=== PATIENT | female | born 1950 | race Caucasian/White ===

== ENCOUNTER 2017-08-31 13:44 | Day surgery (SDC) | payer BC, MEDICARE ==
[~2017-08-31] VITALS: Ht 162.6 cm; Wt 72.7 kg
[~2017-08-31 13:44] MED LIST changes: -ASPI1TAB PO; -CHAN1PAK11 PO; -CHAN1PAK9 PO; -DESITIN EXT; -KEFL500C17 PO
[2017-08-31] MEDS ORDERED: LR 1,000 ML IV SCH ×2 (14:00→18:45)
[2017-08-31 14:19] LABS: MEAN CORPUSCULAR HEMOGLOBIN 29.5 pg (27.0-33.0); MEAN CORPUSCULAR VOLUME 92.1 fl (80.0-96.0); RED CELL DISTRIBUTION WIDTH 12.7 % (11.5-14.5); WHITE BLOOD COUNT 9.2 10^3/uL (4.0-10.0)
[2017-08-31] MEDS ORDERED: ASPI1TAB PO (14:52)
[2017-08-31] MEDS ORDERED: VASOPRESSIN INJ 20 UNITS/ML VIAL As Ordered ONE (16:20)
[2017-08-31] MEDS ORDERED: fentaNYL 100 MCG/2 ML INJECTION (J3010) As Ordered ONE (16:44)
[2017-08-31] MEDS ORDERED: MIDAZOLAM INJ 2 MG/2 ML VIAL (J2250) As Ordered ONE (16:44)
[2017-08-31] MEDS ORDERED: PROPOFOL 200 MG/20 ML VIAL As Ordered ONE (16:44)
[2017-08-31] MEDS ORDERED: fentaNYL 100 MCG/2 ML INJECTION (J3010) IV PRN (18:45)
[2017-08-31] MEDS: LR 1,000 ML IV SCH (18:45)
[2017-08-31] MEDS ORDERED: PERCOCET 5MG/325MG TAB PO PRN (18:45)
[2017-08-31] MEDS ORDERED: ONDANSETRON 4MG/2ML VIAL (J2405) IV PRN (18:45)
[2017-08-31] MEDS ORDERED: HYDROmorphone HCL 1 MG/ML SYRINGE (J1170) IV PRN (18:45)
[2017-08-31 19:45] VITALS: BP 186/83
[2017-08-31 20:15] VITALS: BP 140/70
[2017-08-31 21:15] VITALS: BP 128/59
[2017-08-31] MEDS: DIAPER RELIEF PASTE (DESITIN) 60GM TOP SCH (22:13)
[2017-08-31 22:15] VITALS: BP 114/56
[2017-08-31 23:15] VITALS: BP 129/59
[2017-09-01 00:15] VITALS: BP 122/58
[2017-09-01] MEDS: LR 1,000 ML IV SCH ×2 (01:28→10:09)
[2017-09-01] MEDS: DIAPER RELIEF PASTE (DESITIN) 60GM TOP SCH ×4 (01:28→12:15)
[2017-09-01 04:15] VITALS: BP 135/73
[2017-09-01 07:51] LABS: MEAN CORPUSCULAR HEMOGLOBIN 29.4 pg (27.0-33.0); MEAN CORPUSCULAR HGB CONC 31.8 g/dl (32.0-36.5); MEAN CORPUSCULAR VOLUME 92.3 fl (80.0-96.0); RED CELL DISTRIBUTION WIDTH 12.9 % (11.5-14.5); WHITE BLOOD COUNT 8.5 10^3/uL (4.0-10.0)
[2017-09-01 08:00] VITALS: BP 118/70
[2017-09-01 08:29] LABS: GLOMERULAR FILTRATION RATE > 60.0 (>45)
--- NOTE | 2017-09-01 09:21 | REP ---
CT abdomen and pelvis without IV or oral contrast: History: Evaluate kidneys. No comparison studies. Findings: Preliminary hooker machine tender radiograph shows an unremarkable bowel gas pattern. There are clips in right upper quadrant. There are sclerotic densities in the femoral heads bilaterally on the hooker machine tender view as well as some arthritis in the right hip. Axial and coronal images demonstrate evidence of avascular necrosis of portions of the femoral head on both sides without evidence of flattening. There is some spurring in the right hip. No bony destructive lesion is seen. The lung bases are clear. The liver and spleen are normal in size and homogeneous in texture. A small accessory splenule is seen adjacent to the pancreatic tail. No pancreatic abnormality is observed. No adrenal lesion is seen. The kidneys are morphologically intact. No hydronephrosis is seen. No renal mass or cyst is observed. No retroperitoneal mass or adenopathy is seen. Normal caliber aorta is noted. The appendix is not identified but there is no inflammatory change in the right lower quadrant to suggest appendicitis. There is an edematous pattern surrounding the Robles catheterized urinary bladder. There is edematous streaking in the ischiorectal fat and perivaginal fat in the perineum centrally as well. No free air is seen. The bladder appears essentially collapsed although there may be bladder wall thickening around the Robles catheter. No uterine abnormality is observed. The right ovary is enlarged with a homogeneous oval-shaped lesion 9.5 x 5.9 x 6.3 cm in diameter. This is compatible with an ovarian cystic lesion. No free fluid is noted in the cul-de-sac. The left ovary is also felt to be somewhat enlarged measuring 4.2 x 4.4 x 3.9 cm. No significant cyst or mass is identified in the left ovary. Impression: 1. 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 2. Robles catheter is seen in the bladder. There is question bladder wall thickening diffusely and there is perivesical, perivaginal and perirectal fat infiltration or edema. No abnormal fluid collection is seen. Uterus is unremarkable. 3. There is a 9.5 cm cystic lesion in the right ovary. The left ovary is somewhat enlarged as well for this postmenopausal patient. Question ovarian neoplastic disease. 4. Left colonic diverticulosis is seen. 5. Gallbladder surgically absent. 6. No renal abnormality observed. Signed by Sly Green MD 09/01/2017 11:58 A
--- NOTE | 2017-09-01 10:14 | RO ---
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 Confirmation of large vesicovaginal fistula. This is in the 8-10 cm range of defect vertically and not quite as wide, but a large defect. Also, active infection. PROCEDURE: Removal of vaginal stone and pessary. Vaginal irrigation. Cystourethroscopy. Repair of vesicovaginal fistula. As the patient was aware preoperatively, I have every expectation of this patient needing another repair, nevertheless, given the size of the defect, if I did not close it in any way today the Robles would have simply been in the vagina and she is certainly not in a position with her current inflamed tissue and current infection to have a gracilis flap or that type of repair, so the hope is that we can improve tissue quality, and get her healed up enough for another repair in the future. SURGEON: Anay Boyer MD COMPUTER PROGRAMMER:none ANESTHESIA: Spinal. BRIEF DESCRIPTION OF PROCEDURE AND FINDINGS: Elvira was brought to the operating room where sufficient spinal anesthesia was induced. She was prepped externally and partially vaginally, because of course the stone and the pessary obscured much of the vagina and then also I very carefully worked the Betadine around the area, and then we irrigated with warm saline a full liter, using an IV tubing so that we could guide that around and irrigate the entire area of the tissues. Under anesthesia, it was clear that the vulvitis was in a pattern of just breakdown due to constant urine presence. I had considered the possibility of a herpetic lesion or shingles because there was a dermatome that follows that pattern somewhat and pt reported the vulvar changes came on suddenly during the week before presentation, but under anesthesia we could really see that we did not have a consistent size of ulceration and we had a pattern that looked very much like it was from the urine discharge such as is seen with chemical burn of the vulva due to chronic leakage and presence of urine on the tissue, and, as I will note later in this dictation, we confirmed a markedly large vesicovaginal fistula with just constant drainage of urine irritating those tissues and leading to tissue ulceration and breakdown in this menopausal patient. Under anesthesia I was able manually to break off portions of the stone and separate the connection of the vaginal wall to the stone and to the pessary, especially after we had irrigated because some pieces of stone came out just with irrigation and I was able to note that the pessary was actually upside down with the top part of the Gelhorn in the inferior right and the stem angling up and to the patient's left, though I am not sure why it was in that position. It is certainly not a typical thing, so the stem was digging forward and creating a long midline sort of defect. It was also completely buried under the tissues anteriorly. I was able to carefully bring the pessary out, and then more of the the stone, and then continued to irrigate the tissue further to rinse out any other further stones. Before removing the pessary, I had already catheterized her and seen outright pus and blood come from the bladder, but very little, if it was 10 mL that would be a surprise. Then after I took out the pessary I cystoscoped her. We were not able to get decent bladder distention because there was simply this wholesale pouring of the sterile saline for the cystoscopy out of the bladder into the vagina. I was able to place a finger vaginally and simply place it into the bladder as we were irrigating out the other way with the cystoscope. With the scope we could see my finger move into this large defect, again 8-10 cm in the bladder and a little longer in the vagina and the anterior vaginal wall was inflamed and thickened, about 3 cm thick, as well. With all these changes from this large vesico-vaginal fistula, we removed and freshened the edges, removing as little bladder as we could, really not removing bladder wall, but the edges of the vagina and the thickened tissue within the fistula tract, and we did see, at least on the right side, the ureteral orifice, which appeared to be inferior to this large rent, but the fistula certainly comes down the trigone, it is not really simply confined. Nevertheless, had I stopped there and placed a Robles. I felt the Robles would simply sit in the vagina and hold the defect open. So, we freshened the vaginal and fistula edges and did a multilayer closure with #3-0 Vicryl just to try to close off that defect and minimize that wound so that we could then drain the bladder, try to let the vulva heal up, try to let the vaginal tissues heal up, so that she could have a gracilis flap or other such closure in the future. We were able to get to the point where the bladder would hold fluid, but I did not fill it up as much as we would usually do to see if there was a waterproof closure, because we had such friable tissues and the goal was really to try to get this defect diminished, especially in the face of the active infection that she has and not with the expectation that this primary repair would be sufficient entirely. After the multilayer closure of those tissues though, we were able to see a more typical evaluation. There did not appear to be a matching posterior wall defect , fortunately. The pessary had really been embedded anteriorly and caused the vesicle neck to just drop inferiorly so there was just marked inflammation and thickened tissues there, but I did not have a similar posterior defect so we did not do any work posteriorly and we placed a Robles and got return of cysto fluid and then completed the case. Again, she continued making urine throughout the case, so although this defect does come down to the top of trigone, she did not appear to have ureteral injury nor did I think it would be appropriate in the face of this active infection to place an indwelling stent and try and leave it there. My goal was more to help the patient begin to heal with the expectation of further intervention being necessary. We will be checking an ultrasound in the a.m. to evaluate renal function and look for distention, but at this point we had egress of urine during the beginning of the case for much of that time, so I have every expectation that she continues to have normal ureteral function. I cannot rule out another site of a ureterovaginal fistula on the basis of this exam, but again, it is clear there will be further intervention necessary. I did not want her to have to have general anesthesia for that evaluation nor did I want to retrograde treat her with any of these with the current active infection. ESTIMATED BLOOD LOSS: About 20 mL, just from freshening those edges. FLUID REPLACEMENT: Crystalloid. COMPLICATIONS: This is a complicated case, but there did not appear to be any surgical complications to it. CONDITION/DISPOSITION: Despite her significant injury, Elvira seems to have tolerated the procedure well. She is recovering in the recovery room in good condition thus far. DOUGLAS
[2017-09-01 12:00] VITALS: BP 124/58
[2017-09-01] MEDS ORDERED: ACETAMINOPHEN TAB 650MG DOSE (2X325MG) PO ONE (12:00)
[2017-09-01] MEDS ORDERED: KEFL500C17 PO (16:25)
[2017-09-01] MEDS ORDERED: DESITIN EXT (16:25)
[2017-09-01] MEDS ORDERED: CHAN1PAK11 PO (16:25)
[2017-09-01] MEDS ORDERED: CHAN1PAK9 PO (16:25)
== END 2017-09-01 19:05 | disposition home or self-care (01) ==
LOC: M SDC 13:44 → M PED 19:40 → M SDC 09-01 19:05
PROVIDERS: ATTEND Obstetrics & Gynecology
DX: N89.8 Other specified noninflammatory disorders of vagina (principal); N82.0 Vesicovaginal fistula; N76.2 Acute vulvitis; J45.909 Unspecified asthma, uncomplicated; K21.9 Gastro-esophageal reflux disease without esophagitis; M54.5 Low back pain; G89.29 Other chronic pain; G43.909 Migraine, unspecified, not intractable, without status migrainosus; Z79.899 Other long term (current) drug therapy; Z79.82 Long term (current) use of aspirin; Z96.0 Presence of urogenital implants
CPT/HCPCS: 36415; 52310; 57320; 74176; 82565; 85027; 87088; 88300; J0690; J2250; J3010

== ENCOUNTER → 2017-08-31 | Outpatient (REF) | payer BC, MEDICARE ==
[~2017-08-31] MED LIST: ALBU2TA PO; ASPI1TAB PO; CHAN1PAK11 PO; CHAN1PAK9 PO; DESITIN EXT; FLEX10TA2 PO; IBUP200T2 PO; IBUP600T26 PO; KEFL500C17 PO; PERCOCET PO; ZANT150T PO
[2017-08-31 18:27] LABS: MICROSCOPIC INDICATED? MAN YES (NO)
[2017-08-31 18:41] LABS: SQUAMOUS EPITHELIAL CELL URINE SMALL AMOUNT /hpf (SMALL AMT)
[2017-08-31 18:42] LABS: BACTERIA, URINE SMALL AMOUNT; HYALINE CAST, URINE NONE SEEN /lpf (0-1); MICROSCOPIC EXAM PERFORMED
== END ==
LOC: M LAB REF 16:34
PROVIDERS: ATTEND Obstetrics & Gynecology
DX: N39.0 Urinary tract infection, site not specified (principal)

== ENCOUNTER → 2017-10-03 | Outpatient (REF) | payer MEDICARE ==
[~2017-10-03] MED LIST changes: +ASPI1TAB PO; +CHAN1PAK11 PO; +CHAN1PAK9 PO; +DESITIN EXT; +KEFL500C17 PO
== END ==
LOC: M LAB REF 09:51
PROVIDERS: ATTEND Obstetrics & Gynecology
DX: N32.81 Overactive bladder (principal); N39.41 Urge incontinence

== ENCOUNTER → 2017-10-17 | Outpatient (REF) | payer MEDICARE | LOC: M SMT 17:23 | PROVIDERS: ATTEND Urology | DX: N30.00 Acute cystitis without hematuria (principal) ==

== ENCOUNTER → 2017-11-09 | Outpatient (CLI) | payer MEDICARE, BC ==
[2017-11-09 17:35] LABS: MEAN CORPUSCULAR HEMOGLOBIN 30.7 pg (27.0-33.0); MEAN CORPUSCULAR HGB CONC 31.3 g/dl (32.0-36.5); MEAN CORPUSCULAR VOLUME 98.1 fl (80.0-96.0); PLATELET COUNT, AUTOMATED 276 10^3/uL (150-450); RED CELL DISTRIBUTION WIDTH 14.5 % (11.5-14.5); WHITE BLOOD COUNT 5.8 10^3/uL (4.0-10.0)
[2017-11-09 17:47] LABS: INR 0.97
[2017-11-09 18:01] LABS: ANION GAP 5 MEQ/L (8-16); BLOOD UREA NITROGEN 19 MG/DL (7-18); CALCIUM LEVEL 8.3 MG/DL (8.8-10.2); CARBON DIOXIDE LEVEL 30 MEQ/L (21-32); CHLORIDE LEVEL 106 MEQ/L (98-107); CREATININE FOR GFR 0.83 MG/DL (0.55-1.02); GLOMERULAR FILTRATION RATE > 60.0 (>45); GLUCOSE, FASTING 133 MG/DL (80-110); POTASSIUM SERUM 4.5 MEQ/L (3.5-5.1); SODIUM LEVEL 141 MEQ/L (136-145)
== END ==
LOC: M SMT 10:51
PROVIDERS: ATTEND Nurse Practitioner Women's Health
DX: Z01.818 Encounter for other preprocedural examination (principal); Z79.899 Other long term (current) drug therapy

== ENCOUNTER → 2017-11-09 | Outpatient (REF) | payer MEDICARE, BC ==
[2017-11-09 13:52] LABS: TRIPLE PHOSPHATE CRYSTALS SMALL
== END ==
LOC: M SMT 12:54
PROVIDERS: ATTEND Urology
DX: N30.00 Acute cystitis without hematuria (principal)

== ENCOUNTER 2017-11-30 10:37 | Day surgery (SDC) | payer MEDICARE ==
[2017-11-30] MEDS ORDERED: LIDOCAINE 1% MDV 20ML VIAL SQ (11:00)
[2017-11-30] MEDS: LR 1,000 ML IV (11:45)
[2017-11-30] MEDS ORDERED: PROPOFOL 200 MG/20 ML VIAL As Ordered ×3 (13:16→14:04)
[2017-11-30] MEDS ORDERED: MIDAZOLAM INJ 2 MG/2 ML VIAL (J2250) As Ordered (13:16)
[2017-11-30] MEDS ORDERED: LIDOCAINE 2% INJ 100 MG/5 ML SDV (FOR ANES.) As Ordered (13:16)
[2017-11-30] MEDS ORDERED: fentaNYL 100 MCG/2 ML INJECTION (J3010) As Ordered (13:16)
[2017-11-30] MEDS ORDERED: ONDANSETRON 4MG/2ML VIAL (J2405) As Ordered (13:16)
[2017-11-30] MEDS: METHYLENE BLUE 0.5% (5MG/ML) 10 ML AMP (PROVAYBLUE)(Q9968 PER 1MG) As Ordered (14:14)
[2017-11-30] MEDS ORDERED: KETOROLAC 60 MG/2 ML VIAL (J1885) As Ordered (14:36)
[2017-11-30] MEDS: CONRAY-60 60% 50ML VIAL (Q9961) As Ordered (14:47)
== END 2017-11-30 17:25 | disposition home or self-care (01) ==
LOC: M SDC 10:37
DX: N82.0 Vesicovaginal fistula (principal); J45.909 Unspecified asthma, uncomplicated; Z79.82 Long term (current) use of aspirin; Z87.440 Personal history of urinary (tract) infections; Z72.0 Tobacco use; Z78.0 Asymptomatic menopausal state
CPT/HCPCS: 52332

== ENCOUNTER → 2017-12-20 | Outpatient (REF) | payer MEDICARE ==
[2017-12-20 17:24] LABS: INR 0.97
[2017-12-20 17:25] LABS: PARTIAL THROMBOPLASTIN TIME 37.2 SECONDS (26.8-37.9)
[2017-12-20 17:52] LABS: BASO # 0.1 10^3/uL (0.0-0.2); BASO % 0.8 % (0.0-1.0); EOS # 0.2 10^3/uL (0.0-0.50); EOS % 2.6 % (0.0-3.0); HEMATOCRIT 40.8 % (36.0-47.0); HEMOGLOBIN 13.1 g/dl (12.0-16.0); IMMATURE GRANULOCYTE % 0.4 % (0-0); LYMPH # 1.7 10^3/uL (1.5-4.5); LYMPH % 23.2 % (24.0-44.0); MEAN CORPUSCULAR HEMOGLOBIN 30.5 pg (27.0-33.0); MEAN CORPUSCULAR HGB CONC 32.1 g/dl (32.0-36.5); MEAN CORPUSCULAR VOLUME 95.1 fl (80.0-96.0); MONO # 0.7 10^3/uL (0.0-0.8); MONO % 9.7 % (0.0-5.0); NEUTROPHILS # 4.6 10^3/uL (1.8-7.7); NEUTROPHILS % 63.3 % (36.0-66.0); PLATELET COUNT, AUTOMATED 375 10^3/uL (150-450); RED BLOOD COUNT 4.29 10^6/uL (4.00-5.40); RED CELL DISTRIBUTION WIDTH 12.6 % (11.5-14.5); WHITE BLOOD COUNT 7.2 10^3/uL (4.0-10.0)
[2017-12-20 18:26] LABS: ALBUMIN 3.5 GM/DL (3.2-5.2); ALBUMIN/GLOBULIN RATIO 0.92 (1.00-1.93); ALKALINE PHOSPHATASE 136 U/L (45-117); ALT/SGPT 18 U/L (12-78); ANION GAP 9 MEQ/L (8-16); AST/SGOT 14 U/L (7-37); BILIRUBIN,TOTAL 0.3 MG/DL (0.2-1.0); BLOOD UREA NITROGEN 21 MG/DL (7-18); CALCIUM LEVEL 8.5 MG/DL (8.8-10.2); CARBON DIOXIDE LEVEL 25 MEQ/L (21-32); CHLORIDE LEVEL 107 MEQ/L (98-107); CHOLESTEROL LEVEL 153 MG/DL (<200); CHOLESTEROL RISK RATIO 2.942 (<5); CREATININE FOR GFR 1.01 MG/DL (0.55-1.30); GLOMERULAR FILTRATION RATE 58.4 (>45); GLUCOSE, FASTING 86 MG/DL (70-100); HDL CHOLESTEROL 52 MG/DL (>40); NON-HDL-C 101 MG/DL; POTASSIUM SERUM 4.5 MEQ/L (3.5-5.1); SODIUM LEVEL 141 MEQ/L (136-145); TOTAL PROTEIN 7.3 GM/DL (6.4-8.2); TRIGLYCERIDES LEVEL 100 MG/DL (<150)
== END ==
LOC: M SFHCPLAZ 15:46
DX: J44.9 Chronic obstructive pulmonary disease, unspecified (principal); N20.0 Calculus of kidney; E66.09 Other obesity due to excess calories; Z13.220 Encounter for screening for lipoid disorders; Z23 Encounter for immunization; Z68.31 Body mass index [BMI] 31.0-31.9, adult; Z79.899 Other long term (current) drug therapy
CPT/HCPCS: 84443

== ENCOUNTER → 2017-12-27 | Outpatient (REF) | payer MEDICARE ==
[2017-12-27 16:04] LABS: ALKALINE PHOSPHATASE 171 U/L (45-117); GAMMA GLUTAMYLTRANSPEPTIDASE 122 U/L (5-55)
[2017-12-27 16:37] LABS: ESTIMATED AVERAGE GLUCOSE 126 MG/DL (60-110)
[2017-12-27 16:54] LABS: CREATININE, URINE < 13.0 MG/DL
[2017-12-27 17:12] LABS: LABILE ALKPHOS 97 U/L; STABLE ALKPHOS 74 U/L
[2017-12-27 17:13] LABS: % LABILE ALKALINE PHOSPHATASE 56.7 %
[2017-12-30 11:33] LABS: CA 125 11.1 U/ML (<30.2)
== END ==
LOC: M SFHCPLAZ 12:01
DX: E66.9 Obesity, unspecified (principal); R74.8 Abnormal levels of other serum enzymes; J44.9 Chronic obstructive pulmonary disease, unspecified; Z68.31 Body mass index [BMI] 31.0-31.9, adult; Z79.82 Long term (current) use of aspirin
CPT/HCPCS: 83036

== ENCOUNTER → 2017-12-28 | Outpatient (REF) | payer MEDICARE | LOC: M SFHCPLAZ 08:12 | DX: N83.9 Noninflammatory disorder of ovary, fallopian tube and broad ligament, unspecified (principal) ==

== ENCOUNTER → 2018-01-11 | Outpatient (CLI) | payer MEDICARE | LOC: M RAD 12:14 | DX: J84.9 Interstitial pulmonary disease, unspecified (principal); R06.02 Shortness of breath | CPT/HCPCS: 71046 ==

== ENCOUNTER → 2018-01-19 | Outpatient (REF) | payer MEDICARE ==
[2018-01-19 17:39] LABS: INR 1.07; PROTHROMBIN TIME 14.1 SECONDS (12.4-14.5)
[2018-01-19 17:40] LABS: PARTIAL THROMBOPLASTIN TIME 37.9 SECONDS (26.8-37.9)
[2018-01-19 18:01] LABS: ALBUMIN 2.8 GM/DL (3.2-5.2); ALBUMIN/GLOBULIN RATIO 0.51 (1.00-1.93); ALKALINE PHOSPHATASE 178 U/L (45-117); ALT/SGPT 15 U/L (12-78); ANION GAP 8 MEQ/L (8-16); AST/SGOT 11 U/L (7-37); BILIRUBIN,TOTAL 0.2 MG/DL (0.2-1.0); BLOOD UREA NITROGEN 21 MG/DL (7-18); CALCIUM LEVEL 8.8 MG/DL (8.8-10.2); CARBON DIOXIDE LEVEL 27 MEQ/L (21-32); CHLORIDE LEVEL 105 MEQ/L (98-107); CREATININE FOR GFR 1.48 MG/DL (0.55-1.30); GLOMERULAR FILTRATION RATE 37.6 (>45); GLUCOSE, FASTING 97 MG/DL (70-100); SODIUM LEVEL 140 MEQ/L (136-145); TOTAL PROTEIN 8.3 GM/DL (6.4-8.2)
[2018-01-19 18:34] LABS: BASO # 0.1 10^3/uL (0.0-0.2); EOS # 0.3 10^3/uL (0.0-0.50); EOS % 3.2 % (0.0-3.0); HEMOGLOBIN 10.7 g/dl (12.0-16.0); IMMATURE GRANULOCYTE % 0.2 % (0-3.0); LYMPH # 2.4 10^3/uL (1.5-4.5); LYMPH % 27.4 % (24.0-44.0); MEAN CORPUSCULAR HEMOGLOBIN 29.2 pg (27.0-33.0); MEAN CORPUSCULAR HGB CONC 31.5 g/dl (32.0-36.5); MEAN CORPUSCULAR VOLUME 92.9 fl (80.0-96.0); MONO # 0.6 10^3/uL (0.0-0.8); MONO % 7.2 % (0.0-5.0); NEUTROPHILS # 5.4 10^3/uL (1.8-7.7); PLATELET COUNT, AUTOMATED 689 10^3/uL (150-450); RED BLOOD COUNT 3.66 10^6/uL (4.00-5.40); RED CELL DISTRIBUTION WIDTH 11.9 % (11.5-14.5); WHITE BLOOD COUNT 8.8 10^3/uL (4.0-10.0)
== END ==
LOC: M SFHCPLAZ 16:04
DX: Z01.818 Encounter for other preprocedural examination (principal); N83.9 Noninflammatory disorder of ovary, fallopian tube and broad ligament, unspecified; I10 Essential (primary) hypertension; E66.9 Obesity, unspecified; J44.9 Chronic obstructive pulmonary disease, unspecified; N20.0 Calculus of kidney; N82.0 Vesicovaginal fistula; E78.2 Mixed hyperlipidemia; R73.01 Impaired fasting glucose; Z79.899 Other long term (current) drug therapy; Z72.0 Tobacco use
CPT/HCPCS: 80053

== ENCOUNTER → 2018-01-23 | Outpatient (REF) | payer MEDICARE ==
[2018-01-23 14:01] LABS: APPEARANCE, URINE TURBID (CLEAR); BACTERIA, URINE AUTO 3+ (NEGATIVE); BILIRUBIN, URINE AUTO NEGATIVE (NEGATIVE); BLOOD, URINE BLOOD 1+ (NEGATIVE); COLOR, URINE YELLOW (YELLOW); GLUCOSE, URINE (UA) AUTO NEGATIVE (NEGATIVE); KETONE, URINE AUTO NEGATIVE (NEGATIVE); LEUKOCYTE ESTERASE, URINE AUTO 3+ (NEGATIVE); MUCUS, URINE SMALL (NEGATIVE); NITRITE, URINE AUTO NEGATIVE (NEGATIVE); PROTEIN, URINE AUTO 3+ mg/dL (NEGATIVE); RBC, URINE AUTO 29 /HPF (0-3); SPECIFIC GRAVITY URINE AUTO 1.013 (1.002-1.035); SQUAMOUS EPITHELIAL CELL UR AU 0 /HPF (0-6); UROBILINOGEN, URINE AUTO 0.2 mg/dL (0.0-2.0); WBC, URINE AUTO TNTC /HPF (0-3)
== END ==
LOC: M SFHCPLAZ 11:17
DX: N17.9 Acute kidney failure, unspecified (principal); Z79.899 Other long term (current) drug therapy
CPT/HCPCS: 81001

== ENCOUNTER → 2018-01-24 | Outpatient (CLI) | payer MEDICARE | LOC: M RAD 09:47 | DX: N17.9 Acute kidney failure, unspecified (principal) | CPT/HCPCS: 76775 ==

== ENCOUNTER → 2018-01-30 | Outpatient (REF) | payer MEDICARE ==
[2018-01-30 11:48] LABS: BASO # 0.1 10^3/uL (0.0-0.2); BASO % 0.8 % (0.0-1.0); EOS # 0.4 10^3/uL (0.0-0.50); EOS % 3.8 % (0.0-3.0); HEMATOCRIT 33.4 % (36.0-47.0); HEMOGLOBIN 10.4 g/dl (12.0-16.0); IMMATURE GRANULOCYTE % 0.3 % (0-3.0); LYMPH # 1.7 10^3/uL (1.5-4.5); LYMPH % 17.5 % (24.0-44.0); MEAN CORPUSCULAR HEMOGLOBIN 29.8 pg (27.0-33.0); MEAN CORPUSCULAR HGB CONC 31.1 g/dl (32.0-36.5); MEAN CORPUSCULAR VOLUME 95.7 fl (80.0-96.0); MONO # 0.5 10^3/uL (0.0-0.8); MONO % 4.8 % (0.0-5.0); NEUTROPHILS # 7.1 10^3/uL (1.8-7.7); NEUTROPHILS % 72.8 % (36.0-66.0); PLATELET COUNT, AUTOMATED 454 10^3/uL (150-450); RED BLOOD COUNT 3.49 10^6/uL (4.00-5.40); RED CELL DISTRIBUTION WIDTH 12.7 % (11.5-14.5); WHITE BLOOD COUNT 9.7 10^3/uL (4.0-10.0)
[2018-01-30 12:07] LABS: ANION GAP 8 MEQ/L (8-16); BLOOD UREA NITROGEN 24 MG/DL (7-18); CALCIUM LEVEL 8.6 MG/DL (8.8-10.2); CARBON DIOXIDE LEVEL 26 MEQ/L (21-32); CHLORIDE LEVEL 108 MEQ/L (98-107); CREATININE FOR GFR 1.35 MG/DL (0.55-1.30); GLOMERULAR FILTRATION RATE 41.8 (>45); GLUCOSE, FASTING 138 MG/DL (70-100); PHOSPHORUS LEVEL 3.4 MG/DL (2.5-4.9); POTASSIUM SERUM 4.7 MEQ/L (3.5-5.1); SODIUM LEVEL 142 MEQ/L (136-145)
== END ==
LOC: M SFHCPLAZ 09:12
DX: N17.9 Acute kidney failure, unspecified (principal)
CPT/HCPCS: 80069

== ENCOUNTER → 2018-02-06 | Outpatient (REF) | payer MEDICARE ==
[2018-02-06 12:26] LABS: BASO # 0.1 10^3/uL (0.0-0.2); BASO % 0.9 % (0.0-1.0); EOS # 0.4 10^3/uL (0.0-0.50); HEMATOCRIT 32.5 % (36.0-47.0); HEMOGLOBIN 10.3 g/dl (12.0-16.0); IMMATURE GRANULOCYTE % 0.3 % (0-3.0); LYMPH # 1.8 10^3/uL (1.5-4.5); LYMPH % 20.9 % (24.0-44.0); MEAN CORPUSCULAR HEMOGLOBIN 29.9 pg (27.0-33.0); MEAN CORPUSCULAR HGB CONC 31.7 g/dl (32.0-36.5); MEAN CORPUSCULAR VOLUME 94.5 fl (80.0-96.0); MONO # 0.5 10^3/uL (0.0-0.8); MONO % 6.2 % (0.0-5.0); NEUTROPHILS # 5.9 10^3/uL (1.8-7.7); NEUTROPHILS % 67.7 % (36.0-66.0); PLATELET COUNT, AUTOMATED 381 10^3/uL (150-450); RED BLOOD COUNT 3.44 10^6/uL (4.00-5.40); RED CELL DISTRIBUTION WIDTH 13.7 % (11.5-14.5); WHITE BLOOD COUNT 8.7 10^3/uL (4.0-10.0)
[2018-02-06 12:33] LABS: ANION GAP 8 MEQ/L (8-16); BLOOD UREA NITROGEN 16 MG/DL (7-18); CALCIUM LEVEL 8.4 MG/DL (8.8-10.2); CARBON DIOXIDE LEVEL 26 MEQ/L (21-32); CHLORIDE LEVEL 108 MEQ/L (98-107); CREATININE FOR GFR 1.29 MG/DL (0.55-1.30); GLUCOSE, FASTING 96 MG/DL (70-100); PHOSPHORUS LEVEL 3.2 MG/DL (2.5-4.9); POTASSIUM SERUM 4.4 MEQ/L (3.5-5.1); SODIUM LEVEL 142 MEQ/L (136-145)
[2018-02-06 12:34] LABS: APPEARANCE, URINE TURBID (CLEAR); BACTERIA, URINE AUTO NEGATIVE (NEGATIVE); BILIRUBIN, URINE AUTO NEGATIVE (NEGATIVE); BLOOD, URINE BLOOD 2+ (NEGATIVE); COLOR, URINE YELLOW (YELLOW); GLUCOSE, URINE (UA) AUTO NEGATIVE (NEGATIVE); KETONE, URINE AUTO NEGATIVE (NEGATIVE); LEUKOCYTE ESTERASE, URINE AUTO 3+ (NEGATIVE); MUCUS, URINE SMALL (NEGATIVE); NITRITE, URINE AUTO NEGATIVE (NEGATIVE); PROTEIN, URINE AUTO 2+ mg/dL (NEGATIVE); RBC, URINE AUTO 134 /HPF (0-3); SPECIFIC GRAVITY URINE AUTO 1.008 (1.002-1.035); SQUAMOUS EPITHELIAL CELL UR AU 4 /HPF (0-6); UROBILINOGEN, URINE AUTO 0.2 mg/dL (0.0-2.0); WBC, URINE AUTO TNTC /HPF (0-3); YEAST LIKE CELL URINE AUTO LARGE
== END ==
LOC: M SFHCPLAZ 10:44
DX: N17.9 Acute kidney failure, unspecified (principal); T83.511D Infection and inflammatory reaction due to indwelling urethral catheter, subsequent encounter; N39.0 Urinary tract infection, site not specified
CPT/HCPCS: 80069

== ENCOUNTER 2018-02-14 06:11 | Inpatient (IN) | payer MEDICARE ==
[2018-02-14] MEDS: LIDOCAINE 1% SDV 5 ML VIAL SQ (06:30)
[2018-02-14] MEDS: METHYLENE BLUE 0.5% (5MG/ML) 10 ML AMP (PROVAYBLUE)(Q9968 PER 1MG) As Ordered (07:11)
[2018-02-14] MEDS: CONRAY-60 60% 50ML VIAL (Q9961) As Ordered (07:11)
[2018-02-14] MEDS: LR 1,000 ML IV ×2 (07:14→13:45)
[2018-02-14] MEDS ORDERED: MIDAZOLAM INJ 2 MG/2 ML VIAL (J2250) As Ordered (07:16)
[2018-02-14] MEDS ORDERED: PROPOFOL 200 MG/20 ML VIAL As Ordered ×2 (07:16→12:42)
[2018-02-14] MEDS ORDERED: fentaNYL 100 MCG/2 ML INJECTION (J3010) As Ordered ×2 (07:16→07:31)
[2018-02-14] MEDS ORDERED: VANCOMYCIN 1000 MG/20 ML VIAL (J3370) As Ordered (07:24)
[2018-02-14] MEDS ORDERED: SOD CHL As Ordered (07:25)
[2018-02-14] MEDS ORDERED: GENTAMICIN As Ordered (07:25)
[2018-02-14] MEDS ORDERED: ROCURONIUM BROMIDE 50 MG/5 ML VIAL As Ordered ×2 (07:30→08:42)
[2018-02-14] MEDS ORDERED: LIDOCAINE 2% INJ 100 MG/5 ML SDV (FOR ANES.) As Ordered (07:30)
[2018-02-14] MEDS ORDERED: dexameTHASONE 4 MG/ML 1ML VIAL (J1100) As Ordered (07:39)
[2018-02-14] MEDS: VANCOMYCIN HCL 1,000 MG, VIAL MATE ADAPTER 1 EACH in D5W 250 ML IV ×2 (07:40→19:46)
[2018-02-14] MEDS: GENTAMICIN 100 MG in APPROPRIATE DILUENT 1 EA IV (08:40)
[2018-02-14] MEDS ORDERED: NEOSTIGMINE 10 MG/10 ML VIAL (J2710) As Ordered (08:42)
[2018-02-14] MEDS ORDERED: GLYCOPYRROLATE INJ 0.2 MG/ML 2 ML VIAL As Ordered (08:42)
[2018-02-14] MEDS ORDERED: ONDANSETRON 4MG/2ML VIAL (J2405) As Ordered (08:42)
[2018-02-14] MEDS ORDERED: HYDROmorphone HCL 2 MG/ML 1ML VIAL (J1170) As Ordered (08:42)
[2018-02-14] MEDS ORDERED: ESMOLOL INJ 100MG/10ML VIAL As Ordered (08:48)
[2018-02-14] MEDS: ESTROGENS VAGINAL CREAM 30GM As Ordered (12:22)
[2018-02-14] MEDS ORDERED: fentaNYL 100 MCG/2 ML INJECTION (J3010) IV (13:45)
[2018-02-14] MEDS ORDERED: ONDANSETRON 4MG/2ML VIAL (J2405) IV (13:45)
[2018-02-14] MEDS ORDERED: METOCLOPRAMIDE INJ 10MG/2ML VIAL (J2765) IV (13:45)
[2018-02-14] MEDS ORDERED: HYDROmorphone HCL 1 MG/ML SYRINGE (J1170) IV (13:45)
[2018-02-14] MEDS ORDERED: PERCOCET 5MG/325MG TAB PO (13:45)
[2018-02-14 14:00] LABS: HEMATOCRIT 33.8 % (36.0-47.0); HEMOGLOBIN 10.3 g/dl (12.0-16.0); MEAN CORPUSCULAR HEMOGLOBIN 30.1 pg (27.0-33.0); MEAN CORPUSCULAR HGB CONC 30.5 g/dl (32.0-36.5); MEAN CORPUSCULAR VOLUME 98.8 fl (80.0-96.0); PLATELET COUNT, AUTOMATED 307 10^3/uL (150-450); RED BLOOD COUNT 3.42 10^6/uL (4.00-5.40); RED CELL DISTRIBUTION WIDTH 14.6 % (11.5-14.5); WHITE BLOOD COUNT 14.2 10^3/uL (4.0-10.0)
[2018-02-14] MEDS ORDERED: KETOROLAC 30 MG/ML VIAL (J1885) IV (14:00)
[2018-02-14] MEDS ORDERED: MORPHINE 4 MG/ML 1ML VIAL (J2270) IV (14:00)
[2018-02-14] MEDS: ACETAMINOPHEN 650MG ER TAB (TYLENOL ARTHRITIS) PO ×2 (14:00→21:44)
[2018-02-14] MEDS ORDERED: COMBIVENT RESPIMAT 100-20MCG INHALER 4GM INH (14:15)
[2018-02-14 14:16] LABS: ABG BASE EXCESS -10.2 (-2.0-2.0); ABG O2 SATURATION 98.4 % (95.0-99.0); ABG PARTIAL PRESSURE O2 167.8 mmHg (75.0-100.0); ABG STANDARD HCO3 16.4 MEQ/L (22.0-26.0); ABG TOTAL CO2 26.1 MEQ/L (23.0-31.0)
[2018-02-14 14:18] LABS: ABG PARTIAL PRESSURE CO2 100.7 mmHg (35.0-45.0); ABG pH (ARTERIAL) 6.976 UNITS (7.350-7.450)
[2018-02-14] MEDS: NALOXONE INJ 0.4 MG/1 ML VIAL (J2310) IV (14:23)
[2018-02-14 14:34] LABS: ALBUMIN 2.8 GM/DL (3.2-5.2); ALBUMIN/GLOBULIN RATIO 0.67 (1.00-1.93); ALKALINE PHOSPHATASE 134 U/L (45-117); ALT/SGPT 9 U/L (12-78); ANION GAP 5 MEQ/L (8-16); AST/SGOT 11 U/L (7-37); BILIRUBIN,TOTAL 0.2 MG/DL (0.2-1.0); BLOOD UREA NITROGEN 20 MG/DL (7-18); CALCIUM LEVEL 7.9 MG/DL (8.8-10.2); CARBON DIOXIDE LEVEL 25 MEQ/L (21-32); CHLORIDE LEVEL 112 MEQ/L (98-107); CREATININE FOR GFR 1.29 MG/DL (0.55-1.30); GLUCOSE, FASTING 130 MG/DL (70-100); POTASSIUM SERUM 4.9 MEQ/L (3.5-5.1); SODIUM LEVEL 142 MEQ/L (136-145)
[2018-02-14] MEDS: KETOROLAC 30 MG/ML VIAL (J1885) IV ×2 (14:55→22:54)
[2018-02-14 15:36] LABS: ABG BASE EXCESS -5.4 (-2.0-2.0); ABG HCO3 21.6 MEQ/L (22.0-26.0); ABG O2 SATURATION 95.7 % (95.0-99.0); ABG PARTIAL PRESSURE CO2 48.6 mmHg (35.0-45.0); ABG PARTIAL PRESSURE O2 88.5 mmHg (75.0-100.0); ABG TOTAL CO2 23.1 MEQ/L (23.0-31.0); ABG pH (ARTERIAL) 7.265 UNITS (7.350-7.450)
[2018-02-14] MEDS: KCL 20MEQ IN D5/0.45NS 1000ML 1,000 ML IV ×2 (16:20→22:54)
[2018-02-14] MEDS: PANTOPRAZOLE 40MG INJ (PROTONIX) (C9113) IV (17:02)
[2018-02-14] MEDS: GENTAMICIN 80 MG in APPROPRIATE DILUENT 1 EA IV (21:44)
[2018-02-15 04:41] LABS: HEMATOCRIT 28.8 % (36.0-47.0); HEMOGLOBIN 8.8 g/dl (12.0-16.0); MEAN CORPUSCULAR HEMOGLOBIN 29.5 pg (27.0-33.0); MEAN CORPUSCULAR HGB CONC 30.6 g/dl (32.0-36.5); MEAN CORPUSCULAR VOLUME 96.6 fl (80.0-96.0); PLATELET COUNT, AUTOMATED 270 10^3/uL (150-450); RED BLOOD COUNT 2.98 10^6/uL (4.00-5.40); RED CELL DISTRIBUTION WIDTH 14.7 % (11.5-14.5); WHITE BLOOD COUNT 10.7 10^3/uL (4.0-10.0)
[2018-02-15 04:53] LABS: ANION GAP 7 MEQ/L (8-16); BLOOD UREA NITROGEN 15 MG/DL (7-18); CALCIUM LEVEL 7.2 MG/DL (8.8-10.2); CARBON DIOXIDE LEVEL 22 MEQ/L (21-32); CHLORIDE LEVEL 112 MEQ/L (98-107); CREATININE FOR GFR 1.22 MG/DL (0.55-1.30); GLOMERULAR FILTRATION RATE 46.9 (>45); GLUCOSE, FASTING 146 MG/DL (70-100); POTASSIUM SERUM 4.4 MEQ/L (3.5-5.1); SODIUM LEVEL 141 MEQ/L (136-145)
[2018-02-15] MEDS: ACETAMINOPHEN 650MG ER TAB (TYLENOL ARTHRITIS) PO ×3 (05:13→22:02)
[2018-02-15 05:14] LABS: ABG BASE EXCESS -3.3 (-2.0-2.0); ABG HCO3 21.4 MEQ/L (22.0-26.0); ABG O2 SATURATION 98.6 % (95.0-99.0); ABG PARTIAL PRESSURE CO2 36.7 mmHg (35.0-45.0); ABG PARTIAL PRESSURE O2 136.8 mmHg (75.0-100.0); ABG STANDARD HCO3 21.7 MEQ/L (22.0-26.0); ABG TOTAL CO2 22.5 MEQ/L (23.0-31.0); ABG pH (ARTERIAL) 7.383 UNITS (7.350-7.450)
[2018-02-15] MEDS: KCL 20MEQ IN D5/0.45NS 1000ML 1,000 ML IV ×2 (06:18→14:21)
[2018-02-15] MEDS: KETOROLAC 30 MG/ML VIAL (J1885) IV ×3 (06:18→22:49)
[2018-02-15] MEDS: VANCOMYCIN HCL 1,000 MG, VIAL MATE ADAPTER 1 EACH in D5W 250 ML IV ×2 (07:21→20:53)
[2018-02-15] MEDS: PANTOPRAZOLE 40MG INJ (PROTONIX) (C9113) IV (08:34)
[2018-02-15] MEDS: GENTAMICIN 80 MG in APPROPRIATE DILUENT 1 EA IV ×2 (08:35→22:03)
[2018-02-15] MEDS ORDERED: amLODIPine 5 MG TAB PO (09:00)
[2018-02-15] MEDS: FLUCONAZOLE 100 MG TAB PO (09:14)
[2018-02-15] MEDS ORDERED: NICOTINE POLACRILEX 2 MG GUM PO (09:15)
[2018-02-15] MEDS: ADVAIR HFA 230/21MCG INHALER INH ×2 (09:58→20:46)
[2018-02-15 19:24] LABS: VANCOMYCIN LEVEL TROUGH 18.5 UG/ML (10.0-20.0)
[2018-02-16] MEDS: KCL 20MEQ IN D5/0.45NS 1000ML 1,000 ML IV (00:40)
[2018-02-16 01:08] LABS: GENTAMICIN LEVEL PEAK 4.3 MCG/ML (3.0-10.0)
[2018-02-16 06:31] LABS: HEMATOCRIT 27.3 % (36.0-47.0); HEMOGLOBIN 8.5 g/dl (12.0-16.0); MEAN CORPUSCULAR HEMOGLOBIN 30.2 pg (27.0-33.0); MEAN CORPUSCULAR HGB CONC 31.1 g/dl (32.0-36.5); MEAN CORPUSCULAR VOLUME 97.2 fl (80.0-96.0); PLATELET COUNT, AUTOMATED 239 10^3/uL (150-450); RED BLOOD COUNT 2.81 10^6/uL (4.00-5.40); RED CELL DISTRIBUTION WIDTH 14.7 % (11.5-14.5); WHITE BLOOD COUNT 11.9 10^3/uL (4.0-10.0)
[2018-02-16] MEDS: KETOROLAC 30 MG/ML VIAL (J1885) IV ×2 (06:34→14:13)
[2018-02-16] MEDS: ACETAMINOPHEN 650MG ER TAB (TYLENOL ARTHRITIS) PO ×3 (06:34→21:49)
[2018-02-16 06:49] LABS: ANION GAP 5 MEQ/L (8-16); BLOOD UREA NITROGEN 12 MG/DL (7-18); CALCIUM LEVEL 7.6 MG/DL (8.8-10.2); CARBON DIOXIDE LEVEL 22 MEQ/L (21-32); CHLORIDE LEVEL 114 MEQ/L (98-107); CREATININE FOR GFR 1.18 MG/DL (0.55-1.30); GLOMERULAR FILTRATION RATE 48.8 (>45); GLUCOSE, FASTING 134 MG/DL (70-100); POTASSIUM SERUM 4.2 MEQ/L (3.5-5.1); SODIUM LEVEL 141 MEQ/L (136-145)
[2018-02-16 07:27] LABS: CREATININE BF 1.2 MG/DL (NOT ESTABLISHED); SOURCE, BODY FLUID CREATININE OTHER
[2018-02-16] MEDS: ADVAIR HFA 230/21MCG INHALER INH ×2 (07:59→20:31)
[2018-02-16] MEDS: FLUCONAZOLE 100 MG TAB PO (08:22)
[2018-02-16] MEDS: VANCOMYCIN HCL 1,000 MG, VIAL MATE ADAPTER 1 EACH in D5W 250 ML IV ×2 (08:23→21:49)
[2018-02-16] MEDS: GENTAMICIN 80 MG in APPROPRIATE DILUENT 1 EA IV ×2 (10:52→21:49)
[2018-02-17] MEDS: oxyCODONE 5MG TAB PO ×2 (01:58→09:25)
[2018-02-17] MEDS: ONDANSETRON 4MG/2ML VIAL (J2405) IV ×2 (01:58→09:25)
[2018-02-17] MEDS: ACETAMINOPHEN 650MG ER TAB (TYLENOL ARTHRITIS) PO ×2 (05:54→14:00)
[2018-02-17 07:00] LABS: HEMATOCRIT 26.2 % (36.0-47.0); HEMOGLOBIN 8.2 g/dl (12.0-15.5); MEAN CORPUSCULAR HEMOGLOBIN 30.3 pg (27.0-33.0); MEAN CORPUSCULAR HGB CONC 31.3 g/dl (32.0-36.5); MEAN CORPUSCULAR VOLUME 96.7 fl (80.0-96.0); PLATELET COUNT, AUTOMATED 246 10^3/uL (150-450); RED BLOOD COUNT 2.71 10^6/uL (4.00-5.40); RED CELL DISTRIBUTION WIDTH 14.8 % (11.5-14.5); WHITE BLOOD COUNT 8.6 10^3/uL (4.0-10.0)
[2018-02-17] MEDS: ADVAIR HFA 230/21MCG INHALER INH (07:23)
[2018-02-17 07:26] LABS: ANION GAP 6 MEQ/L (8-16); BLOOD UREA NITROGEN 14 MG/DL (7-18); CALCIUM LEVEL 7.9 MG/DL (8.8-10.2); CARBON DIOXIDE LEVEL 23 MEQ/L (21-32); CHLORIDE LEVEL 113 MEQ/L (98-107); GLOMERULAR FILTRATION RATE 43.6 (>45); GLUCOSE, FASTING 87 MG/DL (70-100); POTASSIUM SERUM 4.1 MEQ/L (3.5-5.1); SODIUM LEVEL 142 MEQ/L (136-145)
[2018-02-17] MEDS: VANCOMYCIN HCL 1,000 MG, VIAL MATE ADAPTER 1 EACH in D5W 250 ML IV (09:24)
[2018-02-17] MEDS: FLUCONAZOLE 100 MG TAB PO (09:24)
[2018-02-17] MEDS: GENTAMICIN 80 MG in APPROPRIATE DILUENT 1 EA IV (12:04)
== END 2018-02-17 14:20 | disposition home or self-care (01) | DRG 653 ==
LOC: M OR 06:11 → M MS5PR 02-15 11:45 → M ICU 16:14
PROC: 0TBB4ZZ Excision of Bladder, Percutaneous Endoscopic Approach (ICD-10-PCS; principal; 2018-02-14 07:30)
PROC: 0UBG4ZZ Excision of Vagina, Percutaneous Endoscopic Approach (ICD-10-PCS; 2018-02-14 07:30)
PROC: 0TU Urinary System, Supplement (ICD-10-PCS; 2018-02-14 07:30)
PROC: 0T784DZ Dilation of Bilateral Ureters with Intraluminal Device, Percutaneous Endoscopic Approach (ICD-10-PCS; 2018-02-14 07:30)
PROC: 8E0W4CZ Robotic Assisted Procedure of Trunk Region, Percutaneous Endoscopic Approach (ICD-10-PCS; 2018-02-14 07:30)
DX: T83.198A Other mechanical complication of other urinary devices and implants, initial encounter (principal); J96.02 Acute respiratory failure with hypercapnia; N17.9 Acute kidney failure, unspecified; N82.0 Vesicovaginal fistula; J44.9 Chronic obstructive pulmonary disease, unspecified; I10 Essential (primary) hypertension; F17.210 Nicotine dependence, cigarettes, uncomplicated; K57.90 Diverticulosis of intestine, part unspecified, without perforation or abscess without bleeding; Z79.82 Long term (current) use of aspirin; Z79.899 Other long term (current) drug therapy

== ENCOUNTER → 2018-03-15 | Outpatient (CLI) | payer MEDICARE ==
[~2018-03-15] MED LIST changes: -ALBU2TA PO; -ASPI1TAB PO; -CHAN1PAK11 PO; -CHAN1PAK9 PO; +CYSTO-CONRAY II 17.2% 250ML VIAL (Q9958) As Ordered; -DESITIN EXT; -FLEX10TA2 PO; -IBUP200T2 PO; -IBUP600T26 PO; -KEFL500C17 PO; -PERCOCET PO; -ZANT150T PO
== END ==
LOC: M RADPRO 11:30
DX: N82.0 Vesicovaginal fistula (principal)
CPT/HCPCS: 51600

== ENCOUNTER → 2018-04-03 | Outpatient (REF) | payer MEDICARE ==
[2018-04-03 12:32] LABS: BASO # 0.1 10^3/uL (0.0-0.2); BASO % 0.7 % (0.0-1.0); EOS # 0.4 10^3/uL (0.0-0.50); EOS % 4.8 % (0.0-3.0); HEMATOCRIT 32.5 % (36.0-47.0); HEMOGLOBIN 9.9 g/dl (12.0-15.5); IMMATURE GRANULOCYTE % 0.7 % (0-3.0); LYMPH # 1.5 10^3/uL (1.5-4.5); LYMPH % 20.1 % (24.0-44.0); MEAN CORPUSCULAR HEMOGLOBIN 28.4 pg (27.0-33.0); MEAN CORPUSCULAR HGB CONC 30.5 g/dl (32.0-36.5); MEAN CORPUSCULAR VOLUME 93.1 fl (80.0-96.0); MONO # 0.4 10^3/uL (0.0-0.8); MONO % 5.6 % (0.0-5.0); NEUTROPHILS # 5.1 10^3/uL (1.8-7.7); NEUTROPHILS % 68.1 % (36.0-66.0); PLATELET COUNT, AUTOMATED 458 10^3/uL (150-450); RED BLOOD COUNT 3.49 10^6/uL (4.00-5.40); RED CELL DISTRIBUTION WIDTH 16.2 % (11.5-14.5); RETIC HEMOGLOBIN EQUIVALENT 30.6 pg (24-36); RETICULOCYTE # 36.6 10^9/L (17-77); RETICULOCYTE % 1.1 % (0.5-1.5); WHITE BLOOD COUNT 7.5 10^3/uL (4.0-10.0)
[2018-04-03 12:36] LABS: HEMATOCRIT 32.5 % (36.0-47.0)
[2018-04-03 12:41] LABS: ALBUMIN 3.4 GM/DL (3.2-5.2); ALBUMIN/GLOBULIN RATIO 0.79 (1.00-1.93); ALKALINE PHOSPHATASE 124 U/L (45-117); ALT/SGPT 10 U/L (12-78); ANION GAP 7 MEQ/L (8-16); AST/SGOT 10 U/L (7-37); BILIRUBIN,TOTAL 0.4 MG/DL (0.2-1.0); BLOOD UREA NITROGEN 33 MG/DL (7-18); CALCIUM LEVEL 8.5 MG/DL (8.8-10.2); CARBON DIOXIDE LEVEL 22 MEQ/L (21-32); CHLORIDE LEVEL 109 MEQ/L (98-107); CHOLESTEROL LEVEL 137 MG/DL (<200); CHOLESTEROL RISK RATIO 3.113 (<5); CPK CREATINE PHOSPHOKINASE 51 U/L (26-192); CREATININE FOR GFR 2.07 MG/DL (0.55-1.30); GLOMERULAR FILTRATION RATE 25.5 (>45); GLUCOSE, FASTING 104 MG/DL (70-100); HDL CHOLESTEROL 44 MG/DL (>40); LDL CHOLESTEROL 79.8 MG/DL (<100); NON-HDL-C 93 MG/DL; SODIUM LEVEL 138 MEQ/L (136-145); TOTAL PROTEIN 7.7 GM/DL (6.4-8.2); TRIGLYCERIDES LEVEL 66 MG/DL (<150)
[2018-04-03 12:44] LABS: POTASSIUM SERUM 5.4 MEQ/L (3.5-5.1)
[2018-04-03 12:59] LABS: VITAMIN B12 LEVEL 386 PG/ML (247-911)
[2018-04-04 10:39] LABS: CARCINOEMBRYONIC ANTIGEN 0.8 NG/ML (<2.5)
[2018-04-04 11:06] LABS: CA 125 16.4 U/ML (<30.2)
[2018-04-04 11:38] LABS: RBC FOLATE 387.7 NG/ML (280-791)
[2018-04-05 12:30] LABS: ALBUMIN % 46.8 % (55.8-66.1); ALPHA-1-GLOBULIN % 6.9 % (2.9-4.9); ALPHA-1-GLOBULINS 0.53 GM/DL (0.17-0.41); ALPHA-2-GLOBULINS % 13.1 % (7.1-11.8); BETA-1-GLOBULINS % 6.6 % (4.7-7.2); GAMMA GLOBULIN % 16.6 % (11.1-18.8)
[2018-04-05 12:31] LABS: ALPHA-2-GLOBULINS 1.01 GM/DL (0.42-0.99); BETA-1-GLOBULINS 0.51 GM/DL (0.28-0.60); BETA-2-GLOBULINS 0.77 GM/DL (0.19-0.55)
[2018-04-05 12:32] LABS: GAMMA GLOBULINS 1.28 GM/DL (0.65-1.58)
== END ==
LOC: M SFHCPLAZ 09:48
DX: D75.89 Other specified diseases of blood and blood-forming organs (principal); E78.2 Mixed hyperlipidemia; N83.9 Noninflammatory disorder of ovary, fallopian tube and broad ligament, unspecified
CPT/HCPCS: 82378

== ENCOUNTER → 2018-04-04 | Outpatient (REF) | payer MEDICARE ==
[2018-04-04 12:00] LABS: ALBUMIN 3.3 GM/DL (3.2-5.2); ANION GAP 7 MEQ/L (8-16); BLOOD UREA NITROGEN 36 MG/DL (7-18); CALCIUM LEVEL 8.6 MG/DL (8.8-10.2); CARBON DIOXIDE LEVEL 22 MEQ/L (21-32); CHLORIDE LEVEL 110 MEQ/L (98-107); CREATININE FOR GFR 2.04 MG/DL (0.55-1.30); GLOMERULAR FILTRATION RATE 25.9 (>45); GLUCOSE, FASTING 106 MG/DL (70-100); PHOSPHORUS LEVEL 4.2 MG/DL (2.5-4.9); SODIUM LEVEL 139 MEQ/L (136-145)
[2018-04-04 12:07] LABS: CARCINOEMBRYONIC ANTIGEN 0.7 NG/ML (<2.5)
[2018-04-04 12:36] LABS: CA 125 15.7 U/ML (<30.2)
== END ==
LOC: M SFHCPLAZ 11:31
DX: N17.9 Acute kidney failure, unspecified (principal); D75.89 Other specified diseases of blood and blood-forming organs; N83.9 Noninflammatory disorder of ovary, fallopian tube and broad ligament, unspecified
CPT/HCPCS: 82378

== ENCOUNTER → 2018-04-06 | Outpatient (REF) | payer MEDICARE ==
[2018-04-06 18:24] LABS: ALBUMIN 3.2 GM/DL (3.2-5.2); ALBUMIN/GLOBULIN RATIO 0.71 (1.00-1.93); ALKALINE PHOSPHATASE 121 U/L (45-117); ALT/SGPT 10 U/L (12-78); ANION GAP 7 MEQ/L (8-16); AST/SGOT 10 U/L (7-37); BILIRUBIN,TOTAL 0.6 MG/DL (0.2-1.0); BLOOD UREA NITROGEN 35 MG/DL (7-18); CALCIUM LEVEL 8.1 MG/DL (8.8-10.2); CARBON DIOXIDE LEVEL 22 MEQ/L (21-32); CHLORIDE LEVEL 109 MEQ/L (98-107); CREATININE FOR GFR 2.36 MG/DL (0.55-1.30); GLOMERULAR FILTRATION RATE 21.9 (>45); GLUCOSE, FASTING 118 MG/DL (70-100); POTASSIUM SERUM 4.6 MEQ/L (3.5-5.1); SODIUM LEVEL 138 MEQ/L (136-145); TOTAL PROTEIN 7.7 GM/DL (6.4-8.2)
[2018-04-06 18:37] LABS: BASO # 0.1 10^3/uL (0.0-0.2); BASO % 0.6 % (0.0-1.0); EOS # 0.3 10^3/uL (0.0-0.50); EOS % 3.7 % (0.0-3.0); HEMATOCRIT 32.6 % (36.0-47.0); HEMOGLOBIN 9.8 g/dl (12.0-15.5); IMMATURE GRANULOCYTE % 0.1 % (0-3.0); LYMPH # 1.9 10^3/uL (1.5-4.5); LYMPH % 21.6 % (24.0-44.0); MEAN CORPUSCULAR HEMOGLOBIN 28.2 pg (27.0-33.0); MEAN CORPUSCULAR HGB CONC 30.1 g/dl (32.0-36.5); MEAN CORPUSCULAR VOLUME 93.7 fl (80.0-96.0); MONO # 0.7 10^3/uL (0.0-0.8); MONO % 7.2 % (0.0-5.0); NEUTROPHILS % 66.8 % (36.0-66.0); PLATELET COUNT, AUTOMATED 408 10^3/uL (150-450); RED BLOOD COUNT 3.48 10^6/uL (4.00-5.40); RED CELL DISTRIBUTION WIDTH 16.2 % (11.5-14.5)
== END ==
LOC: M SFHCPLAZ 16:01
DX: J44.9 Chronic obstructive pulmonary disease, unspecified (principal)
CPT/HCPCS: 80053

== ENCOUNTER → 2018-04-07 | Outpatient (REF) | payer MEDICARE ==
[2018-04-07 14:21] LABS: ANION GAP 8 MEQ/L (8-16); BLOOD UREA NITROGEN 33 MG/DL (7-18); CALCIUM LEVEL 8.3 MG/DL (8.8-10.2); CARBON DIOXIDE LEVEL 20 MEQ/L (21-32); CHLORIDE LEVEL 112 MEQ/L (98-107); CREATININE FOR GFR 2.12 MG/DL (0.55-1.30); GLOMERULAR FILTRATION RATE 24.8 (>45); GLUCOSE, FASTING 139 MG/DL (70-100); MAGNESIUM LEVEL 2.5 MG/DL (1.8-2.4); POTASSIUM SERUM 4.8 MEQ/L (3.5-5.1); SODIUM LEVEL 140 MEQ/L (136-145)
[2018-04-07 16:12] LABS: APPEARANCE, URINE CLOUDY (CLEAR); BACTERIA, URINE AUTO 3+ (NEGATIVE); BILIRUBIN, URINE AUTO NEGATIVE (NEGATIVE); BLOOD, URINE BLOOD 3+ (NEGATIVE); COLOR, URINE YELLOW (YELLOW); GLUCOSE, URINE (UA) AUTO NEGATIVE (NEGATIVE); KETONE, URINE AUTO NEGATIVE (NEGATIVE); LEUKOCYTE ESTERASE, URINE AUTO 3+ (NEGATIVE); NITRITE, URINE AUTO NEGATIVE (NEGATIVE); PROTEIN, URINE AUTO 2+ mg/dL (NEGATIVE); RBC, URINE AUTO TNTC /HPF (0-3); SPECIFIC GRAVITY URINE AUTO 1.014 (1.002-1.035); SQUAMOUS EPITHELIAL CELL UR AU 7 /HPF (0-6); UROBILINOGEN, URINE AUTO 0.2 mg/dL (0.0-2.0); WBC, URINE AUTO TNTC /HPF (0-3); YEAST LIKE CELL URINE AUTO SMALL
== END ==
LOC: M SFHCPLAZ 13:00
DX: N17.9 Acute kidney failure, unspecified (principal); N82.0 Vesicovaginal fistula
CPT/HCPCS: 83735

== ENCOUNTER → 2018-04-10 | Outpatient (CLI) | payer MEDICARE | LOC: M WHC 08:35 | DX: N83.291 Other ovarian cyst, right side (principal); N85.4 Malposition of uterus; N17.9 Acute kidney failure, unspecified | CPT/HCPCS: 83735 ==

== ENCOUNTER → 2018-04-10 | Outpatient (REF) | payer MEDICARE ==
[2018-04-10 14:30] LABS: ALKALINE PHOSPHATASE 126 U/L (45-117); ALT/SGPT 15 U/L (12-78); ANION GAP 9 MEQ/L (8-16); AST/SGOT 11 U/L (7-37); BILIRUBIN,TOTAL 0.2 MG/DL (0.2-1.0); BLOOD UREA NITROGEN 21 MG/DL (7-18); CALCIUM LEVEL 8.5 MG/DL (8.8-10.2); CARBON DIOXIDE LEVEL 22 MEQ/L (21-32); CHLORIDE LEVEL 110 MEQ/L (98-107); CREATININE FOR GFR 1.84 MG/DL (0.55-1.30); GLOMERULAR FILTRATION RATE 29.2 (>45); GLUCOSE, FASTING 126 MG/DL (70-100); POTASSIUM SERUM 4.5 MEQ/L (3.5-5.1); SODIUM LEVEL 141 MEQ/L (136-145)
[2018-04-10 14:31] LABS: MAGNESIUM LEVEL 2.4 MG/DL (1.8-2.4)
== END ==
LOC: M SFHCPLAZ 10:57
DX: N17.9 Acute kidney failure, unspecified (principal)
CPT/HCPCS: 83735

== ENCOUNTER → 2018-04-19 | Day surgery (SDC) | payer MEDICARE ==
[~2018-04-19] MED LIST changes: +CONRAY-60 60% 50ML VIAL (Q9961) As Ordered; -CYSTO-CONRAY II 17.2% 250ML VIAL (Q9958) As Ordered; +ESTROGENS VAGINAL CREAM 30GM As Ordered; +LIDOCAINE 2% INJ 100 MG/5 ML SDV (FOR ANES.) As Ordered; +MIDAZOLAM INJ 2 MG/2 ML VIAL (J2250) As Ordered; +PROPOFOL 200 MG/20 ML VIAL As Ordered; +dexameTHASONE 4 MG/ML 1ML VIAL (J1100) As Ordered; +fentaNYL 250 MCG/5 ML INJECTION (J3010) As Ordered
[2018-04-19] MEDS: LR 1,000 ML IV (08:45)
== END | disposition home or self-care (01) ==
LOC: M SDC 07:54
DX: N82.0 Vesicovaginal fistula (principal); I10 Essential (primary) hypertension; J44.9 Chronic obstructive pulmonary disease, unspecified; K57.30 Diverticulosis of large intestine without perforation or abscess without bleeding; E78.00 Pure hypercholesterolemia, unspecified; R06.02 Shortness of breath; M12.9 Arthropathy, unspecified; J45.909 Unspecified asthma, uncomplicated; R32 Unspecified urinary incontinence; Z78.0 Asymptomatic menopausal state
CPT/HCPCS: 52332

== ENCOUNTER → 2018-05-01 | Outpatient (REF) | payer MEDICARE ==
[2018-05-01 12:22] LABS: CK-MB VALUE MASS < 1.0 NG/ML (<3.6); CPK CREATINE PHOSPHOKINASE 31 U/L (26-192); MB/CK RELATIVE INDEX 3.22 (< OR =4); TROPONIN I < 0.02 NG/ML (< 0.10)
== END ==
LOC: M SFHCPLAZ 11:03
DX: R07.9 Chest pain, unspecified (principal)
CPT/HCPCS: 82550

== ENCOUNTER → 2018-05-18 | Outpatient (CLI) | payer MEDICARE ==
[~2018-05-18] MED LIST changes: -CONRAY-60 60% 50ML VIAL (Q9961) As Ordered; +CYSTO-CONRAY II 17.2% 250ML VIAL (Q9958) As Ordered; -ESTROGENS VAGINAL CREAM 30GM As Ordered; -LIDOCAINE 2% INJ 100 MG/5 ML SDV (FOR ANES.) As Ordered; -MIDAZOLAM INJ 2 MG/2 ML VIAL (J2250) As Ordered; -PROPOFOL 200 MG/20 ML VIAL As Ordered; -dexameTHASONE 4 MG/ML 1ML VIAL (J1100) As Ordered; -fentaNYL 250 MCG/5 ML INJECTION (J3010) As Ordered
== END ==
LOC: M RADPRO 13:48
DX: N82.0 Vesicovaginal fistula (principal)
CPT/HCPCS: 51610

== ENCOUNTER → 2018-05-29 | Outpatient (REF) | payer MEDICARE ==
[2018-05-29 14:05] LABS: AMORPHOUS SEDIMENT SMALL (NEGATIVE); APPEARANCE, URINE TURBID (CLEAR); BACTERIA, URINE AUTO 2+ (NEGATIVE); BILIRUBIN, URINE AUTO NEGATIVE (NEGATIVE); BLOOD, URINE BLOOD 3+ (NEGATIVE); COLOR, URINE YELLOW (YELLOW); GLUCOSE, URINE (UA) AUTO NEGATIVE (NEGATIVE); KETONE, URINE AUTO NEGATIVE (NEGATIVE); LEUKOCYTE ESTERASE, URINE AUTO 3+ (NEGATIVE); NITRITE, URINE AUTO POSITIVE (NEGATIVE); PROTEIN, URINE AUTO 2+ mg/dL (NEGATIVE); RBC, URINE AUTO TNTC /HPF (0-3); SPECIFIC GRAVITY URINE AUTO 1.013 (1.002-1.035); SQUAMOUS EPITHELIAL CELL UR AU 0 /HPF (0-6); TRANSITIONAL EPITHELIAL AUTO 1 /HPF; UROBILINOGEN, URINE AUTO 0.2 mg/dL (0.0-2.0); WBC, URINE AUTO TNTC /HPF (0-3)
== END ==
LOC: M SMT 13:24
DX: Z01.818 Encounter for other preprocedural examination (principal); N82.0 Vesicovaginal fistula
CPT/HCPCS: 81001

== ENCOUNTER → 2018-06-30 | Outpatient (CLI) | payer MEDICARE ==
[2018-06-30 10:45] LABS: HEMATOCRIT 33.5 % (36.0-47.0); HEMOGLOBIN 10.7 g/dl (12.0-15.5); MEAN CORPUSCULAR HEMOGLOBIN 28.6 pg (27.0-33.0); MEAN CORPUSCULAR HGB CONC 31.9 g/dl (32.0-36.5); MEAN CORPUSCULAR VOLUME 89.6 fl (80.0-96.0); PLATELET COUNT, AUTOMATED 417 10^3/uL (150-450); RED BLOOD COUNT 3.74 10^6/uL (4.00-5.40); RED CELL DISTRIBUTION WIDTH 16.1 % (11.5-14.5)
[2018-06-30 11:01] LABS: INR 0.95; PROTHROMBIN TIME 12.8 SECONDS (12.1-14.4)
[2018-06-30 11:10] LABS: ANION GAP 9 MEQ/L (8-16); BLOOD UREA NITROGEN 22 MG/DL (7-18); CALCIUM LEVEL 8.3 MG/DL (8.8-10.2); CARBON DIOXIDE LEVEL 24 MEQ/L (21-32); CHLORIDE LEVEL 109 MEQ/L (98-107); CREATININE FOR GFR 1.56 MG/DL (0.55-1.30); GLOMERULAR FILTRATION RATE 35.2 (>45); GLUCOSE, FASTING 117 MG/DL (70-100); SODIUM LEVEL 142 MEQ/L (136-145)
== END ==
LOC: M LAB 10:24
DX: Z01.812 Encounter for preprocedural laboratory examination (principal); N82.0 Vesicovaginal fistula
CPT/HCPCS: 80048

== ENCOUNTER 2018-07-04 05:52 | Inpatient (IN) | payer MEDICARE ==
[2018-07-04] MEDS: LR 1,000 ML IV ×2 (06:50→15:34)
[2018-07-04] MEDS: VANCOMYCIN HCL 1,000 MG, VIAL MATE ADAPTER 1 EACH in D5W 250 ML IV (07:45)
[2018-07-04] MEDS ORDERED: PROPOFOL 200 MG/20 ML VIAL As Ordered (08:08)
[2018-07-04] MEDS ORDERED: LIDOCAINE 2% INJ 100 MG/5 ML SDV (FOR ANES.) As Ordered (08:08)
[2018-07-04] MEDS ORDERED: ROCURONIUM BROMIDE 50 MG/5 ML VIAL As Ordered ×3 (08:09→11:58)
[2018-07-04] MEDS ORDERED: MIDAZOLAM INJ 2 MG/2 ML VIAL (J2250) As Ordered (08:18)
[2018-07-04] MEDS ORDERED: fentaNYL 100 MCG/2 ML INJECTION (J3010) As Ordered ×4 (08:19→13:37)
[2018-07-04] MEDS: GENTAMICIN 100 MG in APPROPRIATE DILUENT 1 EA IV (08:50)
[2018-07-04] MEDS ORDERED: PHENYLephrine HCL 500 MCG/5 ML (100MCG/ML) SYRINGE (J2370) As Ordered (08:51)
[2018-07-04] MEDS ORDERED: dexameTHASONE 4 MG/ML 1ML VIAL (J1100) As Ordered ×2 (10:37)
[2018-07-04] MEDS: ACETAMINOPHEN 650MG ER TAB (TYLENOL ARTHRITIS) PO ×2 (14:00→21:17)
[2018-07-04] MEDS ORDERED: ONDANSETRON 4MG/2ML VIAL (J2405) As Ordered (15:11)
[2018-07-04] MEDS ORDERED: SUGAMMADEX SODIUM 500 MG/5 ML VIAL (BRIDION) As Ordered (15:11)
[2018-07-04] MEDS: ESTROGENS VAGINAL CREAM 30GM As Ordered (15:20)
[2018-07-04] MEDS: METHYLENE BLUE 0.5% (5MG/ML) 10 ML AMP (PROVAYBLUE)(Q9968 PER 1MG) As Ordered (15:21)
[2018-07-04] MEDS: CONRAY-60 60% 50ML VIAL (Q9961) As Ordered (15:21)
[2018-07-04] MEDS: LEVALBUTEROL 1.25 MG/0.5 ML CONCENTRATE NEB INH (16:00)
[2018-07-04] MEDS ORDERED: LEVALBUTEROL 1.25 MG/0.5 ML CONCENTRATE NEB As Ordered (16:05)
[2018-07-04 16:06] LABS: HEMATOCRIT 35.1 % (36.0-47.0); HEMOGLOBIN 10.8 g/dl (12.0-15.5); MEAN CORPUSCULAR HEMOGLOBIN 28.9 pg (27.0-33.0); MEAN CORPUSCULAR HGB CONC 30.8 g/dl (32.0-36.5); MEAN CORPUSCULAR VOLUME 93.9 fl (80.0-96.0); PLATELET COUNT, AUTOMATED 373 10^3/uL (150-450); RED BLOOD COUNT 3.74 10^6/uL (4.00-5.40); RED CELL DISTRIBUTION WIDTH 16.4 % (11.5-14.5); WHITE BLOOD COUNT 10.9 10^3/uL (4.0-10.0)
[2018-07-04] MEDS ORDERED: PERCOCET 5MG/325MG TAB PO (16:15)
[2018-07-04] MEDS ORDERED: KCL 20MEQ IN D5/0.45NS 1000ML 1,000 ML IV (16:15)
[2018-07-04] MEDS ORDERED: ONDANSETRON 4MG/2ML VIAL (J2405) IV ×2 (16:15→16:30)
[2018-07-04] MEDS ORDERED: HYDROMORPHONE HCL 0.5 MG/ 0.5 ML SYRINGE (J1170 PER 1) IV (16:15)
[2018-07-04] MEDS ORDERED: fentaNYL 100 MCG/2 ML INJECTION (J3010) IV (16:15)
[2018-07-04 16:17] LABS: ANION GAP 8 MEQ/L (8-16); BLOOD UREA NITROGEN 24 MG/DL (7-18); CALCIUM LEVEL 7.9 MG/DL (8.8-10.2); CARBON DIOXIDE LEVEL 22 MEQ/L (21-32); CHLORIDE LEVEL 111 MEQ/L (98-107); CREATININE FOR GFR 2.08 MG/DL (0.55-1.30); GLOMERULAR FILTRATION RATE 25.3 (>45); GLUCOSE, FASTING 123 MG/DL (70-100); SODIUM LEVEL 141 MEQ/L (136-145)
[2018-07-04 16:18] LABS: POTASSIUM SERUM 5.5 MEQ/L (3.5-5.1)
[2018-07-04] MEDS ORDERED: MORPHINE 4 MG/ML 1ML VIAL/SYRINGE (J2270) IV (17:30)
[2018-07-04] MEDS: cefTRIAXone SOD 1 GM in D5W MINI-BAG PLUS 50 ML IV (18:00)
[2018-07-04] MEDS: D5W/0.45% SODIUM CHLORIDE 1,000 ML IV (18:45)
[2018-07-04] MEDS: oxyCODONE 5MG TAB PO (19:26)
[2018-07-04] MEDS: PANTOPRAZOLE 40MG INJ (PROTONIX) (C9113) IV (21:17)
[2018-07-05] MEDS ORDERED: UNRESOLVED CLARIFICATION ENTRY XX (00:01)
[2018-07-05] MEDS: oxyCODONE 5MG TAB PO ×5 (04:27→23:34)
[2018-07-05] MEDS: D5W/0.45% SODIUM CHLORIDE 1,000 ML IV (05:14)
[2018-07-05] MEDS: cefTRIAXone SOD 1 GM in D5W MINI-BAG PLUS 50 ML IV ×2 (05:14→18:11)
[2018-07-05] MEDS: ACETAMINOPHEN 650MG ER TAB (TYLENOL ARTHRITIS) PO ×2 (05:48→13:36)
[2018-07-05 06:30] LABS: HEMATOCRIT 30.5 % (36.0-47.0); HEMOGLOBIN 9.4 g/dl (12.0-15.5); MEAN CORPUSCULAR HEMOGLOBIN 28.8 pg (27.0-33.0); MEAN CORPUSCULAR HGB CONC 30.8 g/dl (32.0-36.5); MEAN CORPUSCULAR VOLUME 93.6 fl (80.0-96.0); PLATELET COUNT, AUTOMATED 334 10^3/uL (150-450); RED BLOOD COUNT 3.26 10^6/uL (4.00-5.40); RED CELL DISTRIBUTION WIDTH 16.5 % (11.5-14.5); WHITE BLOOD COUNT 15.8 10^3/uL (4.0-10.0)
[2018-07-05 06:48] LABS: ANION GAP 6 MEQ/L (8-16); BLOOD UREA NITROGEN 21 MG/DL (7-18); CALCIUM LEVEL 7.5 MG/DL (8.8-10.2); CARBON DIOXIDE LEVEL 24 MEQ/L (21-32); CHLORIDE LEVEL 111 MEQ/L (98-107); CREATININE FOR GFR 1.73 MG/DL (0.55-1.30); GLOMERULAR FILTRATION RATE 31.3 (>45); GLUCOSE, FASTING 149 MG/DL (70-100); POTASSIUM SERUM 4.9 MEQ/L (3.5-5.1); SODIUM LEVEL 141 MEQ/L (136-145)
[2018-07-05] MEDS: ATORVASTATIN 20 MG TAB PO (09:24)
[2018-07-05] MEDS: amLODIPine 5 MG TAB PO (09:25)
[2018-07-05] MEDS: COMBIVENT RESPIMAT 100-20MCG INHALER 4GM INH (14:06)
[2018-07-05] MEDS: MAALOX 30 ML SUSP *UDC PO (19:05)
[2018-07-05] MEDS: PANTOPRAZOLE 40MG INJ (PROTONIX) (C9113) IV (20:47)
[2018-07-06 06:51] LABS: HEMATOCRIT 31.3 % (36.0-47.0); HEMOGLOBIN 9.4 g/dl (12.0-15.5); MEAN CORPUSCULAR VOLUME 93.2 fl (80.0-96.0); PLATELET COUNT, AUTOMATED 343 10^3/uL (150-450); RED BLOOD COUNT 3.36 10^6/uL (4.00-5.40); WHITE BLOOD COUNT 14.3 10^3/uL (4.0-10.0)
[2018-07-06 07:09] LABS: ANION GAP 7 MEQ/L (8-16); BLOOD UREA NITROGEN 18 MG/DL (7-18); CALCIUM LEVEL 7.8 MG/DL (8.8-10.2); CARBON DIOXIDE LEVEL 26 MEQ/L (21-32); CHLORIDE LEVEL 107 MEQ/L (98-107); CREATININE FOR GFR 1.63 MG/DL (0.55-1.30); GLOMERULAR FILTRATION RATE 33.5 (>45); GLUCOSE, FASTING 79 MG/DL (70-100); POTASSIUM SERUM 4.3 MEQ/L (3.5-5.1); SODIUM LEVEL 140 MEQ/L (136-145)
[2018-07-06] MEDS: MAALOX 30 ML SUSP *UDC PO ×3 (08:01→17:42)
[2018-07-06] MEDS: ATORVASTATIN 20 MG TAB PO (08:02)
[2018-07-06] MEDS: amLODIPine 5 MG TAB PO (08:04)
[2018-07-06] MEDS: oxyCODONE 5MG TAB PO ×3 (08:05→21:21)
[2018-07-06] MEDS: cefTRIAXone SOD 1 GM in D5W MINI-BAG PLUS 50 ML IV (17:41)
[2018-07-06] MEDS: PANTOPRAZOLE 40MG INJ (PROTONIX) (C9113) IV (21:20)
[2018-07-07] MEDS: oxyCODONE 5MG TAB PO ×2 (05:56→12:57)
[2018-07-07 07:00] LABS: HEMATOCRIT 30.6 % (36.0-47.0); HEMOGLOBIN 9.5 g/dl (12.0-15.5); MEAN CORPUSCULAR HEMOGLOBIN 29.1 pg (27.0-33.0); MEAN CORPUSCULAR VOLUME 93.9 fl (80.0-96.0); PLATELET COUNT, AUTOMATED 292 10^3/uL (150-450); RED BLOOD COUNT 3.26 10^6/uL (4.00-5.40); RED CELL DISTRIBUTION WIDTH 16.7 % (11.5-14.5); WHITE BLOOD COUNT 11.9 10^3/uL (4.0-10.0)
[2018-07-07 07:15] LABS: ANION GAP 7 MEQ/L (8-16); BLOOD UREA NITROGEN 17 MG/DL (7-18); CALCIUM LEVEL 7.8 MG/DL (8.8-10.2); CARBON DIOXIDE LEVEL 26 MEQ/L (21-32); CHLORIDE LEVEL 108 MEQ/L (98-107); GLOMERULAR FILTRATION RATE 36.9 (>45); GLUCOSE, FASTING 101 MG/DL (70-100); POTASSIUM SERUM 4.2 MEQ/L (3.5-5.1); SODIUM LEVEL 141 MEQ/L (136-145)
[2018-07-07] MEDS: amLODIPine 5 MG TAB PO (08:03)
[2018-07-07] MEDS: ATORVASTATIN 20 MG TAB PO (08:03)
[2018-07-07] MEDS: MAALOX 30 ML SUSP *UDC PO ×2 (08:03→12:57)
== END 2018-07-07 13:00 | disposition home or self-care (01) | DRG 747 ==
LOC: M OR 05:52 → M MS5PR 18:00
PROC: 0UBG4ZZ Excision of Vagina, Percutaneous Endoscopic Approach (ICD-10-PCS; principal; 2018-07-04 07:30)
PROC: 0UU Female Reproductive System, Supplement (ICD-10-PCS; 2018-07-04 07:30)
PROC: 0T1 Urinary System, Bypass (ICD-10-PCS; 2018-07-04 07:30)
PROC: 8E0W4CZ Robotic Assisted Procedure of Trunk Region, Percutaneous Endoscopic Approach (ICD-10-PCS; 2018-07-04 07:30)
PROC: 0T774DZ Dilation of Left Ureter with Intraluminal Device, Percutaneous Endoscopic Approach (ICD-10-PCS; 2018-07-04 07:30)
PROC: 0TJB8ZZ Inspection of Bladder, Via Natural or Artificial Opening Endoscopic (ICD-10-PCS; 2018-07-04 07:30)
DX: N82.0 Vesicovaginal fistula (principal); I10 Essential (primary) hypertension; G43.909 Migraine, unspecified, not intractable, without status migrainosus; K57.90 Diverticulosis of intestine, part unspecified, without perforation or abscess without bleeding; Z88.1 Allergy status to other antibiotic agents; Z79.899 Other long term (current) drug therapy

== ENCOUNTER 2018-08-09 08:29 | Day surgery (SDC) | payer MEDICARE ==
[~2018-08-09 08:29] MED LIST changes: -CYSTO-CONRAY II 17.2% 250ML VIAL (Q9958) As Ordered; +LR 1,000 ML IV
[2018-08-09] MEDS: CONRAY-60 60% 50ML VIAL (Q9961) As Ordered (10:53)
[2018-08-09] MEDS ORDERED: PROPOFOL 200 MG/20 ML VIAL As Ordered (11:18)
[2018-08-09] MEDS ORDERED: dexameTHASONE 4 MG/ML 1ML VIAL (J1100) As Ordered (11:18)
[2018-08-09] MEDS ORDERED: LIDOCAINE 2% INJ 100 MG/5 ML SDV (FOR ANES.) As Ordered (11:18)
[2018-08-09] MEDS ORDERED: MIDAZOLAM INJ 2 MG/2 ML VIAL (J2250) As Ordered (11:18)
[2018-08-09] MEDS ORDERED: ONDANSETRON 4MG/2ML VIAL (J2405) As Ordered (11:18)
[2018-08-09] MEDS ORDERED: fentaNYL 100 MCG/2 ML INJECTION (J3010) As Ordered (11:18)
[2018-08-09] MEDS ORDERED: ePHEDrine SULFATE 25 MG/5 ML(5MG/ML) SYRINGE As Ordered (11:31)
[2018-08-09] MEDS ORDERED: HYDROMORPHONE HCL 0.5 MG/ 0.5 ML SYRINGE (J1170 PER 1) IV (12:15)
[2018-08-09] MEDS ORDERED: LR 1,000 ML IV (12:15)
[2018-08-09] MEDS ORDERED: ONDANSETRON 4MG/2ML VIAL (J2405) IV (12:15)
[2018-08-09] MEDS ORDERED: fentaNYL 100 MCG/2 ML INJECTION (J3010) IV (12:15)
[2018-08-09] MEDS ORDERED: MORPHINE 10 MG/ML 1ML VIAL (J2270) IV (12:15)
[2018-08-09] MEDS ORDERED: PERCOCET 5MG/325MG TAB PO (12:15)
[2018-08-09] MEDS ORDERED: BACTRIM 160MG/800MG DS TAB PO (21:00)
== END 2018-08-09 13:45 | disposition home or self-care (01) ==
LOC: M SDC 08:29
DX: N82.0 Vesicovaginal fistula (principal); J44.9 Chronic obstructive pulmonary disease, unspecified; I10 Essential (primary) hypertension; G43.909 Migraine, unspecified, not intractable, without status migrainosus; K57.30 Diverticulosis of large intestine without perforation or abscess without bleeding; E78.00 Pure hypercholesterolemia, unspecified; M12.9 Arthropathy, unspecified; R29.898 Other symptoms and signs involving the musculoskeletal system; R06.83 Snoring; Z72.0 Tobacco use
CPT/HCPCS: 52310

== ENCOUNTER → 2018-11-17 | Outpatient (REF) | payer MEDICARE ==
[~2018-11-17] MED LIST changes: +ALBU2TA PO; +AMLO5TAB6 PO; +ASPI1TAB PO; +ASPI81CH32 PO; +ATOR40TA75 PO; +BACT800T5 PO; +CHAN1PAK11 PO; +CHAN1PAK13 PO; +CIPR500T3 PO; +CLAR1TAB2 PO; +COMBAER6 INH; +DESITIN EXT; +FLEX10TA2 PO; +FLUC10TA PO; +IBUP200T2 PO; +IBUP600T26 PO; +KEFL500C17 PO; -LR 1,000 ML IV; +PERCOCET PO; +PROAAER10 INH; +SPIR1CAP INH; +TYLE650T35 PO; +ZANT150T PO; +[UNRECOGNIZED DRUG - REMARK] INH
[2018-11-17 16:03] LABS: HEMOGLOBIN A1c 5.2 %
== END ==
LOC: M SFHCPLAZ 09:28
PROVIDERS: ATTEND Physician Assistant Medical
DX: R73.01 Impaired fasting glucose (principal)

== ENCOUNTER → 2018-12-05 | Outpatient (REF) | payer MEDICARE ==
[2018-12-05 15:49] LABS: BASO # 0.1 10^3/uL (0.0-0.2); BASO % 0.8 % (0.0-1.0); EOS # 0.2 10^3/uL (0.0-0.50); EOS % 1.5 % (0.0-3.0); HEMATOCRIT 37.5 % (36.0-47.0); HEMOGLOBIN 11.6 g/dl (12.0-15.5); LYMPH # 1.9 10^3/uL (1.5-4.5); LYMPH % 18.4 % (24.0-44.0); MEAN CORPUSCULAR HEMOGLOBIN 29.1 pg (27.0-33.0); MEAN CORPUSCULAR HGB CONC 30.9 g/dl (32.0-36.5); MONO # 0.5 10^3/uL (0.0-0.8); MONO % 5.2 % (0.0-5.0); NEUTROPHILS # 7.5 10^3/uL (1.8-7.7); NEUTROPHILS % 73.8 % (36.0-66.0); PLATELET COUNT, AUTOMATED 378 10^3/uL (150-450); RED BLOOD COUNT 3.99 10^6/uL (4.00-5.40); WHITE BLOOD COUNT 10.1 10^3/uL (4.0-10.0)
[2018-12-05 16:06] LABS: ALBUMIN 3.3 GM/DL (3.2-5.2); BILIRUBIN,TOTAL 0.5 MG/DL (0.2-1.0); CALCIUM LEVEL 8.4 MG/DL (8.8-10.2); CREATININE FOR GFR 2.68 MG/DL (0.55-1.30); FREE T4 1.32 NG/DL (0.76-1.46); GLOMERULAR FILTRATION RATE 18.9 (>45); POTASSIUM SERUM 4.9 MEQ/L (3.5-5.1); THYROID STIMULATING HORMONE 2.52 uIU/ML (0.358-3.740); TOTAL PROTEIN 7.9 GM/DL (6.4-8.2)
== END ==
LOC: M SFHCPLAZ 13:59
PROVIDERS: ATTEND Physician Assistant Medical
DX: I10 Essential (primary) hypertension (principal); E66.9 Obesity, unspecified
CPT/HCPCS: 36415; 80053; 84439; 84443; 85025; G0463

== ENCOUNTER → 2018-12-06 | Outpatient (CLI) | payer MEDICARE ==
--- NOTE | 2018-12-06 11:00 | REP ---
URINARY TRACT SONOGRAPHY: HISTORY: Acute kidney injury. Comparison urinary tract sonography is from January 24, 2018. The patient has a history of ureteral stents but is not sure if she still has then in place. TODAY'S SONOGRAPHIC FINDINGS: There is moderate bilateral hydronephrosis again seen. The 13 mm diameter proximal ureter is noted on the right and a 16 mm diameter proximal ureter is noted on the left. This is similar to hydronephrosis seen on the right and more prominent than the hydronephrosis seen on the left in comparison with the prior study of February 07, 2018. The stents could not be visualized sonographically on either side. Scanning at the level of the urinary bladder shows that it is essentially empty. No bladder abnormality is observed. No renal mass or cyst is observed. The right kidney measures 11.1 x 4.2 x 6.0 cm. Left renal dimensions are 10.6 x 4.7 x 4.7 cm. Doppler flow is normal in both kidneys. Resistive indices are 0.69 and 0.62 on the right and left respectively. IMPRESSION: Moderate bilateral hydronephrosis, more prominent on the left than on the prior study. The ureteral stents cannot be visualized sonographically. The patient is unsure whether she still has ureteral stents in place. The bladder was poorly seen as it is largely empty. Electronically Signed by Sly Green MD 12/06/2018 07:37 P
== END ==
LOC: M RAD 09:36
PROVIDERS: ATTEND Physician Assistant Medical
DX: N17.9 Acute kidney failure, unspecified (principal)

== ENCOUNTER 2018-12-12 12:22 | Outpatient (CLI) | payer MEDICARE ==
[2018-12-12] MEDS ORDERED: LIDOCAINE 1% MDV 20ML VIAL As Ordered ONE (12:25)
[2018-12-12] MEDS ORDERED: ISOVUE-300 61% 50ML VIAL (Q9967) As Ordered ONE (12:25)
[2018-12-12] MEDS ORDERED: cefTRIAXone SOD 1 GM VIAL (J0696) As Ordered ONE (12:25)
[2018-12-12] MEDS ORDERED: fentaNYL 100 MCG/2 ML INJECTION (J3010) As Ordered ONE (13:03)
[2018-12-12] MEDS ORDERED: MIDAZOLAM INJ 2 MG/2 ML VIAL (J2250) As Ordered ONE (13:03)
[2018-12-12 15:05] VITALS: BP 157/81
--- NOTE | 2018-12-12 17:37 | REP ---
BILATERAL NEPHROSTOMY DRAINAGE CATHETER INSERTION Procedure was performed under the direct supervision of Dr. Green. The patient has a history of bilateral hydronephrosis seen on a previous ultrasound dated 12/06/2018. The risks and benefits of the procedure were explained to the patient and informed consent was obtained. Medication: 1 gram of Rocephin Anesthetic: 14 ml of 1% lidocaine Estimated blood loss: Less than 2 ml Fluoroscopy time: 2.2 minutes Contrast: 20 ml of Isovue 300 Anesthesia was present throughout the case for sedation and pain control. The patient was brought into the interventional suite and placed on the table in the prone position. A time out was performed. The right and left renal collecting systems were localized using ultrasound guidance. The skin was prepped and draped in a sterile fashion. 1% lidocaine was used as a local anesthetic. The right kidney was addressed first. The right renal collecting system was localized using ultrasound guidance. Using ultrasound guidance a 21-gauge needle was inserted and advanced into the collecting system.. A nephrostogram was performed. A 0.018 guidewire was inserted and advanced into the ureter. The needle was removed and a 4.5 Mauritanian dilator and sheath was inserted over the guide wire. 5 ml of urine was withdrawn and sent to the lab for analysis. The guidewire was removed and a 0.035 guidewire was inserted and advanced into the ureter. The sheath was removed and an 8-Mauritanian Skater APDL catheter was inserted. The loop of the catheter was formed in the renal pelvis. A nephrostogram was again performed. Images demonstrate no evidence of mass or filling defect. The ureter is seen to the level of the vascular crossing. The distal third of the ureter is not opacified. The left kidney was then addressed. The left renal collecting system was localized using ultrasound guidance. Using ultrasound guidance a 21-gauge needle was inserted and advanced into the collecting system. 5 ml of urine was collected and sent to the lab for analysis. A nephrostogram was performed. A 0.018 guide wire was inserted and advanced into the ureter. The needle was removed and a 4.5 Mauritanian dilator and sheath was inserted over the guide wire. The guidewire was removed and a 0.035 guidewire was inserted into the collecting system. The sheath was removed and an 8-Mauritanian Skater APDL catheter was inserted over the guide wire. The loop of the catheter was formed in the renal pelvis. A nephrostogram was again performed. Images demonstrate no evidence of mass or filling defect. The ureter is seen to the level of the vascular crossing. The distal third of the ureter is not opacified. The catheters were affixed to the skin and attached to a gravity drainage bags. Sterile dressings were applied. The patient tolerated the procedure well and there were no immediate complications. The patient will return for exchange of bilateral nephrostomy drainage catheters in 8 - 10 weeks or sooner if needed. Reviewed by MICHAEL Killian 12/12/2018 04:55 P Electronically Signed by Sly Green MD 12/12/2018 05:27 P
== END 2018-12-12 15:27 | disposition home or self-care (01) ==
LOC: M SDC 12:22 → M RADPRO 15:27
PROVIDERS: ATTEND Urology
DX: N13.30 Unspecified hydronephrosis (principal); J44.9 Chronic obstructive pulmonary disease, unspecified; N18.9 Chronic kidney disease, unspecified; Z79.899 Other long term (current) drug therapy; Z98.890 Other specified postprocedural states
CPT/HCPCS: 50432; 76000; 76942; 87070; 87075; 87077; 87186; 87205; 99156; 99157; C1729; C1894; J0696; J2250; J3010; Q9967

== ENCOUNTER → 2019-03-30 | Outpatient (REF) | payer MEDICARE ==
[~2019-03-30] MED LIST changes: -ASPI1TAB PO; -ASPI81CH32 PO; +ASPI81CH33 PO; +ASPI81TA26 PO; +DESI40PS3 EXT; -DESITIN EXT; +OXYC1TAB23 PO; -PERCOCET PO
[2019-03-30 12:08] LABS: BASO % 0.4 % (0.0-1.0); EOS # 0.3 10^3/uL (0.0-0.50); EOS % 3.5 % (0.0-3.0); HEMATOCRIT 37.1 % (36.0-47.0); HEMOGLOBIN 11.1 g/dl (12.0-15.5); LYMPH # 1.5 10^3/uL (1.5-4.5); LYMPH % 21.5 % (24.0-44.0); MEAN CORPUSCULAR HEMOGLOBIN 30.2 pg (27.0-33.0); MEAN CORPUSCULAR HGB CONC 29.9 g/dl (32.0-36.5); MEAN CORPUSCULAR VOLUME 100.8 fl (80.0-96.0); MONO # 0.5 10^3/uL (0.0-0.8); MONO % 6.5 % (0.0-5.0); NEUTROPHILS # 4.8 10^3/uL (1.8-7.7); NEUTROPHILS % 67.8 % (36.0-66.0); PLATELET COUNT, AUTOMATED 339 10^3/uL (150-450); RED BLOOD COUNT 3.68 10^6/uL (4.00-5.40); WHITE BLOOD COUNT 7.1 10^3/uL (4.0-10.0)
[2019-03-30 12:22] LABS: ALBUMIN 3.4 GM/DL (3.2-5.2); BILIRUBIN,TOTAL 0.5 MG/DL (0.2-1.0); CALCIUM LEVEL 8.7 MG/DL (8.8-10.2); CHOLESTEROL RISK RATIO 2.74 (<5); CREATININE FOR GFR 2.38 MG/DL (0.55-1.30); FREE T4 1.19 NG/DL (0.76-1.46); GLOMERULAR FILTRATION RATE 21.6 (>45); POTASSIUM SERUM 4.5 MEQ/L (3.5-5.1); THYROID STIMULATING HORMONE 3.69 uIU/ML (0.358-3.740); TOTAL PROTEIN 7.5 GM/DL (6.4-8.2)
[2019-03-30 12:33] LABS: HEMOGLOBIN A1c 5.1 %
== END ==
LOC: M SFHCPLAZ 08:34
PROVIDERS: ATTEND Physician Assistant Medical
DX: E78.2 Mixed hyperlipidemia (principal); R73.01 Impaired fasting glucose; E66.9 Obesity, unspecified; N18.3 Chronic kidney disease, stage 3 (moderate); I12.9 Hypertensive chronic kidney disease with stage 1 through stage 4 chronic kidney disease, or unspecified chronic kidney disease

== ENCOUNTER → 2019-08-20 | Outpatient (REF) | payer MEDICARE ==
[2019-08-20 17:18] LABS: BASO # 0.1 10^3/uL (0.0-0.2); EOS # 0.1 10^3/uL (0.0-0.5); EOS % 1.3 % (0.0-3.0); HEMATOCRIT 42.8 % (36.0-47.0); HEMOGLOBIN 13.5 g/dl (12.0-15.5); LYMPH # 2.3 10^3/uL (1.5-5.0); LYMPH % 24.8 % (24.0-44.0); MEAN CORPUSCULAR HEMOGLOBIN 32.3 pg (27.0-33.0); MEAN CORPUSCULAR HGB CONC 31.5 g/dl (32.0-36.5); MEAN CORPUSCULAR VOLUME 102.4 fl (80.0-96.0); MONO # 0.6 10^3/uL (0.0-0.8); MONO % 6.3 % (0.0-5.0); NEUTROPHILS # 6.1 10^3/uL (1.5-8.5); NEUTROPHILS % 66.4 % (36.0-66.0); PLATELET COUNT, AUTOMATED 312 10^3/uL (150-450); RED BLOOD COUNT 4.18 10^6/uL (4.00-5.40); WHITE BLOOD COUNT 9.1 10^3/uL (4.0-10.0)
[2019-08-20 17:27] LABS: ALBUMIN 3.8 GM/DL (3.2-5.2); BILIRUBIN,TOTAL 0.6 MG/DL (0.2-1.0); CALCIUM LEVEL 9.1 MG/DL (8.8-10.2); CREATININE FOR GFR 2.19 MG/DL (0.55-1.30); GLOMERULAR FILTRATION RATE 23.8 (>45); PERCENT SATURATION 17.6 % (13.2-45.0); POTASSIUM SERUM 4.7 MEQ/L (3.5-5.1); TOTAL PROTEIN 7.5 GM/DL (6.4-8.2)
[2019-08-20 17:29] LABS: HEMOGLOBIN A1c 5.2 %
== END ==
LOC: M SFHCPLAZ 15:16
PROVIDERS: ATTEND Physician Assistant Medical
DX: N17.9 Acute kidney failure, unspecified (principal); D50.8 Other iron deficiency anemias; R73.01 Impaired fasting glucose
CPT/HCPCS: 36415; 80053; 82728; 83036; 83550; 85025; 90732; G0009; G0402; G0463

== ENCOUNTER → 2019-08-23 | Outpatient (CLI) | payer MEDICARE ==
--- NOTE | 2019-08-23 15:14 | REP ---
HISTORY: Abdominal wall hernia. COMPARISON: 09/01/2017, the only prior. The lack of intravenous contrast deceases the sensitivity of the exam. No oral bowel preparatory contrast was administered prior to the exam further limiting it. There is no significant change in the appearance of the lung bases. There are no pleural or pericardial effusions. The liver, spleen, pancreas and adrenal glands are essentially unchanged and again seen to be within normal limits. There is mild bilateral hydronephrosis and hydroureter. The ureters are seen diverted into a loop of small bowel. There is no abnormal perinephric stranding. The abdominal aorta is essentially unchanged. There is mild paraaortic adenopathy, which represents a change from the prior exam. There is a large right-sided parasagittal parastomal hernia which contains both large and small bowel. The small bowel component involves the terminal ileum. There is no evidence of intestinal obstruction. There is no evidence of free fluid or free air. CT PELVIS: Once again, there are large bilateral cystic lesions in the adnexa likely bilateral ovarian cysts. These have decreased in size compared to the prior exam. There is no free fluid or free air in the pelvis. The urinary bladder is absent, status post cystectomy. There is no evidence of pelvic sidewall adenopathy. There is no evidence of inguinal adenopathy. There is mild sigmoid colon diverticulosis. Bone window technique throughout the exam shows bilateral femoral head sclerotic densities, unchanged from the prior exam. Chronic spinal degenerative changes are also noted, status quo. IMPRESSION: 1. Status post cystectomy with ileoconduit resulting in mild bilateral hydronephrosis and hydroureter to the level of the small bowel anastomosis. 2. There is a large right parasagittal parastomal hernia through which large and small bowel resides as described above. 3. Bilateral ovarian cysts are suspected, but improved from the prior exam. Consider followup with pelvic ultrasound if clinically relevant. 4. Sclerotic femoral head lesions bilaterally suggesting chronic changes from AVN. 5. Other findings as described above. Electronically Signed by Jas Hylton DO 08/23/2019 04:43 P
== END ==
LOC: M RAD 07:43
PROVIDERS: ATTEND Nurse Practitioner Women's Health
DX: N32.1 Vesicointestinal fistula (principal); K43.9 Ventral hernia without obstruction or gangrene; Z93.6 Other artificial openings of urinary tract status; K57.30 Diverticulosis of large intestine without perforation or abscess without bleeding; K43.5 Parastomal hernia without obstruction or gangrene

== ENCOUNTER → 2019-10-30 | Outpatient (CLI) | payer MEDICARE ==
[~2019-10-30] MED LIST changes: +ASPI-255 PO; +CELE100C PO; +DOCU100C16 PO; +GABA-843 PO
[2019-10-30 18:24] LABS: ALBUMIN 4.1 GM/DL (3.2-5.2); BILIRUBIN,TOTAL 0.3 MG/DL (0.2-1.0); CALCIUM LEVEL 9.1 MG/DL (8.8-10.2); CREATININE FOR GFR 2.05 MG/DL (0.55-1.30); GLOMERULAR FILTRATION RATE 25.6 (>45); IMMUNOGLOBULIN M 31.7 MG/DL (40-230); POTASSIUM SERUM 4.5 MEQ/L (3.5-5.1); TOTAL PROTEIN 8.3 GM/DL (6.4-8.2)
[2019-10-30 18:28] LABS: BASO # 0.1 10^3/uL (0.0-0.2); BASO % 0.9 % (0.0-1.0); EOS # 0.1 10^3/uL (0.0-0.5); HEMATOCRIT 45.2 % (36.0-47.0); HEMOGLOBIN 13.7 g/dl (12.0-15.5); LYMPH # 1.9 10^3/uL (1.5-5.0); LYMPH % 20.4 % (24.0-44.0); MEAN CORPUSCULAR HEMOGLOBIN 32.5 pg (27.0-33.0); MEAN CORPUSCULAR HGB CONC 30.3 g/dl (32.0-36.5); MEAN CORPUSCULAR VOLUME 107.4 fl (80.0-96.0); MONO # 0.4 10^3/uL (0.0-0.8); MONO % 4.7 % (0.0-5.0); NEUTROPHILS # 6.8 10^3/uL (1.5-8.5); NEUTROPHILS % 72.7 % (36.0-66.0); PLATELET COUNT, AUTOMATED 295 10^3/uL (150-450); RED BLOOD COUNT 4.21 10^6/uL (4.00-5.40); WHITE BLOOD COUNT 9.3 10^3/uL (4.0-10.0)
[2019-10-30 18:33] LABS: INR 1.07; PROTHROMBIN TIME 13.6 SECONDS (11.8-14.0)
[2019-10-30 18:34] LABS: PARTIAL THROMBOPLASTIN TIME 30.8 SECONDS (25.0-38.4)
== END ==
LOC: M PLALAB 12:41
PROVIDERS: ATTEND Family Medicine
DX: Z01.818 Encounter for other preprocedural examination (principal); K43.5 Parastomal hernia without obstruction or gangrene; D75.89 Other specified diseases of blood and blood-forming organs; N18.3 Chronic kidney disease, stage 3 (moderate); N82.0 Vesicovaginal fistula; N83.9 Noninflammatory disorder of ovary, fallopian tube and broad ligament, unspecified; E66.9 Obesity, unspecified; I10 Essential (primary) hypertension; J44.9 Chronic obstructive pulmonary disease, unspecified; N20.0 Calculus of kidney; E78.2 Mixed hyperlipidemia; R73.01 Impaired fasting glucose; Z12.31 Encounter for screening mammogram for malignant neoplasm of breast; Z12.2 Encounter for screening for malignant neoplasm of respiratory organs; Z12.11 Encounter for screening for malignant neoplasm of colon; Z72.0 Tobacco use
CPT/HCPCS: 36415; 80053; 82607; 82728; 82784; 85025; 85046; 85610; 85730; 93005; G0463

== ENCOUNTER 2019-11-05 07:21 | Inpatient (IN) | payer MEDICARE ==
[~2019-11-05] VITALS: Ht 162.6 cm; Wt 78.7 kg
[~2019-11-05 07:21] MED LIST changes: +ALVIMOPAN 12 MG CAPSULE (ENTEREG) PO ONE; +AMPICILLIN SOD/SULBACTAM SOD 3 GM in D5W MINI-BAG PLUS 100 ML IV ONE; -CELE100C PO; -DOCU100C16 PO; -GABA-843 PO; +HEPARIN SOD (PORCINE) 5000 UNITS/ML VIAL SQ ONE; +LIDOCAINE 1% MDV 20ML VIAL SQ PRN; +LR 1,000 ML IV ONE
[2019-11-05] MEDS ORDERED: ONDANSETRON 4MG/2ML VIAL (J2405) As Ordered ONE (08:15)
[2019-11-05] MEDS ORDERED: PROPOFOL 200 MG/20 ML VIAL As Ordered ONE ×4 (08:15→21:31)
[2019-11-05] MEDS ORDERED: dexameTHASONE 4 MG/ML 1ML VIAL (J1100) As Ordered ONE (08:15)
[2019-11-05] MEDS ORDERED: LIDOCAINE 2% INJ 100 MG/5 ML SDV (FOR ANES.) As Ordered ONE (08:15)
[2019-11-05] MEDS ORDERED: KETOROLAC 60 MG/2 ML VIAL (J1885) As Ordered ONE (08:15)
[2019-11-05] MEDS ORDERED: ROCURONIUM BROMIDE 50 MG/5 ML VIAL As Ordered ONE ×5 (08:15→17:21)
[2019-11-05] MEDS ORDERED: ALBUTEROL SULFATE 2.5 MG/0.5 ML INH NEB SOLN INH ONE (09:00)
[2019-11-05] MEDS ORDERED: fentaNYL 250 MCG/5 ML INJECTION (J3010) As Ordered ONE (09:20)
[2019-11-05] MEDS ORDERED: MIDAZOLAM INJ 2 MG/2 ML VIAL (J2250) As Ordered ONE (09:21)
[2019-11-05] MEDS ORDERED: LIDOCAINE 1% SDV INJ 30 ML VIAL As Ordered ONE (09:27)
[2019-11-05] MEDS ORDERED: BUPIVACAINE HCL 0.25% 30 ML VIAL As Ordered ONE ×2 (09:27→10:34)
[2019-11-05] MEDS ORDERED: BUPIVACAINE HCL 0.25% 10 ML VIAL As Ordered ONE (10:03)
[2019-11-05] MEDS ORDERED: ACETAMINOPHEN 1000MG 100ML IV BTL (OFIRMEV) (J0131 PER 10MG) As Ordered ONE ×2 (10:09→20:39)
[2019-11-05] MEDS ORDERED: LACRILUBE (AKWA TEARS) OPHTH OINT 3.5 GM As Ordered ONE (10:17)
[2019-11-05] MEDS ORDERED: LABETALOL HCL 100 MG/20 ML VIAL As Ordered ONE (10:54)
[2019-11-05] MEDS ORDERED: SUGAMMADEX SODIUM 500 MG/5 ML VIAL (BRIDION) As Ordered ONE (10:54)
[2019-11-05] MEDS ORDERED: fentaNYL 100 MCG/2 ML INJECTION (J3010) As Ordered ONE ×2 (11:59→12:54)
[2019-11-05] MEDS ORDERED: UNASYN 1.5 GM VIAL As Ordered ONE ×2 (12:55→16:44)
[2019-11-05] MEDS ORDERED: HYDROmorphone HCL 2 MG/ML 1ML VIAL (J1170) As Ordered ONE (15:09)
[2019-11-05] MEDS ORDERED: LR 1,000 ML IV SCH ×2 (22:27→23:00)
[2019-11-05] MEDS ORDERED: PROPOFOL 1,000 MG/100 ML VIAL As Ordered ONE (22:30)
[2019-11-05] MEDS ORDERED: TIOTROPIUM INHALER/CAPSULE (SPIRIVA) INH PRN (22:30)
[2019-11-05] MEDS ORDERED: MORPHINE 2 MG/ML 1ML VIAL (J2270) IV PRN (22:30)
[2019-11-05] MEDS ORDERED: KETOROLAC 30 MG/ML VIAL (J1885) IV PRN (22:30)
[2019-11-05] MEDS ORDERED: ONDANSETRON 4MG/2ML VIAL (J2405) IV PRN (22:30)
[2019-11-05] MEDS: PROPOFOL 1,000 MG in IV 1 EA IV SCH (22:40)
[2019-11-05] MEDS ORDERED: oxyCODONE 5MG TAB PO PRN (23:00)
[2019-11-05] MEDS ORDERED: fentaNYL 100 MCG/2 ML INJECTION (J3010) IV PRN (23:00)
--- NOTE | 2019-11-05 23:15 | REPVR ---
PROCEDURE INFORMATION: Exam: XR Abdomen, 1 View Exam date and time: 11/05/2019 10:32 PM Age: 69 years old Clinical history: Screening exam; Post surgical status; Possible miss count for suture; Additional info: Possible foreign object, suture count in question TECHNIQUE: Imaging protocol: XR of the abdomen. Views: Frontal supine view of the abdomen. 1 View. COMPARISON: [place] - CT ABD PELVIS W/O CONTRAST 08/23/2019 8:01:48 AM RENAL US 12/06/2018 10:11 AM FINDINGS: Tubes, catheters and devices: There is a tube projecting over the right lower quadrant and right side of the pelvis. There is an enteric tube terminating in the proximal stomach with the side port located at the gastroesophageal junction. Lower thorax: There is a left basilar airspace opacity. Gastrointestinal tract: Unremarkable. No bowel dilation is noted. Intraperitoneal space: There are surgical clips in the right upper quadrant of the abdomen secondary to a cholecystectomy. There is suture material in the right lower quadrant of the abdomen related to a small bowel anastomosis that can also be seen in the prior CT abdomen and pelvis on 08/23/2019. Vasculature: There are atherosclerotic calcifications. Bones/joints: There are old healed fractures of the right lateral 9th rib and right posterolateral 10th rib. Soft tissues: There is extensive gas in the soft tissues in the chest and abdominal wall. IMPRESSION: 1. Surgical clips in the right upper quadrant of the abdomen, a tube projecting over the right lower quadrant and right side of the pelvis, an enteric tube in the proximal stomach with the side port located at the gastroesophageal junction, and suture material in the right lower quadrant of the abdomen related to a small bowel anastomosis that can also be seen in the prior CT abdomen and pelvis on 08/23/2019. Otherwise, no radioopaque foreign body in the abdomen or pelvis. 2. Left basilar airspace opacity, which may represent pneumonia or aspiration pneumonia. Electronically signed by: Joss Moore On 11/05/2019 23:15:10 PM
[2019-11-05 23:21] LABS: HEMATOCRIT 38.3 % (36.0-47.0); HEMOGLOBIN 11.5 g/dl (12.0-15.5); MEAN CORPUSCULAR HEMOGLOBIN 32.5 pg (27.0-33.0); MEAN CORPUSCULAR VOLUME 108.2 fl (80.0-96.0); PLATELET COUNT, AUTOMATED 256 10^3/uL (150-450); RED BLOOD COUNT 3.54 10^6/uL (4.00-5.40); WHITE BLOOD COUNT 18.3 10^3/uL (4.0-10.0)
[2019-11-05 23:24] LABS: ABG BASE EXCESS -9.3 (-2.0-2.0); ABG HCO3 19.8 MEQ/L (22.0-26.0); ABG O2 SATURATION 98.4 % (95.0-99.0); ABG PARTIAL PRESSURE CO2 58.4 mmHg (35.0-45.0); ABG PARTIAL PRESSURE O2 133.4 mmHg (75.0-100.0); ABG TOTAL CO2 21.6 MEQ/L (23.0-31.0)
[2019-11-05 23:25] LABS: ABG pH (ARTERIAL) 7.149 UNITS (7.350-7.450)
[2019-11-05 23:42] VITALS: BP 137/77
[2019-11-05 23:45] VITALS: BP 146/80
[2019-11-05 23:50] VITALS: BP 161/82
--- NOTE | 2019-11-05 23:51 | POST-OPPD ---
Postoperative Procedure Note Date Of Procedure: Nov 05, 2019 PREOPERATIVE DIAGNOSIS: midline ventral/incisional hernia, parastomal hernia, diastases of midline muscles POSTOPERATIVE DIAGNOSIS: same FINDINGS: midline hernia 9x8 cms with extension of diastases (5 cms in widest dimension)associated with the herniation down to the pubis; 4x7 cms parastomal hernia related to her ileal conduit, disruption of the linea semilunaris on that side, contraction of associated muscles (transversus abdominis, internal oblique) PROCEDURE: Robotic assisted Laparoscopic repair of both incisional (midline) and parstomal hernia (right lower quadrant), recreation of linea semilunaris eTEP bilateral transversus abdominis release with gprvs, preperitoneal sugarbaker placement of mesh SURGEON: Walter Woo MD TRANSIT VEHICLE INSPECTOR: Ruthann Cross NP ANESTHESIA: General Anesthesia SPECIMENS: none ESTIMATED BLOOD LOSS: 50 mLs REPLACED: 4.5 L crystalloids DRAINS: none COMPLICATIONS: patient remains intubated overnight, subcutaneous emphysema related to laparoscopy POSTOPERATIVE CONDITION: relatively stable WALTER WOO MD Nov 05, 2019 23:51
[2019-11-05 23:55] VITALS: BP 151/92
[2019-11-06] VITALS (43 sets, daily range): BP systolic 86–172; BP diastolic 52–90; O2SAT 98
[2019-11-06] MEDS ORDERED: fentaNYL 100 MCG/2 ML INJECTION (J3010) IV PRN
[2019-11-06 00:02] LABS: CALCIUM LEVEL 8.3 MG/DL (8.8-10.2); CREATININE FOR GFR 2.25 MG/DL (0.55-1.30); POTASSIUM SERUM 6.1 MEQ/L (3.5-5.1)
[2019-11-06 00:05] LABS: ATYPICAL LYMPH 1 % (0-5); LYMPHOCYTES 3 % (16-44); MONOCYTES 4 % (0-5); NEUTROPHILS 92 % (28-66); PLATELET ESTIMATE NORMAL (NORMAL)
[2019-11-06] MEDS ORDERED: CALCIUM GLUCONATE 1,000 MG in D5W MINI-BAG PLUS 100 ML IV ONE (00:15)
[2019-11-06] MEDS: IPRATROPIUM 0.5MG/ALBUTEROL 2.5MG INH SOL UD 3ML (DUONEB)(J7620) NEB SCH ×4 (01:29→19:57)
[2019-11-06 01:34] LABS: ABG BASE EXCESS -5.3 (-2.0-2.0); ABG HCO3 20.9 MEQ/L (22.0-26.0); ABG O2 SATURATION 98.2 % (95.0-99.0); ABG PARTIAL PRESSURE CO2 43.7 mmHg (35.0-45.0); ABG PARTIAL PRESSURE O2 110.7 mmHg (75.0-100.0); ABG STANDARD HCO3 20.1 MEQ/L (22.0-26.0); ABG TOTAL CO2 22.3 MEQ/L (23.0-31.0); ABG pH (ARTERIAL) 7.298 UNITS (7.350-7.450)
[2019-11-06] MEDS: PROPOFOL 1,000 MG in IV 1 EA IV SCH ×2 (02:53→06:33)
[2019-11-06] MEDS ORDERED: MIDAZOLAM INJ 2 MG/2 ML VIAL (J2250) As Ordered ONE (03:17)
[2019-11-06] MEDS ORDERED: MIDAZOLAM INJ 2 MG/2 ML VIAL (J2250) IV PRN (03:30)
[2019-11-06] MEDS: dexmedeTOMidine 200 MCG in IV 1 EA IV SCH ×2 (03:32→07:54)
[2019-11-06] MEDS: HEPARIN SOD (PORCINE) 5000 UNITS/ML VIAL SQ SCH ×3 (05:36→21:05)
[2019-11-06 05:39] LABS: BASO % 0.3 % (0.0-1.0); EOS % 0.1 % (0.0-3.0); LYMPH # 0.8 10^3/uL (1.5-5.0); LYMPH % 7.6 % (24.0-44.0); MEAN CORPUSCULAR HEMOGLOBIN 32.5 pg (27.0-33.0); MEAN CORPUSCULAR HGB CONC 31.3 g/dl (32.0-36.5); MEAN CORPUSCULAR VOLUME 103.9 fl (80.0-96.0); MONO # 0.7 10^3/uL (0.0-0.8); MONO % 7.5 % (0.0-5.0); NEUTROPHILS # 8.3 10^3/uL (1.5-8.5); NEUTROPHILS % 84.2 % (36.0-66.0); PLATELET COUNT, AUTOMATED 195 10^3/uL (150-450); RED BLOOD COUNT 3.08 10^6/uL (4.00-5.40); WHITE BLOOD COUNT 9.8 10^3/uL (4.0-10.0)
[2019-11-06 05:50] LABS: ABG BASE EXCESS -4.7 (-2.0-2.0); ABG HCO3 20.4 MEQ/L (22.0-26.0); ABG O2 SATURATION 98.7 % (95.0-99.0); ABG PARTIAL PRESSURE CO2 37.7 mmHg (35.0-45.0); ABG PARTIAL PRESSURE O2 135.6 mmHg (75.0-100.0); ABG STANDARD HCO3 20.6 MEQ/L (22.0-26.0); ABG TOTAL CO2 21.6 MEQ/L (23.0-31.0); ABG pH (ARTERIAL) 7.351 UNITS (7.350-7.450)
[2019-11-06 06:11] LABS: ALBUMIN 2.5 GM/DL (3.2-5.2); BILIRUBIN,TOTAL 0.2 MG/DL (0.2-1.0); CREATININE FOR GFR 2.14 MG/DL (0.55-1.30); GLOMERULAR FILTRATION RATE 24.4 (>45); TOTAL PROTEIN 6.1 GM/DL (6.4-8.2)
--- NOTE | 2019-11-06 06:38 | CR ---
DATE OF CONSULTATION: 11/05/2019 REASON FOR CONSULTATION: Mechanical ventilation. HISTORY OF PRESENT ILLNESS: Ms. Koch is a 69-year-old female with a past medical history of hypertension, chronic kidney disease (CKD), vesicovaginal fistula with omental flap interposition, with a urinary ostomy, and chronic obstructive pulmonary disease (COPD) who was admitted for a surgical procedure with Dr. Woo for laparoscopic parastomal hernia repair under general anesthesia. The patient was intubated for the procedure and the procedure was prolonged due to presence of adhesions. Postoperatively, the patient had difficulty with weaning from the ventilator to extubation and so she was kept intubated and transferred to the intensive care unit (ICU) for further management. Unable to obtain any review of systems as the patient is intubated and sedated. History is obtained from collateral information and chart review. The patient appeared to have an issue with her previous surgery for her vesicovaginal fistula in 2017 where she had postoperative hypoventilation and acute hypercarbic respiratory failure requiring noninvasive positive pressure ventilation. She was suspected to have obstructive sleep apnea and was instructed to follow up as an outpatient for evaluation for obstructive sleep apnea which she did not have done. The patient was also suspected of having COPD and was started on treatment at that time, but did not appear to follow up with pulmonary. PAST MEDICAL/SURGICAL HISTORY: 1. COPD. 2. Hypertension. 3. Migraine. 4. Vesicovaginal fistula from eroded pessary from uterine prolapse with multiple repairs. 5. Avascular necrosis of femur. 6. Diverticulosis. 7. Appendectomy. 8. CKD. 9. Hyperlipidemia. 10. Vesicovaginal fistula repair with omental flap interposition on 01/2018. 11. Renal stent placement in March 2018. 12. Robotic assisted vesicovaginal fistula repair in June 2018. 13. Stent removal August 2018. 14. Open ileal conduit in December 2018. HOME MEDICATIONS: - Spiriva - albuterol pn - aspirin 325 mg ALLERGIES: - CIPROFLOXACIN FAMILY HISTORY: Father with history of heart disease. Mother with history of diabetes. SOCIAL HISTORY: Former smoker, was half a pack a day since age of 19, quit in April 2018. Denies alcohol use. PHYSICAL EXAMINATION: Vital Signs: Temperature 96.4, pulse 75, respirations 14, blood pressure 157/84, O2 sat 100% on the ventilator at 60% FiO2. In 4.7 liters, out 375 mL. General: The patient is an obese female who is lying in the bed. She is intubated and sedated. She is minimally responsive to painful stimuli. HEENT: Normocephalic, atraumatic. Pupils are small and sluggish. Moist mucous membranes. Endotracheal (ET) tube is in place. Neck is supple. There is no palpable adenopathy, but there is palpable crepitus and subcutaneous emphysema. Cardiovascular: Regular rate and rhythm. Normal S1 and S2. Unable to appreciate any murmurs as there are significant overlying crepitus sounds on the chest. Pulmonary: Coarse ventilated breath sounds bilaterally with no significant wheezing or rhonchi. There are possible mild crackles at the bases, but there is also significant crepitus and subcutaneous emphysema on the chest. Abdomen is soft and mildly distended. There are laparoscopic surgical incisions as well as previous abdominal surgery scars. An ostomy bag is draining urine on the right side. Extremities: There is no significant lower extremity edema bilaterally. Pulses are palpable. LABS: WBC 18.3, hemoglobin 11.5, platelets 256. Chemistry: Sodium was 142, potassium 6.1, chloride is 112, bicarb is 23, BUN 27, creatinine is 2.25, glucose is 156, calcium 8.3. ABG drawn on pressure control ventilation: pH is 7.149, pCO2 of 58.4, pO2 of 133.4. IMAGING STUDIES: Chest x-ray shows ET tube in good position. There is extensive subcutaneous emphysema noted in the chest and it is extending up into the neck. There does not appear to be a pneumothorax appreciable in the lungs. There are some increased interstitial markings bilaterally and the blunting in the left costophrenic angle with possible left basilar atelectasis/infiltrate. ASSESSMENT: Ms. Koch is a 69-year-old female with a past medical history of COPD, hypertension, hyperlipidemia, CKD, vesicovaginal fistula with multiple repairs who presented for a robotic laparoscopic hernia repair which was prolonged due to the presence of adhesions intraoperatively. The patient was intubated for the procedure and postprocedure had difficulty weaning from the ventilator and extubating and so she was kept intubated and transferred to the ICU for further management. The patient has a previous history during one of her surgeries in 2018 where she had postoperative hypoventilation and acute hypercarbic respiratory failure and there was some suspicion for possible obstructive sleep apnea which the patient did not appear to have evaluation done for. Her ABG on the pressure control mode of ventilation in the postanesthesia care unit (PACU) showed some mild metabolic acidosis with a more acute respiratory acidosis. - Will change the patient from pressure control mode to a volume control mode of ventilation with PRVC with settings of 450/20/40/5 and repeat ABG in 1 hour. - Will get daily chest x-rays and ABG while intubated with head of bed elevation and chlorhexidine mouthwash. - Will continue the patient with propofol for sedation and continue with morphine and fentanyl as needed for pain control. Will discontinue (DC) Toradol given her history of CKD. - Will hold sedation in the morning for a weaning trial and extubate the patient if tolerating. - The patient's chemistry also showed hyperkalemia and mild hyperchloremia as well as acute kidney injury (AMBER) on her CKD. She did receive 4.7 liters of fluids with LR in the OR and suspect her hyperkalemia is also due in part to her acidosis. Will discontinue LR and hold fluids and continue to monitor her urine output. Her chest x-ray does show some increased interstitial markings bilaterally and she does have a history of grade 1 diastolic dysfunction on her previous echo as well. - Will continue to monitor her ins and outs and renal function and repeat electrolytes. The patient will also be given 1 ampule of calcium gluconate for hyperkalemia. Suspect it will trend down with improvement in her acidosis. - Will start DuoNebs every 6 hours and restart her home medication of Spiriva. Deep vein thrombosis (DVT) prophylaxis will change to from Lovenox to heparin. Full code. Total critical care time spent, not including any procedures, approximately 1 hour and 30 minutes. MTDD
--- NOTE | 2019-11-06 08:32 | REP ---
Portable chest x-ray: Single view 10:59 p.m. film. History: Postop. Intubated. Comparison study: February 14, 2018. Findings: Endotracheal tube is in good position at the level of the transverse aorta. There is extensive soft tissue emphysema in the extrathoracic soft tissues bilaterally. Mild cardiomegaly is observed. There is mild density over the lung portillo bilaterally consistent with overlying soft tissue emphysema. There is hazy opacity in the left base and I cannot exclude atelectasis or small amount of left pleural fluid. Otherwise no definite infiltrate. Electronically Signed by Sly Green MD 11/06/2019 08:24 A
--- NOTE | 2019-11-06 08:34 | REP ---
PORTABLE CHEST X-RAY: Single view. 06:56 a.m. film. HISTORY: Intubated patient. COMPARISON CHEST X-RAY: November 05, 2019 10:59 p.m. film. FINDINGS: There is a moderate amount of extrathoracic soft tissue emphysema along the chest wall bilaterally, right greater than left. This is somewhat improved from the most recent film. Endotracheal tube is noted in good position at the level of the transverse aorta. EKG electrodes are seen. Cardiomegaly is observed. There is slight blunting of the left lateral pleural angle. There is no visible pneumothorax. IMPRESSION: Suspect small amount of left pleural effusion. Endotracheal tube in good position. Extensive soft tissue emphysema in the extrathoracic soft tissues, somewhat improved. Electronically Signed by Sly Green MD 11/06/2019 03:24 P
[2019-11-06] MEDS ORDERED: CHLORHEXIDINE GLUCONATE 0.12 % 15ML UDC (PERIDEX ORAL RINSE) MT SCH (09:00)
[2019-11-06] MEDS ORDERED: PANTOPRAZOLE 40MG INJ (PROTONIX) (C9113) IV SCH (09:00)
[2019-11-06] MEDS ORDERED: ENOXAPARIN 40 MG/0.4 ML SYRINGE (J1650) SC SCH (09:00)
[2019-11-06 09:59] LABS: ABG BASE EXCESS -4.7 (-2.0-2.0); ABG FIO2 40; ABG HCO3 21.2 MEQ/L (22.0-26.0); ABG MODE OF VENT PS; ABG O2 SATURATION 97.1 % (95.0-99.0); ABG PARTIAL PRESSURE CO2 42.3 mmHg (35.0-45.0); ABG PARTIAL PRESSURE O2 95.4 mmHg (75.0-100.0); ABG PEEP 5; ABG STANDARD HCO3 20.5 MEQ/L (22.0-26.0); ABG TOTAL CO2 22.5 MEQ/L (23.0-31.0); ABG pH (ARTERIAL) 7.317 UNITS (7.350-7.450)
--- NOTE | 2019-11-06 11:49 | CCN ---
DATE: 11/06/2019 The patient was seen and examined this morning during bedside rounds. Overnight on the ventilator. The patient was agitated despite being on propofol and receiving Versed as needed for agitation and fentanyl and morphine as needed for pain. She was started on Precedex in addition to the propofol for sedation and to help with weaning trial in the morning. With the Precedex she was able to be weaned off of the propofol and was able to be awake and following commands appropriately and was placed on a pressure support weaning trial this morning which she tolerated well. She denied any significant pain. Has not had any fevers overnight. Her subcutaneous emphysema appears to be improving slightly. PHYSICAL EXAM: Temperature 97, pulse 77, respirations 20, blood pressure 93/55, O2 sat 96% on 40% FiO2. General: The patient is an obese female who is lying in bed, is intubated. She is able to open eyes and answer questions by nodding and shaking her head. HEENT: Normocephalic, atraumatic. Pupils are reactive to light bilaterally. Moist mucous membranes. Endotracheal tube is in place. Neck is supple. There is no palpable adenopathy. There is some mild crepitus noted and subcutaneous emphysema on the chest which is improving slightly. Cardiovascular: Regular rate and rhythm. Normal S1-S2. Unable to appreciate murmurs. There is overlying crepitus sounds noted with auscultation. Pulmonary: Coarse ventilated breath sounds bilaterally with no significant wheezing or rhonchi. No crackles auscultated, but there are breath sounds and crepitus sounds auscultated. Abdomen is soft, nondistended. There are laparoscopic surgical incisions noted as well as previous abdominal surgery scars. There is an ostomy bag draining urine on the right side. Extremities: There is no lower extremity edema bilaterally. The patient is able to move all four extremities equally. LABORATORY DATA: WBC 9.8, hemoglobin 10.0, platelets 195. Chemistry - sodium is 142, potassium 5.0, chloride is 113, bicarb 21, BUN 28, creatinine is 2.14, glucose is 132, BNP was 751. ABG after being on PRVC was 7.35, pCO2 of 37.7, p02 of 135.6. IMAGING STUDIES: Chest x-ray showed ET tube in good position. There is extensive subcutaneous emphysema noted the chest which is improved compared to yesterday. There is no appreciable pneumothorax. There is blunting in the left costophrenic angle with a possible left basilar atelectasis/infiltrate. ASSESSMENT: Ms. Koch is a 69-year female with a history of chronic obstructive pulmonary artery disease (COPD), hypertension, hyperlipidemia, chronic kidney disease (CKD), vesicovaginal fistula with multiple repairs who had presented for a robotic laparoscopic hernia repair with a prolonged surgery procedure. She was kept intubated post procedure as she had difficulty weaning from the ventilator and being extubated. The patient was transferred to the intensive care unit (ICU) for further management. - The patient was on propofol for sedation as well as Versed as needed for agitation. She was still agitated overnight and required the addition of Precedex to help with sedation and for her weaning trial. With the Precedex she was able to be weaned off of propofol and was responsive and following commands appropriately. - The patient was placed on a weaning trial with pressure support which she tolerated well. Her ABG done while on weaning trial did show mildly worsened hypercapnia. She has a previous history of postoperative hypoventilation and hypercarbic respiratory failure requiring BiPAP. - Will extubate the patient to BiPAP with settings of 10 over 5, respiratory rate of 12 and 40% FiO2. We will wean the patient off of BiPAP once she is more awake, alert and tolerating. - We will discontinue (DC) her sedation and her daily chest x-rays and ABG. - The patient's fluids were held given her hyperkalemia. She was receiving LR. With correction of her acidosis her hyperkalemia did improve. Her renal function is improving and appears close to her baseline. She does have some mild metabolic acidosis which may be in the setting of hyperchloremic non-anion gap acidosis. - We will continue to monitor off of fluids. Her BNP was very minimally elevated. - Continue with DuoNebs, will change to as needed and continue with her home medication Spiriva. Deep venous thrombosis (DVT) prophylaxis with heparin. FULL CODE. Total critical care time spent not including any procedures approximately 45 minutes. MTDD
[2019-11-06] MEDS: KETOROLAC 30 MG/ML VIAL (J1885) IV PRN (13:32)
[2019-11-06] MEDS: ACETAMINOPHEN TAB 650MG DOSE (2X325MG) PO PRN (21:03)
[2019-11-07] VITALS (10 sets, daily range): BP systolic 133–163; BP diastolic 63–91; O2SAT 95
[2019-11-07] MEDS: IPRATROPIUM 0.5MG/ALBUTEROL 2.5MG INH SOL UD 3ML (DUONEB)(J7620) NEB SCH ×2 (01:04→08:20)
[2019-11-07] MEDS: KETOROLAC 30 MG/ML VIAL (J1885) IV PRN ×2 (01:23→22:47)
[2019-11-07] MEDS: ACETAMINOPHEN TAB 650MG DOSE (2X325MG) PO PRN (03:36)
[2019-11-07] MEDS: HEPARIN SOD (PORCINE) 5000 UNITS/ML VIAL SQ SCH ×3 (05:24→22:47)
[2019-11-07 05:44] LABS: BASO % 0.2 % (0.0-1.0); EOS # 0.3 10^3/uL (0.0-0.5); HEMOGLOBIN 9.8 g/dl (12.0-15.5); LYMPH # 1.2 10^3/uL (1.5-5.0); MEAN CORPUSCULAR HEMOGLOBIN 32.3 pg (27.0-33.0); MEAN CORPUSCULAR HGB CONC 30.6 g/dl (32.0-36.5); MEAN CORPUSCULAR VOLUME 105.6 fl (80.0-96.0); MONO # 0.6 10^3/uL (0.0-0.8); NEUTROPHILS # 6.2 10^3/uL (1.5-8.5); NEUTROPHILS % 74.4 % (36.0-66.0); PLATELET COUNT, AUTOMATED 181 10^3/uL (150-450); RED BLOOD COUNT 3.03 10^6/uL (4.00-5.40); WHITE BLOOD COUNT 8.3 10^3/uL (4.0-10.0)
[2019-11-07 05:59] LABS: CALCIUM LEVEL 8.4 MG/DL (8.8-10.2); CREATININE FOR GFR 2.15 MG/DL (0.55-1.30); GLOMERULAR FILTRATION RATE 24.3 (>45); POTASSIUM SERUM 4.1 MEQ/L (3.5-5.1)
[2019-11-07] MEDS: oxyCODONE 5MG TAB PO PRN ×3 (08:13→17:37)
[2019-11-07] MEDS: PANTOPRAZOLE 40MG TAB (PROTONIX) PO SCH (08:13)
--- NOTE | 2019-11-07 09:05 | IPN ---
DATE OF SERVICE: 11/07/2019 The patient was seen and examined this morning during bedside rounds. Overnight the patient was stable with no issues. She has been off bilevel positive airway pressure (BiPAP) since yesterday afternoon, has been saturating appropriately. They were able to downgrade her oxygen requirement to 1 liter this morning. There was no overnight nursing events reported. Her subcutaneous emphysema continues to improve. PHYSICAL EXAM: VITAL SIGNS: Temperature 99.0, pulse 99, respirations 20, blood pressure 143/66, mean arterial pressure (MAP) 91. Pulse oximetry 95% on 2 liters of nasal cannula, recheck at 6 a.m. 96% on 1 liter of nasal cannula. GENERAL: This is a very pleasant, 69-year-old female who does not appear in any acute distress, lying in bed, able to open eyes, appropriately answering questions. HEENT: Atraumatic, normocephalic. Pupils are reactive, round and reactive. Moist mucous membranes. Neck is supple. No jugular venous distention (JVD). No palpable adenopathy noted. Mild crepitus appreciated at the base of the neck, which is improving since yesterday. CARDIOVASCULAR: Regular rate and rhythm. Normal S1 and S2 sounds. No audible murmurs, rubs or gallops. There is overlying crepitus as well, which is consistent with yesterday but is improving. PULMONARY: Clear to auscultate bilaterally. No audible wheezing, rhonchi or rales. No crackles, but once again there is crepitus. ABDOMEN: Soft, nontender, nondistended. Six laparoscopic surgical incisions noted. Ostomy bag in place on the right side. EXTREMITIES: No lower extremity edema bilaterally and able to move all extremities with no issues. LABORATORIES: WBC 8.3, hemoglobin 9.8, hematocrit 32.0. platelets 181. Chemistries: Sodium 143, potassium 4.1, chloride 114, carbon dioxide 22, BUN 28, creatinine 2.15, fasting glucose 102, calcium 8.4. No new imaging. ASSESSMENT AND PLAN: Ms. Koch is a 69-year female with a history of chronic obstructive pulmonary disease (COPD), hypertension, hyperlipidemia, chronic kidney disease (CKD), vesicovaginal fistula with multiple repairs who presented for robotic laparoscopic hernia repair with prolonged surgery procedure. She was kept intubated post-procedure where she was having difficulty weaning off the ventilator. She was transferred to the intensive care unit (ICU) for further management. The patient was extubated yesterday morning with no difficulty, was placed on BiPAP for a couple hours and later in the afternoon was off of BiPAP throughout the night. This morning she is saturating appropriately on nasal cannula with no difficulty breathing. Recommendation is incentive spirometry and DuoNebs as needed, as well as her home medication Spiriva. The patient is stable for downgrade and can be transferred to medical-surgical. Pulmonary team is signing off. If you need further recommendations, please feel free to reconsult us. Deep venous thrombosis (DVT) prophylaxis, heparin. FULL CODE. I, Lucy Lara, have conducted an independent examination and history of the patient and agree with the above plan as detailed above by the resident and discussed during rounds. DOUGLAS
--- NOTE | 2019-11-07 18:35 | IPN ---
DATE: 11/07/2019 HISTORY: The patient is a patient of Dr. Hughes who is now postoperative day number two from a robotic-assisted laparoscopic extensive repair of ventral and parastomal hernias with a large piece of mesh. She had remained on the ventilator overnight on the day of surgery which was 11/05/2019. She was extubated yesterday morning and has done well. She remains only on some nasal cannula oxygen at a low rate. Vital signs show that she had a maximum temperature (T-max) of 100 degrees at 08:00 p.m. last night but it has come down this morning. Her pulse is staying at about 100. Blood pressure is good and her oxygen saturation is 95% with one liter of oxygen by nasal cannula. Intake and output show that yesterday she had 570 recorded in with 1650 of urine output recorded. This morning, she has had 325 mL of urine output noted. PHYSICAL EXAMINATION: The patient is awake and alert. She reports she is fairly comfortable at rest but has some significant pain with movement. She reports that she has not had any flatus or bowel movement as of yet. She has been taking some liquids fairly well. The patient's heart examination shows a regular rhythm at about 100. The lungs are clear to auscultation bilaterally. The abdominal wall shows a number of small incisions sealed with skin glue. She has her urostomy in the right lower quadrant with an appliance in place and a small amount of urine in the bag. She has some bruising across the upper abdomen and has tenderness as would be expected for her surgery. She does have some diminished bowel sounds present. LABORATORY STUDIES: Today show a white count of 8, hemoglobin of 10, hematocrit of 32 and a platelet count of 181,000. Differential count shows 74% neutrophils, 15% lymphocytes and 7% monocytes. Chemistry profile shows sodium 143, potassium 4.1, chloride 114, CO2 of 22, BUN of 28, creatinine 2.15 and a glucose of 102. IMPRESSION: The patient is doing well now two days postoperatively from her extensive laparoscopic hernia repair. She had some significant subcutaneous emphysema and this appears to be resolving nicely. She has some tenderness across her upper chest but I do not feel any gas present. She has expected tenderness for her procedure. Her urine output has been adequate and she took some liquids yesterday though not a lot. PLAN: The patient will be advanced to a regular diet. Because she has not had a bowel movement yet, I encouraged her to go slow with the first few meals but to take what she is comfortable with. She was encouraged to be up out of bed to ambulate several times per day. We will transfer her to a medical-surgical floor as she does not appear to require intensive care at this time. DOUGLAS
[2019-11-07] MEDS: IPRATROPIUM 0.5MG/ALBUTEROL 2.5MG INH SOL UD 3ML (DUONEB)(J7620) NEB PRN (19:12)
[2019-11-08 06:00] VITALS: BP 140/88
[2019-11-08] MEDS: HEPARIN SOD (PORCINE) 5000 UNITS/ML VIAL SQ SCH ×3 (06:13→21:13)
[2019-11-08] MEDS: oxyCODONE 5MG TAB PO PRN ×4 (06:13→23:40)
--- NOTE | 2019-11-08 07:31 | ROOPDOC ---
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, disruption of the linea semilunaris on that side, contraction of associated muscles (transversus abdominis, internal oblique) PROCEDURE: Robotic assisted Laparoscopic repair of both incisional (midline) and parstomal hernia (right lower quadrant), recreation of linea semilunaris eTEP bilateral transversus abdominis release with gprvs, preperitoneal sugarbaker placement of mesh SURGEON: Kevin Woo MD MEMBER OF THE [employer]GIS[employer]: Ruthann Cross NP ANESTHESIA: General Anesthesia SPECIMENS: none ESTIMATED BLOOD LOSS: 50 mLs REPLACED: 4.5 L crystalloids DRAINS: none COMPLICATIONS: patient remains intubated overnight, subcutaneous emphysema related to laparoscopy POSTOPERATIVE CONDITION: relatively stable DESCRIPTION OF PROCEDURE:Patient was given adose of Unasyn 3 gm IV preoperatively for wound prophylaxis and redosed every 3 hours during the surgery. She was brought to the operating room, placed supine on the table, compression boots placed on both lower extremities for dvt prophylaxis. She was given heparin 5,000 units subcutaneously for chemical dvt prophylaxis. She received entereg 12 mg PO prior to going to the operating room. General endoctracheal anesthesia was started. Anesthesia performed an us guided FREDDIE block with a mixture of Exparel and % Marcaine. I removed her urostomy bag and placed a 20 F brown catheter through the urostomy. I marked her margins of the linea semilunaris and linea alba bilaterally using US guidance. Her abdomen then prepped and draped in the usual sterile fashion using betadine. An ioban drape then place to cover her abdomen. Timeouts performed Under optiview guidance we entered the left upper quadrant retromuscular space and insufflation started with 15 mm Hg. Blunt camera and trocar dissection performed to create space for the second trocar 8 cms below the first trocar. Using a laparoscopic vitor the lower most retromuscular space is dissected and another 8 mm port is placed. We switched camera placements and the original 5 mm trocar is replaced y a robotic 8 mm trocar. The davinci towere then positioned in place and the trocars docked. The instruments placed under direct vision. We used a robotic jovon cut scissors on my right hand and a forced bipolar on my left had. A 30 degree camera used for the surgery. I unscrubbed and took control of the rootic camera and instruments at the surgoens console. I further developed the left retroretus space. I think on initial entry I went through the peritoneum and the hole this created constricted our space. I made a crossover above the flaciform ligament by incising the posterior rectus sheath 1 cm from its attachment to the linea alba. The space then bluntly dissected until the right posterior rectus sheath is identified and subsequently incised in the same manner to enter the right retrorectus space. This space then fully developed and I proceeded dissecting at the middle space to approach the midline hernia. The sac was approach and divided to enter intraperitoneally. Omentum is seen adhered to the sac and hernia space and brought down from the sac. I took this chance to look intraabdominally to locate the urostomy conduit identified by the presence of the brown catheter. There was some omentum and bowel adhered to the lower porti on of the limb. There were loops of bowel within the hernia space and this was reduced back into the abdomen. I continued then developing the middle space proceeding to the area above the umilical ligaments. As she has her bladder excision done, there were a good amount of scarring and sticky tissues. I also note that there is a postoperative diastases of the lower rectus muscles with some contraction of the rectus away from each other and this proceeds to the pelvis. I developed the preperitoneal space of retzius, identified the left inferior epigastric arteries and the left round ligament is identified and divided. The lateral space of Bogros then developed bluntly beyond the area of the ileal conduit. The right retrorectus space dissection is then completed to the level of the linea semilunaris identified by the neurovascular bundles I evaluated the hernia defect which appears to bet at the linea semilunaris disrupting it at that level pushing outward at the lateral abdominal musculature. It looks like I have to approach this with the TAR plane developed inferiorly and superiorly as the neurovascular bundles are medial to the parastomal hernia defect. I then started my TAR dissection initially at the top down approach opening up the posterior lamella of the internal oblique. The transversus abdominis muscles are identified and divided and the pretransversalis plane opened up and developed. does not have much muscular definition of her transversus abdominis and much more predominance of the aponeurotic portion. Thus I then switched to a down up approach identifying the arcuate line which is below the parastoma hernia. The prereitoneal plane lateral to the crucitate line and then dividing the fascia of the transversus abdominis to approach the medial side of the ps hernia and preserving the neurovascular bundles at this area as much as I could. I then proceeded joining the upper dissection together and accepting the defect the level of the hernia. I opened up the aponeurosis fascia to the lateral wall fo the defect and again entered the preperitoneal plane at this area developing at least an 8 cm area eyond the hernia. The TAR was then completed until the visceral sac drapes the bowel. KEVIN WOO MD Nov 08, 2019 07:31
[2019-11-08] MEDS: TIOTROPIUM INHALER/CAPSULE (SPIRIVA) INH SCH (08:11)
[2019-11-08] MEDS: PANTOPRAZOLE 40MG TAB (PROTONIX) PO SCH (09:15)
[2019-11-08 14:00] VITALS: BP 143/82
[2019-11-08] MEDS: IPRATROPIUM 0.5MG/ALBUTEROL 2.5MG INH SOL UD 3ML (DUONEB)(J7620) NEB PRN ×2 (14:55→21:21)
[2019-11-08] MEDS ORDERED: LACTULOSE 20 GM/30 ML SYRUP UD PO ONE (17:15)
[2019-11-08] MEDS: DOCUSATE SODIUM 100 MG CAP PO SCH (20:24)
[2019-11-08] MEDS: KETOROLAC 30 MG/ML VIAL (J1885) IV PRN (20:26)
[2019-11-08 22:00] VITALS: BP 148/82
[2019-11-09] MEDS: HEPARIN SOD (PORCINE) 5000 UNITS/ML VIAL SQ SCH ×3 (05:52→20:19)
[2019-11-09] MEDS: oxyCODONE 5MG TAB PO PRN (05:52)
[2019-11-09 06:00] VITALS: BP 156/86
[2019-11-09 06:11] LABS: BASO % 0.3 % (0.0-1.0); EOS # 0.3 10^3/uL (0.0-0.5); EOS % 3.8 % (0.0-3.0); HEMATOCRIT 33.3 % (36.0-47.0); HEMOGLOBIN 10.3 g/dl (12.0-15.5); LYMPH % 13.9 % (24.0-44.0); MEAN CORPUSCULAR HEMOGLOBIN 32.6 pg (27.0-33.0); MEAN CORPUSCULAR HGB CONC 30.9 g/dl (32.0-36.5); MEAN CORPUSCULAR VOLUME 105.4 fl (80.0-96.0); MONO # 0.5 10^3/uL (0.0-0.8); MONO % 6.3 % (0.0-5.0); NEUTROPHILS # 5.4 10^3/uL (1.5-8.5); NEUTROPHILS % 75.1 % (36.0-66.0); PLATELET COUNT, AUTOMATED 218 10^3/uL (150-450); RED BLOOD COUNT 3.16 10^6/uL (4.00-5.40); WHITE BLOOD COUNT 7.1 10^3/uL (4.0-10.0)
[2019-11-09 06:30] LABS: CALCIUM LEVEL 8.4 MG/DL (8.8-10.2); CREATININE FOR GFR 2.07 MG/DL (0.55-1.30); GLOMERULAR FILTRATION RATE 25.4 (>45); POTASSIUM SERUM 3.8 MEQ/L (3.5-5.1)
[2019-11-09] MEDS: IPRATROPIUM 0.5MG/ALBUTEROL 2.5MG INH SOL UD 3ML (DUONEB)(J7620) NEB PRN (07:33)
[2019-11-09] MEDS: TIOTROPIUM INHALER/CAPSULE (SPIRIVA) INH SCH (07:33)
[2019-11-09] MEDS: PANTOPRAZOLE 40MG TAB (PROTONIX) PO SCH (08:26)
[2019-11-09] MEDS: DOCUSATE SODIUM 100 MG CAP PO SCH ×2 (08:26→20:19)
[2019-11-09] MEDS: CelecoXIB (CeleBREX) 100 MG CAP PO SCH ×2 (13:35→20:19)
[2019-11-09 14:00] VITALS: BP 136/85
[2019-11-09] MEDS: PERCOCET 5MG/325MG TAB PO PRN ×2 (14:13→18:35)
--- NOTE | 2019-11-09 21:14 | IPN ---
DATE: 11/08/2019 HISTORY: This is a patient of Dr. Woo's who is now postop day #3 from a laparoscopic repair of ventral incisional and parastomal hernias. This was accomplished laparoscopically with robotic assistance and was a quite lengthy procedure. She remained ventilated overnight into the . She has done well over the last 2 days. She was moved from the intensive care unit (ICU) to a medical-surgical floor yesterday. She has been out of bed to ambulate slowly and short distances. She has not had any bowel movement, but reports she has had some flatus. She is having adequate urine output. Her dietary intake has been somewhat limited. Vital signs: Show that she has been afebrile for the past 24 hours. Pulse is in the low 100s, and her blood pressure is in the 140s systolic. Intake and output show that yesterday she had 445 mL recorded in with 1300 mL recorded out. PHYSICAL EXAMINATION: The patient is lying quietly in the hospital bed. She is alert and oriented. Skin is warm and dry. Heart exam shows a regular rhythm. She is borderline tachycardiac. Lungs show good breath sounds. The abdomen is generally flat. Her urostomy is in the right lower quadrant and is putting out urine. She does have some bowel sounds present but is still quite tender on palpation of the abdominal wall. The patient does not have any new labs today. IMPRESSION: Patient is doing acceptably at this point. She has not had a return of bowel function yet but has passed some flatus. Her urine output is adequate. She feels somewhat full and so is not eating well yet. PLAN: I will request a physical therapy consultation to assist with ambulation. I will give her a single dose of lactulose and start her on twice daily Colace to try to avoid problems with constipation. We will monitor her dietary intake. Dr. Woo should be back in the morning to waste picker on the care of his patient. DOUGLAS
[2019-11-09 22:00] VITALS: BP_SYST 128; BP_SYST 147; BP_DIAS 76; BP_DIAS 85
[2019-11-10] MEDS: PERCOCET 5MG/325MG TAB PO PRN ×4 (03:36→23:41)
[2019-11-10] MEDS: HEPARIN SOD (PORCINE) 5000 UNITS/ML VIAL SQ SCH ×3 (05:51→20:25)
[2019-11-10 06:00] VITALS: BP 130/78
[2019-11-10] MEDS: IPRATROPIUM 0.5MG/ALBUTEROL 2.5MG INH SOL UD 3ML (DUONEB)(J7620) NEB PRN ×3 (07:21→19:13)
[2019-11-10] MEDS: TIOTROPIUM INHALER/CAPSULE (SPIRIVA) INH SCH (07:21)
[2019-11-10] MEDS ORDERED: MAGNESIUM CITRATE 300 ML BTL PO ONE (07:30)
[2019-11-10] MEDS: PANTOPRAZOLE 40MG TAB (PROTONIX) PO SCH (08:43)
[2019-11-10] MEDS: CelecoXIB (CeleBREX) 100 MG CAP PO SCH ×2 (08:43→20:25)
[2019-11-10] MEDS: DOCUSATE SODIUM 100 MG CAP PO SCH ×2 (08:43→20:25)
--- NOTE | 2019-11-10 11:46 | IPNPDOC ---
Text Note Date of Service The patient was seen on 11/10/19. NOTE Patient is now postoperative day #4 VS,Fishbone, I+O VS, Fishbone, I+O Vital Signs Date Time Temp Pulse Resp B/P (MAP) Pulse Ox O2 Delivery O2 Flow Rate FiO2 11/10/19 06:00 98.1 91 17 130/78 (95) 92 Room Air 11/07/19 22:00 1.0 11/06/19 13:00 40 I&O- Last 24 Hours up to 6 AM 11/10/19 05:59 Intake Total 1560 ml Output Total 1025 ml Balance 535 ml WALTER RAMIREZ MD Nov 10, 2019 11:46
--- NOTE | 2019-11-10 11:50 | IPNPDOC ---
Text Note Date of Service The patient was seen on 11/10/19. NOTE Patient is now postoperative day #5 following robotic-assisted repair of complex abdominal wall hernia including the midline and parastomal area. She has a permanent ileal conduit for her urostomy. Overall she is doing well with a few remaining issues. For most of the issue she is concerned about is the discomfort she feels on her mid to upper right back area/flank area though she tells me this is getting better and she has ambulated much better yesterday without any increased discomfort. Currently she is on a combination of Celebrex and Percocets for pain control. Her urostomy continues to function well and the abdominal wall reconstruction remains intact. She also has not had a bowel movement post operatively. She has been given multiple bowel regimen including a dose of lactulose 2 days ago with no relief. She is passing flatus. She is denying any nausea. I have given her a dose of magnesium citrate early this morning and she is complaining about the taste and accompanying nausea from this. She does appear a little bit more distended today than yesterday most prominent in the upper abdomen. I'll get an abdominal x-ray to further evaluate this whether she has having distention on her stomach small bowel or her colon and decide how to go about helping her with this. I feel this is more constipation. This is probably multi-combination of the prolonged surgery, prolonged bedrest, narcotics and she was not ambulating well the first few days after the surgery as well as the use of narcotics. This probably is the most pressing issue right now for her and she would feel much better if she is able to have at least one bowel movement prior to discharge. VS,Fishbone, I+O VS, Fishbone, I+O Vital Signs Date Time Temp Pulse Resp B/P (MAP) Pulse Ox O2 Delivery O2 Flow Rate FiO2 11/10/19 06:00 98.1 91 17 130/78 (95) 92 Room Air 11/07/19 22:00 1.0 11/06/19 13:00 40 I&O- Last 24 Hours up to 6 AM 11/10/19 05:59 Intake Total 1560 ml Output Total 1025 ml Balance 535 ml WALTER RAMIREZ MD Nov 10, 2019 11:50
[2019-11-10] MEDS ORDERED: FLEET ENEMA PR ONE (13:00)
[2019-11-10 14:00] VITALS: BP 143/78
[2019-11-10] MEDS: ALVIMOPAN 12 MG CAPSULE (ENTEREG) PO SCH (20:25)
[2019-11-10 22:00] VITALS: BP 139/77
[2019-11-11] MEDS: HEPARIN SOD (PORCINE) 5000 UNITS/ML VIAL SQ SCH ×3 (05:15→22:33)
[2019-11-11] MEDS: PERCOCET 5MG/325MG TAB PO PRN (05:52)
[2019-11-11 06:00] VITALS: BP 127/82
[2019-11-11 06:21] LABS: BASO % 0.4 % (0.0-1.0); EOS # 0.5 10^3/uL (0.0-0.5); EOS % 5.5 % (0.0-3.0); HEMATOCRIT 31.4 % (36.0-47.0); HEMOGLOBIN 9.8 g/dl (12.0-15.5); LYMPH # 1.3 10^3/uL (1.5-5.0); LYMPH % 14.9 % (24.0-44.0); MEAN CORPUSCULAR HEMOGLOBIN 32.5 pg (27.0-33.0); MEAN CORPUSCULAR HGB CONC 31.2 g/dl (32.0-36.5); MONO # 0.6 10^3/uL (0.0-0.8); MONO % 6.9 % (0.0-5.0); NEUTROPHILS % 71.8 % (36.0-66.0); PLATELET COUNT, AUTOMATED 270 10^3/uL (150-450); RED BLOOD COUNT 3.02 10^6/uL (4.00-5.40); WHITE BLOOD COUNT 8.4 10^3/uL (4.0-10.0)
--- NOTE | 2019-11-11 06:43 | REP ---
REASON FOR EXAM: Abdominal distension. COMPARISON: Chest 11/06/2019. The accompanying frontal view of the chest shows no evidence of free subdiaphragmatic air. Left basilar opacities are again noted with left CP angle blunting unchanged. There are no new abnormal lung field opacities. There is mild cardiomegaly. There is no change in the osseous structures. Gas and stool is seen throughout the colon and within the rectosigmoid region. There is no evidence of intestinal obstruction. A colostomy site is seen on the right. There is no evidence of free intraperitoneal air. Chronic changes are seen involving the imaged osseous structures. IMPRESSION:No evidence of acute disease. Findings as described above. Electronically Signed by Jas Hylton DO 11/11/2019 08:56 A
[2019-11-11 06:47] LABS: C REACTIVE PROTEIN QUANTITATIV 14.5 MG/DL (0.00-0.30); CALCIUM LEVEL 8.5 MG/DL (8.8-10.2); CREATININE FOR GFR 2.12 MG/DL (0.55-1.30); GLOMERULAR FILTRATION RATE 24.7 (>45); POTASSIUM SERUM 3.8 MEQ/L (3.5-5.1)
[2019-11-11] MEDS: IPRATROPIUM 0.5MG/ALBUTEROL 2.5MG INH SOL UD 3ML (DUONEB)(J7620) NEB PRN ×3 (07:08→22:00)
[2019-11-11] MEDS: DOCUSATE SODIUM 100 MG CAP PO SCH ×2 (08:54→22:34)
[2019-11-11] MEDS: CelecoXIB (CeleBREX) 100 MG CAP PO SCH ×2 (08:55→22:34)
[2019-11-11] MEDS: ALVIMOPAN 12 MG CAPSULE (ENTEREG) PO SCH ×2 (08:55→22:34)
[2019-11-11] MEDS: PANTOPRAZOLE 40MG TAB (PROTONIX) PO SCH (08:55)
--- NOTE | 2019-11-11 10:18 | IPNPDOC ---
Text Note Date of Service The patient was seen on 11/11/19. NOTE Patient is now postoperative day #6 following robotic-assisted repair of complex abdominal wall hernia including the midline and parastomal area. She has a permanent ileal conduit for her urostomy. Overall she is doing well with a few remaining issues. She looks comfortable but still reports discomfort on her right flank area. She wore her ostomy belt yesterday and felt better. I have ordered an abdominal binder 2 days ago and had presumed she has had it for 2 days. She has the binder in her room today and she will use that when is ambulating for better support. She still has not had a BM. Shes passing flatus. Xrays yesterday just shows a constipation pattern with the bulk of the stools in the right colon and air in the transverse colon. She is ambulating the hallways now. I told her I will stop the narcotics and try to manage her with non narcotics as this can have a lot of constipation like effects on her. I have started her on entereg yesterday. She is on dulcolax bid and I will add mom bid too. I have told her to order some prune juice and take it with her meals. Labs done today shows no leukocytosis, crp is up which is expected from the extensive dissection. Xray shows no infiltrates in the lungs and near resolution of her subcutaneous emphysema. Her renal numbers still show elevateion of the bun above her baseline levels and I told her to drink more liquids as this could also prolong the colonic transport time. She does not want to go home until she is able to go as she is very concerned about this. VS,Alexe, I+O VS, Alexe, I+O Laboratory Tests 11/11/19 05:25 Vital Signs Date Time Temp Pulse Resp B/P (MAP) Pulse Ox O2 Delivery O2 Flow Rate FiO2 11/11/19 06:22 16 11/11/19 06:00 98.3 96 127/82 (97) 91 11/10/19 22:00 Room Air 11/07/19 22:00 1.0 11/06/19 13:00 40 I&O- Last 24 Hours up to 6 AM 11/11/19 06:00 Intake Total 1515 ml Output Total 950 ml Balance 565 ml WALTER RAMIREZ MD Nov 11, 2019 10:18
[2019-11-11] MEDS: TIOTROPIUM INHALER/CAPSULE (SPIRIVA) INH SCH (11:15)
[2019-11-11] MEDS: MIRALAX *UNIT DOSE* 17GM PACKET PO SCH ×2 (11:23→22:35)
[2019-11-11] MEDS: ACETAMINOPHEN TAB 650MG DOSE (2X325MG) PO PRN (11:23)
[2019-11-11] MEDS: GABAPENTIN 300 MG CAP PO SCH ×3 (11:23→22:33)
[2019-11-11 14:00] VITALS: BP 119/74
[2019-11-11] MEDS: ACETAMINOPHEN 500 MG TAB PO PRN (17:16)
[2019-11-11 22:00] VITALS: BP 140/66
[2019-11-12 06:00] VITALS: BP 131/60
[2019-11-12] MEDS: HEPARIN SOD (PORCINE) 5000 UNITS/ML VIAL SQ SCH ×3 (06:14→21:01)
[2019-11-12] MEDS: ACETAMINOPHEN TAB 650MG DOSE (2X325MG) PO PRN ×2 (06:45→06:51)
[2019-11-12] MEDS: MIRALAX *UNIT DOSE* 17GM PACKET PO SCH ×2 (08:07→21:00)
[2019-11-12] MEDS: DOCUSATE SODIUM 100 MG CAP PO SCH ×2 (08:07→21:00)
[2019-11-12] MEDS: CelecoXIB (CeleBREX) 100 MG CAP PO SCH ×2 (08:08→21:00)
[2019-11-12] MEDS: ALVIMOPAN 12 MG CAPSULE (ENTEREG) PO SCH ×2 (08:08→21:00)
[2019-11-12] MEDS: GABAPENTIN 300 MG CAP PO SCH ×3 (08:08→21:00)
[2019-11-12] MEDS: PANTOPRAZOLE 40MG TAB (PROTONIX) PO SCH (08:08)
[2019-11-12] MEDS: TIOTROPIUM INHALER/CAPSULE (SPIRIVA) INH SCH (08:17)
[2019-11-12 14:00] VITALS: BP 138/67
[2019-11-12] MEDS: ACETAMINOPHEN 500 MG TAB PO PRN (17:41)
[2019-11-12 22:00] VITALS: BP 140/86
[2019-11-13] MEDS: HEPARIN SOD (PORCINE) 5000 UNITS/ML VIAL SQ SCH ×3 (05:22→20:53)
[2019-11-13 06:00] VITALS: BP 122/76
[2019-11-13] MEDS ORDERED: LACTULOSE 20 GM/30 ML SYRUP UD PO SCH ×2 (06:00→09:00)
[2019-11-13] MEDS: TIOTROPIUM INHALER/CAPSULE (SPIRIVA) INH SCH (08:54)
[2019-11-13] MEDS: ALVIMOPAN 12 MG CAPSULE (ENTEREG) PO SCH ×2 (09:27→20:53)
[2019-11-13] MEDS: DOCUSATE SODIUM 100 MG CAP PO SCH ×2 (09:27→20:54)
[2019-11-13] MEDS: PANTOPRAZOLE 40MG TAB (PROTONIX) PO SCH (09:27)
[2019-11-13] MEDS: MIRALAX *UNIT DOSE* 17GM PACKET PO SCH (09:28)
[2019-11-13] MEDS: GABAPENTIN 300 MG CAP PO SCH ×3 (09:28→20:55)
[2019-11-13] MEDS: CelecoXIB (CeleBREX) 100 MG CAP PO SCH ×2 (09:28→20:55)
[2019-11-13] MEDS: ACETAMINOPHEN 500 MG TAB PO PRN ×2 (09:38→20:54)
[2019-11-13 14:00] VITALS: BP 131/79
[2019-11-13 22:00] VITALS: BP 129/79
[2019-11-14] MEDS: HEPARIN SOD (PORCINE) 5000 UNITS/ML VIAL SQ SCH (05:49)
[2019-11-14 06:00] VITALS: BP 132/82
[2019-11-14] MEDS: TIOTROPIUM INHALER/CAPSULE (SPIRIVA) INH SCH (08:01)
[2019-11-14] MEDS: DOCUSATE SODIUM 100 MG CAP PO SCH (09:00)
[2019-11-14] MEDS: GABAPENTIN 300 MG CAP PO SCH (09:14)
[2019-11-14] MEDS: PANTOPRAZOLE 40MG TAB (PROTONIX) PO SCH (09:14)
[2019-11-14] MEDS: ALVIMOPAN 12 MG CAPSULE (ENTEREG) PO SCH (09:15)
[2019-11-14] MEDS: CelecoXIB (CeleBREX) 100 MG CAP PO SCH (09:15)
[2019-11-14] MEDS: ACETAMINOPHEN 500 MG TAB PO PRN (09:22)
[2019-11-14] MEDS ORDERED: CELE100C PO (10:28)
[2019-11-14] MEDS ORDERED: GABA-843 PO (10:28)
[2019-11-14] MEDS ORDERED: DOCU100C16 PO (10:28)
[2019-11-14] MEDS ORDERED: CelecoXIB (CeleBREX) 100 MG CAP PO ONE (12:00)
[2019-11-14] MEDS ORDERED: GABAPENTIN 300 MG CAP PO ONE (12:00)
[2019-11-14] MEDS ORDERED: DOCUSATE SODIUM 100 MG CAP PO ONE (12:00)
== END 2019-11-14 12:43 | disposition home or self-care (01) | DRG 354 ==
LOC: M SDC 07:21 → M ICU 22:27 → M MSPAV 11-07 15:10
PROVIDERS: ADMIT Surgery; ATTEND Surgery
PROC: 0KNK4ZZ Release Right Abdomen Muscle, Percutaneous Endoscopic Approach (ICD-10-PCS; 2019-11-05)
PROC: 5A1935Z Respiratory Ventilation, Less than 24 Consecutive Hours (ICD-10-PCS; 2019-11-05)
PROC: 8E0W4CZ Robotic Assisted Procedure of Trunk Region, Percutaneous Endoscopic Approach (ICD-10-PCS; 2019-11-05)
PROC: 0WUF4JZ Supplement Abdominal Wall with Synthetic Substitute, Percutaneous Endoscopic Approach (ICD-10-PCS; principal; 2019-11-05 08:45)
DX: K43.2 Incisional hernia without obstruction or gangrene (principal); E87.4 Mixed disorder of acid-base balance; T81.82XA Emphysema (subcutaneous) resulting from a procedure, initial encounter; N18.9 Chronic kidney disease, unspecified; J44.9 Chronic obstructive pulmonary disease, unspecified; I12.9 Hypertensive chronic kidney disease with stage 1 through stage 4 chronic kidney disease, or unspecified chronic kidney disease; G43.909 Migraine, unspecified, not intractable, without status migrainosus; E78.5 Hyperlipidemia, unspecified; K57.30 Diverticulosis of large intestine without perforation or abscess without bleeding; Z79.899 Other long term (current) drug therapy; Z88.8 Allergy status to other drugs, medicaments and biological substances; Z87.891 Personal history of nicotine dependence; K43.5 Parastomal hernia without obstruction or gangrene; M62.08 Separation of muscle (nontraumatic), other site; Y83.2 Surgical operation with anastomosis, bypass or graft as the cause of abnormal reaction of the patient, or of later complication, without mention of misadventure at the time of the procedure

== ENCOUNTER → 2021-06-25 | Outpatient (CLI) | payer MEDICARE ==
[~2021-06-25] MED LIST changes: +ACET650T61 PO; -ALVIMOPAN 12 MG CAPSULE (ENTEREG) PO ONE; +AMLO1TAB24 PO; -AMLO5TAB6 PO; -AMPICILLIN SOD/SULBACTAM SOD 3 GM in D5W MINI-BAG PLUS 100 ML IV ONE; +CELE100C PO; +DOCU100C16 PO; +GABA-282 PO; -HEPARIN SOD (PORCINE) 5000 UNITS/ML VIAL SQ ONE; -LIDOCAINE 1% MDV 20ML VIAL SQ PRN; -LR 1,000 ML IV ONE; -TYLE650T35 PO
[2021-06-25 17:38] LABS: BASO # 0.1 10^3/uL (0.0-0.2); BASO % 0.6 % (0.0-1.0); EOS # 0.1 10^3/uL (0.0-0.5); HEMATOCRIT 41.8 % (36.0-47.0); HEMOGLOBIN 13.3 g/dl (12.0-15.5); LYMPH # 1.4 10^3/uL (1.5-5.0); LYMPH % 17.3 % (24.0-44.0); MEAN CORPUSCULAR HEMOGLOBIN 34.2 pg (27.0-33.0); MEAN CORPUSCULAR HGB CONC 31.8 g/dl (32.0-36.5); MEAN CORPUSCULAR VOLUME 107.5 fl (80.0-96.0); MONO # 0.5 10^3/uL (0.0-0.8); MONO % 6.1 % (2.0-8.0); NEUTROPHILS # 5.9 10^3/uL (1.5-8.5); NEUTROPHILS % 74.6 % (36.0-66.0); PLATELET COUNT, AUTOMATED 266 10^3/uL (150-450); RED BLOOD COUNT 3.89 10^6/uL (4.00-5.40); WHITE BLOOD COUNT 7.9 10^3/uL (4.0-10.0)
[2021-06-25 17:49] LABS: ALBUMIN 3.7 GM/DL (3.2-5.2); BILIRUBIN,TOTAL 0.3 MG/DL (0.2-1.0); CALCIUM LEVEL 8.5 MG/DL (8.8-10.2); CHOLESTEROL RISK RATIO 3.035 (<5); CREATININE FOR GFR 1.68 MG/DL (0.55-1.30); GLOMERULAR FILTRATION RATE 32.1 (>39); POTASSIUM SERUM 4.2 MEQ/L (3.5-5.1); TOTAL PROTEIN 7.2 GM/DL (6.4-8.2)
[2021-06-25 18:06] LABS: HEMOGLOBIN A1c 5.1 %
[2021-06-25 18:25] LABS: CA 125 4.9 U/ML (<30.2)
== END ==
LOC: M PLALAB 15:27
PROVIDERS: ATTEND Physician Assistant Medical
DX: D50.8 Other iron deficiency anemias (principal); N18.30 Chronic kidney disease, stage 3 unspecified; D75.89 Other specified diseases of blood and blood-forming organs; N83.9 Noninflammatory disorder of ovary, fallopian tube and broad ligament, unspecified; E78.2 Mixed hyperlipidemia; R73.01 Impaired fasting glucose; Z72.0 Tobacco use
CPT/HCPCS: 36415; 80053; 80061; 82607; 82728; 83036; 83540; 85025; 86304; 90732; G0009

== ENCOUNTER → 2022-06-03 | Outpatient (CLI) | payer MEDICARE ==
[2022-06-03 15:32] LABS: BASO # 0.1 10^3/uL (0.0-0.2); BASO % 0.8 % (0.0-1.0); EOS # 0.1 10^3/uL (0.0-0.5); EOS % 0.8 % (0.0-3.0); HEMOGLOBIN 13.3 g/dl (12.0-15.5); LYMPH # 1.4 10^3/uL (1.5-5.0); LYMPH % 18.4 % (24.0-44.0); MEAN CORPUSCULAR HEMOGLOBIN 31.1 pg (27.0-33.0); MEAN CORPUSCULAR HGB CONC 30.2 g/dl (32.0-36.5); MEAN CORPUSCULAR VOLUME 102.8 fl (80.0-96.0); MONO # 0.5 10^3/uL (0.0-0.8); MONO % 6.2 % (2.0-8.0); NEUTROPHILS # 5.4 10^3/uL (1.5-8.5); NEUTROPHILS % 73.5 % (36.0-66.0); PLATELET COUNT, AUTOMATED 341 10^3/uL (150-450); RED BLOOD COUNT 4.28 10^6/uL (4.00-5.40); WHITE BLOOD COUNT 7.4 10^3/uL (4.0-10.0)
[2022-06-03 15:46] LABS: HEMOGLOBIN A1c 5.3 %
[2022-06-03 16:04] LABS: ALBUMIN 3.7 GM/DL (3.2-5.2); BILIRUBIN,TOTAL 0.4 MG/DL (0.2-1.0); CALCIUM LEVEL 9.3 MG/DL (8.8-10.2); CHOLESTEROL RISK RATIO 2.623 (<5); CREATININE FOR GFR 1.99 MG/DL (0.55-1.30); GLOMERULAR FILTRATION RATE 26.3 (>39); POTASSIUM SERUM 4.8 MEQ/L (3.5-5.1); TOTAL PROTEIN 8.2 GM/DL (6.4-8.2)
== END ==
LOC: M PLALAB 13:46
PROVIDERS: ATTEND Physician Assistant Medical
DX: R73.01 Impaired fasting glucose (principal); N18.30 Chronic kidney disease, stage 3 unspecified; I12.9 Hypertensive chronic kidney disease with stage 1 through stage 4 chronic kidney disease, or unspecified chronic kidney disease; D50.8 Other iron deficiency anemias; D75.89 Other specified diseases of blood and blood-forming organs

== ENCOUNTER 2023-02-27 16:16 | Inpatient (IN) | payer MEDICARE ==
[~2023-02-27] VITALS: Ht 165.1 cm; Wt 72.0 kg
[2023-02-27] MEDS ORDERED: NS 1,000 ML IV SCH (17:10)
[2023-02-27] MEDS ORDERED: MORPHINE 2 MG/ML 1ML VIAL IV PRN (17:10)
[2023-02-27] MEDS ORDERED: ONDANSETRON 4MG 2ML VIAL IV ONE (17:10)
[2023-02-27 17:18] LABS: BASO % 0.3 % (0.0-1.0); EOS # 0.1 10^3/uL (0.0-0.5); EOS % 0.3 % (0.0-3.0); HEMATOCRIT 47.1 % (36.0-47.0); HEMOGLOBIN 14.7 g/dl (12.0-15.5); LYMPH % 6.6 % (24.0-44.0); MEAN CORPUSCULAR HEMOGLOBIN 33.1 pg (27.0-33.0); MEAN CORPUSCULAR HGB CONC 31.2 g/dl (32.0-36.5); MEAN CORPUSCULAR VOLUME 106.1 fl (80.0-96.0); MONO # 0.7 10^3/uL (0.0-0.8); MONO % 4.5 % (2.0-8.0); NEUTROPHILS % 87.6 % (36.0-66.0); PLATELET COUNT, AUTOMATED 314 10^3/uL (150-450); RED BLOOD COUNT 4.44 10^6/uL (4.00-5.40); WHITE BLOOD COUNT 14.8 10^3/uL (4.0-10.0)
[2023-02-27 17:48] LABS: ALBUMIN 3.4 G/DL (3.2-5.2); BILIRUBIN,DIRECT 0.1 MG/DL (<0.4); BILIRUBIN,TOTAL 0.2 MG/DL (0.3-1.2); CALCIUM LEVEL 9.4 MG/DL (8.3-10.6); CREATININE FOR GFR 2.91 MG/DL (0.55-1.30); POTASSIUM SERUM 3.7 MMOL/L (3.5-5.1); TOTAL PROTEIN 7.9 G/DL (5.7-8.2)
[2023-02-27] MEDS ORDERED: PIPERACILLIN/TAZOBACTAM SOD 3.375 GM in D5W MINI-BAG PLUS 50 ML IV ONE (19:45)
[2023-02-27 19:50] LABS: VENOUS BASE EXCESS -21.3 (-2.0-2.0); VENOUS HCO3 9.1 MEQ/L (23.0-27.0); VENOUS O2 SATURATION 65.3 % (60.0-80.0); VENOUS PARTIAL PRESSURE CO2 37.3 mmHg (38.0-50.0); VENOUS PARTIAL PRESSURE O2 31.9 mmHg (30.0-50.0); VENOUS PH 7.005 UNITS (7.330-7.430); VENOUS STANDARD HCO3 8.7 MEQ/L; VENOUS TOTAL CO2 10.2 MEQ/L (24.0-28.0)
[2023-02-27] MEDS ORDERED: ASPI81TA26 PO (20:08)
[2023-02-27] MEDS ORDERED: ALBU8.5H PO (20:08)
[2023-02-27] MEDS ORDERED: HOME MED LIST COMPLETE! XX SCH (20:10)
[2023-02-27 20:28] LABS: RSV AMPLIFICATION NEGATIVE (NEGATIVE)
[2023-02-27] MEDS ORDERED: LR 1,000 ML IV SCH (21:10)
[2023-02-27 23:15] VITALS: BP 141/70
[2023-02-27 23:32] LABS: CALCIUM LEVEL 8.2 MG/DL (8.3-10.6); CREATININE FOR GFR 2.74 MG/DL (0.55-1.30); GLOMERULAR FILTRATION RATE 18.2 (>39); POTASSIUM SERUM 3.6 MMOL/L (3.5-5.1)
[2023-02-28] MEDS ORDERED: GLUCAGON INJ 1MG VIAL SC PRN (00:45)
[2023-02-28] MEDS ORDERED: GLUCOSE 4GM CHEW TABLET PO PRN (00:45)
[2023-02-28] MEDS: DEXTROSE 50% 50ML SYRINGE IV PRN ×3 (00:54→06:12)
[2023-02-28 01:17] LABS: VENOUS BASE EXCESS -20.3 (-2.0-2.0); VENOUS HCO3 10.2 MEQ/L (23.0-27.0); VENOUS O2 SATURATION 77.5 % (60.0-80.0); VENOUS PARTIAL PRESSURE CO2 40.9 mmHg (38.0-50.0); VENOUS PARTIAL PRESSURE O2 41.9 mmHg (30.0-50.0); VENOUS PH 7.013 UNITS (7.330-7.430); VENOUS STANDARD HCO3 9.5 MEQ/L; VENOUS TOTAL CO2 11.4 MEQ/L (24.0-28.0)
[2023-02-28 01:43] LABS: HEMOGLOBIN A1c 4.6 % (4.0-6.0)
[2023-02-28] MEDS ORDERED: PIPERACILLIN/TAZOBACTAM SOD 3.375 GM in D5W MINI-BAG PLUS 50 ML IV SCH (02:00)
[2023-02-28] MEDS ORDERED: SODIUM BICARBONATE 150 MEQ in D5W 1,000 ML IV SCH (02:00)
[2023-02-28] MEDS: PIPERACILLIN/TAZOBACTAM SOD 2.25 GM in D5W MINI-BAG PLUS 50 ML IV SCH ×3 (03:43→20:16)
[2023-02-28 05:41] LABS: VENOUS BASE EXCESS -16.3 (-2.0-2.0); VENOUS HCO3 11.4 MEQ/L (23.0-27.0); VENOUS PARTIAL PRESSURE CO2 33.5 mmHg (38.0-50.0); VENOUS PARTIAL PRESSURE O2 67.2 mmHg (30.0-50.0); VENOUS PH 7.151 UNITS (7.330-7.430); VENOUS STANDARD HCO3 12.2 MEQ/L; VENOUS TOTAL CO2 12.5 MEQ/L (24.0-28.0)
[2023-02-28 05:51] VITALS: BP 144/71
[2023-02-28 06:00] LABS: INR 0.99; PARTIAL THROMBOPLASTIN TIME 37.4 SECONDS (24.8-34.2); PROTHROMBIN TIME 13.3 SECONDS (12.5-14.5)
[2023-02-28] MEDS: MORPHINE 2 MG/ML 1ML VIAL IV PRN ×2 (06:12→10:54)
[2023-02-28 06:26] LABS: ALBUMIN 2.5 G/DL (3.2-5.2); BILIRUBIN,TOTAL 0.3 MG/DL (0.3-1.2); CALCIUM LEVEL 8.1 MG/DL (8.3-10.6); CREATININE FOR GFR 2.74 MG/DL (0.55-1.30); GLOMERULAR FILTRATION RATE 18.2 (>39); POTASSIUM SERUM 3.3 MMOL/L (3.5-5.1); TOTAL PROTEIN 5.9 G/DL (5.7-8.2)
[2023-02-28 08:28] LABS: MEAN CORPUSCULAR HEMOGLOBIN 33.7 pg (27.0-33.0); MEAN CORPUSCULAR HGB CONC 31.8 g/dl (32.0-36.5); PLATELET COUNT, AUTOMATED 281 10^3/uL (150-450); RED BLOOD COUNT 3.68 10^6/uL (4.00-5.40); WHITE BLOOD COUNT 12.1 10^3/uL (4.0-10.0)
[2023-02-28 08:33] LABS: HEMOGLOBIN 12.4 g/dl (12.0-15.5)
[2023-02-28 09:10] LABS: ALBUMIN 2.3 G/DL (3.2-5.2); BILIRUBIN,TOTAL 0.3 MG/DL (0.3-1.2); CALCIUM LEVEL 7.9 MG/DL (8.3-10.6); CREATININE FOR GFR 2.71 MG/DL (0.55-1.30); GLOMERULAR FILTRATION RATE 18.4 (>39); TOTAL PROTEIN 5.5 G/DL (5.7-8.2)
[2023-02-28 09:16] VITALS: BP 142/66
[2023-02-28] MEDS: KCL 10MEQ/100ML SWI (KRUN) 10 MEQ in IV 1 EA IV SCH ×4 (09:33→17:07)
[2023-02-28] MEDS ORDERED: D5W IV SCH ×2 (11:00)
[2023-02-28] MEDS ORDERED: SODIUM BICARBONATE IV SCH ×2 (11:00)
[2023-02-28] MEDS ORDERED: SODIUM BICARBONATE 150 MEQ, POTASSIUM CHLORIDE INJ 20 MEQ in D5W 1,000 ML IV SCH (11:00)
[2023-02-28] MEDS ORDERED: KCL IV SCH ×2 (11:00)
[2023-02-28] MEDS ORDERED: DEXTROSE 50% 50ML SYRINGE IV STA ×2 (11:18→14:11)
[2023-02-28 11:50] VITALS: BP 140/64
[2023-02-28 16:22] VITALS: BP 140/69
[2023-02-28] MEDS ORDERED: KCL 10MEQ IN STERILE WATER 100ML As Ordered ONE (17:04)
[2023-02-28] MEDS ORDERED: ALBUTEROL 90 MCG/ACT 8GM HFA INHALER INH PRN (17:55)
[2023-02-28 18:33] LABS: ALBUMIN 2.6 G/DL (3.2-5.2); BILIRUBIN,TOTAL 0.4 MG/DL (0.3-1.2); CALCIUM LEVEL 8.3 MG/DL (8.3-10.6); CREATININE FOR GFR 2.73 MG/DL (0.55-1.30); GLOMERULAR FILTRATION RATE 18.3 (>39); POTASSIUM SERUM 3.5 MMOL/L (3.5-5.1); TOTAL PROTEIN 6.2 G/DL (5.7-8.2)
[2023-02-28] MEDS: PANTOPRAZOLE 40MG VIAL IV SCH (20:16)
[2023-02-28 20:59] VITALS: BP 152/68
[2023-03-01] VITALS: BP 130/61
[2023-03-01] MEDS: PIPERACILLIN/TAZOBACTAM SOD 2.25 GM in D5W MINI-BAG PLUS 50 ML IV SCH ×3 (04:30→19:54)
[2023-03-01 05:53] VITALS: BP 140/65
[2023-03-01 06:29] LABS: CALCIUM LEVEL 7.6 MG/DL (8.3-10.6); CREATININE FOR GFR 2.72 MG/DL (0.55-1.30); GLOMERULAR FILTRATION RATE 18.3 (>39); POTASSIUM SERUM 3.1 MMOL/L (3.5-5.1)
[2023-03-01] MEDS ORDERED: POTASSIUM CHLORIDE 10MEQ SR TABLET PO ONE (07:10)
[2023-03-01 07:30] VITALS: BP 143/64
[2023-03-01] MEDS: KCL IV SCH ×4 (08:00→19:49)
[2023-03-01] MEDS: D5W IV SCH ×4 (08:00→19:49)
[2023-03-01] MEDS: SODIUM BICARBONATE IV SCH ×4 (08:00→19:49)
[2023-03-01 12:02] VITALS: BP 132/70
[2023-03-01 16:00] VITALS: BP 143/80
[2023-03-01] MEDS: MORPHINE 2 MG/ML 1ML VIAL IV PRN (17:13)
[2023-03-01] MEDS: PANTOPRAZOLE 40MG VIAL IV SCH (20:00)
[2023-03-01 20:45] VITALS: BP 112/55
[2023-03-02 00:50] VITALS: BP 114/59
[2023-03-02 04:14] VITALS: BP 146/74
[2023-03-02] MEDS: PIPERACILLIN/TAZOBACTAM SOD 2.25 GM in D5W MINI-BAG PLUS 50 ML IV SCH ×3 (04:25→20:07)
[2023-03-02] MEDS: MORPHINE 2 MG/ML 1ML VIAL IV PRN (04:30)
[2023-03-02 05:42] LABS: BASO % 0.2 % (0.0-1.0); EOS # 0.2 10^3/uL (0.0-0.5); EOS % 2.3 % (0.0-3.0); HEMATOCRIT 28.4 % (36.0-47.0); LYMPH % 12.5 % (24.0-44.0); MEAN CORPUSCULAR HEMOGLOBIN 34.1 pg (27.0-33.0); MEAN CORPUSCULAR HGB CONC 33.5 g/dl (32.0-36.5); MEAN CORPUSCULAR VOLUME 101.8 fl (80.0-96.0); MONO # 0.8 10^3/uL (0.0-0.8); NEUTROPHILS # 6.3 10^3/uL (1.5-8.5); NEUTROPHILS % 75.6 % (36.0-66.0); PLATELET COUNT, AUTOMATED 259 10^3/uL (150-450); RED BLOOD COUNT 2.79 10^6/uL (4.00-5.40); WHITE BLOOD COUNT 8.3 10^3/uL (4.0-10.0)
[2023-03-02 05:47] LABS: HEMOGLOBIN 9.5 g/dl (12.0-15.5)
[2023-03-02 06:13] LABS: ALBUMIN 1.8 G/DL (3.2-5.2); BILIRUBIN,TOTAL 0.4 MG/DL (0.3-1.2); CALCIUM LEVEL 6.8 MG/DL (8.3-10.6); CREATININE FOR GFR 2.48 MG/DL (0.55-1.30); GLOMERULAR FILTRATION RATE 20.4 (>39); MAGNESIUM LEVEL 1.4 MG/DL (1.8-2.4); POTASSIUM SERUM 3.2 MMOL/L (3.5-5.1); TOTAL PROTEIN 4.7 G/DL (5.7-8.2)
[2023-03-02] MEDS ORDERED: MAGNESIUM OXIDE 400MG TAB (MAG-OX) PO ONE (07:25)
[2023-03-02] MEDS ORDERED: POTASSIUM CHLORIDE 10MEQ SR TABLET PO ONE (07:25)
[2023-03-02 07:44] LABS: FOLATE 7.2 NG/ML (>5.4)
[2023-03-02 08:00] VITALS: BP 125/74
[2023-03-02] MEDS: KCL 20MEQ in NS 1000ML 1,000 ML IV SCH ×2 (08:56→19:00)
[2023-03-02 11:49] VITALS: BP 118/65
[2023-03-02 11:52] LABS: HEMATOCRIT 31.1 % (36.0-47.0); HEMOGLOBIN 10.2 g/dl (12.0-15.5)
[2023-03-02 15:58] VITALS: BP 119/86
[2023-03-02] MEDS: POTASSIUM CHLORIDE 10MEQ SR TABLET PO SCH ×2 (16:19→20:08)
[2023-03-02 20:00] VITALS: BP 137/93
[2023-03-02] MEDS: PANTOPRAZOLE 40MG VIAL IV SCH (20:08)
[2023-03-02] MEDS: SENOKOT S TAB PO SCH (20:08)
[2023-03-03] VITALS: BP 136/62
[2023-03-03] MEDS: PIPERACILLIN/TAZOBACTAM SOD 2.25 GM in D5W MINI-BAG PLUS 50 ML IV SCH ×2 (03:46→12:33)
[2023-03-03 04:43] VITALS: BP 145/67
[2023-03-03] MEDS: KCL 20MEQ in NS 1000ML 1,000 ML IV SCH ×2 (05:27→17:31)
[2023-03-03] MEDS: MORPHINE 2 MG/ML 1ML VIAL IV PRN (05:35)
[2023-03-03] MEDS: ONDANSETRON 4MG 2ML VIAL IV PRN (05:35)
[2023-03-03 06:09] LABS: BASO % 0.3 % (0.0-1.0); EOS # 0.2 10^3/uL (0.0-0.5); HEMATOCRIT 30.9 % (36.0-47.0); HEMOGLOBIN 9.6 g/dl (12.0-15.5); LYMPH # 1.2 10^3/uL (1.5-5.0); LYMPH % 13.5 % (24.0-44.0); MEAN CORPUSCULAR HGB CONC 31.1 g/dl (32.0-36.5); MEAN CORPUSCULAR VOLUME 106.2 fl (80.0-96.0); MONO # 0.7 10^3/uL (0.0-0.8); MONO % 8.4 % (2.0-8.0); NEUTROPHILS # 6.7 10^3/uL (1.5-8.5); NEUTROPHILS % 75.6 % (36.0-66.0); PLATELET COUNT, AUTOMATED 285 10^3/uL (150-450); RED BLOOD COUNT 2.91 10^6/uL (4.00-5.40); WHITE BLOOD COUNT 8.8 10^3/uL (4.0-10.0)
[2023-03-03 07:03] LABS: BILIRUBIN,TOTAL 0.3 MG/DL (0.3-1.2); CALCIUM LEVEL 7.7 MG/DL (8.3-10.6); CREATININE FOR GFR 2.31 MG/DL (0.55-1.30); GLOMERULAR FILTRATION RATE 22.1 (>39); MAGNESIUM LEVEL 1.6 MG/DL (1.8-2.4); POTASSIUM SERUM 4.8 MMOL/L (3.5-5.1); TOTAL PROTEIN 5.2 G/DL (5.7-8.2)
[2023-03-03] MEDS ORDERED: MAGNESIUM OXIDE 400MG TAB (MAG-OX) PO ONE (07:25)
[2023-03-03 08:06] VITALS: BP 130/67
[2023-03-03] MEDS: POTASSIUM CHLORIDE 10MEQ SR TABLET PO SCH (08:26)
[2023-03-03] MEDS: SENOKOT S TAB PO SCH ×2 (08:26→20:21)
[2023-03-03 12:00] VITALS: BP 154/69
[2023-03-03 17:03] VITALS: BP 150/80
[2023-03-03 20:00] VITALS: BP 154/69
[2023-03-03] MEDS: PANTOPRAZOLE 40MG VIAL IV SCH (20:20)
[2023-03-04] MEDS: IPRATROPIUM 0.5MG/ALBUTEROL 2.5MG INH SOL UD 3ML (DUONEB) NEB PRN ×2 (00:23→04:18)
[2023-03-04 04:00] VITALS: BP 163/72
[2023-03-04 06:17] LABS: BASO % 0.3 % (0.0-1.0); EOS # 0.2 10^3/uL (0.0-0.5); EOS % 2.5 % (0.0-3.0); HEMATOCRIT 33.4 % (36.0-47.0); HEMOGLOBIN 10.4 g/dl (12.0-15.5); LYMPH # 0.8 10^3/uL (1.5-5.0); LYMPH % 7.9 % (24.0-44.0); MEAN CORPUSCULAR HEMOGLOBIN 34.2 pg (27.0-33.0); MEAN CORPUSCULAR HGB CONC 31.1 g/dl (32.0-36.5); MEAN CORPUSCULAR VOLUME 109.9 fl (80.0-96.0); MONO # 0.8 10^3/uL (0.0-0.8); MONO % 8.2 % (2.0-8.0); NEUTROPHILS # 7.7 10^3/uL (1.5-8.5); NEUTROPHILS % 80.8 % (36.0-66.0); PLATELET COUNT, AUTOMATED 332 10^3/uL (150-450); RED BLOOD COUNT 3.04 10^6/uL (4.00-5.40); WHITE BLOOD COUNT 9.5 10^3/uL (4.0-10.0)
[2023-03-04 06:57] LABS: ALBUMIN 2.3 G/DL (3.2-5.2); BILIRUBIN,TOTAL 0.3 MG/DL (0.3-1.2); CALCIUM LEVEL 8.3 MG/DL (8.3-10.6); CREATININE FOR GFR 2.34 MG/DL (0.55-1.30); GLOMERULAR FILTRATION RATE 21.8 (>39); MAGNESIUM LEVEL 1.9 MG/DL (1.8-2.4); POTASSIUM SERUM 6.1 MMOL/L (3.5-5.1)
[2023-03-04 07:35] VITALS: BP 164/80
[2023-03-04] MEDS ORDERED: HumuLIN R (REGULAR) INSULIN (NovoLIN R) **100U/ML** PER UNIT IV STA (07:37)
[2023-03-04] MEDS ORDERED: DEXTROSE 50% 50ML SYRINGE IV STA (07:37)
[2023-03-04] MEDS ORDERED: FUROSEMIDE 40MG/4ML VIAL IV ONE (08:20)
[2023-03-04] MEDS: SENOKOT S TAB PO SCH ×2 (09:12→19:46)
[2023-03-04] MEDS: DEXTROSE 50% 50ML SYRINGE IV PRN (09:34)
[2023-03-04 15:23] VITALS: BP 150/85
[2023-03-04 15:28] LABS: CALCIUM LEVEL 8.1 MG/DL (8.3-10.6); CREATININE FOR GFR 2.29 MG/DL (0.55-1.30); GLOMERULAR FILTRATION RATE 22.4 (>39); POTASSIUM SERUM 4.9 MMOL/L (3.5-5.1)
[2023-03-04 18:55] VITALS: BP 168/80
[2023-03-04 19:05] VITALS: BP 166/78
[2023-03-04] MEDS: MORPHINE 2 MG/ML 1ML VIAL IV PRN (19:29)
[2023-03-04] MEDS: PANTOPRAZOLE 40MG VIAL IV SCH (20:57)
[2023-03-04] MEDS: ONDANSETRON 4MG 2ML VIAL IV PRN (20:57)
[2023-03-04] MEDS ORDERED: HYDROMORPHONE HCL 0.5 MG/ 0.5 ML SYRINGE IV ONE (21:05)
[2023-03-04 21:13] VITALS: BP 166/82
[2023-03-05] MEDS: IPRATROPIUM 0.5MG/ALBUTEROL 2.5MG INH SOL UD 3ML (DUONEB) NEB PRN ×2 (04:33→19:33)
[2023-03-05 06:42] LABS: BASO % 0.2 % (0.0-1.0); EOS # 0.3 10^3/uL (0.0-0.5); EOS % 2.4 % (0.0-3.0); HEMATOCRIT 32.5 % (36.0-47.0); LYMPH # 1.1 10^3/uL (1.5-5.0); LYMPH % 9.2 % (24.0-44.0); MEAN CORPUSCULAR HGB CONC 30.8 g/dl (32.0-36.5); MEAN CORPUSCULAR VOLUME 110.5 fl (80.0-96.0); MONO % 8.1 % (2.0-8.0); NEUTROPHILS # 9.6 10^3/uL (1.5-8.5); NEUTROPHILS % 79.6 % (36.0-66.0); PLATELET COUNT, AUTOMATED 362 10^3/uL (150-450); RED BLOOD COUNT 2.94 10^6/uL (4.00-5.40); WHITE BLOOD COUNT 12.1 10^3/uL (4.0-10.0)
[2023-03-05 06:55] LABS: ALBUMIN 2.1 G/DL (3.2-5.2); BILIRUBIN,TOTAL 0.3 MG/DL (0.3-1.2); CALCIUM LEVEL 8.4 MG/DL (8.3-10.6); CREATININE FOR GFR 2.35 MG/DL (0.55-1.30); GLOMERULAR FILTRATION RATE 21.7 (>39); MAGNESIUM LEVEL 1.9 MG/DL (1.8-2.4); POTASSIUM SERUM 5.3 MMOL/L (3.5-5.1); TOTAL PROTEIN 5.9 G/DL (5.7-8.2)
[2023-03-05] MEDS: ACETAMINOPHEN TAB 650MG DOSE (2X325MG) PO PRN ×2 (08:35→20:25)
[2023-03-05] MEDS: SENOKOT S TAB PO SCH ×2 (08:35→20:25)
[2023-03-05 14:24] VITALS: BP 138/75
[2023-03-05 20:16] VITALS: BP 141/88
[2023-03-05] MEDS: PANTOPRAZOLE 40MG VIAL IV SCH (20:24)
[2023-03-06] MEDS ORDERED: RAMELTEON 8 MG TAB (ROZEREM) PO PRN (00:05)
[2023-03-06 05:50] VITALS: BP 141/79
[2023-03-06 06:32] LABS: BASO % 0.2 % (0.0-1.0); EOS # 0.2 10^3/uL (0.0-0.5); EOS % 2.2 % (0.0-3.0); HEMOGLOBIN 9.5 g/dl (12.0-15.5); LYMPH # 1.1 10^3/uL (1.5-5.0); LYMPH % 13.4 % (24.0-44.0); MEAN CORPUSCULAR HEMOGLOBIN 34.5 pg (27.0-33.0); MEAN CORPUSCULAR HGB CONC 31.7 g/dl (32.0-36.5); MEAN CORPUSCULAR VOLUME 109.1 fl (80.0-96.0); MONO # 0.7 10^3/uL (0.0-0.8); MONO % 8.6 % (2.0-8.0); NEUTROPHILS # 6.4 10^3/uL (1.5-8.5); NEUTROPHILS % 75.2 % (36.0-66.0); PLATELET COUNT, AUTOMATED 338 10^3/uL (150-450); RED BLOOD COUNT 2.75 10^6/uL (4.00-5.40); WHITE BLOOD COUNT 8.5 10^3/uL (4.0-10.0)
[2023-03-06 07:04] LABS: ALBUMIN 1.9 G/DL (3.2-5.2); BILIRUBIN,TOTAL 0.2 MG/DL (0.3-1.2); CREATININE FOR GFR 2.47 MG/DL (0.55-1.30); GLOMERULAR FILTRATION RATE 20.5 (>39); MAGNESIUM LEVEL 1.9 MG/DL (1.8-2.4); TOTAL PROTEIN 5.6 G/DL (5.7-8.2)
[2023-03-06] MEDS: SENOKOT S TAB PO SCH (07:08)
[2023-03-06] MEDS ORDERED: ONDA-83 PO (10:41)
[2023-03-06] MEDS ORDERED: ACET1TAB55 PO (10:41)
== END 2023-03-06 12:15 | disposition home or self-care (01) | DRG 871 ==
LOC: M ED 16:16 → M ED INP 21:08 → ENRESERV 21:34 → M MSPAV 23:17 → M PCU 02-28 09:11 → M MSPAV 03-04 18:54
PROVIDERS: ADMIT Internal Medicine; ATTEND Family Medicine
DX: A41.9 Sepsis, unspecified organism (principal); K85.90 Acute pancreatitis without necrosis or infection, unspecified; N17.9 Acute kidney failure, unspecified; E87.20 Acidosis, unspecified; N13.6 Pyonephrosis; M87.851 Other osteonecrosis, right femur; M87.852 Other osteonecrosis, left femur; J90 Pleural effusion, not elsewhere classified; J44.9 Chronic obstructive pulmonary disease, unspecified; I12.9 Hypertensive chronic kidney disease with stage 1 through stage 4 chronic kidney disease, or unspecified chronic kidney disease; K57.30 Diverticulosis of large intestine without perforation or abscess without bleeding; K21.9 Gastro-esophageal reflux disease without esophagitis; N18.9 Chronic kidney disease, unspecified; M19.90 Unspecified osteoarthritis, unspecified site; F17.200 Nicotine dependence, unspecified, uncomplicated; E16.2 Hypoglycemia, unspecified; E87.6 Hypokalemia; D64.9 Anemia, unspecified; E87.5 Hyperkalemia; B95.2 Enterococcus as the cause of diseases classified elsewhere; B96.1 Klebsiella pneumoniae [K. pneumoniae] as the cause of diseases classified elsewhere; Z93.6 Other artificial openings of urinary tract status; Z90.49 Acquired absence of other specified parts of digestive tract; Z79.82 Long term (current) use of aspirin

== ENCOUNTER → 2023-03-23 | Outpatient (CLI) | payer MEDICARE ==
[~2023-03-23] MED LIST changes: +ACET1TAB55 PO; +ALBU8.5H PO; +ONDA-83 PO
[2023-03-23 17:23] LABS: BASO # 0.1 10^3/uL (0.0-0.2); EOS # 0.2 10^3/uL (0.0-0.5); EOS % 1.7 % (0.0-3.0); HEMATOCRIT 38.3 % (36.0-47.0); HEMOGLOBIN 11.7 g/dl (12.0-15.5); LYMPH # 1.7 10^3/uL (1.5-5.0); LYMPH % 18.4 % (24.0-44.0); MEAN CORPUSCULAR HEMOGLOBIN 33.1 pg (27.0-33.0); MEAN CORPUSCULAR HGB CONC 30.5 g/dl (32.0-36.5); MEAN CORPUSCULAR VOLUME 108.2 fl (80.0-96.0); MONO # 0.5 10^3/uL (0.0-0.8); MONO % 5.3 % (2.0-8.0); NEUTROPHILS # 6.8 10^3/uL (1.5-8.5); NEUTROPHILS % 73.4 % (36.0-66.0); PLATELET COUNT, AUTOMATED 382 10^3/uL (150-450); RED BLOOD COUNT 3.54 10^6/uL (4.00-5.40); WHITE BLOOD COUNT 9.3 10^3/uL (4.0-10.0)
[2023-03-23 17:53] LABS: LIPASE 216 U/L (12-53)
[2023-03-23 17:55] LABS: ALKALINE PHOSPHATASE 136 U/L (46-116); ALT/SGPT 11 U/L (7.0-40); AST/SGOT 10 U/L (<34); BILIRUBIN,TOTAL < 0.2 MG/DL (0.3-1.2); BLOOD UREA NITROGEN 34 MG/DL (9-23); CALCIUM LEVEL 8.7 MG/DL (8.3-10.6); CARBON DIOXIDE LEVEL 16 MMOL/L (20-31); CHLORIDE LEVEL 114 MMOL/L (98-107); GLOMERULAR FILTRATION RATE 23.4 (>39); GLUCOSE, FASTING 64 MG/DL (74-106); IRON (FE) 46 UG/DL (50-170); POTASSIUM SERUM 4.6 MMOL/L (3.5-5.1); SODIUM LEVEL 140 MMOL/L (136-145); TOTAL PROTEIN 7.2 G/DL (5.7-8.2)
[2023-03-23 17:57] LABS: FERRITIN 169.2 NG/ML (7.3-270.7)
== END ==
LOC: M PLALAB 14:55
PROVIDERS: ATTEND Physician Assistant Medical
DX: K85.80 Other acute pancreatitis without necrosis or infection (principal); A41.9 Sepsis, unspecified organism; D50.9 Iron deficiency anemia, unspecified

== ENCOUNTER → 2023-03-23 | Outpatient (REF) | payer MEDICARE | LOC: M SFHCPLAZ 14:38 | PROVIDERS: ATTEND Physician Assistant Medical | DX: K85.80 Other acute pancreatitis without necrosis or infection (principal); A41.9 Sepsis, unspecified organism; D50.9 Iron deficiency anemia, unspecified ==

== ENCOUNTER → 2023-03-25 | Outpatient (REF) | payer MEDICARE ==
[2023-03-25 17:15] LABS: APPEARANCE, URINE TURBID (CLEAR); BACTERIA, URINE AUTO 2+ (NEGATIVE); BILIRUBIN, URINE AUTO NEGATIVE (NEGATIVE); BLOOD, URINE BLOOD 1+ (NEGATIVE); COLOR, URINE YELLOW (YELLOW); GLUCOSE, URINE (UA) AUTO NEGATIVE (NEGATIVE); KETONE, URINE AUTO NEGATIVE (NEGATIVE); LEUKOCYTE ESTERASE, URINE AUTO 2+ (NEGATIVE); NITRITE, URINE AUTO POSITIVE (NEGATIVE); PROTEIN, URINE AUTO 3+ mg/dL (NEGATIVE); RBC, URINE AUTO 32 /HPF (0-3); SPECIFIC GRAVITY URINE AUTO 1.012 (1.002-1.035); SQUAMOUS EPITHELIAL CELL UR AU 0 /HPF (0-6); UROBILINOGEN, URINE AUTO 0.2 mg/dL (0.0-2.0); WBC, URINE AUTO TNTC /HPF (0-3)
== END ==
LOC: M SFHCPLAZ 15:28
PROVIDERS: ATTEND Physician Assistant Medical
DX: A41.9 Sepsis, unspecified organism (principal)

== ENCOUNTER → 2023-03-29 | Outpatient (POV) | payer MEDICARE ==
[~2023-03-29] VITALS: Ht 162.6 cm; Wt 63.1 kg
[2023-03-29 14:20] VITALS: BP 145/80
== END ==
LOC: M IRPOV 13:27
PROVIDERS: ATTEND Radiology Diagnostic Radiology
DX: N20.0 Calculus of kidney (principal); F17.210 Nicotine dependence, cigarettes, uncomplicated; Z79.82 Long term (current) use of aspirin; Z90.6 Acquired absence of other parts of urinary tract

== ENCOUNTER → 2023-03-29 | Outpatient (REF) | payer MEDICARE | LOC: M SFHCPLAZ 16:41 | PROVIDERS: ATTEND Physician Assistant Medical | DX: A41.9 Sepsis, unspecified organism (principal) ==

== ENCOUNTER 2023-04-11 10:19 | Inpatient (IN) | payer MEDICARE ==
[~2023-04-11] VITALS: Ht 162.6 cm; Wt 62.0 kg
[2023-04-11] MEDS ORDERED: ceFAZolin SOD 2 GM in D5W MINI-BAG PLUS 50 ML IV ONE (10:40)
[2023-04-11] MEDS ORDERED: ceFAZolin SOD 2 GM in IV 1 EA IV ONE (10:45)
[2023-04-11] MEDS ORDERED: ACETAMINOPHEN 325 MG TAB As Ordered ONE (11:19)
[2023-04-11] MEDS ORDERED: ISOVUE-300 61% 100ML VIAL As Ordered ONE (11:20)
[2023-04-11] MEDS ORDERED: LIDOCAINE 1% MDV 20ML VIAL As Ordered ONE (11:20)
[2023-04-11] MEDS ORDERED: ACETAMINOPHEN TAB 650MG DOSE (2X325MG) PO ONE (11:20)
[2023-04-11] MEDS: NS 1,000 ML IV SCH ×3 (11:25→22:50)
[2023-04-11] MEDS ORDERED: diphenhydrAMINE 50MG/ML VIAL As Ordered ONE (12:21)
[2023-04-11] MEDS ORDERED: fentaNYL 100 MCG/2 ML INJECTION As Ordered ONE (12:21)
[2023-04-11] MEDS ORDERED: ceFAZolin 2 GM/D5W 50 ML IV BAG As Ordered ONE (12:21)
[2023-04-11] MEDS ORDERED: MIDAZOLAM INJ 2MG/2ML VIAL As Ordered ONE (12:21)
[2023-04-11] MEDS ORDERED: PROMETHAZINE 25MG/ML 1ML VIAL As Ordered ONE (13:07)
[2023-04-11] MEDS ORDERED: HYDROmorphone HCL 2MG/ML 1ML VIAL As Ordered ONE (14:49)
[2023-04-11] MEDS ORDERED: HYDROmorphone HCL 2MG/ML 1ML VIAL IV ONE (15:00)
[2023-04-11] MEDS ORDERED: HYDROMORPHONE HCL 0.5 MG/ 0.5 ML SYRINGE IV ONE (15:00)
[2023-04-11] MEDS ORDERED: PERCOCET 5MG/325MG TAB PO PRN (17:35)
[2023-04-11] MEDS ORDERED: ONDANSETRON 4MG 2ML VIAL As Ordered ONE (17:35)
[2023-04-11] MEDS ORDERED: ONDANSETRON 4MG 2ML VIAL IV PRN (17:35)
[2023-04-11] MEDS ORDERED: MEPERIDINE 25 MG/ML 1ML VIAL As Ordered ONE (17:35)
[2023-04-11] MEDS ORDERED: NS 1,000 ML IV ONE (17:45)
[2023-04-11] MEDS ORDERED: ONDANSETRON 4MG 2ML VIAL IV ONE (17:45)
[2023-04-11] MEDS ORDERED: MEPERIDINE 25 MG/ML 1ML VIAL IV ONE (17:45)
[2023-04-11] MEDS ORDERED: VANCOMYCIN HCL 1,000 MG in IV FLUID PLACE HOLDER 1 EA IV ONE (17:45)
[2023-04-11] MEDS ORDERED: VANCOMYCIN 1000MG/20ML VIAL As Ordered ONE (17:51)
[2023-04-11] MEDS ORDERED: VANCOMYCIN HCL 1,000 MG, VIAL MATE ADAPTER 1 EACH in D5W 250 ML IV ONE (18:00)
[2023-04-11] MEDS ORDERED: VANCOMYCIN HCL 1,000 MG, VIAL MATE ADAPTER 1 EACH in D5W 250 ML IV SCH (18:00)
[2023-04-11] MEDS ORDERED: PIPERACILLIN/TAZOBACTAM SOD 3.375 GM in D5W MINI-BAG PLUS 50 ML IV ONE (19:00)
[2023-04-11 19:19] LABS: HEMOGLOBIN 12.6 g/dl (12.0-15.5); MEAN CORPUSCULAR HEMOGLOBIN 33.1 pg (27.0-33.0); MEAN CORPUSCULAR HGB CONC 31.5 g/dl (32.0-36.5); PLATELET COUNT, AUTOMATED 225 10^3/uL (150-450); RED BLOOD COUNT 3.81 10^6/uL (4.00-5.40); WHITE BLOOD COUNT 17.1 10^3/uL (4.0-10.0)
[2023-04-11 19:51] LABS: ALBUMIN 2.8 G/DL (3.2-5.2); ALKALINE PHOSPHATASE 134 U/L (46-116); ALT/SGPT < 9 U/L (7.0-40); AST/SGOT 9 U/L (<34); BILIRUBIN,TOTAL < 0.2 MG/DL (0.3-1.2); BLOOD UREA NITROGEN 31 MG/DL (9-23); CALCIUM LEVEL 8.1 MG/DL (8.3-10.6); CARBON DIOXIDE LEVEL 13 MMOL/L (20-31); CHLORIDE LEVEL 117 MMOL/L (98-107); CREATININE FOR GFR 2.71 MG/DL (0.55-1.30); GLOMERULAR FILTRATION RATE 18.4 (>39); GLUCOSE, FASTING 81 MG/DL (74-106); POTASSIUM SERUM 3.4 MMOL/L (3.5-5.1); SODIUM LEVEL 138 MMOL/L (136-145); TOTAL PROTEIN 6.5 G/DL (5.7-8.2)
[2023-04-11 20:23] VITALS: BP 158/70
[2023-04-11] MEDS ORDERED: ONDA-195 PO (20:27)
[2023-04-11] MEDS ORDERED: VITA500T37 PO (20:27)
[2023-04-11] MEDS ORDERED: SPIR1CAP INH (20:27)
[2023-04-11] MEDS ORDERED: VITA100093 PO (20:27)
[2023-04-11] MEDS ORDERED: AMLO1TAB24 PO (20:27)
[2023-04-11] MEDS ORDERED: PROA1AER2 INH (20:27)
[2023-04-11] MEDS ORDERED: HOME MED LIST COMPLETE! XX SCH (20:30)
[2023-04-11] MEDS: MORPHINE 4 MG/ML 1ML VIAL IV PRN (20:41)
[2023-04-11] MEDS ORDERED: ALBUTEROL 90 MCG/ACT 8GM HFA INHALER INH PRN (20:45)
[2023-04-11] MEDS: DOCUSATE SODIUM 100MG CAPSULE PO SCH (21:00)
[2023-04-11 21:36] VITALS: BP 133/63
[2023-04-12] MEDS: PIPERACILLIN/TAZOBACTAM SOD 3.375 GM in D5W MINI-BAG PLUS 50 ML IV SCH ×4 (01:03→18:13)
[2023-04-12] MEDS: NS 1,000 ML IV SCH ×3 (05:34→22:31)
[2023-04-12] MEDS: ACETAMINOPHEN TAB 650MG DOSE (2X325MG) PO PRN (05:35)
[2023-04-12 06:05] VITALS: BP 120/60
[2023-04-12 06:21] LABS: HEMATOCRIT 32.9 % (36.0-47.0); MEAN CORPUSCULAR HEMOGLOBIN 33.4 pg (27.0-33.0); MEAN CORPUSCULAR HGB CONC 31.9 g/dl (32.0-36.5); MEAN CORPUSCULAR VOLUME 104.8 fl (80.0-96.0); PLATELET COUNT, AUTOMATED 234 10^3/uL (150-450); RED BLOOD COUNT 3.14 10^6/uL (4.00-5.40); WHITE BLOOD COUNT 22.4 10^3/uL (4.0-10.0)
[2023-04-12 06:23] LABS: HEMOGLOBIN 10.5 g/dl (12.0-15.5)
[2023-04-12 06:52] LABS: CALCIUM LEVEL 7.7 MG/DL (8.3-10.6); CREATININE FOR GFR 2.87 MG/DL (0.55-1.30); GLOMERULAR FILTRATION RATE 17.2 (>39); MAGNESIUM LEVEL 1.7 MG/DL (1.8-2.4)
[2023-04-12 07:56] LABS: VANCOMYCIN RANDOM 12.5 UG/ML
[2023-04-12] MEDS ORDERED: POTASSIUM CHLORIDE 10% LIQ 20MEQ/15ML UDC PO ONE ×2 (08:00→10:00)
[2023-04-12] MEDS ORDERED: VANCOMYCIN HCL 1,000 MG, VIAL MATE ADAPTER 1 EACH in D5W 250 ML IV SCH (08:00)
[2023-04-12] MEDS: DOCUSATE SODIUM 100MG CAPSULE PO SCH ×2 (08:01→20:31)
[2023-04-12] MEDS: MORPHINE 2 MG/ML 1ML VIAL IV PRN ×3 (08:01→20:32)
[2023-04-12] MEDS: ASPIRIN 81MG ENTERIC TABLET PO SCH (08:02)
[2023-04-12] MEDS: amLODIPine 5 MG TAB PO SCH (08:02)
[2023-04-12] MEDS: TIOTROPIUM INHALER/CAPSULE (SPIRIVA) INH SCH (08:19)
[2023-04-12] MEDS: MAG SULF 1GM/100ML (MAG RUN) 1 GM in IV 1 EA IV SCH ×2 (10:15→11:25)
[2023-04-12] MEDS: MORPHINE 4 MG/ML 1ML VIAL IV PRN (12:25)
[2023-04-12 14:00] VITALS: BP 119/57
[2023-04-12 21:13] VITALS: BP 133/63
[2023-04-13] MEDS: PIPERACILLIN/TAZOBACTAM SOD 3.375 GM in D5W MINI-BAG PLUS 50 ML IV SCH ×4 (00:35→18:15)
[2023-04-13 06:00] VITALS: BP 133/63
[2023-04-13 07:36] LABS: VANCOMYCIN LEVEL TROUGH 18.9 UG/ML (10.0-20.0)
[2023-04-13 07:46] LABS: ALKALINE PHOSPHATASE 108 U/L (46-116); ALT/SGPT < 9 U/L (7.0-40); AST/SGOT 9 U/L (<34); BILIRUBIN,TOTAL 0.2 MG/DL (0.3-1.2); BLOOD UREA NITROGEN 26 MG/DL (9-23); CALCIUM LEVEL 7.6 MG/DL (8.3-10.6); CARBON DIOXIDE LEVEL 13 MMOL/L (20-31); CHLORIDE LEVEL 119 MMOL/L (98-107); CREATININE FOR GFR 2.86 MG/DL (0.55-1.30); GLOMERULAR FILTRATION RATE 17.3 (>39); GLUCOSE, FASTING 94 MG/DL (74-106); POTASSIUM SERUM 3.1 MMOL/L (3.5-5.1); SODIUM LEVEL 138 MMOL/L (136-145); TOTAL PROTEIN 5.2 G/DL (5.7-8.2)
[2023-04-13] MEDS ORDERED: VANCOMYCIN HCL 500 MG in D5W MINI-BAG PLUS 100 ML IV SCH (08:00)
[2023-04-13 08:09] LABS: MAGNESIUM LEVEL 2.2 MG/DL (1.8-2.4)
[2023-04-13 08:59] LABS: BASO # 0.1 10^3/uL (0.0-0.2); BASO % 0.4 % (0.0-1.0); EOS # 0.2 10^3/uL (0.0-0.5); EOS % 0.9 % (0.0-3.0); HEMOGLOBIN 10.6 g/dl (12.0-15.5); LYMPH # 1.2 10^3/uL (1.5-5.0); LYMPH % 7.4 % (24.0-44.0); MEAN CORPUSCULAR HEMOGLOBIN 33.8 pg (27.0-33.0); MEAN CORPUSCULAR HGB CONC 32.1 g/dl (32.0-36.5); MEAN CORPUSCULAR VOLUME 105.1 fl (80.0-96.0); MONO # 0.8 10^3/uL (0.0-0.8); NEUTROPHILS # 13.8 10^3/uL (1.5-8.5); NEUTROPHILS % 85.6 % (36.0-66.0); PLATELET COUNT, AUTOMATED 196 10^3/uL (150-450); RED BLOOD COUNT 3.14 10^6/uL (4.00-5.40); WHITE BLOOD COUNT 16.1 10^3/uL (4.0-10.0)
[2023-04-13 09:00] VITALS: O2SAT 94
[2023-04-13] MEDS: amLODIPine 5 MG TAB PO SCH (09:00)
[2023-04-13] MEDS ORDERED: BISACODYL 10MG SUPP PR ONE (09:15)
[2023-04-13] MEDS: DOCUSATE SODIUM 100MG CAPSULE PO SCH ×2 (09:59→20:37)
[2023-04-13] MEDS: ASPIRIN 81MG ENTERIC TABLET PO SCH (09:59)
[2023-04-13] MEDS: NS 1,000 ML IV SCH ×2 (10:00→20:37)
[2023-04-13] MEDS ORDERED: MIRALAX *UNIT DOSE* 17GM PACKET PO PRN (10:55)
[2023-04-13] MEDS ORDERED: POTASSIUM CHLORIDE 10MEQ SR TABLET PO ONE ×2 (11:00→21:00)
[2023-04-13] MEDS: TIOTROPIUM INHALER/CAPSULE (SPIRIVA) INH SCH (11:16)
[2023-04-13] MEDS: SENNA 8.6 MG TAB (SENOKOT) PO PRN (11:49)
[2023-04-13 14:00] VITALS: BP 125/62
[2023-04-13] MEDS ORDERED: HEPARIN SOD (PORCINE) 5000UNITS/ML 1ML VIAL/SYRINGE SQ SCH (14:00)
[2023-04-13] MEDS ORDERED: HEPARIN DRIP 25,000 UNITS in IV 1 EA IV SCH (19:15)
[2023-04-13] MEDS ORDERED: HEPARIN SOD (PORCINE) 5000UNITS/ML 1ML VIAL/SYRINGE IV PRN (19:15)
[2023-04-13 19:54] LABS: HEMATOCRIT 29.8 % (36.0-47.0); HEMOGLOBIN 9.7 g/dl (12.0-15.5); MEAN CORPUSCULAR HGB CONC 32.6 g/dl (32.0-36.5); MEAN CORPUSCULAR VOLUME 104.6 fl (80.0-96.0); PLATELET COUNT, AUTOMATED 190 10^3/uL (150-450); RED BLOOD COUNT 2.85 10^6/uL (4.00-5.40); WHITE BLOOD COUNT 15.5 10^3/uL (4.0-10.0)
[2023-04-13 20:15] VITALS: BP 131/60
[2023-04-14] MEDS: PIPERACILLIN/TAZOBACTAM SOD 3.375 GM in D5W MINI-BAG PLUS 50 ML IV SCH ×2 (00:53→06:23)
[2023-04-14 05:44] VITALS: BP 128/58
[2023-04-14 06:20] LABS: BASO # 0.1 10^3/uL (0.0-0.2); BASO % 0.5 % (0.0-1.0); EOS # 0.2 10^3/uL (0.0-0.5); EOS % 1.5 % (0.0-3.0); HEMATOCRIT 32.6 % (36.0-47.0); HEMOGLOBIN 9.9 g/dl (12.0-15.5); LYMPH # 1.1 10^3/uL (1.5-5.0); LYMPH % 8.9 % (24.0-44.0); MEAN CORPUSCULAR HGB CONC 30.4 g/dl (32.0-36.5); MEAN CORPUSCULAR VOLUME 108.7 fl (80.0-96.0); MONO # 0.6 10^3/uL (0.0-0.8); MONO % 4.6 % (2.0-8.0); NEUTROPHILS # 10.5 10^3/uL (1.5-8.5); PLATELET COUNT, AUTOMATED 191 10^3/uL (150-450); WHITE BLOOD COUNT 12.5 10^3/uL (4.0-10.0)
[2023-04-14] MEDS: NS 1,000 ML IV SCH ×2 (06:23→13:40)
[2023-04-14] MEDS: ACETAMINOPHEN TAB 650MG DOSE (2X325MG) PO PRN ×2 (06:33→15:30)
[2023-04-14 07:19] LABS: ALBUMIN 1.9 G/DL (3.2-5.2); ALKALINE PHOSPHATASE 100 U/L (46-116); ALT/SGPT < 9 U/L (7.0-40); AST/SGOT 9 U/L (<34); BILIRUBIN,TOTAL 0.2 MG/DL (0.3-1.2); BLOOD UREA NITROGEN 22 MG/DL (9-23); CALCIUM LEVEL 7.6 MG/DL (8.3-10.6); CARBON DIOXIDE LEVEL 11 MMOL/L (20-31); CHLORIDE LEVEL 117 MMOL/L (98-107); CREATININE FOR GFR 2.87 MG/DL (0.55-1.30); GLOMERULAR FILTRATION RATE 17.2 (>39); GLUCOSE, FASTING 116 MG/DL (74-106); POTASSIUM SERUM 3.6 MMOL/L (3.5-5.1); SODIUM LEVEL 142 MMOL/L (136-145); TOTAL PROTEIN 4.9 G/DL (5.7-8.2)
[2023-04-14] MEDS: TIOTROPIUM INHALER/CAPSULE (SPIRIVA) INH SCH (07:43)
[2023-04-14 07:48] LABS: VANCOMYCIN RANDOM 20.3 UG/ML
[2023-04-14] MEDS: DOCUSATE SODIUM 100MG CAPSULE PO SCH ×2 (08:38→21:26)
[2023-04-14] MEDS: amLODIPine 5 MG TAB PO SCH (08:38)
[2023-04-14] MEDS: SENNA 8.6 MG TAB (SENOKOT) PO PRN (08:38)
[2023-04-14] MEDS: ASPIRIN 81MG ENTERIC TABLET PO SCH (08:38)
[2023-04-14 09:00] VITALS: O2SAT 94
[2023-04-14] MEDS ORDERED: LEVO1TAB39 PO ×2 (11:17→11:21)
[2023-04-14] MEDS ORDERED: LevoFLOXacin 750 MG TABLET PO ONE (12:00)
[2023-04-14 14:00] VITALS: BP 112/69
[2023-04-14] MEDS: HEPARIN SOD (PORCINE) 5000UNITS/ML 1ML VIAL/SYRINGE SQ SCH ×2 (15:29→21:31)
[2023-04-15] MEDS: HEPARIN SOD (PORCINE) 5000UNITS/ML 1ML VIAL/SYRINGE SQ SCH (05:15)
[2023-04-15 05:58] LABS: BASO # 0.1 10^3/uL (0.0-0.2); BASO % 0.5 % (0.0-1.0); EOS # 0.2 10^3/uL (0.0-0.5); EOS % 1.9 % (0.0-3.0); HEMATOCRIT 29.7 % (36.0-47.0); HEMOGLOBIN 9.4 g/dl (12.0-15.5); LYMPH % 8.9 % (24.0-44.0); MEAN CORPUSCULAR HEMOGLOBIN 33.3 pg (27.0-33.0); MEAN CORPUSCULAR HGB CONC 31.6 g/dl (32.0-36.5); MEAN CORPUSCULAR VOLUME 105.3 fl (80.0-96.0); MONO # 0.6 10^3/uL (0.0-0.8); MONO % 5.3 % (2.0-8.0); NEUTROPHILS % 82.8 % (36.0-66.0); PLATELET COUNT, AUTOMATED 224 10^3/uL (150-450); RED BLOOD COUNT 2.82 10^6/uL (4.00-5.40); WHITE BLOOD COUNT 10.9 10^3/uL (4.0-10.0)
[2023-04-15 06:00] VITALS: BP 132/65
[2023-04-15 06:26] LABS: ALBUMIN 1.9 G/DL (3.2-5.2); ALKALINE PHOSPHATASE 98 U/L (46-116); ALT/SGPT < 9 U/L (7.0-40); AST/SGOT < 8 U/L (<34); BILIRUBIN,TOTAL 0.2 MG/DL (0.3-1.2); BLOOD UREA NITROGEN 21 MG/DL (9-23); CALCIUM LEVEL 7.6 MG/DL (8.3-10.6); CARBON DIOXIDE LEVEL 12 MMOL/L (20-31); CHLORIDE LEVEL 118 MMOL/L (98-107); CREATININE FOR GFR 2.85 MG/DL (0.55-1.30); GLOMERULAR FILTRATION RATE 17.4 (>39); GLUCOSE, FASTING 80 MG/DL (74-106); MAGNESIUM LEVEL 1.8 MG/DL (1.8-2.4); POTASSIUM SERUM 3.4 MMOL/L (3.5-5.1); SODIUM LEVEL 144 MMOL/L (136-145)
[2023-04-15] MEDS: TIOTROPIUM INHALER/CAPSULE (SPIRIVA) INH SCH (07:37)
[2023-04-15] MEDS: DOCUSATE SODIUM 100MG CAPSULE PO SCH ×2 (09:00→09:19)
[2023-04-15] MEDS: ASPIRIN 81MG ENTERIC TABLET PO SCH (09:19)
[2023-04-15 09:21] VITALS: BP 132/65
[2023-04-15] MEDS: amLODIPine 5 MG TAB PO SCH (09:21)
[2023-04-15] MEDS ORDERED: POTASSIUM CHLORIDE 10% LIQ 20MEQ/15ML UDC PO ONE (09:30)
== END 2023-04-15 10:58 | disposition home health service (06) | DRG 862 ==
LOC: M IRPRO 10:19 → M MSPAV 19:07 → M IRPRO 19:51 → M MSPAV 19:52 → OBSVTOIN 04-12 14:02
PROVIDERS: ADMIT Internal Medicine; ATTEND Internal Medicine
PROC: 0T9130Z Drainage of Left Kidney with Drainage Device, Percutaneous Approach (ICD-10-PCS; 2023-04-11)
PROC: 0TP5X0Z Removal of Drainage Device from Kidney, External Approach (ICD-10-PCS; principal; 2023-04-11 12:30)
DX: T81.44XA Sepsis following a procedure, initial encounter (principal); A41.9 Sepsis, unspecified organism; I82.612 Acute embolism and thrombosis of superficial veins of left upper extremity; M87.051 Idiopathic aseptic necrosis of right femur; M87.052 Idiopathic aseptic necrosis of left femur; N10 Acute pyelonephritis; N31.9 Neuromuscular dysfunction of bladder, unspecified; N18.9 Chronic kidney disease, unspecified; I12.9 Hypertensive chronic kidney disease with stage 1 through stage 4 chronic kidney disease, or unspecified chronic kidney disease; J44.9 Chronic obstructive pulmonary disease, unspecified; J45.909 Unspecified asthma, uncomplicated; N20.0 Calculus of kidney; F17.210 Nicotine dependence, cigarettes, uncomplicated; Y84.8 Other medical procedures as the cause of abnormal reaction of the patient, or of later complication, without mention of misadventure at the time of the procedure; E83.42 Hypomagnesemia; K59.00 Constipation, unspecified; B96.5 Pseudomonas (aeruginosa) (mallei) (pseudomallei) as the cause of diseases classified elsewhere; R22.2 Localized swelling, mass and lump, trunk; Z90.49 Acquired absence of other specified parts of digestive tract; Z79.82 Long term (current) use of aspirin; Z79.899 Other long term (current) drug therapy

== ENCOUNTER → 2023-04-19 | Outpatient (CLI) | payer MEDICARE, MEDICAID ==
[~2023-04-19] MED LIST changes: +LEVO1TAB39 PO; +ONDA-195 PO; +PROA1AER2 INH; +VITA100093 PO; +VITA500T37 PO
[2023-04-19 17:39] LABS: INR 1.01; PROTHROMBIN TIME 13.5 SECONDS (12.5-14.5)
[2023-04-19 17:42] LABS: BASO # 0.1 10^3/uL (0.0-0.2); BASO % 0.6 % (0.0-1.0); EOS # 0.1 10^3/uL (0.0-0.5); EOS % 0.6 % (0.0-3.0); HEMOGLOBIN 11.4 g/dl (12.0-15.5); LYMPH # 1.4 10^3/uL (1.5-5.0); LYMPH % 11.1 % (24.0-44.0); MEAN CORPUSCULAR HEMOGLOBIN 32.6 pg (27.0-33.0); MEAN CORPUSCULAR HGB CONC 30.8 g/dl (32.0-36.5); MEAN CORPUSCULAR VOLUME 105.7 fl (80.0-96.0); MONO # 0.6 10^3/uL (0.0-0.8); MONO % 4.6 % (2.0-8.0); NEUTROPHILS # 10.4 10^3/uL (1.5-8.5); NEUTROPHILS % 82.5 % (36.0-66.0); PLATELET COUNT, AUTOMATED 435 10^3/uL (150-450); WHITE BLOOD COUNT 12.6 10^3/uL (4.0-10.0)
[2023-04-19 18:01] LABS: ALBUMIN 2.6 G/DL (3.2-5.2); ALKALINE PHOSPHATASE 136 U/L (46-116); ALT/SGPT < 9 U/L (7.0-40); AST/SGOT < 8 U/L (<34); BILIRUBIN,TOTAL 0.2 MG/DL (0.3-1.2); BLOOD UREA NITROGEN 24 MG/DL (9-23); CALCIUM LEVEL 8.3 MG/DL (8.3-10.6); CARBON DIOXIDE LEVEL 12 MMOL/L (20-31); CHLORIDE LEVEL 113 MMOL/L (98-107); CREATININE FOR GFR 2.61 MG/DL (0.55-1.30); GLOMERULAR FILTRATION RATE 19.2 (>39); GLUCOSE, FASTING 93 MG/DL (74-106); POTASSIUM SERUM 3.5 MMOL/L (3.5-5.1); SODIUM LEVEL 141 MMOL/L (136-145); TOTAL PROTEIN 6.6 G/DL (5.7-8.2)
== END ==
LOC: M PLALAB 15:03
PROVIDERS: ATTEND Family Medicine
DX: N20.0 Calculus of kidney (principal); N18.4 Chronic kidney disease, stage 4 (severe)

== ENCOUNTER 2023-05-02 21:21 | Inpatient (IN) | payer MEDICARE, MEDICAID ==
[~2023-05-02] VITALS: Ht 162.6 cm; Wt 63.1 kg
[2023-05-02 22:06] LABS: VENOUS BASE EXCESS -23.9 (-2.0-2.0); VENOUS O2 SATURATION 81.5 % (60.0-80.0); VENOUS PARTIAL PRESSURE CO2 24.8 mmHg (38.0-50.0); VENOUS PARTIAL PRESSURE O2 45.1 mmHg (30.0-50.0); VENOUS PH 7.002 UNITS (7.330-7.430); VENOUS STANDARD HCO3 7.5 MMOL/L; VENOUS TOTAL CO2 6.8 MMOL/L (24.0-28.0)
[2023-05-02 22:10] LABS: BASO # 0.1 10^3/uL (0.0-0.2); BASO % 0.4 % (0.0-1.0); EOS % 0.1 % (0.0-3.0); HEMATOCRIT 35.9 % (36.0-47.0); HEMOGLOBIN 11.6 g/dl (12.0-15.5); LYMPH # 1.2 10^3/uL (1.5-5.0); LYMPH % 8.7 % (24.0-44.0); MEAN CORPUSCULAR HEMOGLOBIN 33.1 pg (27.0-33.0); MEAN CORPUSCULAR HGB CONC 32.3 g/dl (32.0-36.5); MEAN CORPUSCULAR VOLUME 102.6 fl (80.0-96.0); MONO # 0.8 10^3/uL (0.0-0.8); MONO % 5.7 % (2.0-8.0); NEUTROPHILS # 11.3 10^3/uL (1.5-8.5); NEUTROPHILS % 84.7 % (36.0-66.0); PLATELET COUNT, AUTOMATED 285 10^3/uL (150-450); WHITE BLOOD COUNT 13.4 10^3/uL (4.0-10.0)
[2023-05-02 22:35] LABS: CK-MB VALUE MASS < 1.0 NG/ML (<3.6)
[2023-05-02 22:38] LABS: ALBUMIN 2.5 G/DL (3.2-5.2); ALKALINE PHOSPHATASE 167 U/L (46-116); ALT/SGPT < 9 U/L (7.0-40); AST/SGOT 11 U/L (<34); BILIRUBIN,DIRECT < 0.1 MG/DL (<0.4); BILIRUBIN,TOTAL 0.2 MG/DL (0.3-1.2); BLOOD UREA NITROGEN 57 MG/DL (9-23); CALCIUM LEVEL 8.8 MG/DL (8.3-10.6); CARBON DIOXIDE LEVEL < 10.0 MMOL/L (20-31); CHLORIDE LEVEL 117 MMOL/L (98-107); CPK CREATINE PHOSPHOKINASE 31 U/L (34-145); CREATININE FOR GFR 3.13 MG/DL (0.55-1.30); GLOMERULAR FILTRATION RATE 15.6 (>39); GLUCOSE, FASTING 79 MG/DL (74-106); MB/CK RELATIVE INDEX 3.22 (< OR =4); POTASSIUM SERUM 3.4 MMOL/L (3.5-5.1); SODIUM LEVEL 136 MMOL/L (136-145); TOTAL PROTEIN 6.2 G/DL (5.7-8.2)
[2023-05-02 23:49] LABS: CK-MB VALUE MASS 1.7 NG/ML (<3.6)
[2023-05-03] LABS: MB/CK RELATIVE INDEX 4.59 (< OR =4)
[2023-05-03] MEDS ORDERED: PIPERACILLIN/TAZOBACTAM SOD 3.375 GM in D5W MINI-BAG PLUS 50 ML IV STA (01:35)
[2023-05-03] MEDS ORDERED: ZOSYN 3.375GM VIAL As Ordered ONE (01:53)
[2023-05-03] MEDS ORDERED: GLUCAGON INJ 1MG VIAL SC PRN (04:15)
[2023-05-03] MEDS ORDERED: DEXTROSE 50% 50ML SYRINGE IV PRN (04:15)
[2023-05-03] MEDS ORDERED: GLUCOSE 4GM CHEW TABLET PO PRN (04:15)
[2023-05-03 04:28] LABS: ABG pH (ARTERIAL) 7.079 UNITS (7.350-7.450)
[2023-05-03 04:29] LABS: ABG BASE EXCESS -23.1 (-2.0-2.0); ABG O2 SATURATION 98.2 % (95.0-99.0); ABG PARTIAL PRESSURE CO2 17.4 mmHg (35.0-45.0); ABG PARTIAL PRESSURE O2 115.9 mmHg (75.0-100.0); ABG STANDARD HCO3 8.1 MMOL/L. (22.0-26.0); ABG TOTAL CO2 5.6 MMOL/L (23.0-31.0)
[2023-05-03 04:57] LABS: VENOUS BASE EXCESS -23.9 (-2.0-2.0); VENOUS HCO3 6.4 MMOL/L (23.0-27.0); VENOUS O2 SATURATION 88.2 % (60.0-80.0); VENOUS PARTIAL PRESSURE CO2 27.5 mmHg (38.0-50.0); VENOUS PARTIAL PRESSURE O2 56.7 mmHg (30.0-50.0); VENOUS PH 6.987 UNITS (7.330-7.430); VENOUS STANDARD HCO3 7.7 MMOL/L; VENOUS TOTAL CO2 7.3 MMOL/L (24.0-28.0)
[2023-05-03] MEDS ORDERED: SODIUM BICARBONATE 150 MEQ in STERILE WATER LITER BAG 1,000 ML IV SCH (05:00)
[2023-05-03 05:17] LABS: BASO # 0.1 10^3/uL (0.0-0.2); BASO % 0.4 % (0.0-1.0); EOS % 0.1 % (0.0-3.0); HEMATOCRIT 37.1 % (36.0-47.0); HEMOGLOBIN 12.1 g/dl (12.0-15.5); LYMPH # 1.2 10^3/uL (1.5-5.0); LYMPH % 9.5 % (24.0-44.0); MEAN CORPUSCULAR HEMOGLOBIN 33.3 pg (27.0-33.0); MEAN CORPUSCULAR HGB CONC 32.6 g/dl (32.0-36.5); MEAN CORPUSCULAR VOLUME 102.2 fl (80.0-96.0); MONO # 0.7 10^3/uL (0.0-0.8); MONO % 5.1 % (2.0-8.0); NEUTROPHILS # 10.7 10^3/uL (1.5-8.5); NEUTROPHILS % 84.3 % (36.0-66.0); PLATELET COUNT, AUTOMATED 272 10^3/uL (150-450); RED BLOOD COUNT 3.63 10^6/uL (4.00-5.40); WHITE BLOOD COUNT 12.7 10^3/uL (4.0-10.0)
[2023-05-03 05:36] LABS: ALBUMIN 2.6 G/DL (3.2-5.2); ALKALINE PHOSPHATASE 172 U/L (46-116); ALT/SGPT < 9 U/L (7.0-40); AST/SGOT 16 U/L (<34); BILIRUBIN,TOTAL 0.2 MG/DL (0.3-1.2); BLOOD UREA NITROGEN 60 MG/DL (9-23); CALCIUM LEVEL 9.5 MG/DL (8.3-10.6); CARBON DIOXIDE LEVEL < 10.0 MMOL/L (20-31); CHLORIDE LEVEL 117 MMOL/L (98-107); GLOMERULAR FILTRATION RATE 15.2 (>39); GLUCOSE, FASTING 76 MG/DL (74-106); MAGNESIUM LEVEL 2.4 MG/DL (1.8-2.4); POTASSIUM SERUM 3.4 MMOL/L (3.5-5.1); SODIUM LEVEL 137 MMOL/L (136-145); TOTAL PROTEIN 6.6 G/DL (5.7-8.2)
[2023-05-03] MEDS ORDERED: CYCL5TAB PO (05:50)
[2023-05-03] MEDS ORDERED: HOME MED LIST COMPLETE! XX SCH (05:50)
[2023-05-03] MEDS ORDERED: ALBU8.5H INH (05:50)
[2023-05-03] MEDS ORDERED: ASPI-161 PO (05:50)
[2023-05-03] MEDS ORDERED: AMLO1TAB24 PO (05:50)
[2023-05-03] MEDS ORDERED: ONDA-195 PO (05:50)
[2023-05-03] MEDS ORDERED: VITAMIN D 1,000 INTERNATIONAL UNITS TABLET PO SCH (09:00)
[2023-05-03] MEDS: CYANOCOBALAMIN 500 MCG TAB PO SCH (09:00)
[2023-05-03] MEDS ORDERED: ALBUTEROL 90 MCG/ACT 8GM HFA INHALER INH PRN (09:35)
[2023-05-03 09:59] VITALS: BP 145/70; TEMP 98; O2SAT 100
[2023-05-03] MEDS: PIPERACILLIN/TAZOBACTAM SOD 2.25 GM in D5W MINI-BAG PLUS 50 ML IV SCH ×2 (11:26→18:46)
[2023-05-03] MEDS: HEPARIN SOD (PORCINE) 5000UNITS/ML 1ML VIAL/SYRINGE SQ SCH ×2 (11:27→21:21)
[2023-05-03] MEDS: ASPIRIN 81MG ENTERIC TABLET PO SCH (11:27)
[2023-05-03] MEDS: amLODIPine 5 MG TAB PO SCH (11:28)
[2023-05-03] MEDS: CYCLOBENZAPRINE 5MG TABLET PO PRN (11:28)
[2023-05-03 12:00] VITALS: BP 141/67; TEMP 98.2; O2SAT 100
[2023-05-03] MEDS: [UNRECOGNIZED DRUG - OTHER] IV SCH (15:28)
[2023-05-03] MEDS: POTASSIUM CHLORIDE IV SCH (15:28)
[2023-05-03] MEDS: SODIUM BICARBONATE IV SCH (15:28)
[2023-05-03 15:30] VITALS: BP 131/64; TEMP 97; O2SAT 100
[2023-05-03 18:48] LABS: CREATININE FOR GFR 2.99 MG/DL (0.55-1.30); GLOMERULAR FILTRATION RATE 16.4 (>39); POTASSIUM SERUM 2.5 MMOL/L (3.5-5.1)
[2023-05-03] MEDS ORDERED: POTASSIUM CHLORIDE 10MEQ SR TABLET PO ONE (18:50)
[2023-05-03] MEDS: TIOTROPIUM INHALER/CAPSULE (SPIRIVA) INH SCH (19:29)
[2023-05-03] MEDS: KCL 10MEQ/100ML SWI (KRUN) 10 MEQ in IV 1 EA IV SCH ×3 (19:41→23:14)
[2023-05-03 20:00] VITALS: BP 123/60; TEMP 97; O2SAT 99
[2023-05-04] VITALS (10 sets, daily range): BP systolic 109–142; BP diastolic 56–64; TEMP 96.3–99; O2SAT 94–99
[2023-05-04 00:41] LABS: CALCIUM LEVEL 8.2 MG/DL (8.3-10.6); CREATININE FOR GFR 2.79 MG/DL (0.55-1.30); GLOMERULAR FILTRATION RATE 17.8 (>39); POTASSIUM SERUM 2.8 MMOL/L (3.5-5.1)
[2023-05-04] MEDS: PIPERACILLIN/TAZOBACTAM SOD 2.25 GM in D5W MINI-BAG PLUS 50 ML IV SCH (01:50)
[2023-05-04 01:58] LABS: CREATININE,RANDOM URINE 47.2 MG/DL
[2023-05-04] MEDS ORDERED: POTASSIUM CHLORIDE 10MEQ SR TABLET PO ONE ×2 (02:00→07:10)
[2023-05-04 04:55] LABS: BASO % 0.2 % (0.0-1.0); EOS # 0.1 10^3/uL (0.0-0.5); EOS % 0.7 % (0.0-3.0); HEMATOCRIT 29.7 % (36.0-47.0); LYMPH % 11.4 % (24.0-44.0); MEAN CORPUSCULAR HEMOGLOBIN 33.1 pg (27.0-33.0); MEAN CORPUSCULAR HGB CONC 33.7 g/dl (32.0-36.5); MEAN CORPUSCULAR VOLUME 98.3 fl (80.0-96.0); MONO # 0.5 10^3/uL (0.0-0.8); MONO % 6.3 % (2.0-8.0); NEUTROPHILS # 6.7 10^3/uL (1.5-8.5); PLATELET COUNT, AUTOMATED 231 10^3/uL (150-450); RED BLOOD COUNT 3.02 10^6/uL (4.00-5.40); WHITE BLOOD COUNT 8.3 10^3/uL (4.0-10.0)
[2023-05-04 05:20] LABS: PERCENT SATURATION 22.6 % (13.2-45.0)
[2023-05-04 05:22] LABS: FERRITIN 278.6 NG/ML (7.3-270.7)
[2023-05-04 05:23] LABS: CALCIUM LEVEL 7.7 MG/DL (8.3-10.6); CREATININE FOR GFR 2.73 MG/DL (0.55-1.30); FOLATE 6.39 NG/ML (>5.4); GLOMERULAR FILTRATION RATE 18.3 (>39); MAGNESIUM LEVEL 2.1 MG/DL (1.8-2.4); POTASSIUM SERUM 3.4 MMOL/L (3.5-5.1)
[2023-05-04] MEDS: [UNRECOGNIZED DRUG - OTHER] IV SCH (06:15)
[2023-05-04] MEDS: SODIUM BICARBONATE IV SCH (06:15)
[2023-05-04] MEDS: POTASSIUM CHLORIDE IV SCH (06:15)
[2023-05-04] MEDS: HEPARIN SOD (PORCINE) 5000UNITS/ML 1ML VIAL/SYRINGE SQ SCH ×2 (08:16→22:20)
[2023-05-04] MEDS: CYANOCOBALAMIN 500 MCG TAB PO SCH (08:16)
[2023-05-04] MEDS: amLODIPine 5 MG TAB PO SCH (08:17)
[2023-05-04] MEDS: ASPIRIN 81MG ENTERIC TABLET PO SCH (08:17)
[2023-05-04] MEDS: FLUCONAZOLE 100 MG TAB PO SCH (10:04)
[2023-05-04] MEDS: FOLIC ACID 1MG TAB PO SCH (10:05)
[2023-05-04] MEDS ORDERED: FERRIC CARBOXYMALTOSE INJ 750 MG, VIAL MATE ADAPTER 1 EACH in NS 250 ML IV ONE (11:00)
[2023-05-04] MEDS: SODIUM BICARBONATE 150 MEQ, POTASSIUM CHLORIDE INJ 20 MEQ in STERILE WATER LITER BAG 1,... IV SCH (17:49)
[2023-05-04] MEDS: TIOTROPIUM INHALER/CAPSULE (SPIRIVA) INH SCH (21:36)
[2023-05-05] VITALS (10 sets, daily range): BP systolic 100–139; BP diastolic 54–69; TEMP 97.1–98.4; O2SAT 94–97
[2023-05-05] MEDS: SODIUM BICARBONATE 150 MEQ, POTASSIUM CHLORIDE INJ 20 MEQ in STERILE WATER LITER BAG 1,... IV SCH (04:48)
[2023-05-05 05:56] LABS: BASO % 0.5 % (0.0-1.0); EOS # 0.1 10^3/uL (0.0-0.5); EOS % 1.3 % (0.0-3.0); HEMATOCRIT 25.4 % (36.0-47.0); HEMOGLOBIN 8.5 g/dl (12.0-15.5); LYMPH # 1.1 10^3/uL (1.5-5.0); LYMPH % 17.9 % (24.0-44.0); MEAN CORPUSCULAR HEMOGLOBIN 32.6 pg (27.0-33.0); MEAN CORPUSCULAR HGB CONC 33.5 g/dl (32.0-36.5); MEAN CORPUSCULAR VOLUME 97.3 fl (80.0-96.0); MONO # 0.6 10^3/uL (0.0-0.8); MONO % 9.3 % (2.0-8.0); NEUTROPHILS # 4.5 10^3/uL (1.5-8.5); NEUTROPHILS % 70.8 % (36.0-66.0); PLATELET COUNT, AUTOMATED 227 10^3/uL (150-450); RED BLOOD COUNT 2.61 10^6/uL (4.00-5.40); WHITE BLOOD COUNT 6.4 10^3/uL (4.0-10.0)
[2023-05-05 06:22] LABS: CALCIUM LEVEL 8.1 MG/DL (8.3-10.6); CREATININE FOR GFR 2.27 MG/DL (0.55-1.30); GLOMERULAR FILTRATION RATE 22.6 (>39); MAGNESIUM LEVEL 2.1 MG/DL (1.8-2.4); POTASSIUM SERUM 3.3 MMOL/L (3.5-5.1)
[2023-05-05] MEDS ORDERED: POTASSIUM CHLORIDE 10MEQ SR TABLET PO ONE (07:05)
[2023-05-05] MEDS: amLODIPine 5 MG TAB PO SCH (07:55)
[2023-05-05] MEDS: CYANOCOBALAMIN 500 MCG TAB PO SCH (08:08)
[2023-05-05] MEDS: ASPIRIN 81MG ENTERIC TABLET PO SCH (08:08)
[2023-05-05] MEDS: FLUCONAZOLE 100 MG TAB PO SCH (08:08)
[2023-05-05] MEDS: FOLIC ACID 1MG TAB PO SCH (08:08)
[2023-05-05] MEDS: HEPARIN SOD (PORCINE) 5000UNITS/ML 1ML VIAL/SYRINGE SQ SCH ×2 (08:09→21:17)
[2023-05-05] MEDS: SODIUM BICARBONATE 325 MG TAB PO SCH ×2 (10:25→21:17)
[2023-05-05] MEDS: GABAPENTIN 100 MG CAP PO SCH ×2 (10:26→21:17)
[2023-05-05] MEDS ORDERED: SODI325T9 PO (11:04)
[2023-05-05] MEDS ORDERED: FLUC100T3 PO (11:04)
[2023-05-05] MEDS ORDERED: GABA-1171 PO (11:04)
[2023-05-05] MEDS ORDERED: AMLO25TA PO (12:02)
[2023-05-05] MEDS ORDERED: NS 1,000 ML IV ONE (13:05)
[2023-05-05] MEDS: NS 1,000 ML IV SCH ×2 (14:30→22:14)
[2023-05-05] MEDS: ACETAMINOPHEN TAB 650MG DOSE (2X325MG) PO PRN (16:06)
[2023-05-05] MEDS: MORPHINE 2 MG/ML 1ML VIAL IV PRN ×2 (18:40→22:14)
[2023-05-05] MEDS: TIOTROPIUM INHALER/CAPSULE (SPIRIVA) INH SCH (19:19)
[2023-05-05 20:03] LABS: C REACTIVE PROTEIN QUANTITATIV 4.3 MG/DL (<1.0)
[2023-05-05 20:04] LABS: COMPLEMENT C3 74.4 MG/DL (90.0-170.0)
[2023-05-05 20:05] LABS: COMPLEMENT C4 53.3 MG/DL (12-36)
[2023-05-05 20:13] LABS: ERYTHROCYTE SEDIMENTATION RATE 15 mm/hr (0-30)
[2023-05-06] VITALS (10 sets, daily range): BP systolic 92–128; BP diastolic 55–68; TEMP 96.3–98.1; O2SAT 76–96
[2023-05-06 05:49] LABS: BASO % 0.3 % (0.0-1.0); EOS # 0.2 10^3/uL (0.0-0.5); EOS % 2.6 % (0.0-3.0); HEMATOCRIT 25.9 % (36.0-47.0); HEMOGLOBIN 8.1 g/dl (12.0-15.5); LYMPH # 1.3 10^3/uL (1.5-5.0); LYMPH % 18.6 % (24.0-44.0); MEAN CORPUSCULAR HEMOGLOBIN 32.4 pg (27.0-33.0); MEAN CORPUSCULAR HGB CONC 31.3 g/dl (32.0-36.5); MEAN CORPUSCULAR VOLUME 103.6 fl (80.0-96.0); MONO # 0.6 10^3/uL (0.0-0.8); MONO % 7.9 % (2.0-8.0); NEUTROPHILS # 5.1 10^3/uL (1.5-8.5); NEUTROPHILS % 70.3 % (36.0-66.0); PLATELET COUNT, AUTOMATED 222 10^3/uL (150-450); WHITE BLOOD COUNT 7.2 10^3/uL (4.0-10.0)
[2023-05-06 06:03] LABS: CALCIUM LEVEL 7.8 MG/DL (8.3-10.6); CREATININE FOR GFR 2.12 MG/DL (0.55-1.30); GLOMERULAR FILTRATION RATE 24.4 (>39); MAGNESIUM LEVEL 2.1 MG/DL (1.8-2.4)
[2023-05-06] MEDS: MORPHINE 2 MG/ML 1ML VIAL IV PRN (06:27)
[2023-05-06] MEDS: GABAPENTIN 100 MG CAP PO SCH ×2 (09:17→21:44)
[2023-05-06] MEDS: FLUCONAZOLE 100 MG TAB PO SCH (09:17)
[2023-05-06] MEDS: ASPIRIN 81MG ENTERIC TABLET PO SCH (09:17)
[2023-05-06] MEDS: HEPARIN SOD (PORCINE) 5000UNITS/ML 1ML VIAL/SYRINGE SQ SCH ×2 (09:17→21:45)
[2023-05-06] MEDS: FOLIC ACID 1MG TAB PO SCH (09:17)
[2023-05-06] MEDS: SODIUM BICARBONATE 325 MG TAB PO SCH ×2 (09:17→21:45)
[2023-05-06] MEDS: CYANOCOBALAMIN 500 MCG TAB PO SCH (09:17)
[2023-05-06] MEDS: ATORVASTATIN 20 MG TAB PO SCH (11:01)
[2023-05-06] MEDS: ACETAMINOPHEN TAB 650MG DOSE (2X325MG) PO PRN (11:18)
[2023-05-06] MEDS: CYCLOBENZAPRINE 5MG TABLET PO PRN (11:18)
[2023-05-06] MEDS: PERCOCET 5MG/325MG TAB PO PRN (17:52)
[2023-05-06] MEDS ORDERED: CLOPIDOGREL 75 MG TAB PO ONE (18:45)
[2023-05-06] MEDS: TIOTROPIUM INHALER/CAPSULE (SPIRIVA) INH SCH (19:53)
[2023-05-07] VITALS: BP 117/77; TEMP 96.8; O2SAT 92
[2023-05-07] MEDS: PERCOCET 5MG/325MG TAB PO PRN ×3 (00:01→12:45)
[2023-05-07 04:00] VITALS: BP 114/54; TEMP 96.1; O2SAT 92
[2023-05-07 07:07] LABS: BASO % 0.4 % (0.0-1.0); EOS # 0.2 10^3/uL (0.0-0.5); EOS % 2.1 % (0.0-3.0); HEMATOCRIT 29.1 % (36.0-47.0); HEMOGLOBIN 9.3 g/dl (12.0-15.5); LYMPH # 1.3 10^3/uL (1.5-5.0); MEAN CORPUSCULAR HEMOGLOBIN 33.1 pg (27.0-33.0); MEAN CORPUSCULAR VOLUME 103.6 fl (80.0-96.0); MONO # 0.8 10^3/uL (0.0-0.8); MONO % 9.4 % (2.0-8.0); NEUTROPHILS % 71.9 % (36.0-66.0); PLATELET COUNT, AUTOMATED 203 10^3/uL (150-450); RED BLOOD COUNT 2.81 10^6/uL (4.00-5.40); WHITE BLOOD COUNT 8.3 10^3/uL (4.0-10.0)
[2023-05-07 08:00] VITALS: BP 100/58; TEMP 98.1; O2SAT 93
[2023-05-07] MEDS: HEPARIN SOD (PORCINE) 5000UNITS/ML 1ML VIAL/SYRINGE SQ SCH ×2 (08:31→20:42)
[2023-05-07] MEDS: ASPIRIN 81MG ENTERIC TABLET PO SCH (08:31)
[2023-05-07] MEDS: ATORVASTATIN 20 MG TAB PO SCH (08:31)
[2023-05-07] MEDS: SODIUM BICARBONATE 325 MG TAB PO SCH ×2 (08:31→20:42)
[2023-05-07] MEDS: FLUCONAZOLE 100 MG TAB PO SCH (08:31)
[2023-05-07] MEDS: CYANOCOBALAMIN 500 MCG TAB PO SCH (08:32)
[2023-05-07] MEDS: GABAPENTIN 100 MG CAP PO SCH ×2 (08:32→20:42)
[2023-05-07] MEDS: FOLIC ACID 1MG TAB PO SCH (08:32)
[2023-05-07] MEDS: CLOPIDOGREL 75 MG TAB PO SCH (08:32)
[2023-05-07 09:22] LABS: ALBUMIN 1.8 G/DL (3.2-5.2); CREATININE FOR GFR 1.89 MG/DL (0.55-1.30); GLOMERULAR FILTRATION RATE 27.9 (>39); PHOSPHORUS LEVEL 2.9 MG/DL (2.4-5.1); POTASSIUM SERUM 4.1 MMOL/L (3.5-5.1)
[2023-05-07 10:00] VITALS: BP 118/63
[2023-05-07 12:03] VITALS: BP 111/61; TEMP 97.5; O2SAT 94
[2023-05-07 18:50] VITALS: BP 113/65; TEMP 98.4; O2SAT 93
[2023-05-07] MEDS: TIOTROPIUM INHALER/CAPSULE (SPIRIVA) INH SCH (19:50)
[2023-05-08 06:00] VITALS: BP 113/72; TEMP 98.2; O2SAT 96
[2023-05-08 06:34] LABS: CREATININE FOR GFR 2.11 MG/DL (0.55-1.30); GLOMERULAR FILTRATION RATE 24.6 (>39); POTASSIUM SERUM 5.1 MMOL/L (3.5-5.1)
[2023-05-08 06:49] LABS: BASO % 0.5 % (0.0-1.0); EOS # 0.2 10^3/uL (0.0-0.5); EOS % 2.4 % (0.0-3.0); HEMATOCRIT 32.8 % (36.0-47.0); HEMOGLOBIN 9.7 g/dl (12.0-15.5); LYMPH # 1.4 10^3/uL (1.5-5.0); LYMPH % 18.9 % (24.0-44.0); MEAN CORPUSCULAR HEMOGLOBIN 32.2 pg (27.0-33.0); MEAN CORPUSCULAR HGB CONC 29.6 g/dl (32.0-36.5); MONO # 0.8 10^3/uL (0.0-0.8); MONO % 10.4 % (2.0-8.0); NEUTROPHILS % 67.5 % (36.0-66.0); PLATELET COUNT, AUTOMATED 229 10^3/uL (150-450); RED BLOOD COUNT 3.01 10^6/uL (4.00-5.40); WHITE BLOOD COUNT 7.4 10^3/uL (4.0-10.0)
[2023-05-08] MEDS: FLUCONAZOLE 100 MG TAB PO SCH (09:07)
[2023-05-08] MEDS: SODIUM BICARBONATE 325 MG TAB PO SCH ×2 (09:07→20:25)
[2023-05-08] MEDS: CLOPIDOGREL 75 MG TAB PO SCH (09:07)
[2023-05-08] MEDS: ATORVASTATIN 20 MG TAB PO SCH (09:07)
[2023-05-08] MEDS: GABAPENTIN 100 MG CAP PO SCH ×2 (09:07→20:25)
[2023-05-08] MEDS: FOLIC ACID 1MG TAB PO SCH (09:07)
[2023-05-08] MEDS: HEPARIN SOD (PORCINE) 5000UNITS/ML 1ML VIAL/SYRINGE SQ SCH ×2 (09:07→20:27)
[2023-05-08] MEDS: ASPIRIN 81MG ENTERIC TABLET PO SCH (09:07)
[2023-05-08] MEDS: CYANOCOBALAMIN 500 MCG TAB PO SCH (09:07)
[2023-05-08] MEDS: PERCOCET 5MG/325MG TAB PO PRN ×2 (09:08→20:27)
[2023-05-08 14:00] VITALS: BP 112/71; TEMP 97.9; O2SAT 93
[2023-05-08 20:00] VITALS: BP 118/59; TEMP 98.2; O2SAT 94
[2023-05-08] MEDS: TIOTROPIUM INHALER/CAPSULE (SPIRIVA) INH SCH (20:31)
[2023-05-09 04:40] VITALS: BP 119/58; TEMP 98.2; O2SAT 97
[2023-05-09 06:15] LABS: BASO % 0.5 % (0.0-1.0); EOS # 0.2 10^3/uL (0.0-0.5); HEMOGLOBIN 9.5 g/dl (12.0-15.5); LYMPH # 1.3 10^3/uL (1.5-5.0); LYMPH % 15.4 % (24.0-44.0); MEAN CORPUSCULAR HGB CONC 29.7 g/dl (32.0-36.5); MEAN CORPUSCULAR VOLUME 111.1 fl (80.0-96.0); MONO # 0.8 10^3/uL (0.0-0.8); MONO % 9.4 % (2.0-8.0); NEUTROPHILS # 5.9 10^3/uL (1.5-8.5); NEUTROPHILS % 72.2 % (36.0-66.0); PLATELET COUNT, AUTOMATED 216 10^3/uL (150-450); RED BLOOD COUNT 2.88 10^6/uL (4.00-5.40); WHITE BLOOD COUNT 8.2 10^3/uL (4.0-10.0)
[2023-05-09] MEDS: PERCOCET 5MG/325MG TAB PO PRN ×2 (06:16→21:09)
[2023-05-09 06:37] LABS: CALCIUM LEVEL 8.1 MG/DL (8.3-10.6); CREATININE FOR GFR 2.2 MG/DL (0.55-1.30); GLOMERULAR FILTRATION RATE 23.4 (>39); POTASSIUM SERUM 4.4 MMOL/L (3.5-5.1)
[2023-05-09] MEDS: SODIUM BICARBONATE 325 MG TAB PO SCH ×2 (09:21→21:08)
[2023-05-09] MEDS: CYANOCOBALAMIN 500 MCG TAB PO SCH (09:21)
[2023-05-09] MEDS: FOLIC ACID 1MG TAB PO SCH (09:21)
[2023-05-09] MEDS: ATORVASTATIN 20 MG TAB PO SCH (09:21)
[2023-05-09] MEDS: FLUCONAZOLE 100 MG TAB PO SCH (09:21)
[2023-05-09] MEDS: CLOPIDOGREL 75 MG TAB PO SCH (09:21)
[2023-05-09] MEDS: ASPIRIN 81MG ENTERIC TABLET PO SCH (09:21)
[2023-05-09] MEDS: GABAPENTIN 100 MG CAP PO SCH ×2 (09:21→21:08)
[2023-05-09] MEDS: HEPARIN SOD (PORCINE) 5000UNITS/ML 1ML VIAL/SYRINGE SQ SCH ×2 (09:22→21:08)
[2023-05-09 10:13] VITALS: O2SAT 95
[2023-05-09 10:50] VITALS: O2SAT 82
[2023-05-09 10:55] VITALS: O2SAT 91
[2023-05-09] MEDS: NS 1,000 ML IV SCH (11:47)
[2023-05-09 14:00] VITALS: BP 118/60; TEMP 98.2; O2SAT 93
[2023-05-09] MEDS: TIOTROPIUM INHALER/CAPSULE (SPIRIVA) INH SCH (20:34)
[2023-05-09 20:55] VITALS: BP 138/64; TEMP 98.4; O2SAT 93
[2023-05-10] VITALS (7 sets, daily range): BP systolic 106–144; BP diastolic 59–71; TEMP 97.9–99; O2SAT 94–98
[2023-05-10] MEDS: NS 1,000 ML IV SCH ×2 (02:10→15:47)
[2023-05-10 06:03] LABS: BASO % 0.4 % (0.0-1.0); EOS # 0.2 10^3/uL (0.0-0.5); EOS % 2.1 % (0.0-3.0); HEMATOCRIT 30.6 % (36.0-47.0); LYMPH # 1.4 10^3/uL (1.5-5.0); LYMPH % 18.1 % (24.0-44.0); MEAN CORPUSCULAR HEMOGLOBIN 32.6 pg (27.0-33.0); MEAN CORPUSCULAR HGB CONC 29.4 g/dl (32.0-36.5); MEAN CORPUSCULAR VOLUME 110.9 fl (80.0-96.0); MONO # 0.9 10^3/uL (0.0-0.8); MONO % 11.9 % (2.0-8.0); PLATELET COUNT, AUTOMATED 229 10^3/uL (150-450); RED BLOOD COUNT 2.76 10^6/uL (4.00-5.40); WHITE BLOOD COUNT 7.5 10^3/uL (4.0-10.0)
[2023-05-10 06:34] LABS: CALCIUM LEVEL 7.6 MG/DL (8.3-10.6); CREATININE FOR GFR 2.02 MG/DL (0.55-1.30); GLOMERULAR FILTRATION RATE 25.8 (>39); POTASSIUM SERUM 4.7 MMOL/L (3.5-5.1)
[2023-05-10] MEDS: CLOPIDOGREL 75 MG TAB PO SCH (09:45)
[2023-05-10] MEDS: ATORVASTATIN 20 MG TAB PO SCH (09:45)
[2023-05-10] MEDS: FOLIC ACID 1MG TAB PO SCH (09:45)
[2023-05-10] MEDS: SODIUM BICARBONATE 325 MG TAB PO SCH ×2 (09:45→21:00)
[2023-05-10] MEDS: HEPARIN SOD (PORCINE) 5000UNITS/ML 1ML VIAL/SYRINGE SQ SCH ×2 (09:45→21:00)
[2023-05-10] MEDS: GABAPENTIN 100 MG CAP PO SCH ×2 (09:45→21:00)
[2023-05-10] MEDS: FLUCONAZOLE 100 MG TAB PO SCH (09:46)
[2023-05-10] MEDS: ASPIRIN 81MG ENTERIC TABLET PO SCH (09:46)
[2023-05-10] MEDS: PERCOCET 5MG/325MG TAB PO PRN ×2 (09:46→21:00)
[2023-05-10] MEDS: CYANOCOBALAMIN 500 MCG TAB PO SCH (09:46)
[2023-05-10] MEDS ORDERED: fentaNYL 100 MCG/2 ML INJECTION As Ordered ONE ×2 (10:15→12:00)
[2023-05-10] MEDS ORDERED: ISOVUE-300 61% 100ML VIAL As Ordered ONE ×3 (10:15→13:48)
[2023-05-10] MEDS ORDERED: MIDAZOLAM INJ 2MG/2ML VIAL As Ordered ONE (10:15)
[2023-05-10] MEDS ORDERED: HEPARIN 1,000UNITS/ML 10ML VIAL (FOR RADIOLOGY & DIALYSIS ONLY) As Ordered ONE (10:16)
[2023-05-10] MEDS ORDERED: LIDOCAINE 1% MDV 20ML VIAL As Ordered ONE (10:16)
[2023-05-10] MEDS ORDERED: ceFAZolin 2 GM/D5W 50 ML IV BAG As Ordered ONE (10:59)
[2023-05-10] MEDS: TIOTROPIUM INHALER/CAPSULE (SPIRIVA) INH SCH (20:00)
[2023-05-11 05:33] VITALS: BP 127/69; TEMP 97.2; O2SAT 91
[2023-05-11] MEDS: NS 1,000 ML IV SCH (05:42)
[2023-05-11 06:28] LABS: BASO % 0.6 % (0.0-1.0); EOS # 0.2 10^3/uL (0.0-0.5); EOS % 2.5 % (0.0-3.0); HEMATOCRIT 31.6 % (36.0-47.0); HEMOGLOBIN 9.2 g/dl (12.0-15.5); LYMPH # 1.3 10^3/uL (1.5-5.0); LYMPH % 18.7 % (24.0-44.0); MEAN CORPUSCULAR HEMOGLOBIN 32.7 pg (27.0-33.0); MEAN CORPUSCULAR HGB CONC 29.1 g/dl (32.0-36.5); MEAN CORPUSCULAR VOLUME 112.5 fl (80.0-96.0); MONO # 0.8 10^3/uL (0.0-0.8); MONO % 10.9 % (2.0-8.0); NEUTROPHILS # 4.6 10^3/uL (1.5-8.5); NEUTROPHILS % 66.9 % (36.0-66.0); PLATELET COUNT, AUTOMATED 219 10^3/uL (150-450); RED BLOOD COUNT 2.81 10^6/uL (4.00-5.40); WHITE BLOOD COUNT 6.9 10^3/uL (4.0-10.0)
[2023-05-11 07:09] LABS: CALCIUM LEVEL 8.1 MG/DL (8.3-10.6); CREATININE FOR GFR 1.88 MG/DL (0.55-1.30); GLOMERULAR FILTRATION RATE 28.1 (>39); POTASSIUM SERUM 4.7 MMOL/L (3.5-5.1)
[2023-05-11 09:00] VITALS: O2SAT 93
[2023-05-11] MEDS: CYANOCOBALAMIN 500 MCG TAB PO SCH (09:49)
[2023-05-11] MEDS: GABAPENTIN 100 MG CAP PO SCH (09:49)
[2023-05-11] MEDS: FLUCONAZOLE 100 MG TAB PO SCH (09:49)
[2023-05-11] MEDS: ASPIRIN 81MG ENTERIC TABLET PO SCH (09:49)
[2023-05-11] MEDS: CLOPIDOGREL 75 MG TAB PO SCH (09:49)
[2023-05-11] MEDS: SODIUM BICARBONATE 325 MG TAB PO SCH (09:49)
[2023-05-11] MEDS: FOLIC ACID 1MG TAB PO SCH (09:49)
[2023-05-11] MEDS: ATORVASTATIN 20 MG TAB PO SCH (09:50)
[2023-05-11] MEDS: HEPARIN SOD (PORCINE) 5000UNITS/ML 1ML VIAL/SYRINGE SQ SCH (09:50)
[2023-05-11] MEDS: PERCOCET 5MG/325MG TAB PO PRN ×2 (09:57→14:27)
[2023-05-11 14:00] VITALS: BP 122/67; TEMP 98.2; O2SAT 92
[2023-05-11] MEDS ORDERED: FLUC100T3 PO (14:06)
[2023-05-11] MEDS ORDERED: GABA-1171 PO (14:07)
[2023-05-11] MEDS ORDERED: PERCOCET PO (14:10)
[2023-05-11] MEDS ORDERED: ATOR80TA59 PO (14:10)
[2023-05-11] MEDS ORDERED: CLOP75TA2 PO (14:10)
== END 2023-05-11 17:29 | disposition home or self-care (01) | DRG 673 ==
LOC: M ED 21:21 → M ED INP 05-03 04:14 → ENRESERV 05-03 08:35 → M MS4PR 05-03 09:50 → M PCU 05-03 15:38 → M MSPAV 05-07 18:31
PROVIDERS: ADMIT Internal Medicine; ATTEND Internal Medicine
PROC: 04FJ3ZZ Fragmentation of Left External Iliac Artery, Percutaneous Approach (ICD-10-PCS; 2023-05-10)
PROC: 04FK3ZZ Fragmentation of Right Femoral Artery, Percutaneous Approach (ICD-10-PCS; 2023-05-10)
PROC: 04FH3ZZ Fragmentation of Right External Iliac Artery, Percutaneous Approach (ICD-10-PCS; 2023-05-10)
PROC: 047J34Z Dilation of Left External Iliac Artery with Drug-eluting Intraluminal Device, Percutaneous Approach (ICD-10-PCS; 2023-05-10)
PROC: 047 Lower Arteries, Dilation (ICD-10-PCS; 2023-05-10)
PROC: 04H Lower Arteries, Insertion (ICD-10-PCS; 2023-05-10)
PROC: 047K35Z Dilation of Right Femoral Artery with Two Drug-eluting Intraluminal Devices, Percutaneous Approach (ICD-10-PCS; principal; 2023-05-10 11:00)
DX: N17.9 Acute kidney failure, unspecified (principal); G93.41 Metabolic encephalopathy; B37.49 Other urogenital candidiasis; E87.20 Acidosis, unspecified; J98.11 Atelectasis; J90 Pleural effusion, not elsewhere classified; N31.9 Neuromuscular dysfunction of bladder, unspecified; N18.4 Chronic kidney disease, stage 4 (severe); I12.9 Hypertensive chronic kidney disease with stage 1 through stage 4 chronic kidney disease, or unspecified chronic kidney disease; Z90.49 Acquired absence of other specified parts of digestive tract; Z87.891 Personal history of nicotine dependence; Z79.899 Other long term (current) drug therapy; R91.8 Other nonspecific abnormal finding of lung field; R07.9 Chest pain, unspecified; J44.9 Chronic obstructive pulmonary disease, unspecified; R19.7 Diarrhea, unspecified; D50.9 Iron deficiency anemia, unspecified; E87.6 Hypokalemia; N20.0 Calculus of kidney; I70.223 Atherosclerosis of native arteries of extremities with rest pain, bilateral legs; R53.1 Weakness; R10.9 Unspecified abdominal pain; J45.909 Unspecified asthma, uncomplicated; Z93.6 Other artificial openings of urinary tract status

== ENCOUNTER → 2023-05-13 | Outpatient (CLI) | payer MEDICARE, MEDICAID ==
[~2023-05-13] MED LIST changes: +ALBU8.5H INH; +AMLO25TA PO; +ASPI-161 PO; +ATOR80TA59 PO; +CLOP75TA2 PO; +CYCL5TAB PO; +FLUC100T3 PO; +GABA-1171 PO; +PERCOCET PO; +SODI325T9 PO
[2023-05-13 18:12] LABS: BASO # 0.1 10^3/uL (0.0-0.2); BASO % 0.7 % (0.0-1.0); EOS # 0.1 10^3/uL (0.0-0.5); EOS % 0.8 % (0.0-3.0); HEMATOCRIT 33.4 % (36.0-47.0); HEMOGLOBIN 9.9 g/dl (12.0-15.5); LYMPH % 11.4 % (24.0-44.0); MEAN CORPUSCULAR HEMOGLOBIN 32.4 pg (27.0-33.0); MEAN CORPUSCULAR HGB CONC 29.6 g/dl (32.0-36.5); MEAN CORPUSCULAR VOLUME 109.2 fl (80.0-96.0); MONO # 0.8 10^3/uL (0.0-0.8); NEUTROPHILS # 6.9 10^3/uL (1.5-8.5); NEUTROPHILS % 77.4 % (36.0-66.0); PLATELET COUNT, AUTOMATED 282 10^3/uL (150-450); RED BLOOD COUNT 3.06 10^6/uL (4.00-5.40); WHITE BLOOD COUNT 8.9 10^3/uL (4.0-10.0)
[2023-05-13 18:21] LABS: URIC ACID 4.8 MG/DL (3.1-7.8)
[2023-05-13 18:24] LABS: ALBUMIN 1.8 G/DL (3.2-5.2); ALKALINE PHOSPHATASE 118 U/L (46-116); ALT/SGPT < 9 U/L (7.0-40); AST/SGOT < 8 U/L (<34); BILIRUBIN,TOTAL 0.2 MG/DL (0.3-1.2); BLOOD UREA NITROGEN 33 MG/DL (9-23); CALCIUM LEVEL 7.8 MG/DL (8.3-10.6); CARBON DIOXIDE LEVEL 23 MMOL/L (20-31); CHLORIDE LEVEL 106 MMOL/L (98-107); CREATININE FOR GFR 2.17 MG/DL (0.55-1.30); GLOMERULAR FILTRATION RATE 23.8 (>39); GLUCOSE, FASTING 88 MG/DL (74-106); POTASSIUM SERUM 5.4 MMOL/L (3.5-5.1); SODIUM LEVEL 138 MMOL/L (136-145); TOTAL PROTEIN 5.9 G/DL (5.7-8.2)
== END ==
LOC: M PLAIMG 15:55
PROVIDERS: ATTEND Physician Assistant Medical
DX: M10.9 Gout, unspecified (principal); I12.9 Hypertensive chronic kidney disease with stage 1 through stage 4 chronic kidney disease, or unspecified chronic kidney disease; N39.0 Urinary tract infection, site not specified; J44.9 Chronic obstructive pulmonary disease, unspecified; M19.071 Primary osteoarthritis, right ankle and foot; R22.41 Localized swelling, mass and lump, right lower limb

== ENCOUNTER → 2023-06-01 | Outpatient (CLI) | payer MEDICARE, MEDICAID ==
[2023-06-01 16:04] LABS: BASO # 0.1 10^3/uL (0.0-0.2); BASO % 0.8 % (0.0-1.0); EOS # 0.1 10^3/uL (0.0-0.5); EOS % 1.4 % (0.0-3.0); HEMATOCRIT 33.2 % (36.0-47.0); HEMOGLOBIN 10.1 g/dl (12.0-15.5); LYMPH # 1.5 10^3/uL (1.5-5.0); LYMPH % 16.7 % (24.0-44.0); MEAN CORPUSCULAR HEMOGLOBIN 33.3 pg (27.0-33.0); MEAN CORPUSCULAR HGB CONC 30.4 g/dl (32.0-36.5); MEAN CORPUSCULAR VOLUME 109.6 fl (80.0-96.0); MONO # 0.5 10^3/uL (0.0-0.8); MONO % 5.5 % (2.0-8.0); NEUTROPHILS # 6.6 10^3/uL (1.5-8.5); NEUTROPHILS % 75.1 % (36.0-66.0); PLATELET COUNT, AUTOMATED 386 10^3/uL (150-450); RED BLOOD COUNT 3.03 10^6/uL (4.00-5.40); WHITE BLOOD COUNT 8.8 10^3/uL (4.0-10.0)
[2023-06-01 16:33] LABS: CREATININE FOR GFR 1.9 MG/DL (0.55-1.30); GLOMERULAR FILTRATION RATE 27.7 (>39); POTASSIUM SERUM 4.9 MMOL/L (3.5-5.1)
== END ==
LOC: M PLALAB 14:49
PROVIDERS: ATTEND Physician Assistant Medical
DX: N18.32 Chronic kidney disease, stage 3b (principal); R53.81 Other malaise

== ENCOUNTER → 2023-06-20 | Outpatient (CLI) | payer MEDICARE, MEDICAID | LOC: M PLARAD 12:01 | PROVIDERS: ATTEND Physician Assistant Medical | DX: R91.8 Other nonspecific abnormal finding of lung field (principal) | CPT/HCPCS: 78815; A9552 ==

== ENCOUNTER 2023-07-31 10:56 | Emergency (ER) | payer MEDICARE, MEDICAID ==
[~2023-07-31] VITALS: Ht 162.6 cm; Wt 54.5 kg
[2023-07-31] MEDS ORDERED: VELT1POW (11:18)
[2023-07-31 11:51] LABS: BASO % 0.3 % (0.0-1.0); EOS # 0.1 10^3/uL (0.0-0.5); EOS % 0.5 % (0.0-3.0); HEMATOCRIT 39.2 % (36.0-47.0); HEMOGLOBIN 12.4 g/dl (12.0-15.5); LYMPH # 1.4 10^3/uL (1.5-5.0); LYMPH % 11.6 % (24.0-44.0); MEAN CORPUSCULAR HGB CONC 31.6 g/dl (32.0-36.5); MEAN CORPUSCULAR VOLUME 104.3 fl (80.0-96.0); MONO # 0.6 10^3/uL (0.0-0.8); MONO % 5.2 % (2.0-8.0); NEUTROPHILS % 82.1 % (36.0-66.0); PLATELET COUNT, AUTOMATED 334 10^3/uL (150-450); RED BLOOD COUNT 3.76 10^6/uL (4.00-5.40); WHITE BLOOD COUNT 12.2 10^3/uL (4.0-10.0)
[2023-07-31 11:54] LABS: INR 1.04; PROTHROMBIN TIME 13.3 SECONDS (12.5-14.5)
[2023-07-31 11:55] LABS: PARTIAL THROMBOPLASTIN TIME 27.8 SECONDS (24.8-34.2)
[2023-07-31 12:16] LABS: LIPASE 96 U/L (12-53)
[2023-07-31 12:18] LABS: ALBUMIN 2.6 G/DL (3.2-5.2); ALKALINE PHOSPHATASE 151 U/L (46-116); ALT/SGPT < 9 U/L (7.0-40); AST/SGOT < 8 U/L (<34); BILIRUBIN,DIRECT < 0.1 MG/DL (<0.4); BILIRUBIN,TOTAL < 0.2 MG/DL (0.3-1.2); BLOOD UREA NITROGEN 59 MG/DL (9-23); CALCIUM LEVEL 10.2 MG/DL (8.3-10.6); CARBON DIOXIDE LEVEL 13 MMOL/L (20-31); CHLORIDE LEVEL 116 MMOL/L (98-107); CK-MB VALUE MASS < 1.0 NG/ML (<3.6); CREATININE FOR GFR 2.44 MG/DL (0.55-1.30); GLOMERULAR FILTRATION RATE 20.7 (>39); GLUCOSE, FASTING 128 MG/DL (74-106); POTASSIUM SERUM 3.5 MMOL/L (3.5-5.1); SODIUM LEVEL 138 MMOL/L (136-145); TOTAL PROTEIN 7.3 G/DL (5.7-8.2)
[2023-07-31] MEDS ORDERED: cefTRIAXone SOD 1 GM in D5W MINI-BAG PLUS 50 ML IV ONE (12:20)
[2023-07-31 12:21] LABS: CPK CREATINE PHOSPHOKINASE 26 U/L (34-145); MB/CK RELATIVE INDEX 3.84 (< OR =4)
[2023-07-31 12:47] LABS: RSV AMPLIFICATION NEGATIVE (NEGATIVE)
[2023-07-31] MEDS ORDERED: NS 500 ML IV ONE (12:50)
[2023-07-31] MEDS ORDERED: CIPR250T26 PO (15:38)
[2023-07-31 15:56] VITALS: O2SAT 98
[2023-07-31 16:00] VITALS: BP 137/86; TEMP 97.5
== END 2023-07-31 16:12 | disposition home or self-care (01) ==
LOC: M ED 10:56 → EDBD 10:56 → M ED 16:12
DX: N39.0 Urinary tract infection, site not specified (principal); R91.8 Other nonspecific abnormal finding of lung field; N20.0 Calculus of kidney; I10 Essential (primary) hypertension; E78.5 Hyperlipidemia, unspecified; F17.200 Nicotine dependence, unspecified, uncomplicated; Z79.899 Other long term (current) drug therapy; Z79.51 Long term (current) use of inhaled steroids; Z79.82 Long term (current) use of aspirin
CPT/HCPCS: 71046; 71250; 74176; 80048; 80076; 81001; 82550; 82553; 83605; 83690; 83880; 84484; 85025; 85610; 85730; 87040; 87088; 87186; 87631; 93005; 93041; 94760; 96374; 99285; J0696

== ENCOUNTER → 2023-08-31 | Outpatient (CLI) | payer MEDICARE, MEDICAID ==
[~2023-08-31] MED LIST changes: +CIPR250T26 PO; +VELT1POW
[2023-08-31 17:21] LABS: BASO % 0.4 % (0.0-1.0); EOS # 0.1 10^3/uL (0.0-0.5); EOS % 1.2 % (0.0-3.0); HEMATOCRIT 32.4 % (36.0-47.0); HEMOGLOBIN 9.9 g/dl (12.0-15.5); LYMPH # 1.7 10^3/uL (1.5-5.0); LYMPH % 16.6 % (24.0-44.0); MEAN CORPUSCULAR HEMOGLOBIN 33.3 pg (27.0-33.0); MEAN CORPUSCULAR HGB CONC 30.6 g/dl (32.0-36.5); MEAN CORPUSCULAR VOLUME 109.1 fl (80.0-96.0); MONO # 0.7 10^3/uL (0.0-0.8); MONO % 6.7 % (2.0-8.0); NEUTROPHILS # 7.8 10^3/uL (1.5-8.5); NEUTROPHILS % 74.8 % (36.0-66.0); PLATELET COUNT, AUTOMATED 378 10^3/uL (150-450); RED BLOOD COUNT 2.97 10^6/uL (4.00-5.40); WHITE BLOOD COUNT 10.4 10^3/uL (4.0-10.0)
[2023-08-31 17:43] LABS: ALBUMIN 2.7 G/DL (3.2-5.2); BILIRUBIN,TOTAL 0.2 MG/DL (0.3-1.2); CALCIUM LEVEL 9.3 MG/DL (8.3-10.6); CREATININE FOR GFR 2.29 MG/DL (0.55-1.30); GLOMERULAR FILTRATION RATE 22.3 (>39); POTASSIUM SERUM 4.9 MMOL/L (3.5-5.1); TOTAL PROTEIN 6.9 G/DL (5.7-8.2)
[2023-08-31 17:45] LABS: FERRITIN 224.5 NG/ML (7.3-270.7)
[2023-08-31 17:58] LABS: APPEARANCE, URINE TURBID (CLEAR); BACTERIA, URINE AUTO 1+ (NEGATIVE); BILIRUBIN, URINE AUTO NEGATIVE (NEGATIVE); BLOOD, URINE BLOOD 1+ (NEGATIVE); COLOR, URINE AMBER (YELLOW); GLUCOSE, URINE (UA) AUTO NEGATIVE (NEGATIVE); KETONE, URINE AUTO NEGATIVE (NEGATIVE); LEUKOCYTE ESTERASE, URINE AUTO 2+ (NEGATIVE); NITRITE, URINE AUTO NEGATIVE (NEGATIVE); PROTEIN, URINE AUTO 2+ mg/dL (NEGATIVE); RBC, URINE AUTO 42 /HPF (0-3); SPECIFIC GRAVITY URINE AUTO 1.013 (1.002-1.035); SQUAMOUS EPITHELIAL CELL UR AU 0 /HPF (0-6); UROBILINOGEN, URINE AUTO 0.2 mg/dL (0.0-2.0); WBC, URINE AUTO TNTC /HPF (0-3)
== END ==
LOC: M PLALAB 16:07
PROVIDERS: ATTEND Physician Assistant Medical
DX: N17.8 Other acute kidney failure (principal); N39.0 Urinary tract infection, site not specified; N18.32 Chronic kidney disease, stage 3b

== ENCOUNTER → 2023-10-24 | Outpatient (CLI) | payer MEDICARE, MEDICAID | LOC: M PLALAB 11:01 | PROVIDERS: ATTEND Internal Medicine Hematology | DX: Z01.818 Encounter for other preprocedural examination (principal); J44.9 Chronic obstructive pulmonary disease, unspecified; I10 Essential (primary) hypertension ==

== ENCOUNTER → 2023-11-02 | Day surgery (SDC) | payer MEDICARE, MEDICAID ==
[~2023-11-02] VITALS: Ht 162.6 cm; Wt 56.7 kg
== END | disposition home or self-care (01) ==
LOC: M OPP 10:40
PROVIDERS: ATTEND Surgery
DX: D50.9 Iron deficiency anemia, unspecified (principal); Z53.8 Procedure and treatment not carried out for other reasons

== ENCOUNTER → 2023-11-10 | Outpatient (CLI) | payer MEDICARE, MEDICAID ==
[2023-11-10 18:39] LABS: BASO # 0.1 10^3/uL (0.0-0.2); BASO % 0.6 % (0.0-1.0); EOS # 0.1 10^3/uL (0.0-0.5); EOS % 1.7 % (0.0-3.0); HEMATOCRIT 30.1 % (36.0-47.0); HEMOGLOBIN 8.8 g/dl (12.0-15.5); LYMPH # 1.2 10^3/uL (1.5-5.0); MEAN CORPUSCULAR HEMOGLOBIN 31.4 pg (27.0-33.0); MEAN CORPUSCULAR HGB CONC 29.2 g/dl (32.0-36.5); MEAN CORPUSCULAR VOLUME 107.5 fl (80.0-96.0); MONO # 0.6 10^3/uL (0.0-0.8); NEUTROPHILS # 5.9 10^3/uL (1.5-8.5); NEUTROPHILS % 75.2 % (36.0-66.0); PLATELET COUNT, AUTOMATED 343 10^3/uL (150-450); WHITE BLOOD COUNT 7.8 10^3/uL (4.0-10.0)
[2023-11-10 19:11] LABS: ALBUMIN 3.5 G/DL (3.2-5.2); ALKALINE PHOSPHATASE 94 U/L (46-116); ALT/SGPT 10 U/L (7.0-40); AST/SGOT < 8 U/L (<34); BILIRUBIN,TOTAL < 0.2 MG/DL (0.3-1.2); BLOOD UREA NITROGEN 54 MG/DL (9-23); CALCIUM LEVEL 8.8 MG/DL (8.3-10.6); CARBON DIOXIDE LEVEL 17 MMOL/L (20-31); CHLORIDE LEVEL 111 MMOL/L (98-107); CREATININE FOR GFR 2.85 MG/DL (0.55-1.30); GLOMERULAR FILTRATION RATE 17.3 (>39); GLUCOSE, FASTING 82 MG/DL (74-106); SODIUM LEVEL 137 MMOL/L (136-145); TOTAL PROTEIN 7.4 G/DL (5.7-8.2)
[2023-11-10 19:13] LABS: FERRITIN 75.2 NG/ML (7.3-270.7)
== END ==
LOC: M PLALAB 11:32
PROVIDERS: ATTEND Physician Assistant Medical
DX: I50.32 Chronic diastolic (congestive) heart failure (principal); N18.32 Chronic kidney disease, stage 3b; E87.20 Acidosis, unspecified; D50.9 Iron deficiency anemia, unspecified

== ENCOUNTER → 2023-11-20 | Outpatient (CLI) | payer MEDICARE, MEDICAID ==
[2023-11-20 11:29] LABS: BASO % 0.5 % (0.0-1.0); EOS # 0.1 10^3/uL (0.0-0.5); EOS % 1.7 % (0.0-3.0); HEMATOCRIT 32.9 % (36.0-47.0); HEMOGLOBIN 9.7 g/dl (12.0-15.5); LYMPH # 1.2 10^3/uL (1.5-5.0); LYMPH % 14.6 % (24.0-44.0); MEAN CORPUSCULAR HEMOGLOBIN 30.8 pg (27.0-33.0); MEAN CORPUSCULAR HGB CONC 29.5 g/dl (32.0-36.5); MEAN CORPUSCULAR VOLUME 104.4 fl (80.0-96.0); MONO # 0.5 10^3/uL (0.0-0.8); MONO % 5.9 % (2.0-8.0); NEUTROPHILS # 6.3 10^3/uL (1.5-8.5); NEUTROPHILS % 76.9 % (36.0-66.0); PLATELET COUNT, AUTOMATED 340 10^3/uL (150-450); RED BLOOD COUNT 3.15 10^6/uL (4.00-5.40); WHITE BLOOD COUNT 8.1 10^3/uL (4.0-10.0)
[2023-11-20 11:32] LABS: HEMATOCRIT 32.7 % (36.0-47.0)
[2023-11-20 11:52] LABS: ALBUMIN 3.3 G/DL (3.2-5.2); ALKALINE PHOSPHATASE 100 U/L (46-116); ALT/SGPT 12 U/L (7.0-40); AST/SGOT 9 U/L (<34); BILIRUBIN,TOTAL 0.2 MG/DL (0.3-1.2); BLOOD UREA NITROGEN 53 MG/DL (9-23); CARBON DIOXIDE LEVEL 17 MMOL/L (20-31); CHLORIDE LEVEL 116 MMOL/L (98-107); CREATININE FOR GFR 2.99 MG/DL (0.55-1.30); GLOMERULAR FILTRATION RATE 16.4 (>39); GLUCOSE, FASTING 111 MG/DL (74-106); POTASSIUM SERUM 4.6 MMOL/L (3.5-5.1); SODIUM LEVEL 142 MMOL/L (136-145); TOTAL PROTEIN 7.5 G/DL (5.7-8.2)
[2023-11-20 11:54] LABS: FERRITIN 82.8 NG/ML (7.3-270.7)
[2023-11-20 11:55] LABS: VITAMIN B12 LEVEL > 2000 PG/ML (211-911)
== END ==
LOC: M LAB 11:02
PROVIDERS: ATTEND Family Medicine
DX: D50.9 Iron deficiency anemia, unspecified (principal); N18.32 Chronic kidney disease, stage 3b; E87.20 Acidosis, unspecified; I50.32 Chronic diastolic (congestive) heart failure

== ENCOUNTER 2023-11-22 07:05 | Outpatient (CLI) | payer MEDICARE, MEDICAID ==
[~2023-11-22 07:05] MED LIST changes: +ACETAMINOPHEN TAB 650MG DOSE (2X325MG) PO SCH; +diphenhydrAMINE 25MG CAP PO SCH
[2023-11-22] MEDS ORDERED: NS 1,000 ML IV SCH (07:15)
== END 2023-11-22 07:50 | disposition home or self-care (01) ==
LOC: M INFU 07:05
PROVIDERS: ATTEND Physician Assistant Medical
DX: D50.9 Iron deficiency anemia, unspecified (principal)

== ENCOUNTER → 2023-11-24 | Outpatient (REF) | payer MEDICARE, MEDICAID ==
[~2023-11-24] MED LIST changes: -ACETAMINOPHEN TAB 650MG DOSE (2X325MG) PO SCH; -diphenhydrAMINE 25MG CAP PO SCH
[2023-11-24 19:37] LABS: PERCENT SATURATION 9.1 % (13.2-45.0)
[2023-11-24 19:40] LABS: FERRITIN 79.9 NG/ML (7.3-270.7)
== END ==
LOC: M LAB REF 17:58
PROVIDERS: ATTEND Internal Medicine Nephrology
DX: N18.32 Chronic kidney disease, stage 3b (principal); D63.1 Anemia in chronic kidney disease

== ENCOUNTER → 2023-11-29 | Outpatient (CLI) | payer MEDICARE, MEDICAID ==
[2023-11-29 12:56] LABS: BASO % 0.4 % (0.0-1.0); EOS # 0.2 10^3/uL (0.0-0.5); EOS % 2.5 % (0.0-3.0); HEMATOCRIT 29.2 % (36.0-47.0); HEMOGLOBIN 8.7 g/dl (12.0-15.5); LYMPH # 1.1 10^3/uL (1.5-5.0); LYMPH % 13.4 % (24.0-44.0); MEAN CORPUSCULAR HEMOGLOBIN 30.6 pg (27.0-33.0); MEAN CORPUSCULAR HGB CONC 29.8 g/dl (32.0-36.5); MEAN CORPUSCULAR VOLUME 102.8 fl (80.0-96.0); MONO # 0.6 10^3/uL (0.0-0.8); MONO % 6.9 % (2.0-8.0); NEUTROPHILS # 6.2 10^3/uL (1.5-8.5); NEUTROPHILS % 76.4 % (36.0-66.0); PLATELET COUNT, AUTOMATED 328 10^3/uL (150-450); RED BLOOD COUNT 2.84 10^6/uL (4.00-5.40); WHITE BLOOD COUNT 8.1 10^3/uL (4.0-10.0)
== END ==
LOC: M LAB 11:42
PROVIDERS: ATTEND Physician Assistant Medical
DX: D50.9 Iron deficiency anemia, unspecified (principal); I50.32 Chronic diastolic (congestive) heart failure

== ENCOUNTER 2023-12-14 09:23 | Day surgery (SDC) | payer MEDICARE, MEDICAID ==
[~2023-12-14] VITALS: Ht 162.6 cm; Wt 62.5 kg
[~2023-12-14 09:23] MED LIST changes: +B-12100010 PO; +CLAR10CA3 PO; +NS 1,000 ML IV ONE
[2023-12-14] MEDS ORDERED: propofoL 200 MG/20 ML VIAL As Ordered ONE ×3 (09:47→13:01)
[2023-12-14] MEDS ORDERED: LIDOCAINE 2% 100MG/5ML SDV (FOR ANES.) As Ordered ONE (09:47)
[2023-12-14] MEDS ORDERED: fentaNYL 100 MCG/2 ML INJECTION As Ordered ONE (09:48)
[2023-12-14 13:26] VITALS: TEMP 99.3
[2023-12-14 13:50] VITALS: BP 151/69; O2SAT 100
== END 2023-12-14 14:01 | disposition home or self-care (01) ==
LOC: M OPP 09:23
PROVIDERS: ATTEND Surgery
DX: D50.9 Iron deficiency anemia, unspecified (principal); K31.89 Other diseases of stomach and duodenum; K29.50 Unspecified chronic gastritis without bleeding; F17.200 Nicotine dependence, unspecified, uncomplicated; G47.30 Sleep apnea, unspecified; Z79.02 Long term (current) use of antithrombotics/antiplatelets; Z79.51 Long term (current) use of inhaled steroids; Z79.82 Long term (current) use of aspirin
CPT/HCPCS: 43239; 45378; 88305; J3010

== ENCOUNTER 2023-12-26 14:29 | Outpatient (CLI) | payer MEDICARE, MEDICAID ==
[~2023-12-26] VITALS: Ht 162.6 cm; Wt 61.3 kg
[~2023-12-26 14:29] MED LIST changes: +ALBUTEROL SULFATE 2.5MG/0.5ML INH NEB SOLN INH PRN; +EPINEPHrine INJ 1 MG/ML 1ML AMP IM PRN; -NS 1,000 ML IV ONE; +NS 1,000 ML IV SCH; +diphenhydrAMINE 50MG/ML VIAL IV PRN; +methylPREDNISolone 125MG 2ML VIAL IV PRN
[2023-12-26] MEDS ORDERED: IRON SUCROSE 300 MG in NS 250 ML OVER 90 MIN. IV ONE (14:30)
[2023-12-26 14:40] VITALS: BP 157/74; O2SAT 94
[2023-12-26 17:28] VITALS: BP 159/81; O2SAT 95
== END 2023-12-26 17:30 ==
LOC: M INFU 14:29
PROVIDERS: ATTEND Internal Medicine Nephrology
DX: D50.9 Iron deficiency anemia, unspecified (principal)
CPT/HCPCS: 96365; 96366; J1756

== ENCOUNTER 2024-01-09 10:30 | Outpatient (CLI) | payer MEDICARE, MEDICAID ==
[~2024-01-09] VITALS: Ht 162.6 cm; Wt 58.1 kg
[2024-01-09 10:30] VITALS: BP 147/76; O2SAT 97
[~2024-01-09 10:30] MED LIST changes: -ASPI-161 PO; +ASPI-615 PO
[2024-01-09] MEDS: IRON SUCROSE 300 MG in NS 250 ML OVER 90 MIN. IV ONE (11:09)
[2024-01-09 12:50] VITALS: BP 153/91; O2SAT 98
== END 2024-01-09 12:50 ==
LOC: M INFU 10:30
PROVIDERS: ATTEND Internal Medicine Nephrology
DX: D50.9 Iron deficiency anemia, unspecified (principal)
CPT/HCPCS: 96365; 96366; J1756

== ENCOUNTER 2024-01-23 09:00 | Outpatient (CLI) | payer MEDICARE, MEDICAID ==
[~2024-01-23] VITALS: Ht 162.6 cm; Wt 58.1 kg
[2024-01-23] MEDS: IRON SUCROSE 300 MG in NS 250 ML OVER 90 MIN. IV ONE (09:12)
[2024-01-23 09:30] VITALS: BP 170/80; O2SAT 97
[2024-01-23 11:00] VITALS: BP 155/68; O2SAT 98
== END 2024-01-23 11:00 | disposition home or self-care (01) ==
LOC: M INFU 09:00
PROVIDERS: ATTEND Internal Medicine Nephrology
DX: D50.9 Iron deficiency anemia, unspecified (principal)
CPT/HCPCS: 96365; J1756

== ENCOUNTER → 2024-02-03 | Outpatient (CLI) | payer MEDICARE, MEDICAID ==
[~2024-02-03] MED LIST changes: -ALBUTEROL SULFATE 2.5MG/0.5ML INH NEB SOLN INH PRN; -EPINEPHrine INJ 1 MG/ML 1ML AMP IM PRN; -NS 1,000 ML IV SCH; -diphenhydrAMINE 50MG/ML VIAL IV PRN; -methylPREDNISolone 125MG 2ML VIAL IV PRN
[2024-02-03 16:39] LABS: BASO # 0.1 10^3/uL (0.0-0.2); BASO % 0.6 % (0.0-1.0); EOS # 0.2 10^3/uL (0.0-0.5); EOS % 1.9 % (0.0-3.0); HEMATOCRIT 33.1 % (36.0-47.0); HEMOGLOBIN 9.7 g/dl (12.0-15.5); LYMPH # 1.3 10^3/uL (1.5-5.0); MEAN CORPUSCULAR HEMOGLOBIN 29.1 pg (27.0-33.0); MEAN CORPUSCULAR HGB CONC 29.3 g/dl (32.0-36.5); MEAN CORPUSCULAR VOLUME 99.4 fl (80.0-96.0); MONO # 0.6 10^3/uL (0.0-0.8); MONO % 6.7 % (2.0-8.0); NEUTROPHILS # 6.8 10^3/uL (1.5-8.5); NEUTROPHILS % 76.6 % (36.0-66.0); PLATELET COUNT, AUTOMATED 348 10^3/uL (150-450); RED BLOOD COUNT 3.33 10^6/uL (4.00-5.40); WHITE BLOOD COUNT 8.9 10^3/uL (4.0-10.0)
[2024-02-03 17:06] LABS: ALBUMIN 3.4 G/DL (3.2-5.2); ALKALINE PHOSPHATASE 97 U/L (46-116); ALT/SGPT 12 U/L (7.0-40); AST/SGOT < 8 U/L (<34); BILIRUBIN,TOTAL < 0.2 MG/DL (0.3-1.2); BLOOD UREA NITROGEN 47 MG/DL (9-23); CALCIUM LEVEL 8.7 MG/DL (8.3-10.6); CARBON DIOXIDE LEVEL 19 MMOL/L (20-31); CHLORIDE LEVEL 112 MMOL/L (98-107); CHOLESTEROL LEVEL 79 MG/DL (<200); CHOLESTEROL RISK RATIO 2.23 (<5); FERRITIN 226.4 NG/ML (7.3-270.7); GLOMERULAR FILTRATION RATE 18.4 (>39); GLUCOSE, FASTING 79 MG/DL (74-106); HDL CHOLESTEROL 35.3 MG/DL (>40); IRON (FE) 20 UG/DL (50-170); LDL CHOLESTEROL 31.3 MG/DL (<100); NON-HDL-C 43.7 MG/DL; POTASSIUM SERUM 4.5 MMOL/L (3.5-5.1); SODIUM LEVEL 139 MMOL/L (136-145); TOTAL PROTEIN 7.2 G/DL (5.7-8.2); TRIGLYCERIDES LEVEL 62 MG/DL (<150)
== END ==
LOC: M PLALAB 14:04
PROVIDERS: ATTEND Physician Assistant Medical
DX: D50.9 Iron deficiency anemia, unspecified (principal); N18.32 Chronic kidney disease, stage 3b; I50.32 Chronic diastolic (congestive) heart failure; E78.2 Mixed hyperlipidemia

== ENCOUNTER → 2024-02-06 | Outpatient (CLI) | payer MEDICARE, MEDICAID | LOC: M RAD 11:47 | PROVIDERS: ATTEND Urology | DX: N13.30 Unspecified hydronephrosis (principal) ==

== ENCOUNTER 2024-03-23 13:16 | Inpatient (IN) | payer MEDICARE, MEDICAID ==
[~2024-03-23] VITALS: Ht 162.6 cm; Wt 69.1 kg
[2024-03-23 13:53] LABS: BASO % 0.4 % (0.0-1.0); EOS # 0.1 10^3/uL (0.0-0.5); EOS % 0.7 % (0.0-3.0); HEMATOCRIT 32.1 % (36.0-47.0); HEMOGLOBIN 9.5 g/dl (12.0-15.5); LYMPH # 0.8 10^3/uL (1.5-5.0); LYMPH % 10.7 % (24.0-44.0); MEAN CORPUSCULAR HEMOGLOBIN 30.4 pg (27.0-33.0); MEAN CORPUSCULAR HGB CONC 29.6 g/dl (32.0-36.5); MEAN CORPUSCULAR VOLUME 102.9 fl (80.0-96.0); MONO # 0.3 10^3/uL (0.0-0.8); MONO % 4.1 % (2.0-8.0); NEUTROPHILS # 5.9 10^3/uL (1.5-8.5); NEUTROPHILS % 83.8 % (36.0-66.0); PLATELET COUNT, AUTOMATED 277 10^3/uL (150-450); RED BLOOD COUNT 3.12 10^6/uL (4.00-5.40)
[2024-03-23 14:03] LABS: ABG BASE EXCESS -16.5 (-2.0-2.0); ABG HCO3 10.6 MMOL/L (22.0-26.0); ABG O2 SATURATION 94.7 % (95.0-99.0); ABG PARTIAL PRESSURE CO2 29.7 mmHg (35.0-45.0); ABG PARTIAL PRESSURE O2 78.6 mmHg (75.0-100.0); ABG STANDARD HCO3 11.8 MMOL/L. (22.0-26.0); ABG TOTAL CO2 11.6 MMOL/L (23.0-31.0)
[2024-03-23 14:04] LABS: ABG pH (ARTERIAL) 7.172 UNITS (7.350-7.450)
[2024-03-23 14:05] LABS: INR 1.28; PARTIAL THROMBOPLASTIN TIME 35.3 SECONDS (24.8-34.2); PROTHROMBIN TIME 15.6 SECONDS (12.5-14.5)
[2024-03-23 14:15] LABS: ALBUMIN 2.6 G/DL (3.2-5.2); ALKALINE PHOSPHATASE 122 U/L (46-116); ALT/SGPT 24 U/L (7.0-40); AST/SGOT 12 U/L (<34); BILIRUBIN,DIRECT < 0.1 MG/DL (<0.4); BILIRUBIN,TOTAL < 0.2 MG/DL (0.3-1.2); BLOOD UREA NITROGEN 42 MG/DL (9-23); CALCIUM LEVEL 8.4 MG/DL (8.3-10.6); CARBON DIOXIDE LEVEL 14 MMOL/L (20-31); CHLORIDE LEVEL 116 MMOL/L (98-107); CK-MB VALUE MASS 4.9 NG/ML (<3.6); CPK CREATINE PHOSPHOKINASE 82 U/L (34-145); CREATININE FOR GFR 2.62 MG/DL (0.55-1.30); GLOMERULAR FILTRATION RATE 19.1 (>39); GLUCOSE, FASTING 102 MG/DL (74-106); MB/CK RELATIVE INDEX 5.97 (< OR =4); POTASSIUM SERUM 4.1 MMOL/L (3.5-5.1); SODIUM LEVEL 142 MMOL/L (136-145); TOTAL PROTEIN 6.6 G/DL (5.7-8.2)
[2024-03-23 14:19] LABS: THYROID STIMULATING HORMONE 1.993 uIU/ML (0.55-4.78)
[2024-03-23 14:33] LABS: D-DIMER QUANT 1.44 ug/mL (<0.5)
[2024-03-23] MEDS: FUROSEMIDE 40MG/4ML VIAL IV ONE (14:45)
[2024-03-23 14:46] LABS: LIPASE 29 U/L (12-53)
[2024-03-23 15:18] LABS: CK-MB VALUE MASS 4.7 NG/ML (<3.6)
[2024-03-23 15:20] LABS: MB/CK RELATIVE INDEX 6.02 (< OR =4)
[2024-03-23] MEDS: IPRATROPIUM 0.5MG/ALBUTEROL 2.5MG INH SOL UD 3ML (DUONEB) NEB ONE (15:59)
[2024-03-23] MEDS: SODIUM BICARBONATE 8.4% INJ 50ML SYRINGE IV SCH (18:19)
[2024-03-23] MEDS: ACETAMINOPHEN TAB 650MG DOSE (2X325MG) PO PRN (18:30)
[2024-03-23] MEDS ORDERED: MED REC IN PROGRESS XX SCH (18:50)
[2024-03-23] MEDS ORDERED: [UNRECOGNIZED DRUG - OTHER] TOP (19:16)
[2024-03-23] MEDS ORDERED: LEVA45AE INH (19:16)
[2024-03-23] MEDS ORDERED: PROA1AER2 INH (19:16)
[2024-03-23] MEDS ORDERED: ATOR80TA59 PO (19:16)
[2024-03-23] MEDS ORDERED: CLOP75TA2 PO (19:16)
[2024-03-23] MEDS ORDERED: HOME MED LIST COMPLETE! XX SCH (19:20)
[2024-03-23] MEDS: IPRATROPIUM 0.5MG/ALBUTEROL 2.5MG INH SOL UD 3ML (DUONEB) NEB SCH (19:38)
[2024-03-23] MEDS ORDERED: SODIUM BICARBONATE 325 MG TAB PO SCH (21:00)
[2024-03-23 21:38] VITALS: BP 158/96; TEMP 99.1; O2SAT 93
[2024-03-23 22:31] LABS: VENOUS BASE EXCESS -13.9 (-2.0-2.0); VENOUS HCO3 13.2 MMOL/L (23.0-27.0); VENOUS O2 SATURATION 92.5 % (60.0-80.0); VENOUS PARTIAL PRESSURE CO2 34.8 mmHg (38.0-50.0); VENOUS PARTIAL PRESSURE O2 69.3 mmHg (30.0-50.0); VENOUS PH 7.196 UNITS (7.330-7.430); VENOUS STANDARD HCO3 13.5 MMOL/L; VENOUS TOTAL CO2 14.2 MMOL/L (24.0-28.0)
[2024-03-23] MEDS ORDERED: ALBUTEROL 90 MCG/ACT 8GM HFA INHALER INH PRN (22:35)
[2024-03-23 23:00] VITALS: O2SAT 89
[2024-03-23 23:06] LABS: CALCIUM LEVEL 8.1 MG/DL (8.3-10.6); CREATININE FOR GFR 2.7 MG/DL (0.55-1.30); GLOMERULAR FILTRATION RATE 18.4 (>39); POTASSIUM SERUM 3.8 MMOL/L (3.5-5.1)
[2024-03-24] VITALS (28 sets, daily range): BP systolic 124–154; BP diastolic 60–78; TEMP 97.4–98.6; O2SAT 87–99
[2024-03-24 00:05] LABS: VENOUS BASE EXCESS -10.2 (-2.0-2.0); VENOUS HCO3 15.8 MMOL/L (23.0-27.0); VENOUS O2 SATURATION 98.3 % (60.0-80.0); VENOUS PARTIAL PRESSURE CO2 35.5 mmHg (38.0-50.0); VENOUS PARTIAL PRESSURE O2 125.8 mmHg (30.0-50.0); VENOUS PH 7.267 UNITS (7.330-7.430); VENOUS STANDARD HCO3 16.3 MMOL/L; VENOUS TOTAL CO2 16.9 MMOL/L (24.0-28.0)
[2024-03-24] MEDS: SODIUM BICARBONATE 50 MEQ in D5W 1,000 ML IV SCH (00:22)
[2024-03-24] MEDS: ANALGESIC BALM CRM 3OZ TOP ONE (04:10)
[2024-03-24 04:34] LABS: VENOUS BASE EXCESS -7.9 (-2.0-2.0); VENOUS O2 SATURATION 94.5 % (60.0-80.0); VENOUS PARTIAL PRESSURE CO2 38.2 mmHg (38.0-50.0); VENOUS PARTIAL PRESSURE O2 73.8 mmHg (30.0-50.0); VENOUS PH 7.292 UNITS (7.330-7.430); VENOUS TOTAL CO2 19.2 MMOL/L (24.0-28.0)
[2024-03-24 04:38] LABS: HEMATOCRIT 27.5 % (36.0-47.0); HEMOGLOBIN 8.6 g/dl (12.0-15.5); MEAN CORPUSCULAR HEMOGLOBIN 30.6 pg (27.0-33.0); MEAN CORPUSCULAR HGB CONC 31.3 g/dl (32.0-36.5); MEAN CORPUSCULAR VOLUME 97.9 fl (80.0-96.0); PLATELET COUNT, AUTOMATED 257 10^3/uL (150-450); RED BLOOD COUNT 2.81 10^6/uL (4.00-5.40); WHITE BLOOD COUNT 3.5 10^3/uL (4.0-10.0)
[2024-03-24] MEDS: HEPARIN SOD (PORCINE) 5000UNITS/ML 1ML VIAL/SYRINGE SC SCH (05:02)
[2024-03-24 05:12] LABS: CALCIUM LEVEL 8.2 MG/DL (8.3-10.6); CREATININE FOR GFR 2.68 MG/DL (0.55-1.30); GLOMERULAR FILTRATION RATE 18.6 (>39); MAGNESIUM LEVEL 2.1 MG/DL (1.8-2.4); POTASSIUM SERUM 3.6 MMOL/L (3.5-5.1)
[2024-03-24 08:42] LABS: VENOUS BASE EXCESS -8.1 (-2.0-2.0); VENOUS HCO3 18.9 MMOL/L (23.0-27.0); VENOUS O2 SATURATION 92.7 % (60.0-80.0); VENOUS PARTIAL PRESSURE CO2 44.6 mmHg (38.0-50.0); VENOUS PARTIAL PRESSURE O2 69.7 mmHg (30.0-50.0); VENOUS PH 7.244 UNITS (7.330-7.430); VENOUS STANDARD HCO3 17.8 MMOL/L; VENOUS TOTAL CO2 20.2 MMOL/L (24.0-28.0)
[2024-03-24] MEDS: SODIUM BICARBONATE 325 MG TAB PO SCH (12:08)
[2024-03-24] MEDS: CLOPIDOGREL 75 MG TAB PO SCH (12:09)
[2024-03-24 15:31] LABS: PERCENT SATURATION 11.7 % (13.2-45.0)
[2024-03-24] MEDS: TORSEMIDE 10 MG TABLET PO ONE (16:27)
[2024-03-24] MEDS: POTASSIUM CHLORIDE 10MEQ SR TABLET PO ONE (16:27)
[2024-03-24] MEDS: TIOTROPIUM INHALER/CAPSULE (SPIRIVA) INH SCH (20:36)
[2024-03-25] VITALS (7 sets, daily range): BP systolic 140–142; BP diastolic 73–80; TEMP 97.6–98.5; O2SAT 87–93
[2024-03-25] MEDS: LEVALBUTEROL HFA 45MCG/ACT 15GM INHALER INH PRN (04:22)
[2024-03-25 04:48] LABS: HEMATOCRIT 28.3 % (36.0-47.0); HEMOGLOBIN 8.7 g/dl (12.0-15.5); MEAN CORPUSCULAR HEMOGLOBIN 30.7 pg (27.0-33.0); MEAN CORPUSCULAR HGB CONC 30.7 g/dl (32.0-36.5); PLATELET COUNT, AUTOMATED 261 10^3/uL (150-450); RED BLOOD COUNT 2.83 10^6/uL (4.00-5.40); WHITE BLOOD COUNT 7.9 10^3/uL (4.0-10.0)
[2024-03-25 05:11] LABS: CALCIUM LEVEL 7.9 MG/DL (8.3-10.6); CREATININE FOR GFR 2.77 MG/DL (0.55-1.30); GLOMERULAR FILTRATION RATE 17.9 (>39); MAGNESIUM LEVEL 2.1 MG/DL (1.8-2.4); POTASSIUM SERUM 3.9 MMOL/L (3.5-5.1)
[2024-03-25] MEDS: ATORVASTATIN 20 MG TAB PO SCH (08:42)
[2024-03-25] MEDS: TORSEMIDE 10 MG TABLET PO SCH (08:42)
[2024-03-25] MEDS: CEFDINIR 300 MG CAP (OMNICEF) PO SCH (08:42)
[2024-03-25] MEDS ORDERED: TORS10TA3 PO (11:20)
[2024-03-25] MEDS ORDERED: CEFD300CAP PO (11:20)
[2024-03-25] MEDS ORDERED: SODI650T PO (11:20)
== END 2024-03-25 13:15 | disposition home health service (06) | DRG 291 ==
LOC: M ED 13:16 → EDBD 13:16 → M ED INP 17:31 → M PCU 21:39
PROVIDERS: ADMIT Student in an Organized Health Care Education/Training Program; ATTEND Student in an Organized Health Care Education/Training Program
PROC: B246ZZZ Ultrasonography of Right and Left Heart (ICD-10-PCS; principal; 2024-03-24)
DX: I13.0 Hypertensive heart and chronic kidney disease with heart failure and stage 1 through stage 4 chronic kidney disease, or unspecified chronic kidney disease (principal); I50.33 Acute on chronic diastolic (congestive) heart failure; J98.11 Atelectasis; E87.20 Acidosis, unspecified; I87.1 Compression of vein; N39.0 Urinary tract infection, site not specified; N18.4 Chronic kidney disease, stage 4 (severe); N31.9 Neuromuscular dysfunction of bladder, unspecified; J44.9 Chronic obstructive pulmonary disease, unspecified; I73.9 Peripheral vascular disease, unspecified; F17.200 Nicotine dependence, unspecified, uncomplicated; R63.4 Abnormal weight loss; G43.909 Migraine, unspecified, not intractable, without status migrainosus; K57.90 Diverticulosis of intestine, part unspecified, without perforation or abscess without bleeding; H57.02 Anisocoria; R19.7 Diarrhea, unspecified; I27.20 Pulmonary hypertension, unspecified; D63.1 Anemia in chronic kidney disease; B96.1 Klebsiella pneumoniae [K. pneumoniae] as the cause of diseases classified elsewhere; N20.0 Calculus of kidney; Z90.49 Acquired absence of other specified parts of digestive tract; Z93.6 Other artificial openings of urinary tract status; Z79.02 Long term (current) use of antithrombotics/antiplatelets; Z79.899 Other long term (current) drug therapy

== ENCOUNTER → 2024-04-02 | Outpatient (CLI) | payer MEDICARE, MEDICAID ==
[~2024-04-02] MED LIST changes: +CEFD300CAP PO; +LEVA45AE INH; +SODI650T PO; +TORS10TA3 PO; +[UNRECOGNIZED DRUG - OTHER] TOP
[2024-04-02 18:21] LABS: BASO # 0.1 10^3/uL (0.0-0.2); BASO % 0.7 % (0.0-1.0); EOS # 0.2 10^3/uL (0.0-0.5); EOS % 1.8 % (0.0-3.0); HEMATOCRIT 33.1 % (36.0-47.0); HEMOGLOBIN 9.6 g/dl (12.0-15.5); LYMPH % 11.1 % (24.0-44.0); MEAN CORPUSCULAR HEMOGLOBIN 29.7 pg (27.0-33.0); MEAN CORPUSCULAR VOLUME 102.5 fl (80.0-96.0); MONO # 0.7 10^3/uL (0.0-0.8); MONO % 7.8 % (2.0-8.0); NEUTROPHILS # 6.9 10^3/uL (1.5-8.5); NEUTROPHILS % 78.1 % (36.0-66.0); PLATELET COUNT, AUTOMATED 277 10^3/uL (150-450); RED BLOOD COUNT 3.23 10^6/uL (4.00-5.40); WHITE BLOOD COUNT 8.8 10^3/uL (4.0-10.0)
[2024-04-02 18:51] LABS: ALBUMIN 3.2 G/DL (3.2-5.2); BILIRUBIN,TOTAL 0.2 MG/DL (0.3-1.2); CALCIUM LEVEL 8.7 MG/DL (8.3-10.6); CREATININE FOR GFR 3.97 MG/DL (0.55-1.30); GLOMERULAR FILTRATION RATE 11.8 (>39); TOTAL PROTEIN 6.7 G/DL (5.7-8.2)
[2024-04-02 18:53] LABS: FERRITIN 145.2 NG/ML (7.3-270.7)
== END ==
LOC: M PLALAB 15:48
PROVIDERS: ATTEND Physician Assistant Medical
DX: N83.202 Unspecified ovarian cyst, left side (principal); I50.32 Chronic diastolic (congestive) heart failure; E87.20 Acidosis, unspecified; D50.9 Iron deficiency anemia, unspecified; I11.0 Hypertensive heart disease with heart failure; D39.11 Neoplasm of uncertain behavior of right ovary; D39.12 Neoplasm of uncertain behavior of left ovary

== ENCOUNTER → 2024-04-12 | Outpatient (REF) | payer MEDICARE, MEDICAID ==
[2024-04-12 14:45] LABS: BASO # 0.1 10^3/uL (0.0-0.2); BASO % 0.9 % (0.0-1.0); EOS # 0.1 10^3/uL (0.0-0.5); EOS % 1.4 % (0.0-3.0); HEMATOCRIT 31.2 % (36.0-47.0); LYMPH # 0.8 10^3/uL (1.5-5.0); LYMPH % 14.1 % (24.0-44.0); MEAN CORPUSCULAR HEMOGLOBIN 30.4 pg (27.0-33.0); MEAN CORPUSCULAR HGB CONC 28.8 g/dl (32.0-36.5); MEAN CORPUSCULAR VOLUME 105.4 fl (80.0-96.0); MONO # 0.3 10^3/uL (0.0-0.8); NEUTROPHILS # 4.4 10^3/uL (1.5-8.5); NEUTROPHILS % 77.4 % (36.0-66.0); PLATELET COUNT, AUTOMATED 320 10^3/uL (150-450); RED BLOOD COUNT 2.96 10^6/uL (4.00-5.40); WHITE BLOOD COUNT 5.7 10^3/uL (4.0-10.0)
== END ==
LOC: M SHH 14:08
PROVIDERS: ATTEND Physician Assistant Medical
DX: D50.9 Iron deficiency anemia, unspecified (principal)

== ENCOUNTER 2024-04-20 13:12 | Inpatient (IN) | payer MEDICARE, MEDICAID ==
[~2024-04-20] VITALS: Ht 162.6 cm; Wt 61.0 kg
[2024-04-20 13:53] LABS: BASO # 0.1 10^3/uL (0.0-0.2); BASO % 0.7 % (0.0-1.0); EOS # 0.1 10^3/uL (0.0-0.5); EOS % 1.3 % (0.0-3.0); HEMATOCRIT 32.3 % (36.0-47.0); HEMOGLOBIN 9.8 g/dl (12.0-15.5); LYMPH # 0.9 10^3/uL (1.5-5.0); LYMPH % 12.2 % (24.0-44.0); MEAN CORPUSCULAR HEMOGLOBIN 31.2 pg (27.0-33.0); MEAN CORPUSCULAR HGB CONC 30.3 g/dl (32.0-36.5); MEAN CORPUSCULAR VOLUME 102.9 fl (80.0-96.0); MONO # 0.4 10^3/uL (0.0-0.8); MONO % 5.3 % (2.0-8.0); NEUTROPHILS # 6.1 10^3/uL (1.5-8.5); NEUTROPHILS % 80.2 % (36.0-66.0); PLATELET COUNT, AUTOMATED 269 10^3/uL (150-450); RED BLOOD COUNT 3.14 10^6/uL (4.00-5.40); WHITE BLOOD COUNT 7.6 10^3/uL (4.0-10.0)
[2024-04-20 14:24] LABS: ALBUMIN 3.1 G/DL (3.2-5.2); BILIRUBIN,DIRECT 0.1 MG/DL (<0.4); BILIRUBIN,TOTAL 0.3 MG/DL (0.3-1.2); CALCIUM LEVEL 8.8 MG/DL (8.3-10.6); CREATININE FOR GFR 3.08 MG/DL (0.55-1.30); GLOMERULAR FILTRATION RATE 15.8 (>39); POTASSIUM SERUM 4.6 MMOL/L (3.5-5.1); TOTAL PROTEIN 6.4 G/DL (5.7-8.2)
[2024-04-20] MEDS: NICOTINE 21MG/24HR 1 EA TRANSDERMAL TD ONE (14:30)
[2024-04-20] MEDS: cefTRIAXone SOD 1 GM in D5W MINI-BAG PLUS 50 ML IV ONE (17:13)
[2024-04-20] MEDS: AZITHROMYCIN 250MG TABLET PO ONE (17:13)
[2024-04-20] MEDS: IPRATROPIUM 0.5MG/ALBUTEROL 2.5MG INH SOL UD 3ML (DUONEB) NEB ONE (17:31)
[2024-04-20 18:25] LABS: ERYTHROCYTE SEDIMENTATION RATE 37 mm/hr (0-30)
[2024-04-20 18:34] LABS: PROCALCITONIN 0.2 ng/ml
[2024-04-20] MEDS: ACETAMINOPHEN TAB 650MG DOSE (2X325MG) PO PRN (19:24)
[2024-04-20] MEDS ORDERED: SODI650T PO (19:26)
[2024-04-20] MEDS ORDERED: ALBU2.5V10 INH (19:26)
[2024-04-20] MEDS ORDERED: ROPI5TAB19 PO (19:26)
[2024-04-20] MEDS ORDERED: HOME MED LIST COMPLETE! XX SCH (19:30)
[2024-04-20] MEDS ORDERED: ACET325C5 PO (19:31)
[2024-04-20] MEDS: FUROSEMIDE 40MG/4ML VIAL IV SCH (19:58)
[2024-04-20] MEDS: SODIUM BICARBONATE 325 MG TAB PO SCH (21:10)
[2024-04-20] MEDS: rOPINIRole 0.25 MG TAB(REQUIP) PO SCH (21:10)
[2024-04-20] MEDS: HEPARIN SOD (PORCINE) 5000UNITS/ML 1ML VIAL/SYRINGE SC SCH (21:57)
[2024-04-20 22:28] VITALS: BP 135/69; TEMP 97; O2SAT 96
[2024-04-20 23:00] VITALS: O2SAT 93
[2024-04-20] MEDS: ALBUTEROL 90 MCG/ACT 8GM HFA INHALER INH PRN (23:09)
[2024-04-20 23:23] VITALS: BP 143/90; TEMP 97; O2SAT 93
[2024-04-21] VITALS (27 sets, daily range): BP systolic 125–141; BP diastolic 74–82; TEMP 97.1–97.8; O2SAT 88–95
[2024-04-21] MEDS: ANALGESIC BALM CRM 3OZ TOP PRN (04:12)
[2024-04-21 05:07] LABS: BASO % 0.2 % (0.0-1.0); HEMATOCRIT 30.2 % (36.0-47.0); HEMOGLOBIN 9.2 g/dl (12.0-15.5); LYMPH # 0.3 10^3/uL (1.5-5.0); LYMPH % 7.8 % (24.0-44.0); MEAN CORPUSCULAR HEMOGLOBIN 30.9 pg (27.0-33.0); MEAN CORPUSCULAR HGB CONC 30.5 g/dl (32.0-36.5); MEAN CORPUSCULAR VOLUME 101.3 fl (80.0-96.0); MONO # 0.1 10^3/uL (0.0-0.8); MONO % 3.3 % (2.0-8.0); NEUTROPHILS # 3.8 10^3/uL (1.5-8.5); NEUTROPHILS % 88.5 % (36.0-66.0); PLATELET COUNT, AUTOMATED 250 10^3/uL (150-450); RED BLOOD COUNT 2.98 10^6/uL (4.00-5.40); WHITE BLOOD COUNT 4.3 10^3/uL (4.0-10.0)
[2024-04-21 05:42] LABS: ALBUMIN 2.9 G/DL (3.2-5.2); ALKALINE PHOSPHATASE 121 U/L (46-116); ALT/SGPT 27 U/L (7.0-40); AST/SGOT < 8 U/L (<34); BILIRUBIN,TOTAL 0.2 MG/DL (0.3-1.2); BLOOD UREA NITROGEN 49 MG/DL (9-23); CARBON DIOXIDE LEVEL 19 MMOL/L (20-31); CHLORIDE LEVEL 110 MMOL/L (98-107); GLOMERULAR FILTRATION RATE 15.7 (>39); GLUCOSE, FASTING 203 MG/DL (74-106); MAGNESIUM LEVEL 2.1 MG/DL (1.8-2.4); POTASSIUM SERUM 4.8 MMOL/L (3.5-5.1); SODIUM LEVEL 141 MMOL/L (136-145); TOTAL PROTEIN 6.2 G/DL (5.7-8.2)
[2024-04-21] MEDS: CYANOCOBALAMIN 500 MCG TAB PO SCH (08:46)
[2024-04-21] MEDS: ATORVASTATIN 20 MG TAB PO SCH (08:46)
[2024-04-21] MEDS: CLOPIDOGREL 75 MG TAB PO SCH (08:46)
[2024-04-21] MEDS: VITAMIN D 1,000 INTERNATIONAL UNITS TABLET PO SCH (08:46)
[2024-04-21] MEDS: LORATADINE 10 MG TAB PO SCH (08:46)
[2024-04-21] MEDS: SODIUM BICARBONATE 325 MG TAB PO SCH (16:48)
[2024-04-21] MEDS: TIOTROPIUM INHALER/CAPSULE (SPIRIVA) INH SCH (19:03)
[2024-04-22] VITALS (22 sets, daily range): BP systolic 112–136; BP diastolic 72–84; TEMP 97–98.7; O2SAT 90–96
[2024-04-22 04:51] LABS: BASO % 0.4 % (0.0-1.0); EOS % 0.4 % (0.0-3.0); HEMATOCRIT 31.1 % (36.0-47.0); HEMOGLOBIN 9.2 g/dl (12.0-15.5); LYMPH # 1.3 10^3/uL (1.5-5.0); LYMPH % 16.9 % (24.0-44.0); MEAN CORPUSCULAR HEMOGLOBIN 30.7 pg (27.0-33.0); MEAN CORPUSCULAR HGB CONC 29.6 g/dl (32.0-36.5); MEAN CORPUSCULAR VOLUME 103.7 fl (80.0-96.0); MONO # 0.5 10^3/uL (0.0-0.8); MONO % 6.7 % (2.0-8.0); NEUTROPHILS # 5.9 10^3/uL (1.5-8.5); NEUTROPHILS % 75.3 % (36.0-66.0); PLATELET COUNT, AUTOMATED 246 10^3/uL (150-450); WHITE BLOOD COUNT 7.9 10^3/uL (4.0-10.0)
[2024-04-22 05:18] LABS: ALBUMIN 2.9 G/DL (3.2-5.2); ALKALINE PHOSPHATASE 112 U/L (46-116); ALT/SGPT 24 U/L (7.0-40); AST/SGOT < 8 U/L (<34); BILIRUBIN,TOTAL < 0.2 MG/DL (0.3-1.2); BLOOD UREA NITROGEN 55 MG/DL (9-23); CALCIUM LEVEL 8.6 MG/DL (8.3-10.6); CARBON DIOXIDE LEVEL 22 MMOL/L (20-31); CHLORIDE LEVEL 112 MMOL/L (98-107); CREATININE FOR GFR 3.07 MG/DL (0.55-1.30); GLOMERULAR FILTRATION RATE 15.9 (>39); GLUCOSE, FASTING 105 MG/DL (74-106); IRON (FE) 49 UG/DL (50-170); PERCENT SATURATION 21.6 % (13.2-45.0); POTASSIUM SERUM 4.2 MMOL/L (3.5-5.1); SODIUM LEVEL 145 MMOL/L (136-145); TOTAL IRON BINDING CAPACITY 227 UG/DL (250-425); TOTAL PROTEIN 6.2 G/DL (5.7-8.2)
[2024-04-22 05:19] LABS: FERRITIN 144.8 NG/ML (7.3-270.7)
[2024-04-22] MEDS: IPRATROPIUM 0.5MG/ALBUTEROL 2.5MG INH SOL UD 3ML (DUONEB) NEB SCH (08:00)
[2024-04-22] MEDS: ALBUTEROL SULFATE 2.5MG/0.5ML INH NEB SOLN INH PRN (08:14)
[2024-04-22 08:22] LABS: ERYTHROCYTE SEDIMENTATION RATE 21 mm/hr (0-30)
[2024-04-22 08:35] LABS: PROCALCITONIN 0.13 ng/ml
[2024-04-22] MEDS ORDERED: FUROSEMIDE 40MG/4ML VIAL IV SCH (09:00)
[2024-04-22] MEDS: FUROSEMIDE 40MG/4ML VIAL IV SCH (09:12)
[2024-04-22] MEDS: predniSONE 20 MG TAB PO SCH (09:20)
[2024-04-22] MEDS: SENNA 8.6 MG TAB (SENOKOT) PO SCH (13:27)
[2024-04-23] VITALS (15 sets, daily range): BP systolic 121–150; BP diastolic 66–96; TEMP 97.8–98.4; O2SAT 91–99
[2024-04-23 05:49] LABS: BASO % 0.1 % (0.0-1.0); HEMATOCRIT 32.4 % (36.0-47.0); HEMOGLOBIN 9.6 g/dl (12.0-15.5); LYMPH # 0.8 10^3/uL (1.5-5.0); LYMPH % 11.4 % (24.0-44.0); MEAN CORPUSCULAR HGB CONC 29.6 g/dl (32.0-36.5); MEAN CORPUSCULAR VOLUME 104.5 fl (80.0-96.0); MONO # 0.6 10^3/uL (0.0-0.8); MONO % 7.5 % (2.0-8.0); NEUTROPHILS # 5.9 10^3/uL (1.5-8.5); NEUTROPHILS % 80.6 % (36.0-66.0); PLATELET COUNT, AUTOMATED 264 10^3/uL (150-450); WHITE BLOOD COUNT 7.4 10^3/uL (4.0-10.0)
[2024-04-23 06:14] LABS: ALBUMIN 3.1 G/DL (3.2-5.2); ALKALINE PHOSPHATASE 116 U/L (46-116); ALT/SGPT 22 U/L (7.0-40); AST/SGOT < 8 U/L (<34); BILIRUBIN,TOTAL 0.2 MG/DL (0.3-1.2); BLOOD UREA NITROGEN 58 MG/DL (9-23); CALCIUM LEVEL 8.7 MG/DL (8.3-10.6); CARBON DIOXIDE LEVEL 26 MMOL/L (20-31); CHLORIDE LEVEL 108 MMOL/L (98-107); GLUCOSE, FASTING 113 MG/DL (74-106); SODIUM LEVEL 143 MMOL/L (136-145); TOTAL PROTEIN 6.5 G/DL (5.7-8.2)
[2024-04-23] MEDS ORDERED: TORSEMIDE 20 MG TAB PO SCH (09:00)
[2024-04-23] MEDS: FUROSEMIDE 100MG/10ML VIAL IV ONE (09:21)
[2024-04-23] MEDS: MIRALAX *UNIT DOSE* 17GM PACKET PO SCH ×2 (09:22→20:56)
[2024-04-23] MEDS: LACTULOSE 20GM/30ML SYRUP UDC PO SCH (13:41)
[2024-04-23] MEDS: SODIUM BICARBONATE 325 MG TAB PO SCH (16:27)
[2024-04-23] MEDS: METAMUCIL (PSYLLIUM) PACKET PO SCH (20:52)
[2024-04-23] MEDS: ALBUTEROL SULFATE 2.5MG/0.5ML INH NEB SOLN INH PRN (23:45)
[2024-04-24] VITALS: BP 142/76; TEMP 97.1; O2SAT 96
[2024-04-24 04:00] VITALS: BP 144/62; TEMP 96.4; O2SAT 96
[2024-04-24 05:36] LABS: BASO % 0.1 % (0.0-1.0); HEMATOCRIT 31.7 % (36.0-47.0); HEMOGLOBIN 9.6 g/dl (12.0-15.5); LYMPH % 11.9 % (24.0-44.0); MEAN CORPUSCULAR HGB CONC 30.3 g/dl (32.0-36.5); MEAN CORPUSCULAR VOLUME 102.3 fl (80.0-96.0); MONO # 0.6 10^3/uL (0.0-0.8); MONO % 7.4 % (2.0-8.0); NEUTROPHILS # 6.5 10^3/uL (1.5-8.5); NEUTROPHILS % 80.1 % (36.0-66.0); PLATELET COUNT, AUTOMATED 244 10^3/uL (150-450); WHITE BLOOD COUNT 8.1 10^3/uL (4.0-10.0)
[2024-04-24 06:00] LABS: ALKALINE PHOSPHATASE 110 U/L (46-116); ALT/SGPT 22 U/L (7.0-40); AST/SGOT < 8 U/L (<34); BILIRUBIN,TOTAL 0.2 MG/DL (0.3-1.2); BLOOD UREA NITROGEN 68 MG/DL (9-23); CALCIUM LEVEL 8.7 MG/DL (8.3-10.6); CARBON DIOXIDE LEVEL 26 MMOL/L (20-31); CHLORIDE LEVEL 106 MMOL/L (98-107); CREATININE FOR GFR 2.71 MG/DL (0.55-1.30); GLOMERULAR FILTRATION RATE 18.4 (>39); GLUCOSE, FASTING 139 MG/DL (74-106); POTASSIUM SERUM 3.7 MMOL/L (3.5-5.1); SODIUM LEVEL 142 MMOL/L (136-145); TOTAL PROTEIN 6.3 G/DL (5.7-8.2)
[2024-04-24 08:00] VITALS: BP 140/82; TEMP 97.4; O2SAT 98
[2024-04-24] MEDS: FUROSEMIDE 20 MG TAB PO SCH (09:55)
[2024-04-24] MEDS: SENNA 8.6 MG TAB (SENOKOT) PO SCH (12:22)
[2024-04-24] MEDS ORDERED: SENO8.6T10 PO (12:27)
[2024-04-24] MEDS ORDERED: PRED10TA2 PO (12:27)
[2024-04-24] MEDS ORDERED: FURO20TA2 PO (12:27)
[2024-04-24] MEDS ORDERED: META1POW PO (12:27)
[2024-04-24 16:16] VITALS: BP 153/89; TEMP 97.2; O2SAT 98
== END 2024-04-24 17:42 | disposition home health service (06) | DRG 291 ==
LOC: M ED 13:12 → EDBD 13:12 → M ED INP 17:24 → M PCU 22:41
PROVIDERS: ADMIT Student in an Organized Health Care Education/Training Program; ATTEND Student in an Organized Health Care Education/Training Program
PROC: B246ZZZ Ultrasonography of Right and Left Heart (ICD-10-PCS; principal; 2024-04-24)
DX: I13.0 Hypertensive heart and chronic kidney disease with heart failure and stage 1 through stage 4 chronic kidney disease, or unspecified chronic kidney disease (principal); I50.23 Acute on chronic systolic (congestive) heart failure; N18.4 Chronic kidney disease, stage 4 (severe); E87.20 Acidosis, unspecified; M87.9 Osteonecrosis, unspecified; N39.0 Urinary tract infection, site not specified; J44.1 Chronic obstructive pulmonary disease with (acute) exacerbation; Z66 Do not resuscitate; I27.20 Pulmonary hypertension, unspecified; I73.9 Peripheral vascular disease, unspecified; F17.200 Nicotine dependence, unspecified, uncomplicated; N31.9 Neuromuscular dysfunction of bladder, unspecified; I08.3 Combined rheumatic disorders of mitral, aortic and tricuspid valves; G25.81 Restless legs syndrome; R91.8 Other nonspecific abnormal finding of lung field; Z79.899 Other long term (current) drug therapy; Z83.3 Family history of diabetes mellitus; Z96.0 Presence of urogenital implants; Z90.49 Acquired absence of other specified parts of digestive tract; Z11.52 Encounter for screening for COVID-19; K59.00 Constipation, unspecified

== ENCOUNTER → 2024-05-03 | Outpatient (REF) | payer MEDICARE, MEDICAID ==
[~2024-05-03] MED LIST changes: +ACET325C5 PO; +ALBU2.5V10 INH; +FURO20TA2 PO; +META1POW PO; +PRED10TA2 PO; +ROPI5TAB19 PO; +SENO8.6T10 PO
[2024-05-03 15:32] LABS: BASO % 0.4 % (0.0-1.0); EOS # 0.1 10^3/uL (0.0-0.5); HEMATOCRIT 32.9 % (36.0-47.0); HEMOGLOBIN 9.4 g/dl (12.0-15.5); LYMPH # 0.9 10^3/uL (1.5-5.0); MEAN CORPUSCULAR HGB CONC 28.6 g/dl (32.0-36.5); MEAN CORPUSCULAR VOLUME 108.6 fl (80.0-96.0); MONO # 0.7 10^3/uL (0.0-0.8); MONO % 7.7 % (2.0-8.0); NEUTROPHILS # 7.3 10^3/uL (1.5-8.5); NEUTROPHILS % 80.6 % (36.0-66.0); PLATELET COUNT, AUTOMATED 231 10^3/uL (150-450); RED BLOOD COUNT 3.03 10^6/uL (4.00-5.40)
[2024-05-03 15:59] LABS: BILIRUBIN,TOTAL 0.2 MG/DL (0.3-1.2); POTASSIUM SERUM 5.3 MMOL/L (3.5-5.1); TOTAL PROTEIN 5.7 G/DL (5.7-8.2)
[2024-05-03 16:00] LABS: FERRITIN 87.7 NG/ML (7.3-270.7)
[2024-05-04 12:39] LABS: CREATININE FOR GFR 2.43 MG/DL (0.55-1.30); GLOMERULAR FILTRATION RATE 20.8 (>39)
== END ==
LOC: M SHH 15:02 → M SFHCPLAZ 15:02
PROVIDERS: ATTEND Physician Assistant Medical
DX: D50.9 Iron deficiency anemia, unspecified (principal); N18.4 Chronic kidney disease, stage 4 (severe); I50.21 Acute systolic (congestive) heart failure

== ENCOUNTER 2024-05-07 12:30 | Outpatient (CLI) | payer MEDICARE, MEDICAID ==
[~2024-05-07 12:30] MED LIST changes: +ALBUTEROL SULFATE 2.5MG/0.5ML INH NEB SOLN INH PRN; +EPINEPHrine INJ 1 MG/ML 1ML AMP IM PRN; +diphenhydrAMINE 50MG/ML VIAL IV PRN; +methylPREDNISolone 125MG 2ML VIAL IV PRN
[2024-05-07] MEDS ORDERED: NS 1,000 ML IV SCH (13:00)
[2024-05-07] MEDS ORDERED: diphenhydrAMINE 25MG CAP PO ONE (13:00)
[2024-05-07] MEDS ORDERED: ACETAMINOPHEN TAB 650MG DOSE (2X325MG) PO ONE (13:00)
[2024-05-07 13:05] VITALS: BP 153/74; O2SAT 97
[2024-05-07] MEDS: IRON SUCROSE 250 MG in NS 237.5 ML IV ONE (13:48)
[2024-05-07 15:15] VITALS: BP 165/85; O2SAT 97
== END 2024-05-07 15:26 ==
LOC: M INFU 12:30
PROVIDERS: ATTEND Physician Assistant Medical
DX: D50.8 Other iron deficiency anemias (principal); Z91.09 Other allergy status, other than to drugs and biological substances
CPT/HCPCS: 96365; J1756

== ENCOUNTER → 2024-05-21 | Outpatient (CLI) | payer MEDICARE, MEDICAID ==
[~2024-05-21] MED LIST changes: +ACETAMINOPHEN 650MG PO PRIOR TO INFUSION PO ONE; +ACETAMINOPHEN TAB 650MG DOSE (2X325MG) PO ONE; +IRON SUCROSE 250 MG in NS 237.5 ML IV ONE; +NS 1,000 ML IV SCH; +diphenhydrAMINE 25MG CAP PO ONE; +diphenhydrAMINE 25MG PO PRIOR TO INFUSION PO ONE
== END ==
LOC: M INFU 10:49
PROVIDERS: ATTEND Physician Assistant Medical
DX: R91.1 Solitary pulmonary nodule (principal)
CPT/HCPCS: 78815; A9552

== ENCOUNTER 2024-05-28 13:09 | Emergency (ER) | payer MEDICARE, MEDICAID ==
[~2024-05-28] VITALS: Ht 162.6 cm; Wt 59.7 kg
[~2024-05-28 13:09] MED LIST changes: -ACETAMINOPHEN 650MG PO PRIOR TO INFUSION PO ONE; -ACETAMINOPHEN TAB 650MG DOSE (2X325MG) PO ONE; -ALBUTEROL SULFATE 2.5MG/0.5ML INH NEB SOLN INH PRN; -EPINEPHrine INJ 1 MG/ML 1ML AMP IM PRN; -IRON SUCROSE 250 MG in NS 237.5 ML IV ONE; -NS 1,000 ML IV SCH; -diphenhydrAMINE 25MG CAP PO ONE; -diphenhydrAMINE 25MG PO PRIOR TO INFUSION PO ONE; -diphenhydrAMINE 50MG/ML VIAL IV PRN; -methylPREDNISolone 125MG 2ML VIAL IV PRN
[2024-05-28] MEDS ORDERED: TREL1AER (13:24)
[2024-05-28 16:25] LABS: BASO # 0.1 10^3/uL (0.0-0.2); BASO % 0.7 % (0.0-1.0); EOS # 0.2 10^3/uL (0.0-0.5); EOS % 2.3 % (0.0-3.0); HEMATOCRIT 35.1 % (36.0-47.0); HEMOGLOBIN 10.3 g/dl (12.0-15.5); LYMPH # 0.9 10^3/uL (1.5-5.0); LYMPH % 13.3 % (24.0-44.0); MEAN CORPUSCULAR HEMOGLOBIN 29.9 pg (27.0-33.0); MEAN CORPUSCULAR HGB CONC 29.3 g/dl (32.0-36.5); MEAN CORPUSCULAR VOLUME 101.7 fl (80.0-96.0); MONO # 0.5 10^3/uL (0.0-0.8); MONO % 6.8 % (2.0-8.0); NEUTROPHILS # 5.3 10^3/uL (1.5-8.5); NEUTROPHILS % 76.6 % (36.0-66.0); PLATELET COUNT, AUTOMATED 384 10^3/uL (150-450); RED BLOOD COUNT 3.45 10^6/uL (4.00-5.40); WHITE BLOOD COUNT 6.9 10^3/uL (4.0-10.0)
[2024-05-28 16:37] LABS: INR 1.14; PROTHROMBIN TIME 14.3 SECONDS (12.5-14.5)
[2024-05-28 16:52] LABS: CALCIUM LEVEL 8.6 MG/DL (8.3-10.6); CREATININE FOR GFR 2.73 MG/DL (0.55-1.30); GLOMERULAR FILTRATION RATE 18.2 (>39); POTASSIUM SERUM 4.2 MMOL/L (3.5-5.1)
[2024-05-28 19:08] VITALS: BP 139/77; TEMP 97.3; O2SAT 94
== END 2024-05-28 19:09 | disposition home or self-care (01) ==
LOC: M ED 13:09
DX: Z43.6 Encounter for attention to other artificial openings of urinary tract (principal); I50.22 Chronic systolic (congestive) heart failure; J44.9 Chronic obstructive pulmonary disease, unspecified; K21.9 Gastro-esophageal reflux disease without esophagitis; G43.909 Migraine, unspecified, not intractable, without status migrainosus; F17.210 Nicotine dependence, cigarettes, uncomplicated; Z91.09 Other allergy status, other than to drugs and biological substances; Z79.1 Long term (current) use of non-steroidal anti-inflammatories (NSAID); Z79.51 Long term (current) use of inhaled steroids; Z79.899 Other long term (current) drug therapy

== ENCOUNTER 2024-06-04 15:10 | Outpatient (CLI) | payer MEDICARE, MEDICAID ==
[~2024-06-04] VITALS: Ht 162.6 cm; Wt 59.0 kg
[2024-06-04 15:10] VITALS: BP 160/50; O2SAT 93
[~2024-06-04 15:10] MED LIST changes: +ALBUTEROL SULFATE 2.5MG/0.5ML INH NEB SOLN INH PRN; +EPINEPHrine INJ 1 MG/ML 1ML AMP IM PRN; +NS 1,000 ML IV SCH; +TREL1AER; +diphenhydrAMINE 50MG/ML VIAL IV PRN; +methylPREDNISolone 125MG 2ML VIAL IV PRN
[2024-06-04] MEDS: diphenhydrAMINE 25MG PO PRIOR TO INFUSION PO ONE (15:23)
[2024-06-04] MEDS: ACETAMINOPHEN 650MG PO PRIOR TO INFUSION PO ONE (15:23)
[2024-06-04] MEDS: IRON SUCROSE 250 MG in NS 237.5 ML IV ONE (15:24)
[2024-06-04 16:30] VITALS: BP 127/75; O2SAT 98
== END 2024-06-04 16:40 ==
LOC: M INFU 15:10
PROVIDERS: ATTEND Physician Assistant Medical
DX: D50.8 Other iron deficiency anemias (principal); Z91.09 Other allergy status, other than to drugs and biological substances
CPT/HCPCS: 96365; J1756

== ENCOUNTER → 2024-07-06 | Outpatient (REF) | payer MEDICARE, MEDICAID ==
[~2024-07-06] MED LIST changes: -ALBUTEROL SULFATE 2.5MG/0.5ML INH NEB SOLN INH PRN; -EPINEPHrine INJ 1 MG/ML 1ML AMP IM PRN; -NS 1,000 ML IV SCH; +PRED20TA; -diphenhydrAMINE 50MG/ML VIAL IV PRN; -methylPREDNISolone 125MG 2ML VIAL IV PRN
[2024-07-06 13:50] LABS: INR 1.19; PARTIAL THROMBOPLASTIN TIME 33.6 SECONDS (24.8-34.2); PROTHROMBIN TIME 14.7 SECONDS (12.5-14.5)
== END ==
LOC: M SHH 13:09
PROVIDERS: ATTEND Internal Medicine Pulmonary Disease
DX: Z01.812 Encounter for preprocedural laboratory examination (principal); Z79.01 Long term (current) use of anticoagulants

== ENCOUNTER 2024-07-11 08:47 | Day surgery (SDC) | payer MEDICARE, MEDICAID ==
[~2024-07-11] VITALS: Ht 162.6 cm; Wt 63.4 kg
[2024-07-11] MEDS: CETACAINE SPRAY 5GM As Ordered ONE (07:15)
[~2024-07-11 08:47] MED LIST changes: +LIDOCAINE 2% 100MG/5ML SDV (FOR ANES.) As Ordered ONE; +MIDAZOLAM INJ 2MG/2ML VIAL As Ordered ONE; +ONDANSETRON 4MG 2ML VIAL As Ordered ONE; +ROCURONIUM BROMIDE 50MG/5ML VIAL As Ordered ONE; +SUGAMMADEX SODIUM 500 MG/5 ML VIAL (BRIDION) As Ordered ONE; +fentaNYL 100 MCG/2 ML INJECTION As Ordered ONE; +propofoL 200 MG/20 ML VIAL As Ordered ONE
[2024-07-11] MEDS ORDERED: LIDOCAINE 1% SDV 5ML VIAL SC PRN (09:40)
[2024-07-11] MEDS ORDERED: LR 1,000 ML IV SCH ×2 (09:40→11:10)
[2024-07-11] MEDS: EPINEPHrine 1MG/10ML SYRINGE 1.5IN As Ordered ONE (10:55)
[2024-07-11] MEDS ORDERED: fentaNYL 100 MCG/2 ML INJECTION IV PRN (11:10)
[2024-07-11] MEDS ORDERED: ONDANSETRON 4MG 2ML VIAL IV PRN (11:10)
[2024-07-11] MEDS ORDERED: oxyCODONE 5MG TAB PO PRN (11:10)
[2024-07-11] MEDS ORDERED: NALOXONE INJ 0.4MG/1ML VIAL As Ordered ONE (11:24)
[2024-07-11 12:20] VITALS: BP 152/76; TEMP 98.9; O2SAT 96
== END 2024-07-11 12:45 | disposition home or self-care (01) ==
LOC: M SDC 08:47
PROVIDERS: ATTEND Internal Medicine Pulmonary Disease
DX: R59.0 Localized enlarged lymph nodes (principal); G47.30 Sleep apnea, unspecified; R06.02 Shortness of breath; J30.1 Allergic rhinitis due to pollen; Z79.899 Other long term (current) drug therapy; Z87.891 Personal history of nicotine dependence
CPT/HCPCS: 31629; 31633; 31652; 71045; 88173; 88305; J1100; J2250; J2310; J2405; J3010

== ENCOUNTER → 2024-07-13 | Outpatient (REF) | payer MEDICARE, MEDICAID ==
[~2024-07-13] MED LIST changes: -LIDOCAINE 2% 100MG/5ML SDV (FOR ANES.) As Ordered ONE; -MIDAZOLAM INJ 2MG/2ML VIAL As Ordered ONE; -ONDANSETRON 4MG 2ML VIAL As Ordered ONE; -ROCURONIUM BROMIDE 50MG/5ML VIAL As Ordered ONE; -SUGAMMADEX SODIUM 500 MG/5 ML VIAL (BRIDION) As Ordered ONE; -fentaNYL 100 MCG/2 ML INJECTION As Ordered ONE; -propofoL 200 MG/20 ML VIAL As Ordered ONE
[2024-07-13 10:37] LABS: PLATELET COUNT, AUTOMATED 256 10^3/uL (150-450)
[2024-07-13 10:56] LABS: INR 1.09; PARTIAL THROMBOPLASTIN TIME 27.8 SECONDS (24.8-34.2); PROTHROMBIN TIME 13.8 SECONDS (12.5-14.5)
== END ==
LOC: M SHH 10:20
PROVIDERS: ATTEND Internal Medicine Pulmonary Disease
DX: Z01.812 Encounter for preprocedural laboratory examination (principal); Z79.01 Long term (current) use of anticoagulants

== ENCOUNTER → 2024-08-09 | Outpatient (REF) | payer MEDICARE, MEDICAID ==
[2024-08-09 14:49] LABS: BASO % 0.6 % (0.0-1.0); EOS # 0.1 10^3/uL (0.0-0.5); EOS % 1.4 % (0.0-3.0); HEMATOCRIT 35.6 % (36.0-47.0); LYMPH # 0.9 10^3/uL (1.5-5.0); LYMPH % 13.4 % (24.0-44.0); MEAN CORPUSCULAR HGB CONC 30.9 g/dl (32.0-36.5); MEAN CORPUSCULAR VOLUME 103.5 fl (80.0-96.0); MONO # 0.5 10^3/uL (0.0-0.8); MONO % 7.1 % (2.0-8.0); NEUTROPHILS # 4.8 10^3/uL (1.5-8.5); NEUTROPHILS % 76.1 % (36.0-66.0); PLATELET COUNT, AUTOMATED 254 10^3/uL (150-450); RED BLOOD COUNT 3.44 10^6/uL (4.00-5.40); WHITE BLOOD COUNT 6.3 10^3/uL (4.0-10.0)
[2024-08-09 15:12] LABS: ALBUMIN 3.7 G/DL (3.2-5.2); BILIRUBIN,TOTAL 0.2 MG/DL (0.3-1.2); CALCIUM LEVEL 8.6 MG/DL (8.3-10.6); CREATININE FOR GFR 2.71 MG/DL (0.55-1.30); GLOMERULAR FILTRATION RATE 18.3 (>39); TOTAL PROTEIN 7.2 G/DL (5.7-8.2)
[2024-08-09 15:15] LABS: FERRITIN 156.2 NG/ML (7.3-270.7)
== END ==
LOC: M SHH 14:23
PROVIDERS: ATTEND Physician Assistant Medical
DX: N18.4 Chronic kidney disease, stage 4 (severe) (principal); I50.20 Unspecified systolic (congestive) heart failure; D50.9 Iron deficiency anemia, unspecified

== ENCOUNTER → 2024-08-21 | Outpatient (REF) | payer MEDICARE, MEDICAID ==
[2024-08-21 14:06] LABS: ALBUMIN 3.4 G/DL (3.2-5.2); BILIRUBIN,TOTAL 0.6 MG/DL (0.3-1.2); CALCIUM LEVEL 8.8 MG/DL (8.3-10.6); CREATININE FOR GFR 2.74 MG/DL (0.55-1.30); GLOMERULAR FILTRATION RATE 18.1 (>39); POTASSIUM SERUM 4.3 MMOL/L (3.5-5.1); TOTAL PROTEIN 6.9 G/DL (5.7-8.2)
== END ==
LOC: M SHH 12:59
PROVIDERS: ATTEND Physician Assistant Medical
DX: N18.4 Chronic kidney disease, stage 4 (severe) (principal)

== ENCOUNTER → 2024-08-30 | Outpatient (CLI) | payer MEDICARE, MEDICAID ==
[~2024-08-30] MED LIST changes: +FERR325T3 PO; +GABA-1172 PO; -GABA-282 PO; +TORS5TAB2 PO; -TREL1AER; +TREL1AER INH
[2024-08-30 13:32] LABS: BASO % 0.5 % (0.0-1.0); EOS # 0.1 10^3/uL (0.0-0.5); EOS % 1.2 % (0.0-3.0); HEMATOCRIT 36.4 % (36.0-47.0); HEMOGLOBIN 10.8 g/dl (12.0-15.5); LYMPH # 0.7 10^3/uL (1.5-5.0); LYMPH % 8.7 % (24.0-44.0); MEAN CORPUSCULAR HEMOGLOBIN 31.8 pg (27.0-33.0); MEAN CORPUSCULAR HGB CONC 29.7 g/dl (32.0-36.5); MEAN CORPUSCULAR VOLUME 107.1 fl (80.0-96.0); MONO # 0.4 10^3/uL (0.0-0.8); NEUTROPHILS # 6.4 10^3/uL (1.5-8.5); NEUTROPHILS % 84.3 % (36.0-66.0); PLATELET COUNT, AUTOMATED 248 10^3/uL (150-450); WHITE BLOOD COUNT 7.6 10^3/uL (4.0-10.0)
[2024-08-30 14:03] LABS: CREATININE FOR GFR 2.71 MG/DL (0.55-1.30); GLOMERULAR FILTRATION RATE 18.3 (>39); MAGNESIUM LEVEL 2.4 MG/DL (1.8-2.4); POTASSIUM SERUM 4.6 MMOL/L (3.5-5.1)
[2024-08-30 14:04] LABS: FERRITIN 172.8 NG/ML (7.3-270.7)
== END ==
LOC: M PLALAB 12:08
PROVIDERS: ATTEND Physician Assistant Medical
DX: I50.20 Unspecified systolic (congestive) heart failure (principal)

== ENCOUNTER 2024-08-31 16:32 | Inpatient (IN) | payer MEDICARE, MEDICAID ==
[~2024-08-31] VITALS: Ht 162.6 cm; Wt 67.5 kg
[2024-08-31 11:55] VITALS: BP 129/78; TEMP 97.7; O2SAT 93
[~2024-08-31 16:32] MED LIST changes: -FERR325T3 PO; +FUROSEMIDE 40MG/4ML VIAL IV SCH; -TORS5TAB2 PO
[2024-08-31 17:27] LABS: VENOUS BASE EXCESS -8.8 (-2.0-2.0); VENOUS HCO3 18.3 MMOL/L (23.0-27.0); VENOUS O2 SATURATION 47.1 % (60.0-80.0); VENOUS PARTIAL PRESSURE CO2 44.2 mmHg (38.0-50.0); VENOUS PARTIAL PRESSURE O2 28.6 mmHg (30.0-50.0); VENOUS PH 7.235 UNITS (7.330-7.430); VENOUS STANDARD HCO3 16.5 MMOL/L; VENOUS TOTAL CO2 19.7 MMOL/L (24.0-28.0)
[2024-08-31 17:36] LABS: BASO # 0.1 10^3/uL (0.0-0.2); BASO % 0.8 % (0.0-1.0); EOS # 0.1 10^3/uL (0.0-0.5); EOS % 1.4 % (0.0-3.0); HEMATOCRIT 36.8 % (36.0-47.0); LYMPH # 0.8 10^3/uL (1.5-5.0); LYMPH % 12.6 % (24.0-44.0); MEAN CORPUSCULAR HEMOGLOBIN 31.6 pg (27.0-33.0); MEAN CORPUSCULAR HGB CONC 29.9 g/dl (32.0-36.5); MEAN CORPUSCULAR VOLUME 105.7 fl (80.0-96.0); MONO # 0.4 10^3/uL (0.0-0.8); MONO % 5.7 % (2.0-8.0); NEUTROPHILS # 5.2 10^3/uL (1.5-8.5); NEUTROPHILS % 79.3 % (36.0-66.0); PLATELET COUNT, AUTOMATED 265 10^3/uL (150-450); RED BLOOD COUNT 3.48 10^6/uL (4.00-5.40); WHITE BLOOD COUNT 6.5 10^3/uL (4.0-10.0)
[2024-08-31 17:44] LABS: INR 1.15; PROTHROMBIN TIME 14.4 SECONDS (12.5-14.5)
[2024-08-31 18:04] LABS: ALBUMIN 3.4 G/DL (3.2-5.2); BILIRUBIN,DIRECT 0.1 MG/DL (<0.4); BILIRUBIN,TOTAL 0.2 MG/DL (0.3-1.2); CALCIUM LEVEL 9.1 MG/DL (8.3-10.6); CK-MB VALUE MASS 2.2 NG/ML (<3.6); CREATININE FOR GFR 2.77 MG/DL (0.55-1.30); GLOMERULAR FILTRATION RATE 17.9 (>39); MB/CK RELATIVE INDEX 3.33 (< OR =4); POTASSIUM SERUM 4.9 MMOL/L (3.5-5.1); TOTAL PROTEIN 7.1 G/DL (5.7-8.2)
[2024-08-31] MEDS ORDERED: FERR325T3 PO (21:30)
[2024-08-31] MEDS ORDERED: TORS5TAB2 PO (21:31)
[2024-08-31] MEDS ORDERED: HOME MED LIST COMPLETE! XX SCH (21:35)
[2024-08-31] MEDS ORDERED: MOM 30ML SUSPENSION UDC PO PRN (21:40)
[2024-08-31] MEDS: IPRATROPIUM 0.5MG/ALBUTEROL 2.5MG INH SOL UD 3ML (DUONEB) NEB ONE (21:43)
[2024-08-31] MEDS: FUROSEMIDE 40MG/4ML VIAL IV ONE (21:48)
[2024-08-31] MEDS: ACETAMINOPHEN 325 MG TAB PO PRN (21:58)
[2024-09-01] MEDS: FUROSEMIDE 40MG/4ML VIAL IV ONE (01:55)
[2024-09-01] MEDS ORDERED: ALBUTEROL SULFATE 2.5MG/0.5ML INH NEB SOLN INH PRN (03:35)
[2024-09-01] MEDS: IPRATROPIUM 0.5MG/ALBUTEROL 2.5MG INH SOL UD 3ML (DUONEB) NEB ONE (03:43)
[2024-09-01 04:04] VITALS: BP 129/75; TEMP 97.5; O2SAT 93
[2024-09-01 05:28] LABS: HEMATOCRIT 33.7 % (36.0-47.0); HEMOGLOBIN 10.3 g/dl (12.0-15.5); MEAN CORPUSCULAR HGB CONC 30.6 g/dl (32.0-36.5); MEAN CORPUSCULAR VOLUME 104.7 fl (80.0-96.0); PLATELET COUNT, AUTOMATED 241 10^3/uL (150-450); RED BLOOD COUNT 3.22 10^6/uL (4.00-5.40); WHITE BLOOD COUNT 6.3 10^3/uL (4.0-10.0)
[2024-09-01 05:54] LABS: CALCIUM LEVEL 8.9 MG/DL (8.3-10.6); CREATININE FOR GFR 2.98 MG/DL (0.55-1.30); GLOMERULAR FILTRATION RATE 16.4 (>39); MAGNESIUM LEVEL 2.4 MG/DL (1.8-2.4); POTASSIUM SERUM 4.2 MMOL/L (3.5-5.1)
[2024-09-01] MEDS: ADVAIR HFA 115/21MCG INHALER INH SCH (08:16)
[2024-09-01] MEDS: TIOTROPIUM INHALER/CAPSULE (SPIRIVA) INH SCH (08:16)
[2024-09-01] MEDS: HEPARIN SOD (PORCINE) 5000UNITS/ML 1ML VIAL/SYRINGE SC SCH (08:22)
[2024-09-01] MEDS: FUROSEMIDE 40MG/4ML VIAL IV SCH (08:23)
[2024-09-01] MEDS: CLOPIDOGREL 75 MG TAB PO SCH (08:23)
[2024-09-01] MEDS: CYANOCOBALAMIN 500 MCG TAB PO SCH (08:24)
[2024-09-01] MEDS: ATORVASTATIN 20 MG TAB PO SCH (08:24)
[2024-09-01] MEDS: FERROUS SULFATE 325MG TAB PO SCH (08:24)
[2024-09-01] MEDS: VITAMIN D 1,000 INTERNATIONAL UNITS TABLET PO SCH (08:24)
[2024-09-01] MEDS ORDERED: PILL CUTTER 1 EACH XX ONE (08:38)
[2024-09-01 12:28] VITALS: BP 128/75; TEMP 97.5; O2SAT 94
[2024-09-01] MEDS: TORSEMIDE 20 MG TAB PO SCH (12:51)
[2024-09-01] MEDS: SODIUM BICARBONATE 325 MG TAB PO SCH (12:52)
[2024-09-01] MEDS: ANALGESIC BALM CRM 3OZ TOP PRN (16:37)
[2024-09-01] MEDS: IPRATROPIUM 0.5MG/ALBUTEROL 2.5MG INH SOL UD 3ML (DUONEB) NEB PRN (18:12)
[2024-09-01 20:19] VITALS: BP 131/75; TEMP 97.5; O2SAT 91
[2024-09-01] MEDS: rOPINIRole 0.25 MG TAB(REQUIP) PO SCH (21:04)
[2024-09-02 03:55] VITALS: BP 117/70; TEMP 97.2; O2SAT 92
[2024-09-02 06:53] LABS: PERCENT SATURATION 17.7 % (13.2-45.0)
[2024-09-02 08:43] LABS: CALCIUM LEVEL 8.8 MG/DL (8.3-10.6); CREATININE FOR GFR 3.18 MG/DL (0.55-1.30); GLOMERULAR FILTRATION RATE 15.2 (>39); MAGNESIUM LEVEL 2.3 MG/DL (1.8-2.4)
[2024-09-02 12:00] VITALS: BP 125/73; TEMP 97.3; O2SAT 92
[2024-09-02] MEDS: FERRIC CARBOXYMALTOSE INJ 750 MG, VIAL MATE ADAPTER 1 EACH in NS 100 ML IV ONE (14:27)
[2024-09-02 14:55] VITALS: BP 150/79; TEMP 97.5; O2SAT 90
[2024-09-02] MEDS: SODIUM BICARBONATE 325 MG TAB PO SCH (15:33)
[2024-09-02 21:10] VITALS: BP 139/74; TEMP 97.5; O2SAT 94
[2024-09-03 04:00] VITALS: BP 118/63; TEMP 97; O2SAT 92
[2024-09-03 06:45] LABS: CALCIUM LEVEL 9.2 MG/DL (8.3-10.6); CREATININE FOR GFR 3.29 MG/DL (0.55-1.30); GLOMERULAR FILTRATION RATE 14.6 (>39); MAGNESIUM LEVEL 2.2 MG/DL (1.8-2.4); POTASSIUM SERUM 3.6 MMOL/L (3.5-5.1)
[2024-09-03 09:35] VITALS: O2SAT 87
[2024-09-03 09:49] VITALS: O2SAT 94
[2024-09-03 11:41] VITALS: O2SAT 87
[2024-09-03 11:52] LABS: BASO % 0.3 % (0.0-1.0); EOS # 0.1 10^3/uL (0.0-0.5); EOS % 2.1 % (0.0-3.0); HEMOGLOBIN 10.8 g/dl (12.0-15.5); LYMPH # 0.9 10^3/uL (1.5-5.0); LYMPH % 14.8 % (24.0-44.0); MEAN CORPUSCULAR HEMOGLOBIN 32.2 pg (27.0-33.0); MEAN CORPUSCULAR HGB CONC 30.9 g/dl (32.0-36.5); MEAN CORPUSCULAR VOLUME 104.5 fl (80.0-96.0); MONO # 0.4 10^3/uL (0.0-0.8); MONO % 7.1 % (2.0-8.0); NEUTROPHILS # 4.3 10^3/uL (1.5-8.5); NEUTROPHILS % 75.5 % (36.0-66.0); PLATELET COUNT, AUTOMATED 260 10^3/uL (150-450); RED BLOOD COUNT 3.35 10^6/uL (4.00-5.40); WHITE BLOOD COUNT 5.8 10^3/uL (4.0-10.0)
[2024-09-03] MEDS: methylPREDNISolone 40MG 1ML VIAL IV STA (11:55)
[2024-09-03] MEDS: FIORICET TAB PO ONE (11:55)
[2024-09-03 12:00] VITALS: BP 138/65; TEMP 97.7; O2SAT 92
[2024-09-03 12:02] LABS: PROCALCITONIN 0.2 ng/ml
[2024-09-03] MEDS: LevoFLOXacin 750 MG TABLET PO ONE (13:02)
[2024-09-03] MEDS: IPRATROPIUM 0.5MG/ALBUTEROL 2.5MG INH SOL UD 3ML (DUONEB) NEB SCH (13:13)
[2024-09-03 20:00] VITALS: BP 146/65; TEMP 97.4; O2SAT 93
[2024-09-03] MEDS: BUDESONIDE 0.5 MG/2 ML INHALATION SUSPENSION NEB SCH (20:12)
[2024-09-04 04:00] VITALS: BP 137/57; TEMP 97.2; O2SAT 96
[2024-09-04 06:37] LABS: CALCIUM LEVEL 8.8 MG/DL (8.3-10.6); CREATININE FOR GFR 3.06 MG/DL (0.55-1.30); GLOMERULAR FILTRATION RATE 15.9 (>39); MAGNESIUM LEVEL 2.1 MG/DL (1.8-2.4); POTASSIUM SERUM 3.4 MMOL/L (3.5-5.1)
[2024-09-04 08:00] VITALS: BP 116/54; TEMP 97.5; O2SAT 96
[2024-09-04] MEDS: methylPREDNISolone 40MG 1ML VIAL IV SCH (08:09)
[2024-09-04 12:06] VITALS: BP 122/60; TEMP 97.5; O2SAT 93
[2024-09-04] MEDS: POTASSIUM CHLORIDE 10MEQ SR TABLET PO ONE (13:12)
[2024-09-04] MEDS: FIORICET TAB PO PRN (14:14)
[2024-09-04] MEDS: FLUTICASONE PROP 0.05% NASAL SPRAY 16 GM (FLONASE) NARES SCH (14:14)
[2024-09-04 20:34] VITALS: BP 156/82; TEMP 97.5; O2SAT 93
[2024-09-04 20:49] VITALS: BP 144/58
[2024-09-05 03:34] VITALS: BP 150/80; TEMP 97.3; O2SAT 93
[2024-09-05] MEDS: LevoFLOXacin 500 MG TABLET PO SCH (05:18)
[2024-09-05 06:48] LABS: CALCIUM LEVEL 8.9 MG/DL (8.3-10.6); CREATININE FOR GFR 3.08 MG/DL (0.55-1.30); GLOMERULAR FILTRATION RATE 15.8 (>39); MAGNESIUM LEVEL 2.2 MG/DL (1.8-2.4); POTASSIUM SERUM 3.5 MMOL/L (3.5-5.1)
[2024-09-05 09:00] VITALS: BP 124/78; TEMP 97.5; O2SAT 94
[2024-09-05] MEDS: POTASSIUM CHLORIDE 10MEQ SR TABLET PO ONE (10:20)
[2024-09-05 12:00] VITALS: BP 126/72; TEMP 97.3; O2SAT 94
[2024-09-05] MEDS: methylPREDNISolone 125MG 2ML VIAL IV SCH (15:23)
[2024-09-05 20:19] VITALS: BP 141/78; TEMP 97.5; O2SAT 95
[2024-09-06] MEDS ORDERED: FIORICET TAB PO ONE (01:00)
[2024-09-06] MEDS: SUMAtriptan SUCCINATE 25 MG TAB PO ONE (02:39)
[2024-09-06 03:53] VITALS: BP 136/71; TEMP 97.7; O2SAT 93
[2024-09-06 05:54] LABS: CALCIUM LEVEL 9.1 MG/DL (8.3-10.6); CREATININE FOR GFR 2.96 MG/DL (0.55-1.30); GLOMERULAR FILTRATION RATE 16.5 (>39); MAGNESIUM LEVEL 2.2 MG/DL (1.8-2.4); POTASSIUM SERUM 4.2 MMOL/L (3.5-5.1)
[2024-09-06 07:45] VITALS: O2SAT 95
[2024-09-06 08:30] VITALS: O2SAT 91
[2024-09-06 08:35] LABS: HEMATOCRIT 34.7 % (36.0-47.0); HEMOGLOBIN 10.5 g/dl (12.0-15.5); MEAN CORPUSCULAR HEMOGLOBIN 32.2 pg (27.0-33.0); MEAN CORPUSCULAR HGB CONC 30.3 g/dl (32.0-36.5); MEAN CORPUSCULAR VOLUME 106.4 fl (80.0-96.0); PLATELET COUNT, AUTOMATED 252 10^3/uL (150-450); RED BLOOD COUNT 3.26 10^6/uL (4.00-5.40); WHITE BLOOD COUNT 4.7 10^3/uL (4.0-10.0)
[2024-09-06 09:37] VITALS: O2SAT 85
[2024-09-06 12:00] VITALS: BP 105/68; TEMP 97.7; O2SAT 88
[2024-09-06 20:00] VITALS: BP 136/63; TEMP 97.9; O2SAT 90
[2024-09-06] MEDS: methylPREDNISolone 125MG 2ML VIAL IV SCH (20:59)
[2024-09-07 04:00] VITALS: BP 138/61; TEMP 97.3; O2SAT 97
[2024-09-07 06:16] LABS: CALCIUM LEVEL 9.1 MG/DL (8.3-10.6); CREATININE FOR GFR 3.06 MG/DL (0.55-1.30); GLOMERULAR FILTRATION RATE 15.9 (>39); MAGNESIUM LEVEL 2.3 MG/DL (1.8-2.4)
[2024-09-07] MEDS ORDERED: MIRALAX *UNIT DOSE* 17GM PACKET PO PRN (11:15)
[2024-09-07] MEDS ORDERED: SENNA 8.6 MG TAB (SENOKOT) PO PRN (11:15)
[2024-09-07] MEDS ORDERED: IPRA0.00 INH (11:49)
[2024-09-07] MEDS ORDERED: PRED20TA PO (11:49)
[2024-09-07 12:00] VITALS: BP 133/72; TEMP 97.7; O2SAT 93
[2024-09-07] MEDS: predniSONE 50 MG TAB PO ONE (12:01)
[2024-09-07 17:27] LABS: URINE STREP PNEUMONIAE ANTIGEN NOT DETECTED (NOT DETECT)
[2024-09-07] MEDS: FLUBLOK(EGGFREE) TRIVAL(24-25) VACCINE PF 0.5ML SYRINGE 18YRS & OLDER IM.IMMUN ONE (18:51)
[2024-09-07 20:00] VITALS: BP 128/73; TEMP 97.7; O2SAT 93
[2024-09-08 03:44] VITALS: BP 134/71; TEMP 97.9; O2SAT 95
[2024-09-08 06:20] LABS: CALCIUM LEVEL 8.9 MG/DL (8.3-10.6); CREATININE FOR GFR 2.94 MG/DL (0.55-1.30); GLOMERULAR FILTRATION RATE 16.7 (>39); MAGNESIUM LEVEL 2.3 MG/DL (1.8-2.4); POTASSIUM SERUM 3.7 MMOL/L (3.5-5.1)
[2024-09-08] MEDS ORDERED: TORS20TA2 PO ×2 (09:18→09:52)
[2024-09-08] MEDS ORDERED: SODI325T9 PO (09:18)
[2024-09-08] MEDS ORDERED: PRED10TA2 PO ×2 (09:18→09:52)
[2024-09-08] MEDS ORDERED: SODI650T PO (09:52)
[2024-09-08] MEDS: predniSONE 50 MG TAB PO SCH (09:57)
[2024-09-08 12:00] VITALS: BP 133/71; TEMP 97.5; O2SAT 94
== END 2024-09-08 12:56 | disposition home health service (06) | DRG 291 ==
LOC: EDBD 16:32 → M ED 16:32 → M ED INP 16:33 → M MSPAV 23:51 → OBSVTOIN 09-03 11:03
PROVIDERS: ADMIT Internal Medicine; ATTEND Student in an Organized Health Care Education/Training Program
DX: I13.0 Hypertensive heart and chronic kidney disease with heart failure and stage 1 through stage 4 chronic kidney disease, or unspecified chronic kidney disease (principal); I50.23 Acute on chronic systolic (congestive) heart failure; J18.9 Pneumonia, unspecified organism; J96.21 Acute and chronic respiratory failure with hypoxia; N18.4 Chronic kidney disease, stage 4 (severe); E87.22 Chronic metabolic acidosis; J44.0 Chronic obstructive pulmonary disease with (acute) lower respiratory infection; J44.1 Chronic obstructive pulmonary disease with (acute) exacerbation; C34.12 Malignant neoplasm of upper lobe, left bronchus or lung; N17.9 Acute kidney failure, unspecified; I27.20 Pulmonary hypertension, unspecified; J45.909 Unspecified asthma, uncomplicated; I73.9 Peripheral vascular disease, unspecified; E78.2 Mixed hyperlipidemia; K21.9 Gastro-esophageal reflux disease without esophagitis; G43.909 Migraine, unspecified, not intractable, without status migrainosus; N31.9 Neuromuscular dysfunction of bladder, unspecified; I25.5 Ischemic cardiomyopathy; R91.8 Other nonspecific abnormal finding of lung field; D50.9 Iron deficiency anemia, unspecified; R59.0 Localized enlarged lymph nodes; G25.81 Restless legs syndrome; Z99.81 Dependence on supplemental oxygen; Z79.02 Long term (current) use of antithrombotics/antiplatelets; Z79.899 Other long term (current) drug therapy; Z87.891 Personal history of nicotine dependence; Z95.820 Peripheral vascular angioplasty status with implants and grafts; Z90.49 Acquired absence of other specified parts of digestive tract

== ENCOUNTER → 2024-09-20 | Outpatient (REF) | payer MEDICARE, MEDICAID ==
[~2024-09-20] MED LIST changes: +FERR325T3 PO; -FUROSEMIDE 40MG/4ML VIAL IV SCH; +IPRA0.00 INH; +PRED20TA PO; +TORS20TA2 PO; +TORS5TAB2 PO
[2024-09-20 16:08] LABS: CALCIUM LEVEL 8.6 MG/DL (8.3-10.6); CREATININE FOR GFR 2.58 MG/DL (0.55-1.30); GLOMERULAR FILTRATION RATE 19.4 (>39); MAGNESIUM LEVEL 2.8 MG/DL (1.8-2.4); POTASSIUM SERUM 4.1 MMOL/L (3.5-5.1)
== END ==
LOC: M SHH 15:21
PROVIDERS: ATTEND Physician Assistant Medical
DX: N18.4 Chronic kidney disease, stage 4 (severe) (principal); I50.20 Unspecified systolic (congestive) heart failure

== ENCOUNTER → 2024-10-02 | Outpatient (CLI) | payer MEDICARE, MEDICAID ==
[~2024-10-02] MED LIST changes: -CYCL5TAB PO; +CYCL5TAB4 PO; +DOXY100T PO; +ELIQ5TAB PO
[2024-10-02 15:38] LABS: CALCIUM LEVEL 9.1 MG/DL (8.3-10.6); CREATININE FOR GFR 2.79 MG/DL (0.55-1.30); GLOMERULAR FILTRATION RATE 17.7 (>39); MAGNESIUM LEVEL 2.6 MG/DL (1.8-2.4); POTASSIUM SERUM 4.8 MMOL/L (3.5-5.1)
== END ==
LOC: M PLALAB 13:53
PROVIDERS: ATTEND Physician Assistant Medical
DX: N18.4 Chronic kidney disease, stage 4 (severe) (principal); I50.20 Unspecified systolic (congestive) heart failure

== ENCOUNTER → 2024-10-09 | Outpatient (REF) | payer MEDICARE, MEDICAID ==
[~2024-10-09] MED LIST changes: -DOXY100T PO; -ELIQ5TAB PO
[2024-10-09 14:18] LABS: ALBUMIN 3.4 G/DL (3.2-5.2); BILIRUBIN,TOTAL 0.3 MG/DL (0.3-1.2); CALCIUM LEVEL 9.2 MG/DL (8.3-10.6); CREATININE FOR GFR 2.97 MG/DL (0.55-1.30); GLOMERULAR FILTRATION RATE 16.5 (>39); MAGNESIUM LEVEL 2.4 MG/DL (1.8-2.4); POTASSIUM SERUM 4.3 MMOL/L (3.5-5.1); TOTAL PROTEIN 6.8 G/DL (5.7-8.2)
== END ==
LOC: M SHH 13:13
PROVIDERS: ATTEND Physician Assistant Medical
DX: I50.32 Chronic diastolic (congestive) heart failure (principal); N18.9 Chronic kidney disease, unspecified

== ENCOUNTER 2024-10-12 12:41 | Outpatient (RCR) | payer MEDICARE, MEDICAID ==
[2024-10-16] MEDS ORDERED: TORS20TA2 PO (16:10)
[2024-10-19] MEDS ORDERED: DOXY100T PO (09:54)
[2024-10-19] MEDS ORDERED: PRED10TA2 PO (09:54)
[2024-10-19] MEDS ORDERED: CEFD300CAP PO (09:54)
[2024-10-19] MEDS ORDERED: ELIQ5TAB PO ×2 (09:54→09:58)
[2024-10-19] MEDS ORDERED: TORS20TA2 PO (09:54)
== END 2024-10-20 ==
LOC: M ONCR 12:41
PROVIDERS: ATTEND General Practice
DX: Z51.0 Encounter for antineoplastic radiation therapy (principal); C34.12 Malignant neoplasm of upper lobe, left bronchus or lung

== ENCOUNTER 2024-10-16 12:20 | Inpatient (IN) | payer MEDICARE, MEDICAID ==
[~2024-10-16] VITALS: Ht 162.6 cm; Wt 71.0 kg
[2024-10-16 12:58] LABS: BASO % 0.4 % (0.0-1.0); EOS % 0.3 % (0.0-3.0); HEMATOCRIT 37.2 % (36.0-47.0); HEMOGLOBIN 11.8 g/dl (12.0-15.5); LYMPH # 0.4 10^3/uL (1.5-5.0); LYMPH % 3.6 % (24.0-44.0); MEAN CORPUSCULAR HEMOGLOBIN 32.5 pg (27.0-33.0); MEAN CORPUSCULAR HGB CONC 31.7 g/dl (32.0-36.5); MEAN CORPUSCULAR VOLUME 102.5 fl (80.0-96.0); MONO # 0.8 10^3/uL (0.0-0.8); MONO % 7.3 % (2.0-8.0); NEUTROPHILS # 9.1 10^3/uL (1.5-8.5); NEUTROPHILS % 87.7 % (36.0-66.0); PLATELET COUNT, AUTOMATED 219 10^3/uL (150-450); RED BLOOD COUNT 3.63 10^6/uL (4.00-5.40); WHITE BLOOD COUNT 10.4 10^3/uL (4.0-10.0)
[2024-10-16] MEDS ORDERED: fentaNYL 100 MCG/2 ML INJECTION IV PRN (13:00)
[2024-10-16 13:10] LABS: INR 1.08; PARTIAL THROMBOPLASTIN TIME 33.1 SECONDS (24.8-34.2); PROTHROMBIN TIME 14.3 SECONDS (12.5-14.5)
[2024-10-16 13:25] LABS: LIPASE 27 U/L (12-53)
[2024-10-16 13:27] LABS: CK-MB VALUE MASS < 1.0 NG/ML (<3.6)
[2024-10-16 13:28] LABS: ALBUMIN 3.2 G/DL (3.2-5.2); ALKALINE PHOSPHATASE 105 U/L (35-104); ALT/SGPT 12 U/L (7.0-40); AST/SGOT 11 U/L (<34); BILIRUBIN,DIRECT 0.2 MG/DL (<0.4); BILIRUBIN,TOTAL 0.5 MG/DL (0.3-1.2); BLOOD UREA NITROGEN 75 MG/DL (9-23); CARBON DIOXIDE LEVEL 24 MMOL/L (20-31); CHLORIDE LEVEL 107 MMOL/L (98-107); CREATININE FOR GFR 3.23 MG/DL (0.55-1.30); GLUCOSE, FASTING 149 MG/DL (74-106); MAGNESIUM LEVEL 2.3 MG/DL (1.8-2.4); PHOSPHORUS LEVEL 4.4 MG/DL (2.4-5.1); POTASSIUM SERUM 4.8 MMOL/L (3.5-5.1); SODIUM LEVEL 140 MMOL/L (136-145); TOTAL PROTEIN 6.5 G/DL (5.7-8.2)
[2024-10-16 13:31] LABS: THYROID STIMULATING HORMONE 0.912 uIU/ML (0.55-4.78)
[2024-10-16 13:32] LABS: FREE T4 1.07 NG/DL (0.89-1.76)
[2024-10-16 13:33] LABS: CPK CREATINE PHOSPHOKINASE 52 U/L (34-145); MB/CK RELATIVE INDEX 1.92 (< OR =4)
[2024-10-16] MEDS: IPRATROPIUM 0.5MG/ALBUTEROL 2.5MG INH SOL UD 3ML (DUONEB) NEB ONE (13:59)
[2024-10-16 14:19] LABS: CK-MB VALUE MASS < 1.0 NG/ML (<3.6); CPK CREATINE PHOSPHOKINASE 64 U/L (34-145); MB/CK RELATIVE INDEX 1.56 (< OR =4)
[2024-10-16] MEDS ORDERED: MOM 30ML SUSPENSION UDC PO PRN (15:15)
[2024-10-16] MEDS ORDERED: MAALOX 30 ML SUSP *UDC PO PRN (15:15)
[2024-10-16 16:00] LABS: PROCALCITONIN 0.43 ng/ml
[2024-10-16] MEDS ORDERED: TORS20TA2 PO (16:10)
[2024-10-16] MEDS ORDERED: HOME MED LIST COMPLETE! XX SCH (16:15)
[2024-10-16] MEDS: LevoFLOXacin IV 750 MG in IV 1 EA IV ONE (17:56)
[2024-10-16] MEDS: FUROSEMIDE 40MG/4ML VIAL IV SCH (17:56)
[2024-10-16] MEDS: ACETAMINOPHEN 325 MG TAB PO PRN (18:19)
[2024-10-16 20:35] VITALS: BP 121/59; TEMP 98.2; O2SAT 95
[2024-10-16] MEDS: ADVAIR HFA 115/21MCG INHALER INH SCH (20:50)
[2024-10-16] MEDS: ATORVASTATIN 20 MG TAB PO SCH (20:57)
[2024-10-16] MEDS: DOCUSATE SODIUM 100MG CAPSULE PO SCH (20:57)
[2024-10-16] MEDS: HEPARIN SOD (PORCINE) 5000UNITS/ML 1ML VIAL/SYRINGE SC SCH (21:00)
[2024-10-16] MEDS ORDERED: KETOROLAC 30 MG/ML 1ML VIAL IV ONE (22:00)
[2024-10-16] MEDS: SODIUM BICARBONATE 325 MG TAB PO SCH (22:01)
[2024-10-16] MEDS: rOPINIRole 0.25 MG TAB(REQUIP) PO SCH (22:01)
[2024-10-16] MEDS: NORCO, ANEXSIA 5/325MG TABLET (HYDROcodone/ACETAMINOPHEN) PO ONE (22:02)
[2024-10-16 23:09] VITALS: BP 125/56; TEMP 98; O2SAT 92
[2024-10-17] VITALS (17 sets, daily range): BP systolic 119–161; BP diastolic 56–98; PULSE 100; TEMP 96.8–98.6; O2SAT 92–97
[2024-10-17] MEDS: ACETAMINOPHEN 500 MG TAB PO ONE (04:13)
[2024-10-17 05:14] LABS: BASO % 0.5 % (0.0-1.0); EOS # 0.1 10^3/uL (0.0-0.5); EOS % 1.5 % (0.0-3.0); HEMATOCRIT 35.4 % (36.0-47.0); HEMOGLOBIN 11.1 g/dl (12.0-15.5); LYMPH # 0.4 10^3/uL (1.5-5.0); LYMPH % 6.4 % (24.0-44.0); MEAN CORPUSCULAR HEMOGLOBIN 32.6 pg (27.0-33.0); MEAN CORPUSCULAR HGB CONC 31.4 g/dl (32.0-36.5); MEAN CORPUSCULAR VOLUME 104.1 fl (80.0-96.0); MONO # 0.6 10^3/uL (0.0-0.8); MONO % 10.6 % (2.0-8.0); NEUTROPHILS # 4.8 10^3/uL (1.5-8.5); NEUTROPHILS % 80.5 % (36.0-66.0); PLATELET COUNT, AUTOMATED 193 10^3/uL (150-450)
[2024-10-17] MEDS: IPRATROPIUM 0.5MG/ALBUTEROL 2.5MG INH SOL UD 3ML (DUONEB) INH PRN (05:41)
[2024-10-17 05:43] LABS: ALBUMIN 2.9 G/DL (3.2-5.2); ALKALINE PHOSPHATASE 102 U/L (35-104); ALT/SGPT < 9 U/L (7.0-40); AST/SGOT < 8 U/L (<34); BILIRUBIN,TOTAL 0.4 MG/DL (0.3-1.2); BLOOD UREA NITROGEN 76 MG/DL (9-23); CARBON DIOXIDE LEVEL 26 MMOL/L (20-31); CHLORIDE LEVEL 103 MMOL/L (98-107); CREATININE FOR GFR 3.48 MG/DL (0.55-1.30); GLOMERULAR FILTRATION RATE 13.7 (>39); GLUCOSE, FASTING 108 MG/DL (74-106); MAGNESIUM LEVEL 2.4 MG/DL (1.8-2.4); POTASSIUM SERUM 4.3 MMOL/L (3.5-5.1); SODIUM LEVEL 139 MMOL/L (136-145); TOTAL PROTEIN 6.3 G/DL (5.7-8.2)
[2024-10-17] MEDS: ONDANSETRON 4MG TAB PO ONE (05:59)
[2024-10-17] MEDS ORDERED: METOCLOPRAMIDE 5 MG TAB PO ONE (06:00)
[2024-10-17] MEDS: TIOTROPIUM INHALER/CAPSULE (SPIRIVA) INH SCH (07:18)
[2024-10-17] MEDS: FERROUS SULFATE 325MG TAB PO SCH (08:22)
[2024-10-17] MEDS: CYANOCOBALAMIN 500 MCG TAB PO SCH (08:22)
[2024-10-17] MEDS: CLOPIDOGREL 75 MG TAB PO SCH (08:22)
[2024-10-17] MEDS: VITAMIN D 1,000 INTERNATIONAL UNITS TABLET PO SCH (08:22)
[2024-10-17] MEDS: LORATADINE 10 MG TAB PO SCH (08:22)
[2024-10-17] MEDS: FUROSEMIDE 40MG/4ML VIAL IV SCH (10:19)
[2024-10-17] MEDS ORDERED: NITROGLYCERIN 0.3MG SUBL TAB SL STA (13:37)
[2024-10-17] MEDS: APIXABAN 5 MG TAB (ELIQUIS) PO ONE (14:04)
[2024-10-17] MEDS: NITROGLYCERIN 0.4MG SUBL TABLET SL STA (14:05)
[2024-10-17] MEDS: NORCO, ANEXSIA 5/325MG TABLET (HYDROcodone/ACETAMINOPHEN) PO ONE (14:23)
[2024-10-17] MEDS: CEFEPIME HCL 1 GM in DEXTROSE 5% (D5W) ADV/MINI-BAG 50 ML IV SCH (15:05)
[2024-10-17] MEDS: DOXYCYCLINE HYCLATE 100 MG in DEXTROSE 5% (D5W) MINI-BAG PLU 100 ML IV SCH (16:29)
[2024-10-17] MEDS ORDERED: APIXABAN 5 MG TAB (ELIQUIS) PO SCH (21:00)
[2024-10-17] MEDS: ANEXSIA, NORCO 7.5MG/325MG TABLET(HYDROCODONE/APAP) PO ONE (21:36)
[2024-10-18] VITALS (27 sets, daily range): BP systolic 122–150; BP diastolic 60–81; TEMP 97.2–98.9; O2SAT 91–98
[2024-10-18 06:18] LABS: BASO % 0.4 % (0.0-1.0); EOS # 0.1 10^3/uL (0.0-0.5); EOS % 2.5 % (0.0-3.0); HEMATOCRIT 33.9 % (36.0-47.0); HEMOGLOBIN 10.5 g/dl (12.0-15.5); LYMPH # 0.5 10^3/uL (1.5-5.0); LYMPH % 8.9 % (24.0-44.0); MEAN CORPUSCULAR HEMOGLOBIN 32.7 pg (27.0-33.0); MEAN CORPUSCULAR VOLUME 105.6 fl (80.0-96.0); MONO # 0.5 10^3/uL (0.0-0.8); MONO % 9.2 % (2.0-8.0); NEUTROPHILS # 4.3 10^3/uL (1.5-8.5); NEUTROPHILS % 78.5 % (36.0-66.0); PLATELET COUNT, AUTOMATED 190 10^3/uL (150-450); RED BLOOD COUNT 3.21 10^6/uL (4.00-5.40); WHITE BLOOD COUNT 5.5 10^3/uL (4.0-10.0)
[2024-10-18 06:43] LABS: ALBUMIN 2.6 G/DL (3.2-5.2); ALKALINE PHOSPHATASE 109 U/L (35-104); ALT/SGPT 11 U/L (7.0-40); AST/SGOT < 8 U/L (<34); BILIRUBIN,TOTAL 0.2 MG/DL (0.3-1.2); BLOOD UREA NITROGEN 85 MG/DL (9-23); CALCIUM LEVEL 8.7 MG/DL (8.3-10.6); CARBON DIOXIDE LEVEL 24 MMOL/L (20-31); CHLORIDE LEVEL 103 MMOL/L (98-107); CREATININE FOR GFR 3.61 MG/DL (0.55-1.30); GLOMERULAR FILTRATION RATE 13.2 (>39); GLUCOSE, FASTING 173 MG/DL (74-106); MAGNESIUM LEVEL 2.4 MG/DL (1.8-2.4); POTASSIUM SERUM 3.7 MMOL/L (3.5-5.1); SODIUM LEVEL 139 MMOL/L (136-145); TOTAL PROTEIN 6.3 G/DL (5.7-8.2)
[2024-10-18] MEDS: APIXABAN 5 MG TAB (ELIQUIS) PO SCH (08:45)
[2024-10-18] MEDS: guaiFENesin ER TABLET 600 MG TAB PO SCH (08:47)
[2024-10-18] MEDS: CEFDINIR 300 MG CAP (OMNICEF) PO SCH (10:51)
[2024-10-18] MEDS: methylPREDNISolone 40MG 1ML VIAL IV SCH (12:21)
[2024-10-18] MEDS: NORCO, ANEXSIA 5/325MG TABLET (HYDROcodone/ACETAMINOPHEN) PO ONE (13:31)
[2024-10-18] MEDS: DOXYCYCLINE HYCLATE 100MG TABLET PO SCH (15:52)
[2024-10-18] MEDS ORDERED: LevoFLOXacin IV 500 MG in IV 1 EA IV SCH (17:00)
[2024-10-18] MEDS ORDERED: CEFDINIR 300 MG CAP (OMNICEF) PO SCH (21:00)
[2024-10-19 03:38] VITALS: BP 129/60; TEMP 98.2; O2SAT 92
[2024-10-19 06:48] LABS: BASO % 0.2 % (0.0-1.0); HEMATOCRIT 34.2 % (36.0-47.0); HEMOGLOBIN 10.6 g/dl (12.0-15.5); LYMPH # 0.1 10^3/uL (1.5-5.0); LYMPH % 2.3 % (24.0-44.0); MEAN CORPUSCULAR HEMOGLOBIN 32.3 pg (27.0-33.0); MEAN CORPUSCULAR VOLUME 104.3 fl (80.0-96.0); MONO % 0.5 % (2.0-8.0); NEUTROPHILS # 4.2 10^3/uL (1.5-8.5); NEUTROPHILS % 96.5 % (36.0-66.0); PLATELET COUNT, AUTOMATED 200 10^3/uL (150-450); RED BLOOD COUNT 3.28 10^6/uL (4.00-5.40); WHITE BLOOD COUNT 4.4 10^3/uL (4.0-10.0)
[2024-10-19 07:18] LABS: ALBUMIN 2.8 G/DL (3.2-5.2); ALKALINE PHOSPHATASE 123 U/L (35-104); ALT/SGPT 11 U/L (7.0-40); AST/SGOT < 8 U/L (<34); BILIRUBIN,TOTAL < 0.2 MG/DL (0.3-1.2); BLOOD UREA NITROGEN 90 MG/DL (9-23); CALCIUM LEVEL 9.2 MG/DL (8.3-10.6); CARBON DIOXIDE LEVEL 22 MMOL/L (20-31); CHLORIDE LEVEL 107 MMOL/L (98-107); CREATININE FOR GFR 3.53 MG/DL (0.55-1.30); GLOMERULAR FILTRATION RATE 13.5 (>39); GLUCOSE, FASTING 269 MG/DL (74-106); MAGNESIUM LEVEL 2.3 MG/DL (1.8-2.4); SODIUM LEVEL 140 MMOL/L (136-145); TOTAL PROTEIN 6.4 G/DL (5.7-8.2)
[2024-10-19] MEDS: LEVALBUTEROL HFA 45MCG/ACT 15GM INHALER INH PRN (07:55)
[2024-10-19 08:00] VITALS: BP 148/61; TEMP 98.1; O2SAT 95
[2024-10-19] MEDS: SENOKOT S TAB PO PRN (08:04)
[2024-10-19] MEDS: FUROSEMIDE 40MG/4ML VIAL IV SCH (08:12)
[2024-10-19] MEDS ORDERED: DOXY100T PO (09:54)
[2024-10-19] MEDS ORDERED: TORS20TA2 PO (09:54)
[2024-10-19] MEDS ORDERED: CEFD300CAP PO (09:54)
[2024-10-19] MEDS ORDERED: PRED10TA2 PO (09:54)
[2024-10-19] MEDS ORDERED: ELIQ5TAB PO ×2 (09:54→09:58)
[2024-10-19 09:55] VITALS: O2SAT 90
[2024-10-20] MEDS ORDERED: TORSEMIDE 20 MG TAB PO SCH (09:00)
== END 2024-10-19 12:25 | disposition home health service (06) | DRG 682 ==
LOC: M ED 12:20 → M ED INP 15:14 → M PCU 20:31
PROVIDERS: ADMIT Internal Medicine; ATTEND Internal Medicine
PROC: B246ZZZ Ultrasonography of Right and Left Heart (ICD-10-PCS; principal; 2024-10-17)
DX: N17.9 Acute kidney failure, unspecified (principal); I26.99 Other pulmonary embolism without acute cor pulmonale; J18.9 Pneumonia, unspecified organism; I50.23 Acute on chronic systolic (congestive) heart failure; I13.0 Hypertensive heart and chronic kidney disease with heart failure and stage 1 through stage 4 chronic kidney disease, or unspecified chronic kidney disease; M87.851 Other osteonecrosis, right femur; M87.852 Other osteonecrosis, left femur; C34.12 Malignant neoplasm of upper lobe, left bronchus or lung; J70.0 Acute pulmonary manifestations due to radiation; J44.0 Chronic obstructive pulmonary disease with (acute) lower respiratory infection; N18.4 Chronic kidney disease, stage 4 (severe); I27.20 Pulmonary hypertension, unspecified; I73.9 Peripheral vascular disease, unspecified; E78.5 Hyperlipidemia, unspecified; Z66 Do not resuscitate; J45.909 Unspecified asthma, uncomplicated; K21.9 Gastro-esophageal reflux disease without esophagitis; G25.81 Restless legs syndrome; N26.1 Atrophy of kidney (terminal); N20.0 Calculus of kidney; Z87.891 Personal history of nicotine dependence; Z79.02 Long term (current) use of antithrombotics/antiplatelets; Z79.52 Long term (current) use of systemic steroids; Z79.899 Other long term (current) drug therapy

== ENCOUNTER → 2024-10-29 | Outpatient (CLI) | payer MEDICARE, MEDICAID ==
[~2024-10-29] MED LIST changes: +DOXY100T PO; +ELIQ5TAB PO
[2024-10-29 15:34] LABS: BASO % 0.1 % (0.0-1.0); EOS % 0.2 % (0.0-3.0); HEMATOCRIT 37.6 % (36.0-47.0); HEMOGLOBIN 11.7 g/dl (12.0-15.5); LYMPH # 0.4 10^3/uL (1.5-5.0); LYMPH % 2.7 % (24.0-44.0); MEAN CORPUSCULAR HEMOGLOBIN 33.4 pg (27.0-33.0); MEAN CORPUSCULAR HGB CONC 31.1 g/dl (32.0-36.5); MEAN CORPUSCULAR VOLUME 107.4 fl (80.0-96.0); MONO # 0.6 10^3/uL (0.0-0.8); MONO % 4.1 % (2.0-8.0); NEUTROPHILS # 12.6 10^3/uL (1.5-8.5); NEUTROPHILS % 92.5 % (36.0-66.0); PLATELET COUNT, AUTOMATED 246 10^3/uL (150-450); WHITE BLOOD COUNT 13.6 10^3/uL (4.0-10.0)
[2024-10-29 15:58] LABS: ERYTHROCYTE SEDIMENTATION RATE 20 mm/hr (0-30)
[2024-10-29 16:04] LABS: C REACTIVE PROTEIN QUANTITATIV 0.55 MG/DL (<1.0)
[2024-10-29 16:05] LABS: ALBUMIN 3.4 G/DL (3.2-5.2); BILIRUBIN,TOTAL 0.3 MG/DL (0.3-1.2); CALCIUM LEVEL 9.1 MG/DL (8.3-10.6); CREATININE FOR GFR 2.58 MG/DL (0.55-1.30); GLOMERULAR FILTRATION RATE 19.4 (>39); POTASSIUM SERUM 4.5 MMOL/L (3.5-5.1); TOTAL PROTEIN 6.7 G/DL (5.7-8.2)
== END ==
LOC: M PLAIMG 11:54
PROVIDERS: ATTEND Physician Assistant Medical
DX: R06.02 Shortness of breath (principal); J70.0 Acute pulmonary manifestations due to radiation; I50.32 Chronic diastolic (congestive) heart failure; J90 Pleural effusion, not elsewhere classified; J18.9 Pneumonia, unspecified organism

== ENCOUNTER → 2024-10-30 | Outpatient (REF) | payer MEDICARE, MEDICAID ==
[2024-10-30 13:25] LABS: APPEARANCE, URINE CLOUDY (CLEAR); BACTERIA, URINE AUTO NEGATIVE (NEGATIVE); BILIRUBIN, URINE AUTO NEGATIVE (NEGATIVE); BLOOD, URINE BLOOD 2+ (NEGATIVE); COLOR, URINE YELLOW (YELLOW); GLUCOSE, URINE (UA) AUTO NEGATIVE (NEGATIVE); KETONE, URINE AUTO NEGATIVE (NEGATIVE); LEUKOCYTE ESTERASE, URINE AUTO 3+ (NEGATIVE); MUCUS, URINE SMALL (NEGATIVE); NITRITE, URINE AUTO NEGATIVE (NEGATIVE); PROTEIN, URINE AUTO 1+ mg/dL (NEGATIVE); RBC, URINE AUTO 14 /HPF (0-3); SQUAMOUS EPITHELIAL CELL UR AU 0 /HPF (0-6); UROBILINOGEN, URINE AUTO 0.2 mg/dL (0.0-2.0); WBC, URINE AUTO 144 /HPF (0-3)
== END ==
LOC: M SHH 12:40
PROVIDERS: ATTEND Physician Assistant Medical
DX: Z93.6 Other artificial openings of urinary tract status (principal)

== ENCOUNTER → 2024-11-13 | Outpatient (REF) | payer MEDICARE, MEDICAID ==
[2024-11-13 15:58] LABS: CREATININE FOR GFR 2.84 MG/DL (0.55-1.30); GLOMERULAR FILTRATION RATE 17.3 (>39); MAGNESIUM LEVEL 2.5 MG/DL (1.8-2.4)
== END ==
LOC: M SHH 15:15
PROVIDERS: ATTEND Family Medicine
DX: I50.9 Heart failure, unspecified (principal)

== ENCOUNTER → 2024-11-15 | Outpatient (REF) | payer MEDICARE, MEDICAID ==
[2024-11-15 15:27] LABS: CALCIUM LEVEL 8.5 MG/DL (8.3-10.6); CREATININE FOR GFR 2.92 MG/DL (0.55-1.30); GLOMERULAR FILTRATION RATE 16.8 (>39); MAGNESIUM LEVEL 2.4 MG/DL (1.8-2.4)
== END ==
LOC: M SHH 14:22
PROVIDERS: ATTEND Family Medicine
DX: I50.9 Heart failure, unspecified (principal)

== ENCOUNTER 2024-11-16 05:36 | Inpatient (IN) | payer MEDICARE, MEDICAID ==
[~2024-11-16] VITALS: Ht 162.6 cm; Wt 69.4 kg
[2024-11-16 06:08] LABS: BASO % 0.2 % (0.0-1.0); EOS % 0.1 % (0.0-3.0); HEMATOCRIT 35.5 % (36.0-47.0); LYMPH # 0.6 10^3/uL (1.5-5.0); MEAN CORPUSCULAR HEMOGLOBIN 33.5 pg (27.0-33.0); MEAN CORPUSCULAR VOLUME 108.2 fl (80.0-96.0); MONO # 0.7 10^3/uL (0.0-0.8); MONO % 5.9 % (2.0-8.0); NEUTROPHILS # 10.3 10^3/uL (1.5-8.5); NEUTROPHILS % 88.3 % (36.0-66.0); PLATELET COUNT, AUTOMATED 354 10^3/uL (150-450); RED BLOOD COUNT 3.28 10^6/uL (4.00-5.40); WHITE BLOOD COUNT 11.7 10^3/uL (4.0-10.0)
[2024-11-16] MEDS ORDERED: ALBU8.5H INH (06:12)
[2024-11-16] MEDS: IPRATROPIUM 0.5MG/ALBUTEROL 2.5MG INH SOL UD 3ML (DUONEB) NEB ONE ×2 (06:23→08:08)
[2024-11-16 06:37] LABS: ALBUMIN 3.3 G/DL (3.2-5.2); BILIRUBIN,DIRECT 0.1 MG/DL (<0.4); BILIRUBIN,TOTAL 0.3 MG/DL (0.3-1.2); CALCIUM LEVEL 8.8 MG/DL (8.3-10.6); CK-MB VALUE MASS 3.4 NG/ML (<3.6); CREATININE FOR GFR 3.21 MG/DL (0.55-1.30); GLOMERULAR FILTRATION RATE 15.1 (>39); MB/CK RELATIVE INDEX 5.96 (< OR =4); POTASSIUM SERUM 4.2 MMOL/L (3.5-5.1); TOTAL PROTEIN 7.2 G/DL (5.7-8.2)
[2024-11-16] MEDS: ACETAMINOPHEN 325 MG TAB PO ONE (07:55)
[2024-11-16 08:05] LABS: CK-MB VALUE MASS 3.3 NG/ML (<3.6)
[2024-11-16 08:06] LABS: MB/CK RELATIVE INDEX 6.11 (< OR =4)
[2024-11-16] MEDS: ALBUTEROL SULFATE 2.5MG/0.5ML INH NEB SOLN INH ONE ×2 (08:07→09:09)
[2024-11-16] MEDS: DOXYCYCLINE HYCLATE 100 MG in DEXTROSE 5% (D5W) MINI-BAG PLU 100 ML IV ONE (08:11)
[2024-11-16] MEDS: cefTRIAXone SOD 2 GM in DEXTROSE 5% (D5W) ADV/MINI-BAG 50 ML IV ONE (08:11)
[2024-11-16] MEDS: ASPIRIN 81MG CHEW TABLET PO ONE (08:50)
[2024-11-16 08:58] LABS: ABG BASE EXCESS -4.3 (-2.0-2.0); ABG HCO3 19.3 MMOL/L (22.0-26.0); ABG O2 SATURATION 95.1 % (95.0-99.0); ABG PARTIAL PRESSURE CO2 30.7 mmHg (35.0-45.0); ABG PARTIAL PRESSURE O2 75.5 mmHg (75.0-100.0); ABG STANDARD HCO3 20.9 MMOL/L. (22.0-26.0); ABG TOTAL CO2 20.3 MMOL/L (23.0-31.0); ABG pH (ARTERIAL) 7.417 UNITS (7.350-7.450)
[2024-11-16 09:42] LABS: CK-MB VALUE MASS 2.3 NG/ML (<3.6)
[2024-11-16 09:43] LABS: MB/CK RELATIVE INDEX 4.25 (< OR =4)
[2024-11-16] MEDS: NS (Normal Saline) 0.9% 1,000 ML IV ONE (10:00)
[2024-11-16] MEDS: methylPREDNISolone 125MG 2ML VIAL IV ONE (11:39)
[2024-11-16] MEDS: PANTOPRAZOLE 40MG VIAL IV SCH (12:28)
[2024-11-16] MEDS: LevoFLOXacin 750 MG TABLET PO ONE (12:28)
[2024-11-16 12:34] LABS: PROCALCITONIN 1.43 ng/ml
[2024-11-16] MEDS ORDERED: IPRATROPIUM 0.5MG/ALBUTEROL 2.5MG INH SOL UD 3ML (DUONEB) NEB PRN (12:35)
[2024-11-16 13:11] VITALS: BP 133/74; TEMP 97.5; O2SAT 93
[2024-11-16] MEDS ORDERED: PRED10TA2 PO (13:12)
[2024-11-16] MEDS ORDERED: ELIQ5TAB PO (13:12)
[2024-11-16] MEDS ORDERED: TORS20TA2 PO (13:12)
[2024-11-16] MEDS ORDERED: IPRA0.00 INH (13:12)
[2024-11-16] MEDS ORDERED: SODI650T PO (13:12)
[2024-11-16] MEDS ORDERED: HOME MED LIST COMPLETE! XX SCH (13:15)
[2024-11-16] MEDS: IPRATROPIUM 0.5MG/ALBUTEROL 2.5MG INH SOL UD 3ML (DUONEB) NEB SCH (15:07)
[2024-11-16] MEDS: ACETAMINOPHEN 325 MG TAB PO PRN (15:34)
[2024-11-16 15:58] VITALS: BP 137/65; TEMP 97.4; O2SAT 96
[2024-11-16 20:07] VITALS: BP 128/76; TEMP 98.8; O2SAT 97
[2024-11-16] MEDS: SODIUM BICARBONATE 325 MG TAB PO SCH (20:24)
[2024-11-16] MEDS: ATORVASTATIN 20 MG TAB PO SCH (20:24)
[2024-11-16] MEDS ORDERED: APIXABAN 5 MG TAB (ELIQUIS) PO SCH (21:00)
[2024-11-16] MEDS: rOPINIRole 0.25 MG TAB(REQUIP) PO SCH (21:07)
[2024-11-16] MEDS: HEPARIN SOD (PORCINE) 5000UNITS/ML 1ML VIAL/SYRINGE SQ SCH (21:07)
[2024-11-16] MEDS: ADVAIR HFA 115/21MCG INHALER INH SCH (21:27)
[2024-11-16 23:38] VITALS: BP 123/71; TEMP 97.6; O2SAT 97
[2024-11-17] VITALS (8 sets, daily range): BP systolic 107–130; BP diastolic 57–85; TEMP 97.4–98.9; O2SAT 90–96
[2024-11-17] MEDS ORDERED: methylPREDNISolone 40MG 1ML VIAL IV SCH ×2 (06:00)
[2024-11-17 06:02] LABS: BASO % 0.1 % (0.0-1.0); HEMATOCRIT 30.4 % (36.0-47.0); HEMOGLOBIN 9.3 g/dl (12.0-15.5); LYMPH # 0.2 10^3/uL (1.5-5.0); LYMPH % 2.2 % (24.0-44.0); MEAN CORPUSCULAR HEMOGLOBIN 32.6 pg (27.0-33.0); MEAN CORPUSCULAR HGB CONC 30.6 g/dl (32.0-36.5); MEAN CORPUSCULAR VOLUME 106.7 fl (80.0-96.0); MONO # 0.7 10^3/uL (0.0-0.8); MONO % 6.3 % (2.0-8.0); NEUTROPHILS # 9.5 10^3/uL (1.5-8.5); NEUTROPHILS % 90.9 % (36.0-66.0); PLATELET COUNT, AUTOMATED 259 10^3/uL (150-450); RED BLOOD COUNT 2.85 10^6/uL (4.00-5.40); WHITE BLOOD COUNT 10.4 10^3/uL (4.0-10.0)
[2024-11-17 06:25] LABS: CALCIUM LEVEL 8.7 MG/DL (8.3-10.6); CREATININE FOR GFR 2.95 MG/DL (0.55-1.30); GLOMERULAR FILTRATION RATE 16.6 (>39); MAGNESIUM LEVEL 2.3 MG/DL (1.8-2.4); POTASSIUM SERUM 4.3 MMOL/L (3.5-5.1)
[2024-11-17] MEDS: TIOTROPIUM INHALER/CAPSULE (SPIRIVA) INH SCH (07:52)
[2024-11-17] MEDS: VITAMIN D 1,000 INTERNATIONAL UNITS TABLET PO SCH (08:36)
[2024-11-17] MEDS: LORATADINE 10 MG TAB PO SCH (08:37)
[2024-11-17] MEDS: CLOPIDOGREL 75 MG TAB PO SCH (08:37)
[2024-11-17] MEDS: FERROUS SULFATE 325MG TAB PO SCH (08:37)
[2024-11-17] MEDS: CYANOCOBALAMIN 500 MCG TAB PO SCH (08:37)
[2024-11-17] MEDS: TORSEMIDE 20 MG TAB PO SCH (09:00)
[2024-11-17] MEDS: SERTRALINE HCL 25 MG TABLET PO SCH (10:24)
[2024-11-17 12:31] LABS: PERCENT SATURATION 10.5 % (13.2-45.0)
[2024-11-17] MEDS: METOPROLOL TART 25 MG TABLET PO ONE (19:30)
[2024-11-17] MEDS: SODIUM CHLORIDE NASAL 0.65% SPRAY BTL (OCEAN) SCH (20:06)
[2024-11-17] MEDS: ONDANSETRON 4MG 2ML VIAL IV ONE (20:06)
[2024-11-18] VITALS (7 sets, daily range): BP systolic 100–163; BP diastolic 57–91; TEMP 97.5–98.2; O2SAT 90–96
[2024-11-18] MEDS: LevoFLOXacin 500 MG TABLET PO SCH (05:00)
[2024-11-18 05:26] LABS: BASO % 0.1 % (0.0-1.0); EOS % 0.1 % (0.0-3.0); HEMATOCRIT 30.9 % (36.0-47.0); HEMOGLOBIN 9.6 g/dl (12.0-15.5); LYMPH # 0.5 10^3/uL (1.5-5.0); LYMPH % 5.7 % (24.0-44.0); MEAN CORPUSCULAR HEMOGLOBIN 32.9 pg (27.0-33.0); MEAN CORPUSCULAR HGB CONC 31.1 g/dl (32.0-36.5); MEAN CORPUSCULAR VOLUME 105.8 fl (80.0-96.0); MONO # 0.6 10^3/uL (0.0-0.8); MONO % 6.4 % (2.0-8.0); NEUTROPHILS # 8.2 10^3/uL (1.5-8.5); NEUTROPHILS % 87.3 % (36.0-66.0); PLATELET COUNT, AUTOMATED 264 10^3/uL (150-450); RED BLOOD COUNT 2.92 10^6/uL (4.00-5.40); WHITE BLOOD COUNT 9.4 10^3/uL (4.0-10.0)
[2024-11-18 05:44] LABS: CALCIUM LEVEL 8.8 MG/DL (8.3-10.6); CREATININE FOR GFR 2.89 MG/DL (0.55-1.30)
[2024-11-18] MEDS: ONDANSETRON 4MG 2ML VIAL IV PRN (09:08)
[2024-11-18] MEDS: guaiFENesin ER TABLET 600 MG TAB PO SCH (09:12)
[2024-11-18] MEDS: PANTOPRAZOLE 40MG TAB (PROTONIX) PO SCH (09:12)
[2024-11-18] MEDS: TORSEMIDE 20 MG TAB PO ONE (12:45)
[2024-11-18] MEDS: TORSEMIDE 10 MG TABLET PO SCH (17:24)
[2024-11-19] VITALS (29 sets, daily range): BP systolic 105–130; BP diastolic 60–74; TEMP 97–98; O2SAT 85–97
[2024-11-19 06:15] LABS: BASO % 0.2 % (0.0-1.0); EOS % 0.4 % (0.0-3.0); HEMATOCRIT 31.7 % (36.0-47.0); LYMPH # 0.4 10^3/uL (1.5-5.0); LYMPH % 3.9 % (24.0-44.0); MEAN CORPUSCULAR HEMOGLOBIN 32.9 pg (27.0-33.0); MEAN CORPUSCULAR HGB CONC 31.5 g/dl (32.0-36.5); MEAN CORPUSCULAR VOLUME 104.3 fl (80.0-96.0); MONO # 0.8 10^3/uL (0.0-0.8); MONO % 7.9 % (2.0-8.0); NEUTROPHILS # 8.7 10^3/uL (1.5-8.5); NEUTROPHILS % 87.1 % (36.0-66.0); PLATELET COUNT, AUTOMATED 305 10^3/uL (150-450); RED BLOOD COUNT 3.04 10^6/uL (4.00-5.40); WHITE BLOOD COUNT 9.9 10^3/uL (4.0-10.0)
[2024-11-19 06:41] LABS: CALCIUM LEVEL 8.5 MG/DL (8.3-10.6); CREATININE FOR GFR 3.06 MG/DL (0.55-1.30); GLOMERULAR FILTRATION RATE 15.9 (>39); POTASSIUM SERUM 3.4 MMOL/L (3.5-5.1)
[2024-11-19] MEDS: POTASSIUM CHLORIDE 10MEQ SR TABLET PO ONE (09:22)
[2024-11-19] MEDS: BUDESONIDE 0.5 MG/2 ML INHALATION SUSPENSION NEB SCH (11:32)
[2024-11-19] MEDS: methylPREDNISolone 40MG 1ML VIAL IV SCH (12:35)
[2024-11-19] MEDS: SCOPOLAMINE 1MG TRANSDERMAL PATCH TOP SCH (12:35)
[2024-11-19] MEDS: POTASSIUM CHLORIDE 10MEQ SR TABLET PO SCH (17:54)
[2024-11-20] VITALS (26 sets, daily range): BP systolic 137–165; BP diastolic 67–87; TEMP 97.3–97.6; O2SAT 85–98
[2024-11-20 06:42] LABS: HEMATOCRIT 32.5 % (36.0-47.0); HEMOGLOBIN 10.1 g/dl (12.0-15.5); LYMPH # 0.2 10^3/uL (1.5-5.0); LYMPH % 3.5 % (24.0-44.0); MEAN CORPUSCULAR HEMOGLOBIN 32.6 pg (27.0-33.0); MEAN CORPUSCULAR HGB CONC 31.1 g/dl (32.0-36.5); MEAN CORPUSCULAR VOLUME 104.8 fl (80.0-96.0); MONO # 0.1 10^3/uL (0.0-0.8); MONO % 1.6 % (2.0-8.0); NEUTROPHILS # 4.1 10^3/uL (1.5-8.5); NEUTROPHILS % 94.4 % (36.0-66.0); PLATELET COUNT, AUTOMATED 286 10^3/uL (150-450); WHITE BLOOD COUNT 4.3 10^3/uL (4.0-10.0)
[2024-11-20 07:17] LABS: CALCIUM LEVEL 8.8 MG/DL (8.3-10.6); CREATININE FOR GFR 3.31 MG/DL (0.55-1.30); GLOMERULAR FILTRATION RATE 14.5 (>39); POTASSIUM SERUM 5.2 MMOL/L (3.5-5.1)
[2024-11-20] MEDS: DOXYCYCLINE HYCLATE 100MG TABLET PO SCH (11:23)
[2024-11-20] MEDS: CEFDINIR 300 MG CAP (OMNICEF) PO SCH (11:23)
[2024-11-21] VITALS (13 sets, daily range): BP systolic 123–138; BP diastolic 71–75; TEMP 97.5–98.7; O2SAT 92–99
[2024-11-21 06:03] LABS: HEMOGLOBIN 9.9 g/dl (12.0-15.5); LYMPH # 0.2 10^3/uL (1.5-5.0); LYMPH % 1.8 % (24.0-44.0); MEAN CORPUSCULAR HGB CONC 31.9 g/dl (32.0-36.5); MEAN CORPUSCULAR VOLUME 103.3 fl (80.0-96.0); MONO # 0.2 10^3/uL (0.0-0.8); MONO % 2.7 % (2.0-8.0); NEUTROPHILS # 7.9 10^3/uL (1.5-8.5); NEUTROPHILS % 95.1 % (36.0-66.0); PLATELET COUNT, AUTOMATED 292 10^3/uL (150-450); WHITE BLOOD COUNT 8.3 10^3/uL (4.0-10.0)
[2024-11-21 06:28] LABS: CALCIUM LEVEL 8.7 MG/DL (8.3-10.6); CREATININE FOR GFR 3.49 MG/DL (0.55-1.30); GLOMERULAR FILTRATION RATE 13.7 (>39); POTASSIUM SERUM 4.2 MMOL/L (3.5-5.1)
[2024-11-21] MEDS: FERRIC CARBOXYMALTOSE INJ 750 MG, VIAL MATE ADAPTER 1 EACH in NS 100 ML IV ONE (15:59)
[2024-11-21] MEDS: MIRALAX *UNIT DOSE* 17GM PACKET PO SCH (16:02)
[2024-11-21] MEDS: SENOKOT S TAB PO SCH (21:53)
[2024-11-22] VITALS (10 sets, daily range): BP systolic 138–140; BP diastolic 82–86; TEMP 97.6–97.8; O2SAT 90–98
[2024-11-22 07:19] LABS: BASO % 0.1 % (0.0-1.0); HEMATOCRIT 31.1 % (36.0-47.0); HEMOGLOBIN 9.7 g/dl (12.0-15.5); LYMPH # 0.1 10^3/uL (1.5-5.0); LYMPH % 2.1 % (24.0-44.0); MEAN CORPUSCULAR HEMOGLOBIN 32.2 pg (27.0-33.0); MEAN CORPUSCULAR HGB CONC 31.2 g/dl (32.0-36.5); MEAN CORPUSCULAR VOLUME 103.3 fl (80.0-96.0); MONO # 0.2 10^3/uL (0.0-0.8); MONO % 3.1 % (2.0-8.0); NEUTROPHILS # 6.2 10^3/uL (1.5-8.5); NEUTROPHILS % 93.4 % (36.0-66.0); PLATELET COUNT, AUTOMATED 245 10^3/uL (150-450); RED BLOOD COUNT 3.01 10^6/uL (4.00-5.40); WHITE BLOOD COUNT 6.7 10^3/uL (4.0-10.0)
[2024-11-22 07:35] LABS: CALCIUM LEVEL 9.2 MG/DL (8.3-10.6); CREATININE FOR GFR 3.2 MG/DL (0.55-1.30); GLOMERULAR FILTRATION RATE 15.1 (>39); POTASSIUM SERUM 4.3 MMOL/L (3.5-5.1)
[2024-11-22] MEDS ORDERED: MIRALAX *UNIT DOSE* 17GM PACKET PO SCH (09:00)
[2024-11-22] MEDS: predniSONE 20 MG TAB PO SCH (09:48)
[2024-11-22] MEDS ORDERED: predniSONE 20 MG TAB PO SCH (10:00)
[2024-11-22] MEDS ORDERED: Sodium Chloride Nasal Spray (10:04)
[2024-11-22] MEDS ORDERED: PRED20TA PO ×2 (10:04→11:24)
[2024-11-22] MEDS ORDERED: TORS20TA2 PO (10:04)
[2024-11-22] MEDS ORDERED: ALBU8.5H INH (11:24)
[2024-11-25] MEDS ORDERED: predniSONE 50 MG TAB PO SCH (09:00)
[2024-11-28] MEDS ORDERED: predniSONE 20 MG TAB PO SCH (09:00)
[2024-12-01] MEDS ORDERED: predniSONE 10MG TAB PO SCH (09:00)
[2024-12-04] MEDS ORDERED: predniSONE 20 MG TAB PO SCH (09:00)
[2024-12-07] MEDS ORDERED: predniSONE 10MG TAB PO SCH (09:00)
[2025-11-16] MEDS ORDERED: methylPREDNISolone 40MG 1ML VIAL IV SCH (20:00)
== END 2024-11-22 12:43 | disposition home or self-care (01) | DRG 190 ==
LOC: M ED 05:36 → EDBD 05:36 → M ED INP 11:27 → M PCU 13:06
PROVIDERS: ADMIT Internal Medicine; ATTEND Internal Medicine
DX: J44.1 Chronic obstructive pulmonary disease with (acute) exacerbation (principal); J18.9 Pneumonia, unspecified organism; I50.22 Chronic systolic (congestive) heart failure; J70.0 Acute pulmonary manifestations due to radiation; N18.4 Chronic kidney disease, stage 4 (severe); I13.0 Hypertensive heart and chronic kidney disease with heart failure and stage 1 through stage 4 chronic kidney disease, or unspecified chronic kidney disease; C34.12 Malignant neoplasm of upper lobe, left bronchus or lung; C34.2 Malignant neoplasm of middle lobe, bronchus or lung; I24.89 Other forms of acute ischemic heart disease; E87.5 Hyperkalemia; I73.9 Peripheral vascular disease, unspecified; I25.10 Atherosclerotic heart disease of native coronary artery without angina pectoris; E78.5 Hyperlipidemia, unspecified; G25.81 Restless legs syndrome; Z66 Do not resuscitate; R94.31 Abnormal electrocardiogram [ECG] [EKG]; K21.9 Gastro-esophageal reflux disease without esophagitis; I27.20 Pulmonary hypertension, unspecified; N31.9 Neuromuscular dysfunction of bladder, unspecified; I27.22 Pulmonary hypertension due to left heart disease; F41.9 Anxiety disorder, unspecified; K59.00 Constipation, unspecified; J44.0 Chronic obstructive pulmonary disease with (acute) lower respiratory infection; R11.0 Nausea; D63.1 Anemia in chronic kidney disease; Y95 Nosocomial condition; Z99.81 Dependence on supplemental oxygen; Z86.711 Personal history of pulmonary embolism; Z87.891 Personal history of nicotine dependence; Z87.442 Personal history of urinary calculi; Z92.3 Personal history of irradiation

== ENCOUNTER 2024-12-04 14:00 | Inpatient (IN) | payer MEDICARE, MEDICAID ==
[~2024-12-04] VITALS: Ht 162.6 cm; Wt 68.9 kg
[~2024-12-04 14:00] MED LIST changes: +Sodium Chloride Nasal Spray
[2024-12-04 14:54] LABS: VENOUS BASE EXCESS -1.4 (-2.0-2.0); VENOUS HCO3 23.4 MMOL/L (23.0-27.0); VENOUS O2 SATURATION 92.7 % (60.0-80.0); VENOUS PARTIAL PRESSURE CO2 39.4 mmHg (38.0-50.0); VENOUS PARTIAL PRESSURE O2 68.8 mmHg (30.0-50.0); VENOUS PH 7.391 UNITS (7.330-7.430); VENOUS STANDARD HCO3 23.2 MMOL/L; VENOUS TOTAL CO2 24.6 MMOL/L (24.0-28.0)
[2024-12-04 14:58] LABS: BASO % 0.1 % (0.0-1.0); HEMATOCRIT 36.3 % (36.0-47.0); HEMOGLOBIN 11.4 g/dl (12.0-15.5); LYMPH # 0.2 10^3/uL (1.5-5.0); LYMPH % 1.4 % (24.0-44.0); MEAN CORPUSCULAR HEMOGLOBIN 33.6 pg (27.0-33.0); MEAN CORPUSCULAR HGB CONC 31.4 g/dl (32.0-36.5); MEAN CORPUSCULAR VOLUME 107.1 fl (80.0-96.0); MONO # 0.2 10^3/uL (0.0-0.8); NEUTROPHILS # 14.3 10^3/uL (1.5-8.5); NEUTROPHILS % 96.9 % (36.0-66.0); PLATELET COUNT, AUTOMATED 177 10^3/uL (150-450); RED BLOOD COUNT 3.39 10^6/uL (4.00-5.40); WHITE BLOOD COUNT 14.8 10^3/uL (4.0-10.0)
[2024-12-04 15:26] LABS: CK-MB VALUE MASS 4.3 NG/ML (<3.6)
[2024-12-04 15:28] LABS: MB/CK RELATIVE INDEX 8.77 (< OR =4)
[2024-12-04 15:30] LABS: FREE T4 1.2 NG/DL (0.89-1.76); THYROID STIMULATING HORMONE 0.711 uIU/ML (0.55-4.78)
[2024-12-04 15:32] LABS: ALBUMIN 3.3 G/DL (3.2-5.2); BILIRUBIN,DIRECT 0.1 MG/DL (<0.4); BILIRUBIN,TOTAL 0.3 MG/DL (0.3-1.2); CALCIUM LEVEL 7.7 MG/DL (8.3-10.6); CREATININE FOR GFR 2.65 MG/DL (0.55-1.30); GLOMERULAR FILTRATION RATE 18.8 (>39); POTASSIUM SERUM 5.1 MMOL/L (3.5-5.1); TOTAL PROTEIN 6.3 G/DL (5.7-8.2)
[2024-12-04 16:23] LABS: CK-MB VALUE MASS 4.5 NG/ML (<3.6)
[2024-12-04 16:25] LABS: MB/CK RELATIVE INDEX 9.18 (< OR =4)
[2024-12-04] MEDS: IPRATROPIUM 0.5MG/ALBUTEROL 2.5MG INH SOL UD 3ML (DUONEB) NEB ONE (17:30)
[2024-12-04] MEDS: PIPERACILLIN/TAZOBACTAM SOD 4.5 GM in DEXTROSE 5% (D5W) ADV/MINI-BAG 50 ML IV ONE (17:42)
[2024-12-04] MEDS ORDERED: HYDR-3363 PO (18:10)
[2024-12-04] MEDS ORDERED: TORS20TA2 PO (18:10)
[2024-12-04] MEDS ORDERED: HOME MED LIST COMPLETE! XX SCH (18:10)
[2024-12-04] MEDS ORDERED: ALBUTEROL 90 MCG/ACT 8GM HFA INHALER INH PRN (19:50)
[2024-12-04] MEDS: LEVALBUTEROL 1.25MG 0.5ML CONCENTRATE NEB INH SCH (20:00)
[2024-12-04] MEDS: ADVAIR HFA 230/21MCG INHALER INH SCH (20:00)
[2024-12-04] MEDS: ATORVASTATIN 20 MG TAB PO SCH (21:19)
[2024-12-04] MEDS: FUROSEMIDE 100MG/10ML VIAL IV ONE (21:19)
[2024-12-04] MEDS: METOPROLOL TART 12.5 MG PER 1/2 TAB PO SCH (21:26)
[2024-12-04] MEDS: rOPINIRole 0.25 MG TAB(REQUIP) PO SCH (21:34)
[2024-12-04] MEDS: SODIUM BICARBONATE 325 MG TAB PO SCH (21:34)
[2024-12-05] MEDS: TIOTROPIUM INHALER/CAPSULE (SPIRIVA) INH SCH (07:10)
[2024-12-05 08:09] LABS: HEMATOCRIT 36.7 % (36.0-47.0); HEMOGLOBIN 11.3 g/dl (12.0-15.5); LYMPH # 0.4 10^3/uL (1.5-5.0); MEAN CORPUSCULAR HEMOGLOBIN 33.3 pg (27.0-33.0); MEAN CORPUSCULAR HGB CONC 30.8 g/dl (32.0-36.5); MEAN CORPUSCULAR VOLUME 108.3 fl (80.0-96.0); MONO # 0.7 10^3/uL (0.0-0.8); MONO % 6.5 % (2.0-8.0); NEUTROPHILS # 9.1 10^3/uL (1.5-8.5); NEUTROPHILS % 88.9 % (36.0-66.0); PLATELET COUNT, AUTOMATED 168 10^3/uL (150-450); RED BLOOD COUNT 3.39 10^6/uL (4.00-5.40); WHITE BLOOD COUNT 10.2 10^3/uL (4.0-10.0)
[2024-12-05 08:45] LABS: CALCIUM LEVEL 8.2 MG/DL (8.3-10.6); CREATININE FOR GFR 2.93 MG/DL (0.55-1.30); GLOMERULAR FILTRATION RATE 16.7 (>39); POTASSIUM SERUM 4.8 MMOL/L (3.5-5.1)
[2024-12-05] MEDS: CLOPIDOGREL 75 MG TAB PO SCH (10:47)
[2024-12-05] MEDS: FERROUS SULFATE 325MG TAB PO SCH (10:47)
[2024-12-05] MEDS: CYANOCOBALAMIN 500 MCG TAB PO SCH (10:47)
[2024-12-05] MEDS: FUROSEMIDE 100MG/10ML VIAL IV SCH (10:47)
[2024-12-05] MEDS: LORATADINE 10 MG TAB PO SCH (10:47)
[2024-12-05] MEDS: VITAMIN D 1,000 INTERNATIONAL UNITS TABLET PO SCH (10:47)
[2024-12-05] MEDS: HEPARIN SOD (PORCINE) 5000UNITS/ML 1ML VIAL/SYRINGE SC SCH (10:48)
[2024-12-05] MEDS: METOPROLOL TART 25 MG TABLET PO SCH (10:55)
[2024-12-05] MEDS: predniSONE 5 MG TAB PO SCH (13:10)
[2024-12-05 13:53] VITALS: BP 124/69; TEMP 97.2; O2SAT 91
[2024-12-05 20:00] VITALS: BP 142/75; TEMP 97.9; O2SAT 92
[2024-12-05] MEDS: LEVALBUTEROL 1.25MG 0.5ML CONCENTRATE NEB INH SCH (20:00)
[2024-12-06 04:10] VITALS: BP 141/85; TEMP 97.7; O2SAT 98
[2024-12-06 05:14] LABS: BASO % 0.1 % (0.0-1.0); EOS % 0.2 % (0.0-3.0); HEMATOCRIT 35.6 % (36.0-47.0); HEMOGLOBIN 10.9 g/dl (12.0-15.5); LYMPH # 0.7 10^3/uL (1.5-5.0); LYMPH % 6.2 % (24.0-44.0); MEAN CORPUSCULAR HEMOGLOBIN 33.1 pg (27.0-33.0); MEAN CORPUSCULAR HGB CONC 30.6 g/dl (32.0-36.5); MEAN CORPUSCULAR VOLUME 108.2 fl (80.0-96.0); MONO # 0.7 10^3/uL (0.0-0.8); MONO % 6.6 % (2.0-8.0); NEUTROPHILS # 9.7 10^3/uL (1.5-8.5); NEUTROPHILS % 86.4 % (36.0-66.0); PLATELET COUNT, AUTOMATED 159 10^3/uL (150-450); RED BLOOD COUNT 3.29 10^6/uL (4.00-5.40); WHITE BLOOD COUNT 11.2 10^3/uL (4.0-10.0)
[2024-12-06 05:38] LABS: CALCIUM LEVEL 7.8 MG/DL (8.3-10.6); CREATININE FOR GFR 2.78 MG/DL (0.55-1.30); GLOMERULAR FILTRATION RATE 17.8 (>39); POTASSIUM SERUM 4.1 MMOL/L (3.5-5.1)
[2024-12-06 08:45] VITALS: BP 131/80
[2024-12-06 11:31] VITALS: BP 150/73; TEMP 97.9; O2SAT 92
[2024-12-06] MEDS ORDERED: METO1TAB87 PO (12:00)
[2024-12-06] MEDS ORDERED: METO5TA PO (12:04)
[2024-12-06] MEDS ORDERED: TORS20TA2 PO (12:04)
[2024-12-06] MEDS ORDERED: SODI650T PO (14:55)
[2024-12-06] MEDS ORDERED: CLOP75TA2 PO (14:55)
== END 2024-12-06 13:42 | disposition home health service (06) | DRG 291 ==
LOC: M ED 14:00 → EDBD 14:00 → M ED INP 19:48 → M MSPAV 12-05 13:56
PROVIDERS: ADMIT Internal Medicine Nephrology; ATTEND Internal Medicine Nephrology
DX: I13.0 Hypertensive heart and chronic kidney disease with heart failure and stage 1 through stage 4 chronic kidney disease, or unspecified chronic kidney disease (principal); I50.43 Acute on chronic combined systolic (congestive) and diastolic (congestive) heart failure; N18.4 Chronic kidney disease, stage 4 (severe); C34.12 Malignant neoplasm of upper lobe, left bronchus or lung; C34.2 Malignant neoplasm of middle lobe, bronchus or lung; J96.11 Chronic respiratory failure with hypoxia; E87.22 Chronic metabolic acidosis; J44.9 Chronic obstructive pulmonary disease, unspecified; I73.9 Peripheral vascular disease, unspecified; I27.20 Pulmonary hypertension, unspecified; I34.0 Nonrheumatic mitral (valve) insufficiency; E78.5 Hyperlipidemia, unspecified; K21.9 Gastro-esophageal reflux disease without esophagitis; K57.90 Diverticulosis of intestine, part unspecified, without perforation or abscess without bleeding; N32.81 Overactive bladder; Z87.891 Personal history of nicotine dependence; Z99.81 Dependence on supplemental oxygen; Z95.820 Peripheral vascular angioplasty status with implants and grafts; Z90.49 Acquired absence of other specified parts of digestive tract; Z79.02 Long term (current) use of antithrombotics/antiplatelets; Z79.899 Other long term (current) drug therapy; Z88.1 Allergy status to other antibiotic agents

== ENCOUNTER → 2024-12-31 | Outpatient (CLI) | payer MEDICARE, MEDICAID ==
[~2024-12-31] MED LIST changes: +HYDR-3363 PO; +METO1TAB87 PO; +METO5TA PO
== END ==
LOC: M EKG 15:20 → M LAB 15:20
PROVIDERS: ATTEND Internal Medicine Cardiovascular Disease
DX: I49.3 Ventricular premature depolarization (principal)

== ENCOUNTER → 2025-01-09 | Outpatient (CLI) | payer MEDICARE, MEDICAID | LOC: M RAD 10:48 | PROVIDERS: ATTEND General Practice | DX: C34.90 Malignant neoplasm of unspecified part of unspecified bronchus or lung (principal) ==

== ENCOUNTER → 2025-01-14 | Outpatient (REF) | payer MEDICARE, MEDICAID ==
[2025-01-14 14:08] LABS: BASO % 0.5 % (0.0-1.0); EOS # 0.2 10^3/uL (0.0-0.5); EOS % 3.8 % (0.0-3.0); HEMATOCRIT 35.9 % (36.0-47.0); HEMOGLOBIN 11.1 g/dl (12.0-15.5); LYMPH # 0.5 10^3/uL (1.5-5.0); LYMPH % 8.3 % (24.0-44.0); MEAN CORPUSCULAR HEMOGLOBIN 33.4 pg (27.0-33.0); MEAN CORPUSCULAR HGB CONC 30.9 g/dl (32.0-36.5); MEAN CORPUSCULAR VOLUME 108.1 fl (80.0-96.0); MONO # 0.4 10^3/uL (0.0-0.8); MONO % 7.4 % (2.0-8.0); NEUTROPHILS # 4.4 10^3/uL (1.5-8.5); NEUTROPHILS % 79.6 % (36.0-66.0); PLATELET COUNT, AUTOMATED 297 10^3/uL (150-450); RED BLOOD COUNT 3.32 10^6/uL (4.00-5.40); WHITE BLOOD COUNT 5.5 10^3/uL (4.0-10.0)
[2025-01-14 14:31] LABS: ALBUMIN 2.8 G/DL (3.2-5.2); BILIRUBIN,TOTAL 0.2 MG/DL (0.3-1.2); CALCIUM LEVEL 8.6 MG/DL (8.3-10.6); CREATININE FOR GFR 3.23 MG/DL (0.55-1.30); POTASSIUM SERUM 4.5 MMOL/L (3.5-5.1); TOTAL PROTEIN 6.6 G/DL (5.7-8.2)
== END ==
LOC: M SHH 12:46
PROVIDERS: ATTEND Physician Assistant Medical
DX: E87.20 Acidosis, unspecified (principal); N18.4 Chronic kidney disease, stage 4 (severe); J44.9 Chronic obstructive pulmonary disease, unspecified; I50.41 Acute combined systolic (congestive) and diastolic (congestive) heart failure; I50.22 Chronic systolic (congestive) heart failure

== ENCOUNTER → 2025-01-14 | Outpatient (REF) | payer MEDICARE, MEDICAID ==
[2025-01-14 15:35] LABS: ALBUMIN 2.8 G/DL (3.2-5.2); CALCIUM LEVEL 8.7 MG/DL (8.3-10.6); CREATININE FOR GFR 3.22 MG/DL (0.55-1.30); MAGNESIUM LEVEL 2.3 MG/DL (1.8-2.4); PHOSPHORUS LEVEL 5.3 MG/DL (2.4-5.1); POTASSIUM SERUM 4.5 MMOL/L (3.5-5.1)
== END ==
LOC: M SHH 12:45
PROVIDERS: ATTEND Internal Medicine Cardiovascular Disease
DX: I50.22 Chronic systolic (congestive) heart failure (principal)

== ENCOUNTER → 2025-01-16 | Outpatient (CLI) | payer MEDICARE, MEDICAID | LOC: M ONCR 12:34 | PROVIDERS: ATTEND General Practice | DX: C34.12 Malignant neoplasm of upper lobe, left bronchus or lung (principal); C34.2 Malignant neoplasm of middle lobe, bronchus or lung; Z87.891 Personal history of nicotine dependence; Z92.3 Personal history of irradiation; Z88.1 Allergy status to other antibiotic agents; J30.89 Other allergic rhinitis; Z79.02 Long term (current) use of antithrombotics/antiplatelets; Z79.51 Long term (current) use of inhaled steroids; Z79.899 Other long term (current) drug therapy ==

== ENCOUNTER → 2025-01-23 | Outpatient (REF) | payer MEDICARE ==
[2025-01-23 17:59] LABS: APPEARANCE, URINE HAZY (CLEAR); BACTERIA, URINE AUTO NEGATIVE (NEGATIVE); BILIRUBIN, URINE AUTO NEGATIVE (NEGATIVE); BLOOD, URINE BLOOD 1+ (NEGATIVE); COLOR, URINE YELLOW (YELLOW); GLUCOSE, URINE (UA) AUTO NEGATIVE (NEGATIVE); KETONE, URINE AUTO NEGATIVE (NEGATIVE); LEUKOCYTE ESTERASE, URINE AUTO 3+ (NEGATIVE); NITRITE, URINE AUTO NEGATIVE (NEGATIVE); PROTEIN, URINE AUTO 2+ mg/dL (NEGATIVE); RBC, URINE AUTO 13 /HPF (0-3); SPECIFIC GRAVITY URINE AUTO 1.012 (1.002-1.035); SQUAMOUS EPITHELIAL CELL UR AU 0 /HPF (0-6); UROBILINOGEN, URINE AUTO 0.2 mg/dL (0.0-2.0); WBC, URINE AUTO 169 /HPF (0-3)
[2025-01-23 18:46] LABS: CALCIUM LEVEL 8.8 MG/DL (8.3-10.6); CREATININE FOR GFR 3.14 MG/DL (0.55-1.30); GLOMERULAR FILTRATION RATE 15.4 (>39); POTASSIUM SERUM 4.1 MMOL/L (3.5-5.1)
[2025-01-23 18:48] LABS: FERRITIN 506.9 NG/ML (7.3-270.7)
[2025-01-23 19:02] LABS: BASO # 0.1 10^3/uL (0.0-0.2); BASO % 0.6 % (0.0-1.0); EOS # 0.1 10^3/uL (0.0-0.5); EOS % 1.8 % (0.0-3.0); HEMATOCRIT 33.7 % (36.0-47.0); HEMOGLOBIN 10.3 g/dl (12.0-15.5); LYMPH # 0.8 10^3/uL (1.5-5.0); LYMPH % 10.4 % (24.0-44.0); MEAN CORPUSCULAR HEMOGLOBIN 32.6 pg (27.0-33.0); MEAN CORPUSCULAR HGB CONC 30.6 g/dl (32.0-36.5); MEAN CORPUSCULAR VOLUME 106.6 fl (80.0-96.0); MONO # 0.7 10^3/uL (0.0-0.8); MONO % 9.4 % (2.0-8.0); NEUTROPHILS # 6.1 10^3/uL (1.5-8.5); NEUTROPHILS % 77.4 % (36.0-66.0); PLATELET COUNT, AUTOMATED 271 10^3/uL (150-450); RED BLOOD COUNT 3.16 10^6/uL (4.00-5.40); WHITE BLOOD COUNT 7.9 10^3/uL (4.0-10.0)
== END ==
LOC: M SFHCPLAZ 15:02
PROVIDERS: ATTEND Physician Assistant Medical
DX: R82.90 Unspecified abnormal findings in urine (principal); D50.8 Other iron deficiency anemias

== ENCOUNTER → 2025-01-29 | Outpatient (CLI) | payer MEDICARE ==
[2025-01-29 12:36] LABS: ALBUMIN 3.2 G/DL (3.2-5.2); CALCIUM LEVEL 8.7 MG/DL (8.3-10.6); CREATININE FOR GFR 3.41 MG/DL (0.55-1.30); PHOSPHORUS LEVEL 5.3 MG/DL (2.4-5.1); POTASSIUM SERUM 4.2 MMOL/L (3.5-5.1)
== END ==
LOC: M PLALAB 08:22
PROVIDERS: ATTEND Registered Nurse
DX: I50.22 Chronic systolic (congestive) heart failure (principal)

== ENCOUNTER → 2025-02-04 | Outpatient (REF) | payer MEDICARE, MEDICAID ==
[2025-02-04 14:18] LABS: ALBUMIN 3.4 G/DL (3.2-5.2); CREATININE FOR GFR 3.89 MG/DL (0.55-1.30); GLOMERULAR FILTRATION RATE 12.1 (>39); PHOSPHORUS LEVEL 8.7 MG/DL (2.4-5.1); POTASSIUM SERUM 4.4 MMOL/L (3.5-5.1)
== END ==
LOC: M SHH 13:17
PROVIDERS: ATTEND Registered Nurse
DX: I50.22 Chronic systolic (congestive) heart failure (principal)

== ENCOUNTER → 2025-02-12 | Outpatient (CLI) | payer MEDICARE, MEDICAID ==
[2025-02-12 11:32] LABS: ALBUMIN 3.7 G/DL (3.2-5.2); CALCIUM LEVEL 9.7 MG/DL (8.3-10.6); CREATININE FOR GFR 4.23 MG/DL (0.55-1.30); MAGNESIUM LEVEL 2.2 MG/DL (1.8-2.4); PHOSPHORUS LEVEL 6.3 MG/DL (2.4-5.1); POTASSIUM SERUM 3.1 MMOL/L (3.5-5.1)
== END ==
LOC: M PLALAB 08:13
PROVIDERS: ATTEND Registered Nurse
DX: I50.22 Chronic systolic (congestive) heart failure (principal)

== ENCOUNTER → 2025-02-18 | Outpatient (REF) | payer MEDICARE, MEDICAID ==
[2025-02-18 13:49] LABS: BASO % 0.6 % (0.0-1.0); EOS # 0.1 10^3/uL (0.0-0.5); EOS % 0.9 % (0.0-3.0); HEMATOCRIT 34.4 % (36.0-47.0); HEMOGLOBIN 10.7 g/dl (12.0-15.5); LYMPH # 0.7 10^3/uL (1.5-5.0); LYMPH % 10.6 % (24.0-44.0); MEAN CORPUSCULAR HEMOGLOBIN 32.7 pg (27.0-33.0); MEAN CORPUSCULAR HGB CONC 31.1 g/dl (32.0-36.5); MEAN CORPUSCULAR VOLUME 105.2 fl (80.0-96.0); MONO # 0.5 10^3/uL (0.0-0.8); MONO % 7.4 % (2.0-8.0); NEUTROPHILS # 5.4 10^3/uL (1.5-8.5); NEUTROPHILS % 80.1 % (36.0-66.0); PLATELET COUNT, AUTOMATED 251 10^3/uL (150-450); RED BLOOD COUNT 3.27 10^6/uL (4.00-5.40); WHITE BLOOD COUNT 6.8 10^3/uL (4.0-10.0)
[2025-02-18 14:09] LABS: URIC ACID 11.6 MG/DL (3.1-7.8)
[2025-02-18 14:19] LABS: ALBUMIN 3.2 G/DL (3.2-5.2); CALCIUM LEVEL 8.4 MG/DL (8.3-10.6); CREATININE FOR GFR 3.77 MG/DL (0.55-1.30); GLOMERULAR FILTRATION RATE 12.5 (>39); PHOSPHORUS LEVEL 4.8 MG/DL (2.4-5.1); POTASSIUM SERUM 3.3 MMOL/L (3.5-5.1)
== END ==
LOC: M SHH 13:27
PROVIDERS: ATTEND Internal Medicine Nephrology
DX: N18.5 Chronic kidney disease, stage 5 (principal); D63.1 Anemia in chronic kidney disease; N17.9 Acute kidney failure, unspecified

== ENCOUNTER → 2025-08-07 | Outpatient (CLI) | payer MEDICARE, MEDICAID | LOC: M PLAIMG 11:00 | PROVIDERS: ATTEND General Practice | DX: C34.90 Malignant neoplasm of unspecified part of unspecified bronchus or lung (principal) ==